=== PATIENT | male | born 1945 | race Caucasian/White ===

== ENCOUNTER 2016-07-05 20:30 | Emergency (ER) | payer MEDICARE ==
[2016-07-05 21:19] LABS: CH 32.3; CHCM 33.8; HCT 44.9 % (39.0-53.0); HDW 2.62; HGB 15.1 gm/dL (13.0-17.5); MCH 32.3 pg (25.0-35.0); MCHC 33.7 g/dL (31.0-37.0); MCV 95.8 fL (80.0-100.0); Mean Platelet Volume 7.3; RBC 4.68 m/uL (4.30-5.90); RDW 13.7 % (11.5-15.5); WBC (Perox) 13.09
--- NOTE | 2016-07-05 21:24 | XR ---
EXAMINATION TYPE: XR chest 2V DATE OF EXAM: 07/05/2016 9:19 PM COMPARISON: 10/14/2015 HISTORY: Rib pain and coughing TECHNIQUE: Frontal and lateral views of the chest are obtained. FINDINGS: There is elevated right diaphragm. There is no heart failure. Heart size is normal. There are no hilar masses. Bony thorax appears intact. IMPRESSION: There is chronic elevated right diaphragm with no change compared to old exam. This coul d relate to paralysis. There is probably interposition of the hepatic flexure of the colon. Normal he art. No rib fracture seen.
--- NOTE | 2016-07-05 21:26 | ED ---
General Adult HPI - General Chief complaint: Abdominal Pain Stated complaint: Abd Pain Time Seen by Provider: 07/05/16 20:39 Source: patient, family, RN notes reviewed, old records reviewed Mode of arrival: ambulatory Limitations: no limitations - History of Present Illness Initial comments: 70-year-old male presenting for right lower anterolateral rib pain. Patient states that he was sick last week with a cough. States that these symptoms have resolved. However he has developed right lower rib pain over the past few days. This is made worse with deep inspiration. He denies any significant abdominal pain. However he does state that he has some baseline constipation although this is not worsened. He denies any substernal chest pain. States he was also mainly concerned because he has been told twice over the past 6 weeks that he has had an elevated white blood cell count level in the outpatient testing. States he wants to know what the cause of this is. He denies any chest pain or shortness of breath. - Related Data Home Medications Medication Instructions Recorded Confirmed Aspirin 81 mg PO QAM 07/28/13 07/05/16 Atorvastatin Calcium [Lipitor] 40 mg PO HS 07/28/13 07/05/16 Citalopram Hydrobromide [CeleXA] 20 mg PO HS 07/28/13 07/05/16 Clopidogrel [Plavix] 75 mg PO QAM 07/28/13 07/05/16 Famotidine [Pepcid] 20 mg PO QAM 07/28/13 07/05/16 Lisinopril [Zestril] 2.5 mg PO HS 07/28/13 07/05/16 Nitroglycerin Sl Tabs [Nitrostat] 0.4 mg SUBLINGUAL Q5M PRN 07/28/13 07/05/16 Albuterol Sulfate [Proair Hfa] 2 puff INHALATION RT-QID 07/30/13 07/05/16 Beclomethasone Dipropionate [Qvar 1 puff INHALATION RT-BID 08/02/13 07/05/16 80 mcg/puff] Montelukast [Singulair] 10 mg PO HS 08/02/13 07/05/16 Fluticasone Nasal [place] [Flonase 1 spray EA NOSTRIL DAILY PRN 07/05/16 07/05/16 Nasal [place]] Metoprolol Tartrate [Lopressor] 12.5 mg PO BID 07/05/16 07/05/16 Allergies Allergy/AdvReac Type Severity Reaction Status Date / Time No Known Allergies Allergy Verified 07/05/16 21:26 Review of Systems ROS Statement: Those systems with pertinent positive or pertinent negative responses have been documented in the HPI. ROS Other: All systems not noted in ROS Statement are negative. Past Medical History Past Medical History: Asthma, Chest Pain / Angina, COPD, CVA/TIA, GERD/Reflux, Skin Disorder, Sleep Apnea/CPAP/BIPAP Additional Past Medical History / Comment(s): TIA approx 1996, psoriasis, History of Any Multi-Drug Resistant Organisms: None Reported Past Surgical History: Heart Catheterization With Stent, Tonsillectomy Additional Past Surgical History / Comment(s): 3 cardiac stents, metal removed from left hand, gokul cataracts with lens implant, polyps removed nasal Past Anesthesia/Blood Transfusion Reactions: No Reported Reaction Date of Last Stent Placement:: approx 7 yrs ago Past Psychological History: No Psychological Hx Reported Smoking Status: Former smoker Past Alcohol Use History: None Reported Additional Past Alcohol Use History / Comment(s): started smoking as teen for 5 yrs- quit smoking age 22 Past Drug Use History: None Reported - Past Family History Mother Family Medical History: No Reported History General Exam - General Exam Comments Initial Comments: General: Awake and Alert. No acute distress. Does not appear acutely ill. Eyes: DOMITILA, EOM intact. No nystagmus. No scleral icterus. HENT: Atraumatic, normocephalic. Mucous membranes moist. Trachea midline. Neck: The neck is supple, there is no tenderness or JVD. Cardiovascular: Regular rate and rhythm. No murmur, rub, or gallop is appreciated. Distal pulses intact. Respiratory: Lungs are clear to auscultation bilaterally. No wheezes, rales, rhonchi. No respiratory distress. Gastrointestinal: Soft, Nontender. No rebound or guarding. Non-distended. No masses or organomegaly noted. No CVA tenderness. Musculoskeletal: Point tenderness to right lower anterolateral rib. Otherwise MSK exam with no tenderness. Normal ROM. No gross deformity. No strength deficits. Neurological: A&Ox3. CN II-XII grossly intact, There are no obvious motor or sensory deficits. Coordination appears grossly intact. Speech is normal. Skin: Skin is warm and dry and no rashes or lesions are noted. Psychiatric: Cooperative, appropriate mood & affect, normal judgment. Limitations: no limitations Course Vital Signs 07/05/16 20:34 Temperature 98.4 F Pulse Rate 100 Respiratory 20 Rate Blood Pressure 133/95 O2 Sat by Pulse 96 Oximetry EKG Findings - EKG Comments: EKG Findings:: EKG 21:01. Normal sinus rhythm. Rate 93. Normal axis. No STEMI. Normal EKG. Medical Decision Making - Medical Decision Making 70-year-old male presenting for right lower anterolateral rib pain. This pain is reproducible on exam. Patient states he had a cough this past week which has resolved. Patient denies any substernal chest pressure. Contrary to triage note, he denies any abdominal pain. Abdominal exam is benign without evidence of tenderness or peritonitis. Lab workup was performed with mild leukocytosis, although this is nonspecific. In the setting of chronic elevation per patient history, etiology is unknown. I discussed this with patient. Discussed nonspecific nature of white blood cell elevation and need for further follow-up by PCP. Discussed lower suspicion of acute infectious etiology at this time. Chest x-ray was performed with no acute process, chronic right hemidiaphragm elevation was noted. Discussed that his right rib pain is likely secondary to musculoskeletal cause after his recent cough. Recommend Tylenol for pain management. Patient otherwise denies any significant complaints at this time. Does not appear to require further workup. Low suspicion of ACS or PE at this time. Patient declined any pain medication the ED. Discussed concerning signs symptoms for immediate return to the ED. Patient is agreeable with plan and discharge home. - Lab Data Result diagrams: 07/05/16 21:10 07/05/16 21:10 Lab Results 07/05/16 07/05/16 Range/Units 21:10 21:10 WBC 13.0 H (3.8-10.6) k/uL RBC 4.68 (4.30-5.90) m/uL Hgb 15.1 (13.0-17.5) gm/dL Hct 44.9 (39.0-53.0) % MCV 95.8 (80.0-100.0) fL MCH 32.3 (25.0-35.0) pg MCHC 33.7 (31.0-37.0) g/dL RDW 13.7 (11.5-15.5) % Plt Count 225 (150-450) k/uL Neutrophils % (Manual) 36.0 % Lymphocytes % (Manual) 45.0 % Monocytes % (Manual) 11.0 % Eosinophils % (Manual) 8.0 % Neutrophils # (Manual) 4.7 (1.3-7.7) k/uL Lymphocytes # (Manual) 5.9 H (1.0-4.8) k/uL Monocytes # (Manual) 1.4 H (0-1.0) k/uL Eosinophils # (Manual) 1.0 H (0-0.7) k/uL Nucleated RBCs 0 (0-0) /100 WBC Manual Slide Review Performed Reactive Lymphocytes Present Sodium 140 (137-145) mmol/L Potassium 3.8 (3.5-5.1) mmol/L Chloride 103 (98-107) mmol/L Carbon Dioxide 28 (22-30) mmol/L Anion Gap 9 mmol/L BUN 14 (9-20) mg/dL Creatinine 0.80 (0.66-1.25) mg/dL Est GFR (MDRD) Af Amer >60 (>60 ml/min/1.73 sqM) Est GFR (MDRD) Non-Af >60 (>60 ml/min/1.73 sqM) Glucose 141 H (74-99) mg/dL Calcium 9.2 (8.4-10.2) mg/dL Total Bilirubin 0.9 (0.2-1.3) mg/dL AST 27 (17-59) U/L ALT 33 (21-72) U/L Alkaline Phosphatase 89 (38-126) U/L Total Protein 6.6 (6.3-8.2) g/dL Albumin 3.8 (3.5-5.0) g/dL Lipase 140 (23-300) U/L - EKG Data -: EKG Interpreted by Nm EKG shows normal: sinus rhythm Rate: normal - Radiology Data Radiology results: report reviewed, image reviewed Disposition Clinical Impression: Rib pain on right side, Leukocytosis Disposition: HOME SELF-CARE Condition: Stable Instructions: Costochondritis (ED) Additional Instructions: Please follow up with your regular doctor to follow your elevated white blood cell count. You may take Tylenol for pain as needed. Referrals: Chadd Stuart MD [Primary Care Provider] - 1-2 days Time of Disposition: 22:19
[2016-07-05 21:29] LABS: ALT 33 U/L (21-72); AST 27 U/L (17-59); Alkaline Phosphatase 89 U/L (38-126); Anion Gap 9 mmol/L; Blood Urea Nitrogen 14 mg/dL (9-20); Calcium 9.2 mg/dL (8.4-10.2); Carbon Dioxide 28 mmol/L (22-30); Chloride 103 mmol/L (98-107); Glucose 141 mg/dL (74-99); Non-African American GFR(MDRD) >60 (>60 ml/min/1.73 sqM); Potassium 3.8 mmol/L (3.5-5.1); Sodium 140 mmol/L (137-145); Total Bilirubin 0.9 mg/dL (0.2-1.3); Total Protein 6.6 g/dL (6.3-8.2)
[2016-07-05 21:58] LABS: Add Differential Manual Differential
[2016-07-05 21:59] LABS: Manual Review Performed; Nucleated Red Blood Cells 0 /100 WBC (0-0); Reactive Lymphocytes Present; Total Cells Counted 100
[2016-07-05 22:43] VITALS: BP 142/93; PULSE 94; RESP 18; TEMP 97.8
== END 2016-07-05 22:42 | disposition home or self-care (01) ==
LOC: EC 20:30
DX: R07.81 Pleurodynia (principal); D72.829 Elevated white blood cell count, unspecified; J45.909 Unspecified asthma, uncomplicated; K21.9 Gastro-esophageal reflux disease without esophagitis; Z86.73 Personal history of transient ischemic attack (TIA), and cerebral infarction without residual deficits; Z87.891 Personal history of nicotine dependence; Z79.51 Long term (current) use of inhaled steroids; Z79.82 Long term (current) use of aspirin; Z79.01 Long term (current) use of anticoagulants; Z79.899 Other long term (current) drug therapy
CPT/HCPCS: 36415; 71020; 80053; 83690; 85025; 93005; 99284

== ENCOUNTER → 2016-12-03 | Outpatient (CLI) | payer MEDICARE ==
--- NOTE | 2016-12-03 10:37 | ECHOF ---
Referral Reason:I25.10 atherosclerotic heart dis MEASUREMENTS -------- HEIGHT: 172.7 cm WEIGHT: 84.8 kg BP: 125/70 IVSd: 1.2 cm (0.6 - 1.1) LVIDd: 5.1 cm (3.9 - 5.3) LVPWd: 1.1 cm (0.6 - 1.1) IVSs: 1.2 cm LVIDs: 4.7 cm LVPWs: 1.1 cm Ao Diam: 3.7 cm (2.0 - 3.7) AV Cusp: 1.0 cm (1.5 - 2.6) MV EXCURSION: 13.883 mm (> 18.000) MV EF SLOPE: 48 mm/s (70 - 150) EPSS: 2.1 cm MV E Arturo: 0.68 m/s MV DecT: 266 ms MV A Arturo: 0.87 m/s MV E/A Ratio: 0.78 AV maxP.92 mmHg AV meanP.28 mmHg AR PHT: 546 ms RAP: 5.00 mmHg RVSP: 16.53 mmHg FINDINGS -------- Sinus rhythm. This was a technically adequate study. There is mild concentric left ventricular hypertrophy. Overall left ventricular systolic function is low-normal with, an EF between 50 - 55 %. The right ventricle is normal in size. The right atrial size is normal. There is moderate aortic valve sclerosis. There is moderate aortic regurgitation. Moderate to severe aortic stenosis with peak/mean pressure gradient of 59.92mmHg / 41.28mmHg, the aortic valve area by continuity equation is 0.8cm. Mild mitral regurgitation is present. Mild tricuspid regurgitation present. There is no evidence of pulmonary hypertension. The right ventricular systolic pressure, as measured by Doppler, is 16.53mmHg. Trace/mild (physiologic) pulmonic regurgitation. The aortic root size is normal. There is no pericardial effusion. CONCLUSIONS -------- 1. There is mild concentric left ventricular hypertrophy. 2. Trace/mild (physiologic) pulmonic regurgitation. 3. The aortic root size is normal. 4. There is no pericardial effusion. 5. Overall left ventricular systolic function is low-normal with, an EF between 50 - 55 %. 6. There is moderate aortic valve sclerosis. 7. There is moderate aortic regurgitation. 8. Moderate to severe aortic stenosis with peak/mean pressure gradient of 59.92mmHg / 41.28mmHg, the aortic valve area by continuity equation is 0.8cm. 9. Mild mitral regurgitation is present. 10. Mild tricuspid regurgitation present. 11. There is no evidence of pulmonary hypertension. 12. The right ventricular systolic pressure, as measured by Doppler, is 16.53mmHg. SENIOR ELECTRONICS TECHNICIAN: Jennifer Reeves RDCS
== END | disposition home or self-care (01) ==
LOC: RADECHMAIN 08:13
PROVIDERS: ATTEND Internal Medicine Geriatric Medicine
DX: I08.3 Combined rheumatic disorders of mitral, aortic and tricuspid valves (principal); I25.10 Atherosclerotic heart disease of native coronary artery without angina pectoris
CPT/HCPCS: 93306

== ENCOUNTER 2017-01-20 10:58 | Day surgery (SDC) | payer MEDICARE ==
[2017-01-13 12:00] VITALS: BMI 28.4
[~2017-01-20 10:58] MED LIST: ALPRAZolam 0.25 MG TAB PO PRN; ALPRAZolam 0.5 MG TAB PO PRN; ASPIRIN 325 MG TAB PO STA; ATORVASTATIN 80 MG TAB PO STA; NITROGLYCERIN SL TABS 0.4 MG TAB SUBLINGUAL PRN; SODIUM CHLORIDE 0.9% 1,000 ML in EMPTY BAG 1 BAG IV ONE
[2017-01-20] MEDS ORDERED: ASPIRIN 81 MG ONE (11:19)
[2017-01-20 11:25] VITALS: RESP 16; TEMP 98
[2017-01-20] MEDS ORDERED: SODIUM CHLORIDE 0.9% 1,000 ML IV ONE (11:37)
[2017-01-20 11:50] LABS: Anion Gap 9 mmol/L; Blood Urea Nitrogen 20 mg/dL (9-20); Calcium 9.4 mg/dL (8.4-10.2); Carbon Dioxide 24 mmol/L (22-30); Chloride 107 mmol/L (98-107); Glucose 79 mg/dL (74-99); Non-African American GFR(MDRD) >60 (>60 ml/min/1.73 sqM); Sodium 140 mmol/L (137-145)
[2017-01-20 11:52] LABS: Potassium 4.7 mmol/L (3.5-5.1)
[2017-01-20] MEDS ORDERED: MIDAZOLAM 2 MG/2 ML VIAL ONE (12:11)
[2017-01-20] MEDS ORDERED: fentaNYL (PF) 50 MCG/ML 2 ML AMP ONE (12:11)
[2017-01-20] MEDS: BENZOCAINE SPRAY 1 CAN MUCOUS MEM ONE ×2 (12:29→12:33)
[2017-01-20] MEDS ORDERED: MIDAZOLAM 2 MG/2 ML VIAL IV ONE (12:33)
[2017-01-20] MEDS: MIDAZOLAM 2 MG/2 ML VIAL IV ONE ×2 (12:37→12:39)
[2017-01-20] MEDS ORDERED: fentaNYL (PF) 50 MCG/ML 2 ML AMP IV ONE (12:39)
[2017-01-20] MEDS ORDERED: PROPOFOL 10 MG/ML 20 ML VIAL IV ONE (12:51)
[2017-01-20] MEDS ORDERED: ePHEDrine SULFATE/0.9% NACL/PF 50 MG/5 ML SYRINGE IV ONE (12:51)
[2017-01-20] MEDS ORDERED: LIDOCAINE 2% INJ 20 MG/ML (20 ML MDV) ONE (13:21)
[2017-01-20] MEDS ORDERED: IV FLUID CONTINUATION 1,000 ML IV ONE (13:28)
[2017-01-20] MEDS: LIDOCAINE 2% INJ 20 MG/ML SQ ONE ×2 (13:32→13:42)
[2017-01-20] MEDS ORDERED: IOHEXOL 350 MG/ML 125ML BOTTLE INJ ONE (13:42)
--- NOTE | 2017-01-20 13:49 | ECHOT ---
TRANSESOPHAGEAL ECHOCARDIOGRAM DATE OF SERVICE: 01/20/2017 PERFORMING PHYSICIAN: Patrick Ricardo MD, Safety Associate. PROCEDURE PERFORMED: Transesophageal echocardiogram. INDICATION: This is a pleasant 71-year-old gentleman who was experiencing shortness of breath as well as fatigue. He underwent transthoracic echocardiogram and that revealed evidence of moderate aortic regurgitation and severe aortic stenosis. He was brought today for further clarification. LEVEL OF SEDATION: The sedation was performed under general anesthesia with a PAPERBOARD BOX MAKER in the room. PROCEDURE DESCRIPTION: After obtaining an informed consent, explaining the procedure, benefits, risks, complications and alternatives, the patient was brought to the transesophageal echocardiogram suite. A pulse oximetry and heart rate monitors were attached to the patient prior to the procedure. The patient's throat was sprayed using lidocaine locally. Following that, the patient was turned into left lateral position. A bite guard was placed and the patient was then sedated with the above doses of Versed and fentanyl in divided doses. Following that, the transesophageal echocardiogram probe was advanced through the bite guard into the mid esophagus where 2-D echocardiogram images as well as color Doppler images of various cardiac structures were obtained. We evaluated the interatrial septum using 2-D echocardiogram, color Doppler, and contrast study. The procedure was completed. There were no complications. FINDINGS: The left ventricular dimension and systolic function appeared to be within normal limits. The ejection fraction about 55% with A normal wall motion. The right ventricle is mildly dilated. The left atrium is mildly dilated as well as the right atrium. The left atrial appendage appeared to be free from any thrombus. The interatrial septum appeared to be intact without any evidence of shunt. The aortic valve is thickened and calcified with restriction to opening and evidence of severe aortic stenosis by area which was 1 cm2 and gradient which was mean of 42 mmHg. The mitral valve seems to be also mildly thickened with mild MR. CONCLUSION: 1. Aortic sclerosis with evidence of severe aortic stenosis by area and gradient as well as moderate aortic insufficiency. 2. Thickened mitral valve leaflets with mild mitral regurgitation. 3. Normal tricuspid valve and pulmonic valve. 4. Normal left ventricular dimension and systolic function. 5. Mild concentric left ventricular hypertrophy. 6. Normal interatrial septum without any evidence of shunt. 7. Normal left atrial appendage. 8. No evidence of pericardial effusion. MMODL / IJN: [id number] /
[2017-01-20] MEDS ORDERED: RX INFO: IV CONTRAST WAS GIVEN 1 EACH MISC MISCELLANE PRN (13:50)
[2017-01-20] MEDS ORDERED: SODIUM CHLORIDE 0.9% 1,000 ML IV SCH (14:00)
--- NOTE | 2017-01-20 14:49 | CC ---
CARDIAC CATHETERIZATION REPORT DATE OF SERVICE: January 20, 2017 PERFORMING PHYSICIAN: Patrick Ricardo MD, foundry supervisor. PROCEDURE PERFORMED: Selective right and left coronary angiogram. INDICATION: This is a pleasant 71-year-old gentleman who was brought today to undergo transesophageal echocardiogram and heart catheterization for severe aortic stenosis by transthoracic echocardiogram. APPROACH: Right common femoral artery. COMPLICATION: None. LEVEL OF SEDATION: Moderate with sedation length of 15 minutes. PROCEDURE DESCRIPTION: After obtaining informed consent, the patient was brought to cardiac dental laboratory manager. The right common femoral artery was cannulated using micropuncture technique and a micropuncture wire passed easily. Then I placed a 6-[place] sheath in the right common femoral artery. After that, I did selective right and left coronary angiogram using JR4 and JL-4 catheters. After that, the procedure was completed without any complication. SELECTIVE CORONARY ANGIOGRAM: 1. The RCA is a large caliber vessel and it is a dominant vessel. The proximal RCA has mild disease only. The mid RCA is stented and the stent is patent. The distal RCA is angiographically normal and bifurcates into PDA and PLV branches both are angiographically normal. 2. The left main is angiographically normal. It bifurcates into the circumflex and left anterior descending artery. The left circumflex is a large caliber vessel and it is a nondominant vessel. The proximal circ is angiographically normal and gives rise into a large OM branch which trifurcates into 3 subbranches and the and the first OM is angiographically normal and the circumflex continued after that as a small-caliber vessel in the AV groove. 3. The left anterior descending artery: The proximal LAD appeared to be angiographically normal. The mid LAD is stented and the stent is patent. The LAD distally is angiographically normal. CONCLUSION: 1. Patent stent in both the RCA and LAD. 2. Maximize medical treatment. 3. Follow up with the patient. MMODL / IJN: [id number] /
--- NOTE | 2017-01-20 14:49 | LTR ---
DATE OF SERVICE: January 20, 2017. Dear Dr. Stuart: Mr. Wesley Augustine underwent today a transesophageal echocardiogram as well as a heart catheterization for further evaluation of aortic stenosis. The transesophageal echocardiogram revealed severe aortic stenosis by gradient as well as by area. The heart catheterization revealed patent stents in both the RCA and LAD. He is going to be discharged home later on today. I will discuss with him the option regarding the aortic valve, which includes surgical versus percutaneous aortic valve replacement. I want to thank you for allowing me to participate in his care and please do not hesitate to call if you have any questions or concern. MMODL / IJN: [id number] /
[2017-01-20 18:08] VITALS: BP 105/68
[2017-01-20 18:43] VITALS: PULSE 69
== END 2017-01-20 18:44 | disposition home or self-care (01) ==
LOC: CATHCVL 10:58
PROVIDERS: ATTEND Internal Medicine Interventional Cardiology
DX: I08.0 Rheumatic disorders of both mitral and aortic valves (principal); I70.0 Atherosclerosis of aorta; I11.9 Hypertensive heart disease without heart failure; I25.10 Atherosclerotic heart disease of native coronary artery without angina pectoris; Z95.5 Presence of coronary angioplasty implant and graft; E78.00 Pure hypercholesterolemia, unspecified; Z79.02 Long term (current) use of antithrombotics/antiplatelets; Z79.82 Long term (current) use of aspirin; Z79.51 Long term (current) use of inhaled steroids; Z79.899 Other long term (current) drug therapy; Z87.891 Personal history of nicotine dependence
CPT/HCPCS: 93312; 93320; 93325; 93454; 80048; C1894; C1769 ×2; C1760; J2001; J2250; J3010; Q9967

== ENCOUNTER → 2017-02-25 | Outpatient (CLI) | payer MEDICARE ==
[2017-02-25 09:59] LABS: Appearance,Urine Clear (Clear); Bilirubin,Urine Negative (Negative); Blood,Urine Negative (Negative); Color,Urine Yellow; Glucose,Urine (UA) Negative (Negative); Ketones,Urine Negative (Negative); Leukocyte Esterase,Urine Negative (Negative); Nitrite,Urine Negative (Negative); PH, Urine 5.5 (5.0-8.0); Protein,Urine Negative (Negative); Specific Gravity,Urine 1.019 (1.001-1.035); Urobilinogen,Urine <2.0 mg/dL (<2.0)
[2017-02-25 10:20] LABS: HCT 46.3 % (39.0-53.0); HGB 15.2 gm/dL (13.0-17.5); INR 1.1 (<1.2); MCH 32.8 pg (25.0-35.0); MCHC 32.9 g/dL (31.0-37.0); MCV 99.9 fL (80.0-100.0); Mean Platelet Volume 7.5; Partial Thromboplastin Time 23.8 sec (22.0-30.0); Platelet Count 179 k/uL (150-450); Prothrombin Time 10.6 sec (9.0-12.0); RBC 4.64 m/uL (4.30-5.90); RDW 13.1 % (11.5-15.5); WBC 21.8 k/uL (3.8-10.6)
[2017-02-25 10:26] LABS: ALT 58 U/L (21-72); AST 38 U/L (17-59); Alkaline Phosphatase 110 U/L (38-126); Anion Gap 9 mmol/L; Blood Urea Nitrogen 16 mg/dL (9-20); Calcium 9.9 mg/dL (8.4-10.2); Carbon Dioxide 30 mmol/L (22-30); Chloride 103 mmol/L (98-107); Cholesterol 116 mg/dL (<200); Glucose 98 mg/dL (74-99); HDL Cholesterol 40 mg/dL (40-60); LDL Cholesterol,Calculated 53 mg/dL (0-99); Magnesium 2.1 mg/dL (1.6-2.3); Potassium 4.4 mmol/L (3.5-5.1); Sodium 142 mmol/L (137-145); Total Bilirubin 1.2 mg/dL (0.2-1.3); Total Protein 6.9 g/dL (6.3-8.2); Triglycerides 116 mg/dL (<150)
[2017-02-25 11:13] LABS: Eosinophils # (M) 6.76 k/uL (0-0.7); Lymphocytes # (M) 9.81 k/uL (1.0-4.8); Monocytes # (M) 1.09 k/uL (0-1.0); Neutrophils # (M) 4.14 k/uL (1.3-7.7); Neutrophils % (M) 19 %; Nucleated Red Blood Cells 0 /100 WBC (0-0); Total Cells Counted 100
--- NOTE | 2017-02-25 12:24 | XR ---
EXAMINATION TYPE: XR chest 2V DATE OF EXAM: 02/25/2017 COMPARISON: 10/14/2015 HISTORY: Preop cardiac surgery TECHNIQUE: Frontal and lateral views of the chest are obtained. FINDINGS: There is chronic elevation of the right hemidiaphragm resulting in right basilar atelectas is. There is no focal air space opacity, pleural effusion, or pneumothorax seen. The cardiac silhoue tte size is within normal limits. The osseous structures are intact. Surgical sutures are noted wi thin the right upper quadrant. IMPRESSION: Chronic right hemidiaphragm elevation and right basilar atelectasis. No acute cardiopulm onary process.
--- NOTE | 2017-02-25 13:02 | P.PN ---
Progress Note - Text Progress Note Date: 02/25/17 5 meter walk test: #1 5.40 sec #2 4.89 sec #3 5.69 sec
--- NOTE | 2017-02-25 13:04 | US ---
EXAMINATION TYPE: US carotid duplex BILAT DATE OF EXAM: 02/25/2017 COMPARISON: NONE CLINICAL HISTORY: PRE OP OPEN HEART. Pre cardiac valve replacement; TIA approximately 15 years ago EXAM MEASUREMENTS: RIGHT: Peak Systolic Velocity (PSV) cm/sec ----- Right CCA: 61.4 ----- Right ICA: 83.3 ----- Right ECA: 34.8 ICA/CCA ratio: 1.4 RIGHT: End Diastole cm/sec ----- Right CCA: 22.2 ----- Right ICA: 33.7 ----- Right ECA: 8.4 LEFT: Peak Systolic Velocity (PSV) cm/sec ----- Left CCA: 58.9 ----- Left ICA: 88.8 ----- Left ECA: 56.8 ICA/CCA ratio: 1.5 LEFT: End Diastole cm/sec ----- Left CCA: 21.0 ----- Left ICA: 37.0 ----- Left ECA: 12.8 VERTEBRALS (direction of flow): Right Vertebral: Antegrade Left Vertebral: Antegrade Rhythm: Normal Mild intimal wall changes are noted at bilateral carotid bifurcation bilaterally. IMPRESSION: Mild desai scale atheromatous plaquing of the carotid bulbs without hemodynamically signi ficant stenosis within either carotid arterial system.
[2017-02-25 17:10] LABS: Hepatitis A Antibody IgM Non-Reactive (Non-Reactive); Hepatitis B Core IgM Non-Reactive (Non-Reactive)
[2017-02-25 17:20] LABS: Hemoglobin A1C 5.9 % (4.0-6.0)
--- NOTE | 2017-03-05 09:53 | P.VSCSTY ---
Greater Saphenous Vein Mapping This is bilateral lower extremity greater saphenous vein mapping. Date of service 02/25/2017 Vein quality and ultrasound appearance normal. Vein size groin right 6.4 x 7 groin left 7.1 x 6.7 High thigh right 3.3 x 3.5 high thigh left 3.2 x 4.2 Mid thigh right 3.5 x 3.6 mid thigh left 2.8 x 3.7 Above-knee right 3.4 x 3.2 above- knee left 3.0 x 3.7 Below knee right 2.4 x 2.9 below-knee left 2.3 x 3.5 Mid calf right 2.0 x 2.6 mid calf left 2.4 x 3.2 Ankle right 2.0 x 2.6 ankle left 2.2 x 3.6 Impression usable bilateral greater saphenous vein..
== END | disposition home or self-care (01) ==
LOC: LABWHC1 07:49
PROVIDERS: ATTEND Surgery
DX: Z01.818 Encounter for other preprocedural examination (principal); I65.23 Occlusion and stenosis of bilateral carotid arteries; J98.6 Disorders of diaphragm; J98.11 Atelectasis
CPT/HCPCS: 36415; 71046; 80053; 80061; 80074; 81003; 83036; 83735; 83880; 84443; 84484; 85027; 85610; 85730; 87070; 87086; 93880; 93970; 94150

== ENCOUNTER → 2017-02-26 | Outpatient (CLI) | payer MEDICARE ==
[2017-02-26 14:23] LABS: HCT 47.6 % (39.0-53.0); HGB 14.7 gm/dL (13.0-17.5); MCH 31.8 pg (25.0-35.0); MCHC 30.8 g/dL (31.0-37.0); MCV 103.1 fL (80.0-100.0); Macrocytosis Slight; Mean Platelet Volume 8.2; Platelet Count 196 k/uL (150-450); RBC 4.61 m/uL (4.30-5.90); RDW 14.7 % (11.5-15.5); WBC 22.5 k/uL (3.8-10.6)
[2017-02-26 15:48] LABS: Eosinophils # (M) 5.85 k/uL (0-0.7); Lymphocytes # (M) 10.58 k/uL (1.0-4.8); Monocytes # (M) 0.23 k/uL (0-1.0); Neutrophils # (M) 5.85 k/uL (1.3-7.7); Neutrophils % (M) 26 %; Nucleated Red Blood Cells 0 /100 WBC (0-0); Total Cells Counted 100
[2017-02-26 15:49] LABS: Ovalocytes Present
== END | disposition home or self-care (01) ==
LOC: LABWHC1 13:37
PROVIDERS: ATTEND Surgery
DX: D72.820 Lymphocytosis (symptomatic) (principal)
CPT/HCPCS: 36415; 85025

== ENCOUNTER 2017-03-08 05:57 | Emergency (ER) | payer MEDICARE ==
--- NOTE | 2017-03-08 06:57 | XR ---
EXAMINATION TYPE: XR chest 2V DATE OF EXAM: 03/08/2017 HISTORY: cough. REFERENCE: Previous study dated 02/25/2017. FINDINGS: There is chronic appearing elevation the right hemidiaphragm. Heart size is within normal l imits. The lungs appear clear. There is mild blunting of the right CP angle. I could not exclude a sm all right effusion. IMPRESSION: I CANNOT EXCLUDE A SMALL RIGHT-SIDED EFFUSION.
[2017-03-08] MEDS ORDERED: predniSONE 20 MG TAB PO STA (07:25)
[2017-03-08] MEDS ORDERED: ALBUTEROL NEBULIZED 2.5 MG/3 ML INHALATION STA (07:25)
--- NOTE | 2017-03-08 07:25 | ED ---
URI HPI - General Chief Complaint: Upper Respiratory Infection Stated Complaint: Possible Flu Time Seen by Provider: 03/08/17 06:17 Source: patient Mode of arrival: ambulatory Limitations: no limitations - History of Present Illness MD Complaint: fever, cough, rhinorrhea, nasal congestion, other (Myalgias) Onset/Timin -: days(s) Severity: mild Consistency: constant Improves With: nothing Worsens With: nothing Associated Symptoms: fever, myalgias, rhinorrhea, cough - Related Data Home Medications Medication Instructions Recorded Confirmed Aspirin 81 mg PO QAM 07/28/13 03/08/17 Atorvastatin Calcium [Lipitor] 40 mg PO HS 07/28/13 03/08/17 Citalopram Hydrobromide [CeleXA] 20 mg PO HS 07/28/13 03/08/17 Clopidogrel [Plavix] 75 mg PO QAM 07/28/13 03/08/17 Famotidine [Pepcid] 20 mg PO QAM 07/28/13 03/08/17 Lisinopril [Zestril] 2.5 mg PO 07/28/13 03/08/17 Nitroglycerin Sl Tabs [Nitrostat] 0.4 mg SUBLINGUAL Q5M PRN 07/28/13 03/08/17 Albuterol Sulfate [Proair Hfa] 2 puff INHALATION QID 07/30/13 03/08/17 Beclomethasone Dipropionate [Qvar 1 puff INHALATION RT-BID 08/02/13 03/08/17 80 mcg/puff] Montelukast [Singulair] 10 mg PO HS 08/02/13 03/08/17 Fluticasone Nasal [place] [Flonase 1 spray EA NOSTRIL DAILY PRN 07/05/16 03/08/17 Nasal [place]] Metoprolol Tartrate [Lopressor] 12.5 mg PO BID 07/05/16 03/08/17 Previous Rx's Medication Instructions Recorded Promethazine 6.25MG/5Ml [Phenergan 5 ml PO Q4HR PRN #120 ml 03/08/17 Syrup] predniSONE 20 mg PO BID #8 tab 03/08/17 Allergies Allergy/AdvReac Type Severity Reaction Status Date / Time No Known Allergies Allergy Verified 02/25/17 10:04 Review of Systems ROS Statement: Those systems with pertinent positive or pertinent negative responses have been documented in the HPI. ROS Other: All systems not noted in ROS Statement are negative. Constitutional: Reports: fever ENT: Reports: congestion Respiratory: Reports: cough. Denies: dyspnea, wheezes, hemoptysis Cardiovascular: Denies: chest pain, palpitations Gastrointestinal: Denies: abdominal pain, vomiting, diarrhea Skin: Denies: rash Neurological: Denies: headache Past Medical History Past Medical History: Asthma, Chest Pain / Angina, COPD, CVA/TIA, GERD/Reflux, Skin Disorder, Sleep Apnea/CPAP/BIPAP Additional Past Medical History / Comment(s): STATES WAS TOLD AORTIC STENOSIS, TIA approx 1996, psoriasis NO CURRENT OUTBREAKS, USES CPAP, Leukemia History of Any Multi-Drug Resistant Organisms: None Reported Past Surgical History: Heart Catheterization With Stent, Tonsillectomy Additional Past Surgical History / Comment(s): 3 cardiac stents, metal removed from left hand, gokul cataracts with lens implant, polyps removed nasal, LOOP RECORDER Past Anesthesia/Blood Transfusion Reactions: No Reported Reaction Date of Last Stent Placement:: 2009 Past Psychological History: No Psychological Hx Reported Smoking Status: Former smoker Past Alcohol Use History: None Reported Past Drug Use History: None Reported - Past Family History Mother Family Medical History: No Reported History General Exam Limitations: no limitations General appearance: alert, in no apparent distress Head exam: Present: atraumatic, normocephalic Eye exam: Present: normal appearance. Absent: scleral icterus, conjunctival injection Respiratory exam: Present: normal lung sounds bilaterally. Absent: respiratory distress, wheezes, rales, rhonchi, stridor Cardiovascular Exam: Present: regular rate, normal rhythm, normal heart sounds. Absent: systolic murmur, diastolic murmur, rubs, gallop GI/Abdominal exam: Present: soft. Absent: tenderness, guarding, rebound Extremities exam: Present: normal inspection, normal capillary refill. Absent: pedal edema, calf tenderness Back exam: Present: normal inspection. Absent: CVA tenderness (R), CVA tenderness (L) Neurological exam: Present: alert Skin exam: Present: warm, dry, intact, normal color. Absent: rash Course Vital Signs 03/08/17 03/08/17 03/08/17 06:04 06:40 06:58 Temperature 96.9 F L 97.2 F L Pulse Rate 58 L 60 Respiratory 20 20 18 Rate Blood Pressure 115/58 107/57 O2 Sat by Pulse 97 98 Oximetry 03/08/17 03/08/17 03/08/17 07:35 07:49 08:01 Temperature 97.3 F L Pulse Rate 54 L 55 L 56 L Respiratory 20 14 14 Rate Blood Pressure 126/59 O2 Sat by Pulse 95 Oximetry Medical Decision Making - Medical Decision Making This patient is 71-year-old man with a constellation of symptoms pointing towards upper respiratory infection/viral syndrome. He is not having dyspnea or chest symptoms. We discussed appropriate further care and follow-up area - Lab Data Lab Results 03/08/17 Range/Units 06:28 Influenza Type A RNA Not Detected (Not Detectd) Influenza Type B (PCR) Not Detected (Not Detectd) Disposition Clinical Impression: Upper respiratory infection Disposition: HOME SELF-CARE Condition: Fair Instructions: Upper Respiratory Infection (ED) Prescriptions: predniSONE 20 mg PO BID #8 tab Promethazine 6.25MG/5Ml [Phenergan Syrup] 5 ml PO Q4HR PRN #120 ml PRN Reason: Cough Referrals: Chadd Stuart MD [Primary Care Provider] - 1-2 days
[2017-03-08 07:36] VITALS: BP 126/59; TEMP 97.3
[2017-03-08 07:52] VITALS: RESP 14
[2017-03-08 08:04] VITALS: PULSE 56
--- NOTE | 2017-03-11 01:41 | CDI ---
Documentation Clarification OP Dear Manolo PALACIOS MD Please do addendum to ED report for HPI , Physical exam and MDM. Thank you, Janna Menjivar Timber Feller If you have any question, Please contact medical coding technician at [phone] [facility]
== END 2017-03-08 08:03 | disposition home or self-care (01) ==
LOC: EC 05:57
DX: J06.9 Acute upper respiratory infection, unspecified (principal); J44.9 Chronic obstructive pulmonary disease, unspecified; K21.9 Gastro-esophageal reflux disease without esophagitis; G47.30 Sleep apnea, unspecified; Z99.89 Dependence on other enabling machines and devices; Z86.73 Personal history of transient ischemic attack (TIA), and cerebral infarction without residual deficits; Z85.6 Personal history of leukemia; Z87.891 Personal history of nicotine dependence; Z79.51 Long term (current) use of inhaled steroids; Z79.899 Other long term (current) drug therapy; Z79.01 Long term (current) use of anticoagulants; Z79.82 Long term (current) use of aspirin
CPT/HCPCS: 94640; 87502; 71046; 99284; J7512

== ENCOUNTER 2017-04-10 05:44 | Day surgery (SDC) | payer MEDICARE ==
[2017-04-08 09:28] VITALS: BMI 28.4
[~2017-04-10 05:44] MED LIST changes: -ALPRAZolam 0.25 MG TAB PO PRN; -ALPRAZolam 0.5 MG TAB PO PRN; -ASPIRIN 325 MG TAB PO STA; -ATORVASTATIN 80 MG TAB PO STA; +LACTATED RINGERS 1,000 ML IV SCH; +LIDOCAINE 1% 20 ML VIAL (10MG/ML) FOR IV START INTRADERMA PRN; -NITROGLYCERIN SL TABS 0.4 MG TAB SUBLINGUAL PRN; -SODIUM CHLORIDE 0.9% 1,000 ML in EMPTY BAG 1 BAG IV ONE
[2017-04-10 06:33] VITALS: TEMP 97.1
[2017-04-10] MEDS ORDERED: PROPOFOL 10 MG/ML 20 ML VIAL IV ONE (07:04)
[2017-04-10] MEDS ORDERED: LIDOCAINE 1% INJ 10MG/ML (20 ML MDV) ONE (07:04)
[2017-04-10 07:44] VITALS: RESP 16
[2017-04-10 07:58] VITALS: BP 119/82; PULSE 60
--- NOTE | 2017-04-10 08:42 | PCN ---
PROCEDURE NOTE DATE OF SERVICE: 04/10/2017 PREOPERATIVE DIAGNOSIS: Chronic lymphocytic leukemia. POSTOPERATIVE DIAGNOSIS: Chronic lymphocytic leukemia. PROCEDURE: Bone marrow aspirate and biopsy. SITE: Right iliac crest. ANESTHESIA: Local with IV systemic sedation. VICE PRESIDENT [employer] INSIGHTS: Loreto Valentine NP. DETAILS: Utilizing sterile technique, the skin overlying the right iliac crest was prepared with Betadine and alcohol. After adequate sterile draping, systemic sedation and local anesthesia with 1% lidocaine size 11, 4-inch Jamshidi needle was utilized to access the periosteum with ease. A total of 16 mL of aspirate as well as 3 cm bone core biopsies were obtained. The patient tolerated the procedure very well. There was no immediate procedure related complications. TOTAL BLOOD LOSS: 1 mL. RESULTS: Pending. MMODL / IJN: [id number] /
[2017-04-10 08:53] LABS: HCT 46.6 % (39.0-53.0); MCH 31.7 pg (25.0-35.0); MCHC 32.3 g/dL (31.0-37.0); Mean Platelet Volume 8.1; Platelet Count 206 k/uL (150-450); RBC 4.75 m/uL (4.30-5.90); RDW 13.2 % (11.5-15.5); WBC 19.2 k/uL (3.8-10.6)
[2017-04-10 09:08] LABS: MCV 98.1 fL (80.0-100.0)
[2017-04-10 09:58] LABS: Band Neutrophils % 2 %; Basophils # (M) 0.38 k/uL (0-0.2); Eosinophils # (M) 1.15 k/uL (0-0.7); Lymphocytes # (M) 11.52 k/uL (1.0-4.8); Monocytes # (M) 1.73 k/uL (0-1.0); Neutrophils % (M) 21 %; Nucleated Red Blood Cells 0 /100 WBC (0-0); Total Cells Counted 100
== END 2017-04-10 08:11 | disposition home or self-care (01) ==
LOC: OR 05:44
PROVIDERS: ATTEND Internal Medicine Hematology & Oncology
DX: J44.9 Chronic obstructive pulmonary disease, unspecified (principal); I10 Essential (primary) hypertension; E78.5 Hyperlipidemia, unspecified; Z95.5 Presence of coronary angioplasty implant and graft; Z79.02 Long term (current) use of antithrombotics/antiplatelets; Z79.82 Long term (current) use of aspirin; Z79.51 Long term (current) use of inhaled steroids; Z79.899 Other long term (current) drug therapy; C91.10 Chronic lymphocytic leukemia of B-cell type not having achieved remission
CPT/HCPCS: 38222; 85025; J2001; J2704

== ENCOUNTER → 2017-04-23 | Outpatient (CLI) | payer MEDICARE ==
[2017-04-23 13:38] LABS: Appearance,Urine Clear (Clear); Bilirubin,Urine Negative (Negative); Blood,Urine Negative (Negative); Color,Urine Yellow; Glucose,Urine (UA) Negative (Negative); Ketones,Urine Negative (Negative); Leukocyte Esterase,Urine Negative (Negative); Protein,Urine Negative (Negative); Specific Gravity,Urine 1.019 (1.001-1.035)
[2017-04-23 13:39] LABS: HCT 47.1 % (39.0-53.0); HGB 14.8 gm/dL (13.0-17.5); MCH 31.6 pg (25.0-35.0); MCHC 31.5 g/dL (31.0-37.0); MCV 100.3 fL (80.0-100.0); Mean Platelet Volume 7.7; Platelet Count 203 k/uL (150-450); WBC 16.1 k/uL (3.8-10.6)
[2017-04-23 13:45] LABS: Partial Thromboplastin Time 24.4 sec (22.0-30.0); Prothrombin Time 10.2 sec (9.0-12.0)
[2017-04-23 14:05] LABS: ALT 35 U/L (21-72); AST 29 U/L (17-59); Albumin 4.1 g/dL (3.5-5.0); Alkaline Phosphatase 91 U/L (38-126); Anion Gap 8 mmol/L; Blood Urea Nitrogen 19 mg/dL (9-20); Calcium 9.7 mg/dL (8.4-10.2); Carbon Dioxide 33 mmol/L (22-30); Chloride 100 mmol/L (98-107); Glucose 101 mg/dL (74-99); Potassium 4.6 mmol/L (3.5-5.1); Sodium 141 mmol/L (137-145); Total Bilirubin 1.6 mg/dL (0.2-1.3); Total Protein 6.7 g/dL (6.3-8.2)
[2017-04-23 15:18] LABS: Band Neutrophils % 1 %; Eosinophils # (M) 0.81 k/uL (0-0.7); Lymphocytes # (M) 9.82 k/uL (1.0-4.8); Monocytes # (M) 0.64 k/uL (0-1.0); Neutrophils % (M) 31 %; Nucleated Red Blood Cells 0 /100 WBC (0-0); Total Cells Counted 200
== END | disposition home or self-care (01) ==
LOC: LABPAT 12:39
PROVIDERS: ATTEND Surgery
DX: Z01.812 Encounter for preprocedural laboratory examination (principal); I35.0 Nonrheumatic aortic (valve) stenosis
CPT/HCPCS: 36415; 80053; 81003; 85025; 85610; 85730; 87070; 87086

== ENCOUNTER 2017-04-28 08:00 | Inpatient (IN) | payer MEDICARE ==
[2017-05-01] MEDS ORDERED: PROPOFOL 1,000 MG/100 ML VIAL IV ONE (05:00)
[2017-05-01] MEDS ORDERED: MANNITOL 25% 12.5 GM/50 ML VIAL IV ONE (05:00)
[2017-05-01] MEDS ORDERED: HEPARIN SODIUM,PORCINE 5,000 UNIT in SODIUM CHLORIDE 0.9% 500 ML IV ONE (05:00)
[2017-05-01] MEDS ORDERED: DEXTROSE 5% IN WATER 1,000 ML with POTASSIUM CHLORIDE 110 MEQ, MAGNESIUM SULFATE 16 MEQ... IV ONE ×5 (05:00)
[2017-05-01] MEDS ORDERED: NOREPINEPHRIN 4 MG-0.9% NS PMX 4 MG/250 ML ML IV ONE (05:00)
[2017-05-01] MEDS ORDERED: ATORVASTATIN 10 MG TAB PO ONE (05:00)
[2017-05-01] MEDS ORDERED: ALBUMIN HUMAN 25% 50 ML IV ONE (05:00)
[2017-05-01] MEDS ORDERED: PROTAMINE SULFATE 10 MG/ML 25 ML VIAL IV ONE ×2 (05:00→06:49)
[2017-05-01] MEDS ORDERED: LACTATED RINGERS 1,000 ML IV ONE (05:00)
[2017-05-01] MEDS ORDERED: MAGNESIUM SULFATE MG 500 MG/ML VIAL IV ONE (05:00)
[2017-05-01] MEDS ORDERED: PROTAMINE SULFATE 250 MG in EMPTY BAG 1 BAG IV ONE (05:00)
[2017-05-01] MEDS ORDERED: DEXTROSE 5% IN WATER 1,000 ML with POTASSIUM CHLORIDE 25 MEQ, SODIUM CHLORIDE 2.5MEQ/ML... IV ONE ×6 (05:00)
[2017-05-01] MEDS ORDERED: METOPROLOL TARTRATE 12.5 MG TAB PO ONE (05:00)
[2017-05-01] MEDS ORDERED: ASPIRIN 325 MG TAB PO ONE (05:00)
[2017-05-01] MEDS ORDERED: CLEVIDIPINE BUTYRATE 25 MG in EMPTY BAG 1 BAG IV ONE (05:00)
[2017-05-01] MEDS ORDERED: PHENYLEPHRINE-0.9% NACL SYG 1 MG/10 ML SYRINGE IV ONE (05:00)
[2017-05-01] MEDS ORDERED: ceFAZolin 2,000 MG in SODIUM CHLORIDE 0.9% 30 ML IVPB ONE ×4 (05:00)
[2017-05-01] MEDS ORDERED: SODIUM CHLORIDE 0.9% 1,000 ML IV ONE (05:00)
[2017-05-01] MEDS ORDERED: PHENYLEPHRINE 40 MG in SODIUM CHLORIDE 0.9% 250 ML IV ONE (05:00)
[2017-05-01] MEDS ORDERED: HEPARIN SODIUM 1,000 UN/ML (10ML VL) IV ONE (05:00)
[2017-05-01] MEDS ORDERED: MUPIROCIN 2% OINT 22 GM TUBE NASAL ONE (05:00)
[2017-05-01] MEDS ORDERED: CHLORHEXIDINE GLUCONATE 15 ML CUP MUCOUS MEM ONE (05:00)
[2017-05-01] MEDS ORDERED: INSULIN REGULAR 100 UNIT in SODIUM CHLORIDE 0.9% 100 ML IV ONE (05:00)
[2017-05-01] MEDS ORDERED: NITROGLYCERIN-D5W PMX 25 MG/250 ML BTL IV ONE (05:00)
[2017-05-01] MEDS ORDERED: TRANEXAMIC ACID 2,000 MG in SODIUM CHLORIDE 0.9% 180 ML IV ONE (05:00)
[2017-05-01] MEDS ORDERED: NITROGLYCERIN-D5W PMX 50 MG in DEXTROSE/WATER 1 250ML.BAG IV ONE (05:00)
[2017-05-01] MEDS ORDERED: SODIUM BICARB 8.4% 50 ML SYR (1 MEQ/ML) IV ONE (05:00)
[2017-05-01] MEDS ORDERED: NITROGLYCERIN SL TABS 0.4 MG TAB SUBLINGUAL ONE (05:00)
[2017-05-01] MEDS ORDERED: ceFAZolin 1,000 MG in SODIUM CHLORIDE 0.9% IRRIGATIO 1,000 ML IRRIGATION ONE (05:00)
[2017-05-01] MEDS ORDERED: ALBUMIN HUMAN 5% 500 ML IVPB ONE (05:00)
[2017-05-01] MEDS ORDERED: CALCIUM CHLORIDE 100 MG/ML 10 ML SYRINGE IV ONE (05:00)
[2017-05-01 06:02] LABS: Glucose,Whole Blood 78 mg/dL (75-99)
[2017-05-01] MEDS ORDERED: LIDOCAINE 2% SYG (PF) 100 MG/5 ML ONE (06:49)
[2017-05-01] MEDS ORDERED: TRANEXAMIC ACID 1,000 MG/10 ML VIAL ONE (06:49)
[2017-05-01] MEDS ORDERED: fentaNYL (PF) 50 MCG/ML 2 ML AMP ONE ×2 (06:49→19:47)
[2017-05-01] MEDS ORDERED: ePHEDrine SULFATE/0.9% NACL/PF 50 MG/5 ML SYRINGE IV ONE (06:49)
[2017-05-01] MEDS ORDERED: VECURONIUM 10 MG VIAL IV ONE ×3 (06:49→19:47)
[2017-05-01] MEDS ORDERED: SODIUM CHLORIDE 0.9% 250 ML BAG ONE (06:49)
[2017-05-01] MEDS ORDERED: HEPARIN SODIUM,PORCINE 10,000 UNIT/ML 1 ML VIAL ONE (06:49)
[2017-05-01] MEDS ORDERED: WATER FOR INJECTION, STERILE 10 ML VIAL IV ONE ×2 (06:49→19:47)
[2017-05-01] MEDS ORDERED: fentaNYL (PF) 50 MCG/ML 50 ML VIAL ONE ×2 (06:49→19:47)
[2017-05-01] MEDS ORDERED: ALBUMIN HUMAN 5% 500 ML VIAL IVPB ONE (06:49)
[2017-05-01] MEDS ORDERED: ALBUTEROL INHALER 60 PUFF/8 GM INHALER INHALATION ONE (06:49)
[2017-05-01] MEDS ORDERED: MIDAZOLAM 2 MG/2 ML VIAL ONE ×3 (06:49→19:47)
[2017-05-01] MEDS ORDERED: MAGNESIUM SULFATE 4 MEQ/ML 2 ML VIAL ONE (06:49)
[2017-05-01] MEDS ORDERED: MILRINONE-D5W PMX 20 MG in DEXTROSE/WATER 1 100ML.BAG IV ONE (11:45)
[2017-05-01] MEDS ORDERED: ALBUMIN HUMAN 5% 250 ML IVPB ONE (13:13)
[2017-05-01] MEDS ORDERED: ONDANSETRON 4 MG/2 ML VIAL IVP PRN (14:22)
[2017-05-01] MEDS ORDERED: Magnesium Replacement Protocol 1 EACH MISC MISCELLANE PRN (14:22)
[2017-05-01] MEDS ORDERED: Potassium Replacement Protocol 1 EACH MISC MISCELLANE PRN (14:22)
[2017-05-01] MEDS ORDERED: CALCIUM GLUCONATE 2,000 MG in SODIUM CHLORIDE 0.9% 100 ML IVPB PRN (14:22)
[2017-05-01] MEDS ORDERED: MILRINONE-D5W PMX 20 MG in DEXTROSE/WATER 1 100ML.BAG IV SCH ×2 (14:22→23:30)
[2017-05-01] MEDS ORDERED: BENZOCAINE/MENTHOL LOZENG 1 EACH LOZENGE MUCOUS MEM PRN (14:22)
[2017-05-01] MEDS ORDERED: MORPHINE SULFATE 4 MG/ML SYRINGE IVP PRN (14:22)
[2017-05-01] MEDS ORDERED: Phosphorus Replacement Protoco 1 EACH MISC MISCELLANE PRN (14:22)
[2017-05-01] MEDS ORDERED: NOREPINEPHRINE 4 MG in SODIUM CHLORIDE 0.9% 250 ML IV SCH (14:22)
[2017-05-01] MEDS: PROPOFOL 1,000 MG in EMPTY BAG 1 BAG IV SCH (15:00)
[2017-05-01] MEDS: LACTATED RINGERS 1,000 ML IV SCH (15:00)
[2017-05-01 15:04] LABS: Glucose,Whole Blood 132 mg/dL (75-99)
--- NOTE | 2017-05-01 15:04 | OP ---
OPERATIVE REPORT DATE OF THE SURGERY: 05/01/2017. SURGEON: Dr. Claire Villafuerte. PHONE SPECIALIST: 1. Rafael Aragon CPA. 2. Hong Norwood, physician office services assistant. PREOPERATIVE DIAGNOSES: Severe aortic valve stenosis, recently diagnosed chronic lymphocytic leukemia, status post multiple stenting for coronary artery disease with no flow-limiting lesion at this point, preserved left ventricular function, chronically elevated right hemidiaphragm, hypertension, hyperlipidemia, COPD, history of TIA. POSTOPERATIVE DIAGNOSIS: Severe trileaflet calcified aortic valve stenosis. PROCEDURE: 1. Aortic valve replacement using a 25 mm magna ease bovine pericardial bioprosthesis. 2. Transesophageal echocardiogram and epiaortic scanning. INDICATION FOR SURGERY: The patient is a 71-year-old gentleman referred for symptomatic severe aortic valve stenosis. His echo raised high suspicion of a bicuspid calcified aortic valve. His preoperative workup showed leukocytosis that seems to have been a problem being followed by his primary care physician. For that reason, he was referred to Hematology and eventually a diagnosis of chronic lymphocytic leukemia was placed. He was cleared for surgery and he was not on any treatment. Cath showed non-flow limiting lesions and overall patent stents. In view of this suspicion of bicuspid aortic valve, no transcatheter aortic valve replacement was entertained. Risks, benefits, and alternatives, and the particular risk of infection in view of his chronic lymphocytic leukemia were discussed with him. He understood and agreed to proceed. DESCRIPTION OF THE PROCEDURE: The patient in supine position. The right internal jugular [employer]Danay and a left radial arterial line were placed in the preoperative holding area. The pressure was 45 /20. His cardiac index was 2. Subsequently was brought to the operating room where general endotracheal anesthesia was induced uneventfully. Rodríguez catheter was inserted. The patient received 2 g of cefazolin intravenously. The chest, abdomen and both lower extremities were prepped and draped using ChloraPrep. Ioban was used to cover the skin. Transesophageal echocardiogram showed actually which seems to be a trileaflet severe aortic valve stenosis. Left ventricle function was preserved. There were no other significant valvular abnormalities. Review of the synovium was performed and the bone marrow was profusely bleeding. No bone wax was used. The mediastinal fat was resected transected between 2 ties. The aortic scanning revealed no protruding atheroma in the ascending aorta. Pericardium was opened in an inverted T-fashion and a pericardial cradle was created. Findings included a normal size heart and normal size soft aorta. After systemic heparinization and after placement of respective pledgeted pursestrings, aortic cannulation with a 21-Albanian soft flow cannula and venous cannulation with a 29/37 dual stage venous cannula via the right atrial appendage was performed. Antegrade as well as retrograde cardioplegia catheter were placed. Cardiopulmonary bypass was initiated and temperature was allowed to drift down to 34 degrees Celsius. During 63 minutes of aortic cross clamping myocardial protection was achieved with initial dose of 500 mL of antegrade cold blood cardioplegia followed by 500 mL of retrograde cold blood cardioplegia was adequate arrest at 200 mL. All subsequent doses were given retrograde at 15 minutes intervals. The aorta was opened in a transverse fashion about 1 cm above the sinotubular junction. Both coronary ostia were in normal position. The valve was trileaflet and severely calcified. We proceeded that excising the valve and decalcifying the anulus. Thorough irrigation was performed. The annulus was sized to a 25 mm magna ease pericardial bioprosthesis, which was prepared on the back table as we placed 17 sutures of interrupted 2-0 Tycron around the anulus with the pledgets on the ventricular side. All the sutures were passed into the valve, which seated nicely in a supra- annular position. The needles were cut and the suture tied using the cor knot device. Both coronary ostia were clear. Thorough irrigation performed 1 more time. Rewarming was started as we closed the aortotomy using Prolene 3-0 in 2 layers with the 1st layer being in a horizontal mattress fashion. The 2nd layer in an [id number]-[id number] technique. CO2 was flowing over the field as long as the aorta was opened. De-airing maneuvers were performed. Then unclamping followed. The patient eventually regained spontaneous sinus rhythm without the need of any defibrillation. VICENTE showed no paravalvular leak. Two monopolar atrial pacing wires were affixed to the pursestring on the right side of the atrium. Initially 1 bipolar ventricular pacing wires were driven over the anterior aspect of the right ventricle, but eventually that got cut at the end of the case, and I did replace it in view of the patient's friable tissue. We looked at the left atrial appendage and it was shrunken very posteriorly displaced and not amenable to exclusion.. The aortotomy closure line showed profuse bleeding from all needle holes. For that reason, we initially came off bypass and elected to load the patient with half load of Primacor as on the initial hemodynamics cardiac index was 2. He was on low-dose Levophed. VICENTE showed good left ventricular function. However, the right ventricular function was slightly depressed. The hemodynamics continued to improve.test dose than full dose protamine was given. We spent quite a bit of time trying to achieve hemostasis at the level of the aortotomy. A combination of pledgeted sutures, CoSeal was followed as well as giving the patient 6 units of platelets and 2 units of FFP. Again, there was an obvious coagulopathy as everything was profusely bleeding. Eventually we were able to achieve good hemostasis. Decannulation proceeded.. The aortic cannulation site and the retrograde cannulation site needed the enforcement. One 36 -Albanian substernal chest tube was placed. I intentionally opened the left pleura and placed a 28-Albanian chest tube in the left chest. The right pleura remained grossly intact. The mediastinal fat was approximated over the aorta and the root. After ensuring adequate hemostasis and hemodynamic and after correct sponge, instrument, and needle count, the sternum was approximated using 5 figure-of- eight pineal cable after interposing fibrillar between the sternal edges. Thorough irrigation of cefazolin followed. The rest of the closure proceeded in layers. Skin glue was applied. Patient did not receive blood bank blood, but received 1.5 L of Cell Saver blood in addition to 6 units of platelets and 2 units of FFP as mentioned above. He was transferred to the ICU in stable condition with a cardiac index 2.5 on low-dose Primacor with a PA pressure of 36/18, normal sinus rhythm at 63 with good conduction and mean artery pressure of 64. MMODL / IJN: [id number] / MTDD
[2017-05-01 15:23] LABS: ABG HCO3 24 mmol/L (21-25); ABG Oxygen Saturation 99.1 % (94-97); ABG PCO2 47 mmHg (35-45); ABG PH 7.32 (7.35-7.45); ABG PO2 >400 mmHg (83-108); ABG TCO2 26 mmol/L (19-24)
[2017-05-01 15:23] LABS: Anisocytosis Slight; Basophils % (A) 0 %; Eosinophils # (A) 0.1 k/uL (0-0.7); Eosinophils % (A) 1 %; HCT 22.2 % (39.0-53.0); Lymphocytes # (A) 2.2 k/uL (1.0-4.8); Lymphocytes % (A) 33 %; MCH 31.1 pg (25.0-35.0); MCHC 33.6 g/dL (31.0-37.0); Mean Platelet Volume 8.4; Monocytes # (A) 0.3 k/uL (0-1.0); Monocytes % (A) 4 %; Neutrophils % (A) 61 %; WBC 6.7 k/uL (3.8-10.6)
[2017-05-01 15:27] LABS: HGB 7.5 gm/dL (13.0-17.5); MCV 92.5 fL (80.0-100.0)
[2017-05-01 15:33] LABS: INR 1.5 (<1.2); Ionized Calcium 4.6 mg/dL (4.5-5.3); Partial Thromboplastin Time 57.7 sec (22.0-30.0); Prothrombin Time 13.6 sec (9.0-12.0)
[2017-05-01 15:40] LABS: ALT 137 U/L (21-72); AST 269 U/L (17-59); Alkaline Phosphatase 48 U/L (38-126); Anion Gap 7 mmol/L; Blood Urea Nitrogen 17 mg/dL (9-20); Calcium 7.5 mg/dL (8.4-10.2); Carbon Dioxide 24 mmol/L (22-30); Chloride 110 mmol/L (98-107); Glucose 112 mg/dL (74-99); Potassium 3.9 mmol/L (3.5-5.1); Sodium 141 mmol/L (137-145); Total Bilirubin 2.3 mg/dL (0.2-1.3); Total Protein 4.5 g/dL (6.3-8.2)
[2017-05-01] MEDS: CLEVIDIPINE BUTYRATE 25 MG in EMPTY BAG 1 BAG IV SCH (15:40)
--- NOTE | 2017-05-01 15:40 | XR ---
EXAMINATION TYPE: XR chest 1V portable DATE OF EXAM: 05/01/2017 COMPARISON: Prior chest x-ray 03/08/2017 HISTORY: Postop cardiac surgery TECHNIQUE: frontal view of the chest is obtained on 2 images. FINDINGS: Patient is post median sternotomy. Endotracheal tube is overlying the tracheal air column in close proximity to the rochelle. Right jugular central venous sheath, coaxial [place]-Danay catheter pre sent, distal tip of the catheter overlying the pulmonary artery. Left chest tube, median sternal drai n, NG tube in place, NG tube distal tip is overlying the stomach, side-port may be above the gastroes ophageal junction. Patient shows post aortic valve replacement. Basilar atelectatic changes are suspe cted bilaterally, lung volumes are low and the patient is rotated. There are overlying epicardial brandy ds. Right hemidiaphragm remains elevated. No sizable pneumothorax or pleural effusion is evident. IMPRESSION: Endotracheal and NG tube as described, report relayed to the patient's nurse at the time of interpretation of the exam telephonically. Atelectasis bilaterally at the lung bases. Rotated exp iratory exam, follow-up recommended.
[2017-05-01 15:44] LABS: Platelet Count 88 k/uL (150-450)
[2017-05-01 16:05] LABS: Glucose,Whole Blood 138 mg/dL (75-99)
[2017-05-01] MEDS: INSULIN REGULAR 100 UNIT in SODIUM CHLORIDE 0.9% 100 ML IV SCH (16:14)
[2017-05-01] MEDS: IPRATROPIUM-ALBUTEROL 3 ML NEB INHALATION SCH ×3 (16:15→23:45)
--- NOTE | 2017-05-01 16:19 | P.CNPUL ---
History of Present Illness Consult date: 05/01/17 Reason for consult: other (ICU management) Chief complaint: Severe aortic valve stenosis History of present illness: This is a 71-year-old gentleman who presented to the hospital for aortic valve replacement. The patient underwent procedure and was subsequently transferred to the intensive care unit. He remains intubated and on Primacor. The patient did receive multiple blood products intraoperatively. He has a known history of CLL, chronically elevated right hemidiaphragm, hypertension, dyslipidemia, COPD, history of TIA. The patient's bleeding has improved. He is oxygenating well. His ABGs reviewed. Review of Systems ROS unobtainable: due to endotracheal tube Past Medical History Past Medical History: Asthma, Chest Pain / Angina, COPD, CVA/TIA, GERD/Reflux, Skin Disorder, Sleep Apnea/CPAP/BIPAP Additional Past Medical History / Comment(s): STATES WAS TOLD AORTIC STENOSIS, TIA approx 1996, psoriasis NO CURRENT OUTBREAKS, USES CPAP, Leukemia,steroids Feb 2016 History of Any Multi-Drug Resistant Organisms: None Reported Past Surgical History: Heart Catheterization With Stent, Tonsillectomy Additional Past Surgical History / Comment(s): 3 cardiac stents, metal removed from left hand, gokul cataracts with lens implant, polyps removed nasal, LOOP RECORDER Past Anesthesia/Blood Transfusion Reactions: No Reported Reaction Date of Last Stent Placement:: 2009 Smoking Status: Former smoker - Past Family History Mother Family Medical History: Congestive Heart Failure (CHF) Medications and Allergies Home Medications Medication Instructions Recorded Confirmed Type Aspirin 81 mg PO QAM 07/28/13 05/01/17 History Atorvastatin Calcium [Lipitor] 40 mg PO HS 07/28/13 05/01/17 History Citalopram Hydrobromide [CeleXA] 20 mg PO HS 07/28/13 05/01/17 History Clopidogrel [Plavix] 75 mg PO QAM 07/28/13 05/01/17 History Famotidine [Pepcid] 20 mg PO QAM 07/28/13 05/01/17 History Lisinopril [Zestril] 2.5 mg PO HS 07/28/13 05/01/17 History Nitroglycerin Sl Tabs [Nitrostat] 0.4 mg SUBLINGUAL Q5M PRN 07/28/13 05/01/17 History Albuterol Sulfate [Proair Hfa] 2 puff INHALATION RT-QID PRN 07/30/13 05/01/17 History Beclomethasone Dipropionate [Qvar 1 puff INHALATION RT-BID 08/02/13 05/01/17 History 80 mcg/puff] Montelukast [Singulair] 10 mg PO HS 08/02/13 05/01/17 History Fluticasone Nasal [place] [Flonase 1 spray EA NOSTRIL DAILY 07/05/16 05/01/17 History Nasal [place]] Metoprolol Tartrate [Lopressor] 12.5 mg PO BID 07/05/16 05/01/17 History guaiFENesin [Mucinex] 600 mg PO HS PRN 04/24/17 05/01/17 History Allergies Allergy/AdvReac Type Severity Reaction Status Date / Time No Known Allergies Allergy Verified 05/01/17 05:56 Physical Exam Osteopathic Statement: *. No significant issues noted on an osteopathic structural exam other than those noted in the History and Physical/Consult. Vitals: Vital Signs Temp Pulse Pulse Resp BP BP BP 05/01/17 15:39 96.8 F L 95 20 110/70 05/01/17 15:35 96.8 F L 81 21 135/62 05/01/17 15:34 96.8 F L 83 20 122/55 05/01/17 15:32 96.8 F L 80 19 112/44 05/01/17 15:29 96.8 F L 81 20 118/52 05/01/17 15:19 96.8 F L 82 20 123/54 05/01/17 15:13 96.8 F L 82 20 126/56 05/01/17 15:07 97.0 F L 69 22 139/55 05/01/17 15:03 96.8 F L 77 18 126/56 05/01/17 05:59 97 F L 60 16 122/77 121/74 Pulse Ox 05/01/17 15:39 100 05/01/17 15:35 100 05/01/17 15:34 99 05/01/17 15:32 100 05/01/17 15:29 05/01/17 15:19 100 05/01/17 15:13 100 05/01/17 15:07 99 05/01/17 15:03 98 05/01/17 05:59 96 Intake and Output 05/01/17 05/01/17 05/01/17 06:59 14:59 22:59 Intake Total 848 517.167 Output Total 1999 Balance -1152 517.167 Intake: IV 32 Intake, IV Titration 0.167 Amount Clevidipine Butyrate 25 0.167 mg In Empty Bag 1 bag @ 1 MG/HR 2 mls/hr IV .Q24H [facility] Rx#:[id number] Blood Product 816 517 Ffp 24 Cpd Unit 0 [id number] Ffp 24 Cpd Unit 312 [id number] Ffp 24 Cpd Unit 300 [id number] Platelet Pheresis Acda1 301 Unit [id number] Platelet Pheresis Acda3 204 Unit [id number] Pooled Cryoprecipitate 114 Unit [id number] Pooled Cryoprecipitate 102 Unit [id number] Rc As-1 Unit 0 [id number] Output: Urine 500 Estimated Blood Loss 1500 Other: Weight 86 kg Gen.: Patient is intubated and sedated in the intensive care unit Cardiovascular: Regular rate and rhythm, S1/S2 Lungs: Coarse rhonchi bilaterally Abdomen: Soft nontender nondistended positive bowel sounds Extremities: Trace edema Results - Laboratory Findings CBC and BMP: 05/01/17 15:04 05/01/17 15:04 ABG ABG pH 7.32 (7.35-7.45) L 05/01/17 15:17 ABG pCO2 47 mmHg (35-45) H 05/01/17 15:17 ABG pO2 >400 mmHg (83-108) H 05/01/17 15:17 ABG O2 Saturation 99.1 % (94-97) H 05/01/17 15:17 PT/INR, D-dimer PT 13.6 sec (9.0-12.0) H 05/01/17 15:04 INR 1.5 (<1.2) H 05/01/17 15:04 Abnormal lab findings: Abnormal Labs 04/23/17 05/01/17 05/01/17 12:48 15:03 15:04 RBC 2.40 L Hgb 7.5 L D Hct 22.2 L RDW 16.0 H Plt Count 88 L D PT INR APTT Fibrinogen ABG pH ABG pCO2 ABG pO2 ABG Total CO2 ABG O2 Saturation Chloride Glucose POC Glucose (mg/dL) 132 H Calcium Total Bilirubin AST ALT Total Protein Albumin Crossmatch See Detail 05/01/17 05/01/17 05/01/17 15:04 15:04 15:17 RBC Hgb Hct RDW Plt Count PT 13.6 H INR 1.5 H APTT 57.7 H Fibrinogen 112 L ABG pH 7.32 L ABG pCO2 47 H ABG pO2 >400 H ABG Total CO2 26 H ABG O2 Saturation 99.1 H Chloride 110 H Glucose 112 H POC Glucose (mg/dL) Calcium 7.5 L Total Bilirubin 2.3 H AST 269 H ALT 137 H Total Protein 4.5 L Albumin 3.0 L Crossmatch 05/01/17 16:02 RBC Hgb Hct RDW Plt Count PT INR APTT Fibrinogen ABG pH ABG pCO2 ABG pO2 ABG Total CO2 ABG O2 Saturation Chloride Glucose POC Glucose (mg/dL) 138 H Calcium Total Bilirubin AST ALT Total Protein Albumin Crossmatch - Diagnostic Findings Chest x-ray: report reviewed, image reviewed U/S of Legs: report reviewed, image reviewed Assessment and Plan Assessment: Status post aortic valve replacement CLL ABLA Thrombocytopenia Transaminitis Asthma, moderate persistent, not acutely exacerbated SARAH with CPAP - mild, AHI 10.9 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 We will continue to follow along.
[2017-05-01] MEDS ORDERED: CALCIUM GLUCONATE 1,000 MG in SODIUM CHLORIDE 0.9% 100 ML IVPB STA (16:38)
[2017-05-01 17:05] LABS: Glucose,Whole Blood 182 mg/dL (75-99)
[2017-05-01] MEDS: ceFAZolin IN SWFI 2 GM/20 ML SYRINGE IVP SCH (17:44)
[2017-05-01 18:05] LABS: Glucose,Whole Blood 157 mg/dL (75-99)
[2017-05-01 18:14] LABS: ABG HCO3 25 mmol/L (21-25); ABG PCO2 44 mmHg (35-45); ABG PH 7.37 (7.35-7.45); ABG PO2 209 mmHg (83-108); ABG TCO2 27 mmol/L (19-24)
[2017-05-01 18:56] LABS: Anisocytosis Slight; Basophils % (A) 0 %; Eosinophils # (A) 0.1 k/uL (0-0.7); Eosinophils % (A) 2 %; HCT 21.5 % (39.0-53.0); HGB 7.4 gm/dL (13.0-17.5); Lymphocytes # (A) 1.1 k/uL (1.0-4.8); Lymphocytes % (A) 18 %; MCH 31.6 pg (25.0-35.0); MCHC 34.6 g/dL (31.0-37.0); MCV 91.4 fL (80.0-100.0); Monocytes # (A) 0.3 k/uL (0-1.0); Monocytes % (A) 5 %; Neutrophils # (A) 4.5 k/uL (1.3-7.7); Neutrophils % (A) 74 %; Platelet Count 104 k/uL (150-450); RBC 2.35 m/uL (4.30-5.90); RDW 16.1 % (11.5-15.5); WBC 6.1 k/uL (3.8-10.6)
[2017-05-01 19:01] LABS: Ionized Calcium 4.6 mg/dL (4.5-5.3)
[2017-05-01 19:07] LABS: INR 1.2 (<1.2); Partial Thromboplastin Time 30.2 sec (22.0-30.0); Prothrombin Time 11.3 sec (9.0-12.0)
--- NOTE | 2017-05-01 19:08 | XR ---
EXAMINATION TYPE: XR chest 1V portable DATE OF EXAM: 05/01/2017 COMPARISON: Prior chest x-ray same date earlier time HISTORY: Hypoxia, desaturations TECHNIQUE: Single frontal view of the chest is obtained. FINDINGS: Endotracheal tube and NG tube have been repositioned in the interval. Left chest tube mu ins in place, no evident pneumothorax. Interval obscured right hemidiaphragm and right heart border. Heart is stable. IMPRESSION: Interval progression of right lower lobe and possibly right middle lobe atelectasis, pos sible associated effusion. No other significant interval change, interval repositioning of the tubes as described.
[2017-05-01 19:09] LABS: ALT 140 U/L (21-72); AST 298 U/L (17-59); Albumin 3.3 g/dL (3.5-5.0); Alkaline Phosphatase 46 U/L (38-126); Anion Gap 10 mmol/L; Blood Urea Nitrogen 18 mg/dL (9-20); Carbon Dioxide 24 mmol/L (22-30); Chloride 108 mmol/L (98-107); Glucose 149 mg/dL (74-99); Magnesium 2.1 mg/dL (1.6-2.3); Phosphorus 1.6 mg/dL (2.5-4.5); Potassium 4.2 mmol/L (3.5-5.1); Sodium 142 mmol/L (137-145)
[2017-05-01 19:16] LABS: Poikilocytosis (M) Present
[2017-05-01] MEDS: ALBUMIN HUMAN 5% 250 ML in EMPTY BAG 1 BAG IVPB PRN (19:34)
[2017-05-01] MEDS ORDERED: LACTATED RINGERS 1,000 ML BAG IV ONE (19:47)
[2017-05-01] MEDS ORDERED: SODIUM CHLORIDE 0.9% 500 ML with HEPARIN SODIUM,PORCINE 5,000 UNIT IV ONE ×2 (20:40)
[2017-05-01] MEDS: BUDESONIDE 0.5 MG/2 ML NEBU INHALATION SCH (21:17)
[2017-05-01 22:13] LABS: Glucose,Whole Blood 149 mg/dL (75-99)
--- NOTE | 2017-05-01 22:20 | OP ---
OPERATIVE REPORT DATE OF THE SURGERY: 05/01/2017 SURGEON: Dr. Claire Villafuerte. PERMIT REVIEW ASSISTANT: Rafael CAMPBELL. PREOPERATIVE DIAGNOSIS: Status post aortic valve replacement, postoperative bleeding. POSTOPERATIVE DIAGNOSIS: Mediastinal clot with possible sternal bleeding. PROCEDURE: Redo sternotomy, exploration of the mediastinum, evacuation of clot and control of bleeding. INDICATION FOR SURGERY: The patient is a 71-year-old gentleman who underwent earlier in the day aortic valve replacement. He is a gentleman who was recently diagnosed with chronic lymphocytic leukemia. Intraoperatively we faced generalized coagulopathy that was partially corrected with product. In the intensive care unit and after initial honeymoon period of a couple of hours, he started to show increased evidence of mediastinal drain output. Eventually his coagulopathy was corrected by numbers and the mediastinal drainage was constant and averaging around 200 mL/hour. At this point we took the patient back for exploration. The risks, benefits and alternatives were The patient was still intubated since surgery. His son understood the risks and agreed for us to proceed. DESCRIPTION OF PROCEDURE: The patient was brought to the operating room and had been hemodynamically stable throughout. He was on low-dose Levophed. His cardiac index was 2.4. He received 1 gram of cefazolin. He had received 2 grams earlier, around 2 hours ago. The chest and abdomen were prepped and draped using ChloraPrep. Ioban was used to cover the skin. The skin was reopened and all suture material at the subcutaneous level removed. Subsequently the fascial layer was opened and suture material removed. Subsequent to that, all the [place] cables were retrieved. Upon opening the sternum, there was a fair amount of clot under the sternum, mainly on the left side. Quick exploration of that level revealed at least one site of previous cable that was showing evidence of arterial bleeding. We were not sure if this was new, being that we removed the cable and that was the reason for the excessive output. We certainly were worried about the aortotomy, which had showed issue in the initial case. However, aspiration of the aortotomy revealed appropriate seal with no evidence of any clot at that level. There was a minimal amount of fluid in the pericardium that was aspirated. The mediastinal chest tube was declogged. Again all the cannulation sites were checked, including the pacemaker atrial site, and there was no evidence of any bleeding. With that, attention was pulled back at exploring the underside of the sternum on both sides, and again aggressive cauterization of the periosteal border and potential bleeding sites was done. We were very satisfied at that time. However, we gave the patient units of platelets, as there was still evidence of kind of generalized coagulopathy. Thorough irrigation was performed. The sternum was closed using 7 interrupted stainless steel wires. There was no evidence of any bleeding at that level. The skin was approximated over 2 strips of . Thorough irrigation with cefazolin followed. The rest of the closure proceeded in layers. Skin glue was applied. The patient remained stable throughout and was transferred to the ICU in stable condition. VICENTE performed in the OR revealed preserved left ventricular and right ventricular function and a well-functioning aortic valve prosthesis. KRISTIAN / GERONIMON: [id number] /
--- NOTE | 2017-05-01 22:27 | XR ---
EXAMINATION TYPE: XR chest 1V portable DATE OF EXAM: 05/01/2017 COMPARISON: Today HISTORY: Bleeding TECHNIQUE: Single frontal view of the chest is obtained. FINDINGS: There is right jugular catheter with tip in the pulmonary artery. Endotracheal tube is 3 c m from the rochelle. There is mild pulmonary congestion. There is a left chest tube. There is a right c hest tube. I see no pneumothorax. There is blunting of costophrenic angles more on the right side. Th ere is a nasogastric tube with the tip over the stomach. Heart does not appear enlarged. IMPRESSION: There is evidence of mild heart failure. Small pleural effusion on the left side and lar johnna pleural effusion on the right side. No significant change compared to exam earlier today at 7:00 PM.
[2017-05-01 22:28] LABS: ABG Base Excess -1.5 mmol/L; ABG HCO3 24 mmol/L (21-25); ABG Oxygen Saturation 98.9 % (94-97); ABG PCO2 41 mmHg (35-45); ABG PH 7.37 (7.35-7.45); ABG PO2 140 mmHg (83-108); ABG TCO2 25 mmol/L (19-24)
[2017-05-01 22:50] LABS: Ionized Calcium 4.7 mg/dL (4.5-5.3)
[2017-05-01] MEDS: ACETAMINOPHEN IV (For NPO) 1,000 MG in EMPTY BAG 1 BAG IVPB SCH (22:54)
[2017-05-01 22:55] LABS: Magnesium 1.8 mg/dL (1.6-2.3); Phosphorus 2.2 mg/dL (2.5-4.5); Potassium 4.2 mmol/L (3.5-5.1)
[2017-05-01 23:03] LABS: Glucose,Whole Blood 137 mg/dL (75-99)
[2017-05-01 23:03] LABS: Anisocytosis Slight; Basophils % (A) 0 %; Eosinophils # (A) 0.1 k/uL (0-0.7); Eosinophils % (A) 1 %; HCT 26.1 % (39.0-53.0); HGB 8.7 gm/dL (13.0-17.5); Lymphocytes # (A) 1.5 k/uL (1.0-4.8); Lymphocytes % (A) 22 %; MCH 30.6 pg (25.0-35.0); MCHC 33.2 g/dL (31.0-37.0); Mean Platelet Volume 8.3; Monocytes # (A) 0.4 k/uL (0-1.0); Monocytes % (A) 6 %; Neutrophils # (A) 4.8 k/uL (1.3-7.7); Neutrophils % (A) 69 %; Platelet Count 107 k/uL (150-450); RBC 2.83 m/uL (4.30-5.90); WBC 6.9 k/uL (3.8-10.6)
[2017-05-02] MEDS ORDERED: HEPARIN SODIUM,PORCINE 5,000 UNIT/ML 1 ML VIAL SQ SCH
[2017-05-02] MEDS ORDERED: SODIUM PHOSPHATE 10 MMOL in SODIUM CHLORIDE 0.9% 100 ML IVPB ONE ×2
[2017-05-02 00:10] LABS: Glucose,Whole Blood 125 mg/dL (75-99)
[2017-05-02] MEDS: MAGNESIUM SULFATE-D5W PMX 1 GM in DEXTROSE/WATER 1 100ML.BAG IVPB SCH ×2 (00:15→01:43)
[2017-05-02] MEDS: ALBUMIN HUMAN 5% 250 ML in EMPTY BAG 1 BAG IVPB PRN (00:20)
[2017-05-02] MEDS: ceFAZolin IN SWFI 2 GM/20 ML SYRINGE IVP SCH ×2 (01:00→08:58)
[2017-05-02 01:05] LABS: Glucose,Whole Blood 122 mg/dL (75-99)
[2017-05-02] MEDS: PROPOFOL 1,000 MG in EMPTY BAG 1 BAG IV SCH (01:05)
[2017-05-02] MEDS: ACETAMINOPHEN IV (For NPO) 1,000 MG in EMPTY BAG 1 BAG IVPB SCH ×4 (02:07→18:00)
[2017-05-02 02:15] LABS: Glucose,Whole Blood 122 mg/dL (75-99)
[2017-05-02 03:09] LABS: Glucose,Whole Blood 118 mg/dL (75-99)
[2017-05-02 04:07] LABS: Glucose,Whole Blood 107 mg/dL (75-99)
[2017-05-02] MEDS: IPRATROPIUM-ALBUTEROL 3 ML NEB INHALATION SCH ×6 (04:10→20:43)
[2017-05-02] MEDS: CHLORHEXIDINE GLUCONATE 15 ML CUP MUCOUS MEM SCH ×3 (04:22→20:27)
[2017-05-02] MEDS: MONTELUKAST 10 MG TAB OG-TUBE SCH ×2 (04:22→20:29)
[2017-05-02] MEDS: MUPIROCIN 2% OINT 22 GM TUBE NASAL SCH ×3 (04:22→20:33)
[2017-05-02 04:25] LABS: Anisocytosis Slight; Basophils % (A) 0 %; Eosinophils # (A) 0.6 k/uL (0-0.7); Eosinophils % (A) 6 %; HCT 23.5 % (39.0-53.0); HGB 7.8 gm/dL (13.0-17.5); Lymphocytes # (A) 2.9 k/uL (1.0-4.8); Lymphocytes % (A) 32 %; Mean Platelet Volume 9.4; Monocytes # (A) 0.5 k/uL (0-1.0); Monocytes % (A) 6 %; Neutrophils % (A) 55 %; Platelet Count 115 k/uL (150-450); RBC 2.58 m/uL (4.30-5.90); RDW 16.5 % (11.5-15.5)
[2017-05-02 04:27] LABS: Ionized Calcium 4.6 mg/dL (4.5-5.3)
[2017-05-02 04:38] LABS: INR 1.3 (<1.2); Partial Thromboplastin Time 28.1 sec (22.0-30.0); Prothrombin Time 12.2 sec (9.0-12.0)
[2017-05-02 04:39] LABS: ALT 95 U/L (21-72); AST 149 U/L (17-59); Albumin 2.7 g/dL (3.5-5.0); Alkaline Phosphatase 36 U/L (38-126); Anion Gap 5 mmol/L; Blood Urea Nitrogen 19 mg/dL (9-20); Calcium 7.7 mg/dL (8.4-10.2); Carbon Dioxide 27 mmol/L (22-30); Chloride 108 mmol/L (98-107); Glucose 98 mg/dL (74-99); Magnesium 2.5 mg/dL (1.6-2.3); Phosphorus 4.2 mg/dL (2.5-4.5); Potassium 4.3 mmol/L (3.5-5.1); Sodium 140 mmol/L (137-145); Total Bilirubin 3.7 mg/dL (0.2-1.3); Total Protein 4.3 g/dL (6.3-8.2)
[2017-05-02 05:07] LABS: Glucose,Whole Blood 105 mg/dL (75-99)
[2017-05-02 05:58] LABS: ABG Base Excess 0.4 mmol/L; ABG HCO3 26 mmol/L (21-25); ABG Oxygen Saturation 98.1 % (94-97); ABG PCO2 44 mmHg (35-45); ABG PH 7.37 (7.35-7.45); ABG PO2 110 mmHg (83-108); ABG TCO2 27 mmol/L (19-24)
[2017-05-02 06:12] LABS: Glucose,Whole Blood 100 mg/dL (75-99)
[2017-05-02 06:57] LABS: Glucose,Whole Blood 101 mg/dL (75-99)
--- NOTE | 2017-05-02 07:16 | XR ---
EXAMINATION TYPE: XR chest 1V portable DATE OF EXAM: 05/02/2017 COMPARISON: 05/01/2017 HISTORY: Post cardiac surgery. Chest pain. TECHNIQUE: Single frontal view of the chest is obtained. FINDINGS: Enteric tube, endotracheal tube, mediastinal drain, right-sided Kellogg-Danay catheter, bilate ral thoracostomy tubes, cardiac valvular replacement, median sternotomy wires, and mediastinal clips are all unchanged from the prior exam. There is mild pulmonary vascular congestion and a moderate right as well as trace left pleural effusi on with associated right-sided airspace disease, likely atelectasis. Cardiac silhouette is partially obscured but overall stable in its visualized portions. Osseous structures appear intact. IMPRESSION: Stable exam from the prior of 05/01/2017 with mild pulmonary vascular congestion, trace le ft pleural effusion and moderate right pleural effusion with associated right-sided airspace disease, likely atelectasis.
[2017-05-02] MEDS: BUDESONIDE 0.5 MG/2 ML NEBU INHALATION SCH ×2 (07:50→20:43)
[2017-05-02 08:26] LABS: Glucose,Whole Blood 107 mg/dL (75-99)
[2017-05-02] MEDS ORDERED: CLOPIDOGREL 75 MG TAB PO SCH (09:00)
[2017-05-02] MEDS ORDERED: PANTOPRAZOLE 40 MG/10 ML VIAL IVP SCH (09:00)
[2017-05-02] MEDS ORDERED: ASPIRIN 325 MG TAB PO SCH (09:00)
[2017-05-02] MEDS ORDERED: ATORVASTATIN 40 MG TAB PO SCH (09:00)
[2017-05-02 09:04] LABS: Glucose,Whole Blood 110 mg/dL (75-99)
[2017-05-02] MEDS: ASPIRIN 325 MG TAB PO SCH (09:31)
[2017-05-02] MEDS: METOPROLOL TARTRATE 12.5 MG TAB PO SCH ×2 (09:31→20:28)
[2017-05-02] MEDS: HEPARIN SODIUM,PORCINE 5,000 UNIT/ML 1 ML VIAL SQ SCH ×2 (09:31→17:43)
[2017-05-02] MEDS: CLOPIDOGREL 75 MG TAB PO SCH (09:31)
[2017-05-02 09:56] LABS: ABG Base Excess -0.5 mmol/L; ABG HCO3 26 mmol/L (21-25); ABG Oxygen Saturation 97.9 % (94-97); ABG PCO2 50 mmHg (35-45); ABG PH 7.32 (7.35-7.45); ABG PO2 116 mmHg (83-108); ABG TCO2 27 mmol/L (19-24)
--- NOTE | 2017-05-02 10:12 | P.PN ---
Subjective Progress Note Date: 05/02/17 Principal diagnosis: Severe aortic valve stenosis, recently diagnosed chronic lymphocytic leukemia, history of coronary artery disease with stent placement to his right coronary artery and left anterior descending coronary artery with no flow limiting lesion at this point, preserved left ventricular function, chronically elevated right hemidiaphragm, hypertension, hyperlipidemia, chronic obstructive pulmonary disease, GERD, history of psoriasis and history of TIA. POD #1, elective aortic valve replacement using a 25 mm magna ease bovine pericardial bioprosthesis, intraoperative transesophageal echocardiogram and epi -aortic scanning. POD #1, redo sternotomy, exploration of the mediastinum, evacuation of clot and control of bleeding. Postoperative acute blood loss anemia, and expected outcome of surgery. The patient is lying in bed with his head elevated. He is in no acute distress. He opens his eyes with verbal stimuli and moves all 4 remedies appropriately. He remains intubated with mechanical ventilator support. He is currently sedated on Diprivan at 25 mcg/kg/m, which is being weaned. He shakes his head no when asked if he is having any pain. Objective - Vital Signs Vital signs: Vital Signs Temp 97.9 F 05/01/17 18:39 Pulse 95 05/02/17 08:17 Resp 15 05/02/17 06:20 BP 92/54 05/02/17 06:20 Pulse Ox 99 05/02/17 06:20 Intake & Output 05/01/17 05/02/17 05/02/17 18:59 06:59 18:59 Intake Total 4590.928 2618.284 Output Total 3067 2092 Balance 1523.928 526.284 Weight 102 kg Intake: IV 448 1679 ACETAMINOPHEN IV (For NPO 200 ) 1,000 mg In Empty Bag 1 bag @ 400 mls/hr IVPB Q6HR [facility] Rx#:[id number] Albumin Human 5% 250 ml 250 In Empty Bag 1 bag @ 250 mls/hr IVPB Q1HR PRN Rx#: [id number] CO/CI 180 220 LR 200 600 Magnesium Sulfate-D5w Pmx 200 1 gm In Dextrose/Water 1 100ml.bag @ 100 mls/hr IVPB Q1H [facility] Rx#: [id number] Pressure Bag 36 108 Sodium Phosphate 10 mmol 100 In Sodium Chloride 0.9% 100 ml @ 50 mls/hr IVPB ONCE ONE Rx#:[id number] Intake, IV Titration 417.928 425.284 Amount Albumin Human 5% 250 ml 250 250 In Empty Bag 1 bag @ 250 mls/hr IVPB Q1HR PRN Rx#: [id number] Calcium Gluconate 1,000 100 mg In Sodium Chloride 0.9 % 100 ml @ 100 mls/hr IVPB ONCE STA Rx#: [id number] Clevidipine Butyrate 25 4.167 mg In Empty Bag 1 bag @ 1 MG/HR 2 mls/hr IV .Q24H [facility] Rx#:[id number] Insulin Regular 100 unit 4.717 13.441 In Sodium Chloride 0.9% 100 ml @ Per Protocol IV .Q0M [facility] Rx#:[id number] Milrinone-D5w Pmx 20 mg 8.6 In Dextrose/Water 1 100ml .bag @ Per Protocol IV . Q0M [facility] Rx#:[id number] Norepinephrine 4 mg In 96.837 Sodium Chloride 0.9% 250 ml @ Titrate IV .Q0M [facility] Rx#:[id number] Propofol 1,000 mg In 50.444 65.006 Empty Bag 1 bag @ Titrate IV .Q0M [facility] Rx#: [id number] Blood Product 3725 514 Ffp 24 Cpd Unit 306 [id number] Ffp 24 Cpd Unit 306 [id number] Ffp 24 Cpd Unit 312 [id number] Ffp 24 Cpd Unit 300 [id number] Platelet Pheresis Acda1 301 Unit [id number] Platelet Pheresis Acda1 204 Unit [id number] Platelet Pheresis Acda3 204 Unit [id number] Pooled Cryoprecipitate 114 Unit [id number] Pooled Cryoprecipitate 117 Unit [id number] Pooled Cryoprecipitate 102 Unit [id number] Rc As-1 Unit 310 [id number] Rc As-1 Unit 310 [id number] Rc As-1 Unit 0 [id number] Rc As-1 Unit 310 [id number] Output: Chest Tube Drainage 853 924 Left Pleural 53 130 Mediastinal 800 639 Right Pleural 155 Urine 714 668 Estimated Blood Loss 1500 500 Other: Voiding Method Indwelling Catheter Indwelling Catheter ABP, PAP, CO, CI - Last Documented Arterial Blood Pressure 110/58 Pulmonary Artery Pressure 37/23 Cardiac Output 6.9 Cardiac Index 3.5 - Constitutional General appearance: Present: cooperative, no acute distress, obese - EENT ENT: Present: hearing grossly normal - Neck Details: Neck is supple, no JVD, right IJ Cordis with Holt-Danay catheter in place. - Respiratory Details: Lung sounds are essentially clear throughout, diminished to his bilateral bases. Respirations are symmetrical and nonlabored with mechanical ventilator support. Oxygen saturation are 99% on current mechanical ventilator settings. Current ventilator settings are as follows: AC 14, TV 550, FiO2 40%, PEEP of 8. Mediastinal, right pleural, and left pleural chest tubes remain in place to low continuous wall suction -20 cm H2O. No air leak present. They are draining thin serosanguineous drainage. Mediastinal chest tube output in the last 8 hours 165 mL and 1439 mL output since surgery. Left pleural chest tube with 70 mL output in the last 8 hours, 183 mL output since surgery. Right pleural chest tube with 85 mL output in the last 8 hours, 155 mL output since surgery. - Cardiovascular Details: Regular rhythm and rate. S1 and S2 present, negative for S3, gallop or murmur. Pericardial rub heard. Sternum is stable. Bedside telemetry showing normal sinus rhythm heart rate 99. Atrial epicardial pacemaker wires intact and grounded. Knee-high PHILIP hose and sequential compression devices in place to his bilateral lower extremities. No edema present. Peripheral pulses palpable. Heart hugger is in place. - Gastrointestinal Gastrointestinal Comment(s): Abdomen is soft, nontender and nondistended. Hypoactive bowel sounds to all 4 abdominal quadrants. OG tube in place draining green bile-colored thin drainage. 75 mL output in the last 8 hours. - Genitourinary Genitourinary Comment(s): Rodríguez catheter for accurate I&O. Draining clear anisa urine. 350 ml output in the last 8 hours. - Integumentary Integumentary Comment(s): Skin is warm, dry. No clubbing or cyanosis. Midline sternal incision clean dry and well approximated. No drainage present. Dermabond dressing clean and dry. - Neurologic Neurologic Comment(s): Patient remains sedated on the prevent drip at 25 mcg/kg/m. Moving all 4 extremities appropriately. Following verbal commands appropriately. - Musculoskeletal Musculoskeletal: Present: generalized weakness, strength equal bilaterally - Psychiatric Psychiatric: Present: appropriate affect - Allied health notes Allied health notes reviewed: nursing - Labs CBC & Chem 7: 05/02/17 04:10 05/02/17 04:10 Labs: Abnormal Lab Results - Last 24 Hours (Table) 04/23/17 05/01/17 05/01/17 Range/Units 12:48 15:03 15:04 RBC 2.40 L (4.30-5.90) m/uL Hgb 7.5 L D (13.0-17.5) gm/dL Hct 22.2 L (39.0-53.0) % RDW 16.0 H (11.5-15.5) % Plt Count 88 L D (150-450) k/uL PT (9.0-12.0) sec INR (<1.2) APTT (22.0-30.0) sec Fibrinogen (200-500) mg/dL ABG pH (7.35-7.45) ABG pCO2 (35-45) mmHg ABG pO2 (83-108) mmHg ABG HCO3 (21-25) mmol/L ABG Total CO2 (19-24) mmol/L ABG O2 Saturation (94-97) % Chloride (98-107) mmol/L Glucose (74-99) mg/dL POC Glucose (mg/dL) 132 H (75-99) mg/dL Calcium (8.4-10.2) mg/dL Phosphorus (2.5-4.5) mg/dL Magnesium (1.6-2.3) mg/dL Total Bilirubin (0.2-1.3) mg/dL AST (17-59) U/L ALT (21-72) U/L Alkaline Phosphatase (38-126) U/L Total Protein (6.3-8.2) g/dL Albumin (3.5-5.0) g/dL Crossmatch See Detail 05/01/17 05/01/17 05/01/17 Range/Units 15:04 15:04 15:17 RBC (4.30-5.90) m/uL Hgb (13.0-17.5) gm/dL Hct (39.0-53.0) % RDW (11.5-15.5) % Plt Count (150-450) k/uL PT 13.6 H (9.0-12.0) sec INR 1.5 H (<1.2) APTT 57.7 H (22.0-30.0) sec Fibrinogen 112 L (200-500) mg/dL ABG pH 7.32 L (7.35-7.45) ABG pCO2 47 H (35-45) mmHg ABG pO2 >400 H (83-108) mmHg ABG HCO3 (21-25) mmol/L ABG Total CO2 26 H (19-24) mmol/L ABG O2 Saturation 99.1 H (94-97) % Chloride 110 H (98-107) mmol/L Glucose 112 H (74-99) mg/dL POC Glucose (mg/dL) (75-99) mg/dL Calcium 7.5 L (8.4-10.2) mg/dL Phosphorus (2.5-4.5) mg/dL Magnesium (1.6-2.3) mg/dL Total Bilirubin 2.3 H (0.2-1.3) mg/dL AST 269 H (17-59) U/L ALT 137 H (21-72) U/L Alkaline Phosphatase (38-126) U/L Total Protein 4.5 L (6.3-8.2) g/dL Albumin 3.0 L (3.5-5.0) g/dL Crossmatch 05/01/17 05/01/17 05/01/17 Range/Units 16:02 17:04 18:02 RBC (4.30-5.90) m/uL Hgb (13.0-17.5) gm/dL Hct (39.0-53.0) % RDW (11.5-15.5) % Plt Count (150-450) k/uL PT (9.0-12.0) sec INR (<1.2) APTT (22.0-30.0) sec Fibrinogen (200-500) mg/dL ABG pH (7.35-7.45) ABG pCO2 (35-45) mmHg ABG pO2 (83-108) mmHg ABG HCO3 (21-25) mmol/L ABG Total CO2 (19-24) mmol/L ABG O2 Saturation (94-97) % Chloride (98-107) mmol/L Glucose (74-99) mg/dL POC Glucose (mg/dL) 138 H 182 H 157 H (75-99) mg/dL Calcium (8.4-10.2) mg/dL Phosphorus (2.5-4.5) mg/dL Magnesium (1.6-2.3) mg/dL Total Bilirubin (0.2-1.3) mg/dL AST (17-59) U/L ALT (21-72) U/L Alkaline Phosphatase (38-126) U/L Total Protein (6.3-8.2) g/dL Albumin (3.5-5.0) g/dL Crossmatch 05/01/17 05/01/17 05/01/17 Range/Units 18:11 18:45 18:45 RBC (4.30-5.90) m/uL Hgb (13.0-17.5) gm/dL Hct (39.0-53.0) % RDW (11.5-15.5) % Plt Count (150-450) k/uL PT (9.0-12.0) sec INR 1.2 H (<1.2) APTT 30.2 H (22.0-30.0) sec Fibrinogen (200-500) mg/dL ABG pH (7.35-7.45) ABG pCO2 (35-45) mmHg ABG pO2 209 H (83-108) mmHg ABG HCO3 (21-25) mmol/L ABG Total CO2 27 H (19-24) mmol/L ABG O2 Saturation 100.0 H (94-97) % Chloride 108 H (98-107) mmol/L Glucose 149 H (74-99) mg/dL POC Glucose (mg/dL) (75-99) mg/dL Calcium 8.0 L (8.4-10.2) mg/dL Phosphorus 1.6 L (2.5-4.5) mg/dL Magnesium (1.6-2.3) mg/dL Total Bilirubin 4.0 H (0.2-1.3) mg/dL AST 298 H (17-59) U/L ALT 140 H (21-72) U/L Alkaline Phosphatase (38-126) U/L Total Protein 5.0 L (6.3-8.2) g/dL Albumin 3.3 L (3.5-5.0) g/dL Crossmatch 05/01/17 05/01/17 05/01/17 Range/Units 18:45 22:00 22:12 RBC 2.35 L (4.30-5.90) m/uL Hgb 7.4 L (13.0-17.5) gm/dL Hct 21.5 L (39.0-53.0) % RDW 16.1 H (11.5-15.5) % Plt Count 104 L (150-450) k/uL PT (9.0-12.0) sec INR (<1.2) APTT (22.0-30.0) sec Fibrinogen (200-500) mg/dL ABG pH (7.35-7.45) ABG pCO2 (35-45) mmHg ABG pO2 (83-108) mmHg ABG HCO3 (21-25) mmol/L ABG Total CO2 (19-24) mmol/L ABG O2 Saturation (94-97) % Chloride (98-107) mmol/L Glucose (74-99) mg/dL POC Glucose (mg/dL) 149 H (75-99) mg/dL Calcium (8.4-10.2) mg/dL Phosphorus 2.2 L (2.5-4.5) mg/dL Magnesium (1.6-2.3) mg/dL Total Bilirubin (0.2-1.3) mg/dL AST (17-59) U/L ALT (21-72) U/L Alkaline Phosphatase (38-126) U/L Total Protein (6.3-8.2) g/dL Albumin (3.5-5.0) g/dL Crossmatch 05/01/17 05/01/17 05/01/17 Range/Units 22:25 22:26 23:02 RBC 2.83 L (4.30-5.90) m/uL Hgb 8.7 L (13.0-17.5) gm/dL Hct 26.1 L (39.0-53.0) % RDW 16.0 H (11.5-15.5) % Plt Count 107 L (150-450) k/uL PT (9.0-12.0) sec INR (<1.2) APTT (22.0-30.0) sec Fibrinogen (200-500) mg/dL ABG pH (7.35-7.45) ABG pCO2 (35-45) mmHg ABG pO2 140 H (83-108) mmHg ABG HCO3 (21-25) mmol/L ABG Total CO2 25 H (19-24) mmol/L ABG O2 Saturation 98.9 H (94-97) % Chloride (98-107) mmol/L Glucose (74-99) mg/dL POC Glucose (mg/dL) 137 H (75-99) mg/dL Calcium (8.4-10.2) mg/dL Phosphorus (2.5-4.5) mg/dL Magnesium (1.6-2.3) mg/dL Total Bilirubin (0.2-1.3) mg/dL AST (17-59) U/L ALT (21-72) U/L Alkaline Phosphatase (38-126) U/L Total Protein (6.3-8.2) g/dL Albumin (3.5-5.0) g/dL Crossmatch 05/02/17 05/02/17 05/02/17 Range/Units 00:09 01:02 02:13 RBC (4.30-5.90) m/uL Hgb (13.0-17.5) gm/dL Hct (39.0-53.0) % RDW (11.5-15.5) % Plt Count (150-450) k/uL PT (9.0-12.0) sec INR (<1.2) APTT (22.0-30.0) sec Fibrinogen (200-500) mg/dL ABG pH (7.35-7.45) ABG pCO2 (35-45) mmHg ABG pO2 (83-108) mmHg ABG HCO3 (21-25) mmol/L ABG Total CO2 (19-24) mmol/L ABG O2 Saturation (94-97) % Chloride (98-107) mmol/L Glucose (74-99) mg/dL POC Glucose (mg/dL) 125 H 122 H 122 H (75-99) mg/dL Calcium (8.4-10.2) mg/dL Phosphorus (2.5-4.5) mg/dL Magnesium (1.6-2.3) mg/dL Total Bilirubin (0.2-1.3) mg/dL AST (17-59) U/L ALT (21-72) U/L Alkaline Phosphatase (38-126) U/L Total Protein (6.3-8.2) g/dL Albumin (3.5-5.0) g/dL Crossmatch 05/02/17 05/02/17 05/02/17 Range/Units 03:07 04:05 04:10 RBC 2.58 L (4.30-5.90) m/uL Hgb 7.8 L (13.0-17.5) gm/dL Hct 23.5 L (39.0-53.0) % RDW 16.5 H (11.5-15.5) % Plt Count 115 L (150-450) k/uL PT (9.0-12.0) sec INR (<1.2) APTT (22.0-30.0) sec Fibrinogen (200-500) mg/dL ABG pH (7.35-7.45) ABG pCO2 (35-45) mmHg ABG pO2 (83-108) mmHg ABG HCO3 (21-25) mmol/L ABG Total CO2 (19-24) mmol/L ABG O2 Saturation (94-97) % Chloride (98-107) mmol/L Glucose (74-99) mg/dL POC Glucose (mg/dL) 118 H 107 H (75-99) mg/dL Calcium (8.4-10.2) mg/dL Phosphorus (2.5-4.5) mg/dL Magnesium (1.6-2.3) mg/dL Total Bilirubin (0.2-1.3) mg/dL AST (17-59) U/L ALT (21-72) U/L Alkaline Phosphatase (38-126) U/L Total Protein (6.3-8.2) g/dL Albumin (3.5-5.0) g/dL Crossmatch 05/02/17 05/02/17 05/02/17 Range/Units 04:10 04:10 05:04 RBC (4.30-5.90) m/uL Hgb (13.0-17.5) gm/dL Hct (39.0-53.0) % RDW (11.5-15.5) % Plt Count (150-450) k/uL PT 12.2 H (9.0-12.0) sec INR 1.3 H (<1.2) APTT (22.0-30.0) sec Fibrinogen (200-500) mg/dL ABG pH (7.35-7.45) ABG pCO2 (35-45) mmHg ABG pO2 (83-108) mmHg ABG HCO3 (21-25) mmol/L ABG Total CO2 (19-24) mmol/L ABG O2 Saturation (94-97) % Chloride 108 H (98-107) mmol/L Glucose (74-99) mg/dL POC Glucose (mg/dL) 105 H (75-99) mg/dL Calcium 7.7 L (8.4-10.2) mg/dL Phosphorus (2.5-4.5) mg/dL Magnesium 2.5 H (1.6-2.3) mg/dL Total Bilirubin 3.7 H (0.2-1.3) mg/dL AST 149 H (17-59) U/L ALT 95 H (21-72) U/L Alkaline Phosphatase 36 L (38-126) U/L Total Protein 4.3 L (6.3-8.2) g/dL Albumin 2.7 L (3.5-5.0) g/dL Crossmatch 05/02/17 05/02/17 05/02/17 Range/Units 05:54 06:10 06:55 RBC (4.30-5.90) m/uL Hgb (13.0-17.5) gm/dL Hct (39.0-53.0) % RDW (11.5-15.5) % Plt Count (150-450) k/uL PT (9.0-12.0) sec INR (<1.2) APTT (22.0-30.0) sec Fibrinogen (200-500) mg/dL ABG pH (7.35-7.45) ABG pCO2 (35-45) mmHg ABG pO2 110 H (83-108) mmHg ABG HCO3 26 H (21-25) mmol/L ABG Total CO2 27 H (19-24) mmol/L ABG O2 Saturation 98.1 H (94-97) % Chloride (98-107) mmol/L Glucose (74-99) mg/dL POC Glucose (mg/dL) 100 H 101 H (75-99) mg/dL Calcium (8.4-10.2) mg/dL Phosphorus (2.5-4.5) mg/dL Magnesium (1.6-2.3) mg/dL Total Bilirubin (0.2-1.3) mg/dL AST (17-59) U/L ALT (21-72) U/L Alkaline Phosphatase (38-126) U/L Total Protein (6.3-8.2) g/dL Albumin (3.5-5.0) g/dL Crossmatch 05/02/17 05/02/17 Range/Units 08:05 09:01 RBC (4.30-5.90) m/uL Hgb (13.0-17.5) gm/dL Hct (39.0-53.0) % RDW (11.5-15.5) % Plt Count (150-450) k/uL PT (9.0-12.0) sec INR (<1.2) APTT (22.0-30.0) sec Fibrinogen (200-500) mg/dL ABG pH (7.35-7.45) ABG pCO2 (35-45) mmHg ABG pO2 (83-108) mmHg ABG HCO3 (21-25) mmol/L ABG Total CO2 (19-24) mmol/L ABG O2 Saturation (94-97) % Chloride (98-107) mmol/L Glucose (74-99) mg/dL POC Glucose (mg/dL) 107 H 110 H (75-99) mg/dL Calcium (8.4-10.2) mg/dL Phosphorus (2.5-4.5) mg/dL Magnesium (1.6-2.3) mg/dL Total Bilirubin (0.2-1.3) mg/dL AST (17-59) U/L ALT (21-72) U/L Alkaline Phosphatase (38-126) U/L Total Protein (6.3-8.2) g/dL Albumin (3.5-5.0) g/dL Crossmatch - Imaging and Cardiology Chest x-ray: report reviewed, image reviewed Assessment and Plan (1) Severe aortic valve stenosis Current Visit: Yes Status: Acute Code(s): I35.0 - NONRHEUMATIC AORTIC (VALVE ) STENOSIS SNOMED Code(s): 48810940 (2) Chronic lymphocytic leukemia Current Visit: Yes Status: Acute Code(s): C91.90 - LYMPHOID LEUKEMIA, UNSPECIFIED NOT HAVING ACHIEVED REMISSION SNOMED Code(s): 80678960 (3) History of coronary artery stent placement Current Visit: Yes Status: Acute Code(s): Z95.5 - PRESENCE OF CORONARY ANGIOPLASTY IMPLANT AND GRAFT SNOMED Code(s): 877124676 (4) Hypertension Current Visit: Yes Status: Acute Code(s): I10 - ESSENTIAL (PRIMARY) HYPERTENSION SNOMED Code(s): 20302994 (5) Hyperlipidemia Current Visit: Yes Status: Acute Code(s): E78.5 - HYPERLIPIDEMIA, UNSPECIFIED SNOMED Code(s): 22650445 (6) GERD (gastroesophageal reflux disease) Current Visit: Yes Status: Acute Code(s): K21.9 - GASTRO-ESOPHAGEAL REFLUX DISEASE WITHOUT ESOPHAGITIS SNOMED Code(s): 376229964 (7) COPD (chronic obstructive pulmonary disease) Current Visit: Yes Status: Acute Code(s): J44.9 - CHRONIC OBSTRUCTIVE PULMONARY DISEASE, UNSPECIFIED SNOMED Code(s): 25443666 (8) History of psoriasis Current Visit: Yes Status: Acute Code(s): Z87.2 - PERSONAL HISTORY OF DISEASES OF THE SKIN, SUBCU SNOMED Code(s): 056845840 (9) History of TIA (transient ischemic attack) Current Visit: Yes Status: Acute Code(s): Z86.73 - PRSNL HX OF TIA (TIA), AND CEREB INFRC W/O RESID DEFICITS SNOMED Code(s): 406109407 Plan: 1. We will start the patient on aspirin, heparin subcu, and Plavix today. 2. Wean ventilator to extubate. Ventilator and pulmonary management per Dr Baker. 3. Continue metoprolol 12.5 mg by mouth twice a day. We will increase his beta leeanne as tolerated. 4. Monitor daily labs and x-rays. 5. Increase activity, out of bed to chair once extubated, ambulate as able. PT /OT/cardiac rehab consulted. 6. No diuretics today. 7. Insulin drip management per Dr. Stuart. 8. Mediastinal, right and left pleural chest tubes to remain in place to low continuous wall suction -20 series H2O. 9. More recommendations to follow as patient progresses in his care. Time with Patient: Greater than 30
[2017-05-02 10:23] LABS: Glucose,Whole Blood 109 mg/dL (75-99)
--- NOTE | 2017-05-02 11:23 | P.PN ---
Subjective Progress Note Date: 05/02/17 HPI: This is a 71-year-old gentleman who presented to the hospital for aortic valve replacement. The patient underwent procedure and was subsequently transferred to the intensive care unit. He remains intubated and on Primacor. The patient did receive multiple blood products intraoperatively. He has a known history of CLL, chronically elevated right hemidiaphragm, hypertension, dyslipidemia, COPD, history of TIA. The patient's bleeding has improved. He is oxygenating well. His ABGs reviewed. 05/02/17-patient is being seen examined and evaluated today in the intensive care unit. Patient is currently being weaned from mechanical ventilation. His propofol is off he is opening his eyes and responds appropriately. Moves all 4 extremities. Weaning parameter ABGs have been obtained and reviewed. Patient will be extubated. His chest tubes are intact and draining appropriately serosanguineous drainage. The OG-tube has had minimal output. He is hemodynamically stable. He is making adequate urine. All labs at reports have been reviewed. Objective - Vital Signs Vital signs: Vital Signs Temp 97.9 F 05/01/17 18:39 Pulse 104 H 05/02/17 09:00 Resp 15 05/02/17 09:00 BP 92/54 05/02/17 06:20 Pulse Ox 99 05/02/17 09:00 Intake & Output 05/01/17 05/02/17 05/02/17 18:59 06:59 18:59 Intake Total 4590.928 2618.284 262.55 Output Total 3067 2092 120 Balance 1523.928 526.284 142.55 Weight 102 kg Intake: IV 448 1679 178 ACETAMINOPHEN IV (For NPO 200 ) 1,000 mg In Empty Bag 1 bag @ 400 mls/hr IVPB Q6HR [facility] Rx#:[id number] Albumin Human 5% 250 ml 250 In Empty Bag 1 bag @ 250 mls/hr IVPB Q1HR PRN Rx#: [id number] CO/CI 180 220 60 LR 200 600 100 Magnesium Sulfate-D5w Pmx 200 1 gm In Dextrose/Water 1 100ml.bag @ 100 mls/hr IVPB Q1H [facility] Rx#: [id number] Pressure Bag 36 108 18 Sodium Phosphate 10 mmol 100 In Sodium Chloride 0.9% 100 ml @ 50 mls/hr IVPB ONCE ONE Rx#:[id number] Intake, IV Titration 417.928 425.284 84.55 Amount Albumin Human 5% 250 ml 250 250 In Empty Bag 1 bag @ 250 mls/hr IVPB Q1HR PRN Rx#: [id number] Calcium Gluconate 1,000 100 mg In Sodium Chloride 0.9 % 100 ml @ 100 mls/hr IVPB ONCE STA Rx#: [id number] Clevidipine Butyrate 25 4.167 mg In Empty Bag 1 bag @ 1 MG/HR 2 mls/hr IV .Q24H [facility] Rx#:[id number] Insulin Regular 100 unit 4.717 13.441 In Sodium Chloride 0.9% 100 ml @ Per Protocol IV .Q0M [facility] Rx#:[id number] Milrinone-D5w Pmx 20 mg 8.6 In Dextrose/Water 1 100ml .bag @ Per Protocol IV . Q0M [facility] Rx#:[id number] Norepinephrine 4 mg In 96.837 Sodium Chloride 0.9% 250 ml @ Titrate IV .Q0M [facility] Rx#:[id number] Propofol 1,000 mg In 50.444 65.006 84.55 Empty Bag 1 bag @ Titrate IV .Q0M [facility] Rx#: [id number] Blood Product 3725 514 Ffp 24 Cpd Unit 306 [id number] Ffp 24 Cpd Unit 306 [id number] Ffp 24 Cpd Unit 312 [id number] Ffp 24 Cpd Unit 300 [id number] Platelet Pheresis Acda1 301 Unit [id number] Platelet Pheresis Acda1 204 Unit [id number] Platelet Pheresis Acda3 204 Unit [id number] Pooled Cryoprecipitate 114 Unit [id number] Pooled Cryoprecipitate 117 Unit [id number] Pooled Cryoprecipitate 102 Unit [id number] Rc As-1 Unit 310 [id number] Rc As-1 Unit 310 [id number] Rc As-1 Unit 0 [id number] Rc As-1 Unit 310 [id number] Output: Chest Tube Drainage 853 924 65 Left Pleural 53 130 10 Mediastinal 800 639 50 Right Pleural 155 5 Urine 714 668 55 Estimated Blood Loss 1500 500 Other: Voiding Method Indwelling Catheter Indwelling Catheter Indwelling Catheter ABP, PAP, CO, CI - Last Documented Arterial Blood Pressure 95/59 Pulmonary Artery Pressure 41/24 Cardiac Output 6.7 Cardiac Index 3.5 - Exam Gen.: Patient is intubated, currently weaning for possible extubation Cardiovascular: Regular rate and rhythm, S1/S2 Lungs: Coarse rhonchi bilaterally, bases diminished, 3 chest tube hooked to low continuous wall suction, with serosanguineous drainage noted Abdomen: Soft nontender nondistended positive bowel sounds, OG tube in place. Extremities: Trace edema Neuro: Awake, responding appropriately, moves all extremities - Labs CBC & Chem 7: 05/02/17 04:10 05/02/17 04:10 Labs: Abnormal Lab Results - Last 24 Hours (Table) 04/23/17 05/01/17 05/01/17 Range/Units 12:48 15:03 15:04 RBC 2.40 L (4.30-5.90) m/uL Hgb 7.5 L D (13.0-17.5) gm/dL Hct 22.2 L (39.0-53.0) % RDW 16.0 H (11.5-15.5) % Plt Count 88 L D (150-450) k/uL PT (9.0-12.0) sec INR (<1.2) APTT (22.0-30.0) sec Fibrinogen (200-500) mg/dL ABG pH (7.35-7.45) ABG pCO2 (35-45) mmHg ABG pO2 (83-108) mmHg ABG HCO3 (21-25) mmol/L ABG Total CO2 (19-24) mmol/L ABG O2 Saturation (94-97) % Chloride (98-107) mmol/L Glucose (74-99) mg/dL POC Glucose (mg/dL) 132 H (75-99) mg/dL Calcium (8.4-10.2) mg/dL Phosphorus (2.5-4.5) mg/dL Magnesium (1.6-2.3) mg/dL Total Bilirubin (0.2-1.3) mg/dL AST (17-59) U/L ALT (21-72) U/L Alkaline Phosphatase (38-126) U/L Total Protein (6.3-8.2) g/dL Albumin (3.5-5.0) g/dL Crossmatch See Detail 05/01/17 05/01/17 05/01/17 Range/Units 15:04 15:04 15:17 RBC (4.30-5.90) m/uL Hgb (13.0-17.5) gm/dL Hct (39.0-53.0) % RDW (11.5-15.5) % Plt Count (150-450) k/uL PT 13.6 H (9.0-12.0) sec INR 1.5 H (<1.2) APTT 57.7 H (22.0-30.0) sec Fibrinogen 112 L (200-500) mg/dL ABG pH 7.32 L (7.35-7.45) ABG pCO2 47 H (35-45) mmHg ABG pO2 >400 H (83-108) mmHg ABG HCO3 (21-25) mmol/L ABG Total CO2 26 H (19-24) mmol/L ABG O2 Saturation 99.1 H (94-97) % Chloride 110 H (98-107) mmol/L Glucose 112 H (74-99) mg/dL POC Glucose (mg/dL) (75-99) mg/dL Calcium 7.5 L (8.4-10.2) mg/dL Phosphorus (2.5-4.5) mg/dL Magnesium (1.6-2.3) mg/dL Total Bilirubin 2.3 H (0.2-1.3) mg/dL AST 269 H (17-59) U/L ALT 137 H (21-72) U/L Alkaline Phosphatase (38-126) U/L Total Protein 4.5 L (6.3-8.2) g/dL Albumin 3.0 L (3.5-5.0) g/dL Crossmatch 05/01/17 05/01/17 05/01/17 Range/Units 16:02 17:04 18:02 RBC (4.30-5.90) m/uL Hgb (13.0-17.5) gm/dL Hct (39.0-53.0) % RDW (11.5-15.5) % Plt Count (150-450) k/uL PT (9.0-12.0) sec INR (<1.2) APTT (22.0-30.0) sec Fibrinogen (200-500) mg/dL ABG pH (7.35-7.45) ABG pCO2 (35-45) mmHg ABG pO2 (83-108) mmHg ABG HCO3 (21-25) mmol/L ABG Total CO2 (19-24) mmol/L ABG O2 Saturation (94-97) % Chloride (98-107) mmol/L Glucose (74-99) mg/dL POC Glucose (mg/dL) 138 H 182 H 157 H (75-99) mg/dL Calcium (8.4-10.2) mg/dL Phosphorus (2.5-4.5) mg/dL Magnesium (1.6-2.3) mg/dL Total Bilirubin (0.2-1.3) mg/dL AST (17-59) U/L ALT (21-72) U/L Alkaline Phosphatase (38-126) U/L Total Protein (6.3-8.2) g/dL Albumin (3.5-5.0) g/dL Crossmatch 05/01/17 05/01/17 05/01/17 Range/Units 18:11 18:45 18:45 RBC (4.30-5.90) m/uL Hgb (13.0-17.5) gm/dL Hct (39.0-53.0) % RDW (11.5-15.5) % Plt Count (150-450) k/uL PT (9.0-12.0) sec INR 1.2 H (<1.2) APTT 30.2 H (22.0-30.0) sec Fibrinogen (200-500) mg/dL ABG pH (7.35-7.45) ABG pCO2 (35-45) mmHg ABG pO2 209 H (83-108) mmHg ABG HCO3 (21-25) mmol/L ABG Total CO2 27 H (19-24) mmol/L ABG O2 Saturation 100.0 H (94-97) % Chloride 108 H (98-107) mmol/L Glucose 149 H (74-99) mg/dL POC Glucose (mg/dL) (75-99) mg/dL Calcium 8.0 L (8.4-10.2) mg/dL Phosphorus 1.6 L (2.5-4.5) mg/dL Magnesium (1.6-2.3) mg/dL Total Bilirubin 4.0 H (0.2-1.3) mg/dL AST 298 H (17-59) U/L ALT 140 H (21-72) U/L Alkaline Phosphatase (38-126) U/L Total Protein 5.0 L (6.3-8.2) g/dL Albumin 3.3 L (3.5-5.0) g/dL Crossmatch 05/01/17 05/01/17 05/01/17 Range/Units 18:45 22:00 22:12 RBC 2.35 L (4.30-5.90) m/uL Hgb 7.4 L (13.0-17.5) gm/dL Hct 21.5 L (39.0-53.0) % RDW 16.1 H (11.5-15.5) % Plt Count 104 L (150-450) k/uL PT (9.0-12.0) sec INR (<1.2) APTT (22.0-30.0) sec Fibrinogen (200-500) mg/dL ABG pH (7.35-7.45) ABG pCO2 (35-45) mmHg ABG pO2 (83-108) mmHg ABG HCO3 (21-25) mmol/L ABG Total CO2 (19-24) mmol/L ABG O2 Saturation (94-97) % Chloride (98-107) mmol/L Glucose (74-99) mg/dL POC Glucose (mg/dL) 149 H (75-99) mg/dL Calcium (8.4-10.2) mg/dL Phosphorus 2.2 L (2.5-4.5) mg/dL Magnesium (1.6-2.3) mg/dL Total Bilirubin (0.2-1.3) mg/dL AST (17-59) U/L ALT (21-72) U/L Alkaline Phosphatase (38-126) U/L Total Protein (6.3-8.2) g/dL Albumin (3.5-5.0) g/dL Crossmatch 05/01/17 05/01/17 05/01/17 Range/Units 22:25 22:26 23:02 RBC 2.83 L (4.30-5.90) m/uL Hgb 8.7 L (13.0-17.5) gm/dL Hct 26.1 L (39.0-53.0) % RDW 16.0 H (11.5-15.5) % Plt Count 107 L (150-450) k/uL PT (9.0-12.0) sec INR (<1.2) APTT (22.0-30.0) sec Fibrinogen (200-500) mg/dL ABG pH (7.35-7.45) ABG pCO2 (35-45) mmHg ABG pO2 140 H (83-108) mmHg ABG HCO3 (21-25) mmol/L ABG Total CO2 25 H (19-24) mmol/L ABG O2 Saturation 98.9 H (94-97) % Chloride (98-107) mmol/L Glucose (74-99) mg/dL POC Glucose (mg/dL) 137 H (75-99) mg/dL Calcium (8.4-10.2) mg/dL Phosphorus (2.5-4.5) mg/dL Magnesium (1.6-2.3) mg/dL Total Bilirubin (0.2-1.3) mg/dL AST (17-59) U/L ALT (21-72) U/L Alkaline Phosphatase (38-126) U/L Total Protein (6.3-8.2) g/dL Albumin (3.5-5.0) g/dL Crossmatch 05/02/17 05/02/17 05/02/17 Range/Units 00:09 01:02 02:13 RBC (4.30-5.90) m/uL Hgb (13.0-17.5) gm/dL Hct (39.0-53.0) % RDW (11.5-15.5) % Plt Count (150-450) k/uL PT (9.0-12.0) sec INR (<1.2) APTT (22.0-30.0) sec Fibrinogen (200-500) mg/dL ABG pH (7.35-7.45) ABG pCO2 (35-45) mmHg ABG pO2 (83-108) mmHg ABG HCO3 (21-25) mmol/L ABG Total CO2 (19-24) mmol/L ABG O2 Saturation (94-97) % Chloride (98-107) mmol/L Glucose (74-99) mg/dL POC Glucose (mg/dL) 125 H 122 H 122 H (75-99) mg/dL Calcium (8.4-10.2) mg/dL Phosphorus (2.5-4.5) mg/dL Magnesium (1.6-2.3) mg/dL Total Bilirubin (0.2-1.3) mg/dL AST (17-59) U/L ALT (21-72) U/L Alkaline Phosphatase (38-126) U/L Total Protein (6.3-8.2) g/dL Albumin (3.5-5.0) g/dL Crossmatch 05/02/17 05/02/17 05/02/17 Range/Units 03:07 04:05 04:10 RBC 2.58 L (4.30-5.90) m/uL Hgb 7.8 L (13.0-17.5) gm/dL Hct 23.5 L (39.0-53.0) % RDW 16.5 H (11.5-15.5) % Plt Count 115 L (150-450) k/uL PT (9.0-12.0) sec INR (<1.2) APTT (22.0-30.0) sec Fibrinogen (200-500) mg/dL ABG pH (7.35-7.45) ABG pCO2 (35-45) mmHg ABG pO2 (83-108) mmHg ABG HCO3 (21-25) mmol/L ABG Total CO2 (19-24) mmol/L ABG O2 Saturation (94-97) % Chloride (98-107) mmol/L Glucose (74-99) mg/dL POC Glucose (mg/dL) 118 H 107 H (75-99) mg/dL Calcium (8.4-10.2) mg/dL Phosphorus (2.5-4.5) mg/dL Magnesium (1.6-2.3) mg/dL Total Bilirubin (0.2-1.3) mg/dL AST (17-59) U/L ALT (21-72) U/L Alkaline Phosphatase (38-126) U/L Total Protein (6.3-8.2) g/dL Albumin (3.5-5.0) g/dL Crossmatch 05/02/17 05/02/17 05/02/17 Range/Units 04:10 04:10 05:04 RBC (4.30-5.90) m/uL Hgb (13.0-17.5) gm/dL Hct (39.0-53.0) % RDW (11.5-15.5) % Plt Count (150-450) k/uL PT 12.2 H (9.0-12.0) sec INR 1.3 H (<1.2) APTT (22.0-30.0) sec Fibrinogen (200-500) mg/dL ABG pH (7.35-7.45) ABG pCO2 (35-45) mmHg ABG pO2 (83-108) mmHg ABG HCO3 (21-25) mmol/L ABG Total CO2 (19-24) mmol/L ABG O2 Saturation (94-97) % Chloride 108 H (98-107) mmol/L Glucose (74-99) mg/dL POC Glucose (mg/dL) 105 H (75-99) mg/dL Calcium 7.7 L (8.4-10.2) mg/dL Phosphorus (2.5-4.5) mg/dL Magnesium 2.5 H (1.6-2.3) mg/dL Total Bilirubin 3.7 H (0.2-1.3) mg/dL AST 149 H (17-59) U/L ALT 95 H (21-72) U/L Alkaline Phosphatase 36 L (38-126) U/L Total Protein 4.3 L (6.3-8.2) g/dL Albumin 2.7 L (3.5-5.0) g/dL Crossmatch 05/02/17 05/02/17 05/02/17 Range/Units 05:54 06:10 06:55 RBC (4.30-5.90) m/uL Hgb (13.0-17.5) gm/dL Hct (39.0-53.0) % RDW (11.5-15.5) % Plt Count (150-450) k/uL PT (9.0-12.0) sec INR (<1.2) APTT (22.0-30.0) sec Fibrinogen (200-500) mg/dL ABG pH (7.35-7.45) ABG pCO2 (35-45) mmHg ABG pO2 110 H (83-108) mmHg ABG HCO3 26 H (21-25) mmol/L ABG Total CO2 27 H (19-24) mmol/L ABG O2 Saturation 98.1 H (94-97) % Chloride (98-107) mmol/L Glucose (74-99) mg/dL POC Glucose (mg/dL) 100 H 101 H (75-99) mg/dL Calcium (8.4-10.2) mg/dL Phosphorus (2.5-4.5) mg/dL Magnesium (1.6-2.3) mg/dL Total Bilirubin (0.2-1.3) mg/dL AST (17-59) U/L ALT (21-72) U/L Alkaline Phosphatase (38-126) U/L Total Protein (6.3-8.2) g/dL Albumin (3.5-5.0) g/dL Crossmatch 05/02/17 05/02/17 05/02/17 Range/Units 08:05 09:01 09:43 RBC (4.30-5.90) m/uL Hgb (13.0-17.5) gm/dL Hct (39.0-53.0) % RDW (11.5-15.5) % Plt Count (150-450) k/uL PT (9.0-12.0) sec INR (<1.2) APTT (22.0-30.0) sec Fibrinogen (200-500) mg/dL ABG pH 7.32 L (7.35-7.45) ABG pCO2 50 H (35-45) mmHg ABG pO2 116 H (83-108) mmHg ABG HCO3 26 H (21-25) mmol/L ABG Total CO2 27 H (19-24) mmol/L ABG O2 Saturation 97.9 H (94-97) % Chloride (98-107) mmol/L Glucose (74-99) mg/dL POC Glucose (mg/dL) 107 H 110 H (75-99) mg/dL Calcium (8.4-10.2) mg/dL Phosphorus (2.5-4.5) mg/dL Magnesium (1.6-2.3) mg/dL Total Bilirubin (0.2-1.3) mg/dL AST (17-59) U/L ALT (21-72) U/L Alkaline Phosphatase (38-126) U/L Total Protein (6.3-8.2) g/dL Albumin (3.5-5.0) g/dL Crossmatch 05/02/17 Range/Units 10:03 RBC (4.30-5.90) m/uL Hgb (13.0-17.5) gm/dL Hct (39.0-53.0) % RDW (11.5-15.5) % Plt Count (150-450) k/uL PT (9.0-12.0) sec INR (<1.2) APTT (22.0-30.0) sec Fibrinogen (200-500) mg/dL ABG pH (7.35-7.45) ABG pCO2 (35-45) mmHg ABG pO2 (83-108) mmHg ABG HCO3 (21-25) mmol/L ABG Total CO2 (19-24) mmol/L ABG O2 Saturation (94-97) % Chloride (98-107) mmol/L Glucose (74-99) mg/dL POC Glucose (mg/dL) 109 H (75-99) mg/dL Calcium (8.4-10.2) mg/dL Phosphorus (2.5-4.5) mg/dL Magnesium (1.6-2.3) mg/dL Total Bilirubin (0.2-1.3) mg/dL AST (17-59) U/L ALT (21-72) U/L Alkaline Phosphatase (38-126) U/L Total Protein (6.3-8.2) g/dL Albumin (3.5-5.0) g/dL Crossmatch Assessment and Plan Assessment: Status post aortic valve replacement CLL ABLA Thrombocytopenia Transaminitis Asthma, moderate persistent, not acutely exacerbated SARAH with CPAP - mild, AHI 10.9 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 Okay to extubate patient. Patient should remain in the intensive care unit today Singulair Pulmicort Duonebs Propofol for sedation Hemodynamics and chest tubes per CVTS AM CXR Monitor for s/sx of bleeding Monitor H/H GI and DVT prophylaxis Patient will need CPAP after extubation due to SARAH Supplemental oxygen to maintain oxygen saturations greater than 92%. Incentive spirometer I performed an examination of the patient and discussed their management with the nurse practitioner. I have reviewed the nurse practitioner's note and agree with the documented findings and plan of care.
--- NOTE | 2017-05-02 11:51 | P.PN ---
Subjective Patient is extubated today. He seems groggy but is answering questions He just got extubated this morning On examination his blood pressures 109/55 mmHg respirations 16 He seems groggy but is answering questions Breath sounds are reduced bilaterally Heart sounds are soft Pulse rate in the 90s Impression Aortic stenosis CLL CAD status post stenting to the RCA and LAD Preserved LV systolic function Elevated right hemidiaphragm Hypertension Dyslipidemia Status post AVR with a bovine pericardial bioprosthesis Plan Intracardiac medications and postop ICU care Objective - Vital Signs Vital signs: Vital Signs Temp 97.9 F 05/01/17 18:39 Pulse 104 H 05/02/17 09:00 Resp 15 05/02/17 09:00 BP 92/54 05/02/17 06:20 Pulse Ox 99 05/02/17 09:00 Intake & Output 05/01/17 05/02/17 05/02/17 18:59 06:59 18:59 Intake Total 4590.928 2618.284 262.55 Output Total 3067 2092 120 Balance 1523.928 526.284 142.55 Weight 102 kg Intake: IV 448 1679 178 ACETAMINOPHEN IV (For NPO 200 ) 1,000 mg In Empty Bag 1 bag @ 400 mls/hr IVPB Q6HR [facility] Rx#:[id number] Albumin Human 5% 250 ml 250 In Empty Bag 1 bag @ 250 mls/hr IVPB Q1HR PRN Rx#: [id number] CO/CI 180 220 60 LR 200 600 100 Magnesium Sulfate-D5w Pmx 200 1 gm In Dextrose/Water 1 100ml.bag @ 100 mls/hr IVPB Q1H [facility] Rx#: [id number] Pressure Bag 36 108 18 Sodium Phosphate 10 mmol 100 In Sodium Chloride 0.9% 100 ml @ 50 mls/hr IVPB ONCE ONE Rx#:[id number] Intake, IV Titration 417.928 425.284 84.55 Amount Albumin Human 5% 250 ml 250 250 In Empty Bag 1 bag @ 250 mls/hr IVPB Q1HR PRN Rx#: [id number] Calcium Gluconate 1,000 100 mg In Sodium Chloride 0.9 % 100 ml @ 100 mls/hr IVPB ONCE STA Rx#: [id number] Clevidipine Butyrate 25 4.167 mg In Empty Bag 1 bag @ 1 MG/HR 2 mls/hr IV .Q24H [facility] Rx#:[id number] Insulin Regular 100 unit 4.717 13.441 In Sodium Chloride 0.9% 100 ml @ Per Protocol IV .Q0M [facility] Rx#:[id number] Milrinone-D5w Pmx 20 mg 8.6 In Dextrose/Water 1 100ml .bag @ Per Protocol IV . Q0M [facility] Rx#:[id number] Norepinephrine 4 mg In 96.837 Sodium Chloride 0.9% 250 ml @ Titrate IV .Q0M [facility] Rx#:[id number] Propofol 1,000 mg In 50.444 65.006 84.55 Empty Bag 1 bag @ Titrate IV .Q0M [facility] Rx#: [id number] Blood Product 3725 514 Ffp 24 Cpd Unit 306 [id number] Ffp 24 Cpd Unit 306 [id number] Ffp 24 Cpd Unit 312 [id number] Ffp 24 Cpd Unit 300 [id number] Platelet Pheresis Acda1 301 Unit [id number] Platelet Pheresis Acda1 204 Unit [id number] Platelet Pheresis Acda3 204 Unit [id number] Pooled Cryoprecipitate 114 Unit [id number] Pooled Cryoprecipitate 117 Unit [id number] Pooled Cryoprecipitate 102 Unit [id number] Rc As-1 Unit 310 [id number] Rc As-1 Unit 310 [id number] Rc As-1 Unit 0 [id number] Rc As-1 Unit 310 [id number] Output: Chest Tube Drainage 853 924 65 Left Pleural 53 130 10 Mediastinal 800 639 50 Right Pleural 155 5 Urine 714 668 55 Estimated Blood Loss 1500 500 Other: Voiding Method Indwelling Catheter Indwelling Catheter Indwelling Catheter ABP, PAP, CO, CI - Last Documented Arterial Blood Pressure 95/59 Pulmonary Artery Pressure 41/24 Cardiac Output 6.7 Cardiac Index 3.5 - Labs CBC & Chem 7: 05/02/17 04:10 05/02/17 04:10 Labs: Abnormal Lab Results - Last 24 Hours (Table) 04/23/17 05/01/17 05/01/17 Range/Units 12:48 15:03 15:04 RBC 2.40 L (4.30-5.90) m/uL Hgb 7.5 L D (13.0-17.5) gm/dL Hct 22.2 L (39.0-53.0) % RDW 16.0 H (11.5-15.5) % Plt Count 88 L D (150-450) k/uL PT (9.0-12.0) sec INR (<1.2) APTT (22.0-30.0) sec Fibrinogen (200-500) mg/dL ABG pH (7.35-7.45) ABG pCO2 (35-45) mmHg ABG pO2 (83-108) mmHg ABG HCO3 (21-25) mmol/L ABG Total CO2 (19-24) mmol/L ABG O2 Saturation (94-97) % Chloride (98-107) mmol/L Glucose (74-99) mg/dL POC Glucose (mg/dL) 132 H (75-99) mg/dL Calcium (8.4-10.2) mg/dL Phosphorus (2.5-4.5) mg/dL Magnesium (1.6-2.3) mg/dL Total Bilirubin (0.2-1.3) mg/dL AST (17-59) U/L ALT (21-72) U/L Alkaline Phosphatase (38-126) U/L Total Protein (6.3-8.2) g/dL Albumin (3.5-5.0) g/dL Crossmatch See Detail 05/01/17 05/01/17 05/01/17 Range/Units 15:04 15:04 15:17 RBC (4.30-5.90) m/uL Hgb (13.0-17.5) gm/dL Hct (39.0-53.0) % RDW (11.5-15.5) % Plt Count (150-450) k/uL PT 13.6 H (9.0-12.0) sec INR 1.5 H (<1.2) APTT 57.7 H (22.0-30.0) sec Fibrinogen 112 L (200-500) mg/dL ABG pH 7.32 L (7.35-7.45) ABG pCO2 47 H (35-45) mmHg ABG pO2 >400 H (83-108) mmHg ABG HCO3 (21-25) mmol/L ABG Total CO2 26 H (19-24) mmol/L ABG O2 Saturation 99.1 H (94-97) % Chloride 110 H (98-107) mmol/L Glucose 112 H (74-99) mg/dL POC Glucose (mg/dL) (75-99) mg/dL Calcium 7.5 L (8.4-10.2) mg/dL Phosphorus (2.5-4.5) mg/dL Magnesium (1.6-2.3) mg/dL Total Bilirubin 2.3 H (0.2-1.3) mg/dL AST 269 H (17-59) U/L ALT 137 H (21-72) U/L Alkaline Phosphatase (38-126) U/L Total Protein 4.5 L (6.3-8.2) g/dL Albumin 3.0 L (3.5-5.0) g/dL Crossmatch 05/01/17 05/01/17 05/01/17 Range/Units 16:02 17:04 18:02 RBC (4.30-5.90) m/uL Hgb (13.0-17.5) gm/dL Hct (39.0-53.0) % RDW (11.5-15.5) % Plt Count (150-450) k/uL PT (9.0-12.0) sec INR (<1.2) APTT (22.0-30.0) sec Fibrinogen (200-500) mg/dL ABG pH (7.35-7.45) ABG pCO2 (35-45) mmHg ABG pO2 (83-108) mmHg ABG HCO3 (21-25) mmol/L ABG Total CO2 (19-24) mmol/L ABG O2 Saturation (94-97) % Chloride (98-107) mmol/L Glucose (74-99) mg/dL POC Glucose (mg/dL) 138 H 182 H 157 H (75-99) mg/dL Calcium (8.4-10.2) mg/dL Phosphorus (2.5-4.5) mg/dL Magnesium (1.6-2.3) mg/dL Total Bilirubin (0.2-1.3) mg/dL AST (17-59) U/L ALT (21-72) U/L Alkaline Phosphatase (38-126) U/L Total Protein (6.3-8.2) g/dL Albumin (3.5-5.0) g/dL Crossmatch 05/01/17 05/01/17 05/01/17 Range/Units 18:11 18:45 18:45 RBC (4.30-5.90) m/uL Hgb (13.0-17.5) gm/dL Hct (39.0-53.0) % RDW (11.5-15.5) % Plt Count (150-450) k/uL PT (9.0-12.0) sec INR 1.2 H (<1.2) APTT 30.2 H (22.0-30.0) sec Fibrinogen (200-500) mg/dL ABG pH (7.35-7.45) ABG pCO2 (35-45) mmHg ABG pO2 209 H (83-108) mmHg ABG HCO3 (21-25) mmol/L ABG Total CO2 27 H (19-24) mmol/L ABG O2 Saturation 100.0 H (94-97) % Chloride 108 H (98-107) mmol/L Glucose 149 H (74-99) mg/dL POC Glucose (mg/dL) (75-99) mg/dL Calcium 8.0 L (8.4-10.2) mg/dL Phosphorus 1.6 L (2.5-4.5) mg/dL Magnesium (1.6-2.3) mg/dL Total Bilirubin 4.0 H (0.2-1.3) mg/dL AST 298 H (17-59) U/L ALT 140 H (21-72) U/L Alkaline Phosphatase (38-126) U/L Total Protein 5.0 L (6.3-8.2) g/dL Albumin 3.3 L (3.5-5.0) g/dL Crossmatch 05/01/17 05/01/17 05/01/17 Range/Units 18:45 22:00 22:12 RBC 2.35 L (4.30-5.90) m/uL Hgb 7.4 L (13.0-17.5) gm/dL Hct 21.5 L (39.0-53.0) % RDW 16.1 H (11.5-15.5) % Plt Count 104 L (150-450) k/uL PT (9.0-12.0) sec INR (<1.2) APTT (22.0-30.0) sec Fibrinogen (200-500) mg/dL ABG pH (7.35-7.45) ABG pCO2 (35-45) mmHg ABG pO2 (83-108) mmHg ABG HCO3 (21-25) mmol/L ABG Total CO2 (19-24) mmol/L ABG O2 Saturation (94-97) % Chloride (98-107) mmol/L Glucose (74-99) mg/dL POC Glucose (mg/dL) 149 H (75-99) mg/dL Calcium (8.4-10.2) mg/dL Phosphorus 2.2 L (2.5-4.5) mg/dL Magnesium (1.6-2.3) mg/dL Total Bilirubin (0.2-1.3) mg/dL AST (17-59) U/L ALT (21-72) U/L Alkaline Phosphatase (38-126) U/L Total Protein (6.3-8.2) g/dL Albumin (3.5-5.0) g/dL Crossmatch 05/01/17 05/01/17 05/01/17 Range/Units 22:25 22:26 23:02 RBC 2.83 L (4.30-5.90) m/uL Hgb 8.7 L (13.0-17.5) gm/dL Hct 26.1 L (39.0-53.0) % RDW 16.0 H (11.5-15.5) % Plt Count 107 L (150-450) k/uL PT (9.0-12.0) sec INR (<1.2) APTT (22.0-30.0) sec Fibrinogen (200-500) mg/dL ABG pH (7.35-7.45) ABG pCO2 (35-45) mmHg ABG pO2 140 H (83-108) mmHg ABG HCO3 (21-25) mmol/L ABG Total CO2 25 H (19-24) mmol/L ABG O2 Saturation 98.9 H (94-97) % Chloride (98-107) mmol/L Glucose (74-99) mg/dL POC Glucose (mg/dL) 137 H (75-99) mg/dL Calcium (8.4-10.2) mg/dL Phosphorus (2.5-4.5) mg/dL Magnesium (1.6-2.3) mg/dL Total Bilirubin (0.2-1.3) mg/dL AST (17-59) U/L ALT (21-72) U/L Alkaline Phosphatase (38-126) U/L Total Protein (6.3-8.2) g/dL Albumin (3.5-5.0) g/dL Crossmatch 05/02/17 05/02/17 05/02/17 Range/Units 00:09 01:02 02:13 RBC (4.30-5.90) m/uL Hgb (13.0-17.5) gm/dL Hct (39.0-53.0) % RDW (11.5-15.5) % Plt Count (150-450) k/uL PT (9.0-12.0) sec INR (<1.2) APTT (22.0-30.0) sec Fibrinogen (200-500) mg/dL ABG pH (7.35-7.45) ABG pCO2 (35-45) mmHg ABG pO2 (83-108) mmHg ABG HCO3 (21-25) mmol/L ABG Total CO2 (19-24) mmol/L ABG O2 Saturation (94-97) % Chloride (98-107) mmol/L Glucose (74-99) mg/dL POC Glucose (mg/dL) 125 H 122 H 122 H (75-99) mg/dL Calcium (8.4-10.2) mg/dL Phosphorus (2.5-4.5) mg/dL Magnesium (1.6-2.3) mg/dL Total Bilirubin (0.2-1.3) mg/dL AST (17-59) U/L ALT (21-72) U/L Alkaline Phosphatase (38-126) U/L Total Protein (6.3-8.2) g/dL Albumin (3.5-5.0) g/dL Crossmatch 05/02/17 05/02/17 05/02/17 Range/Units 03:07 04:05 04:10 RBC 2.58 L (4.30-5.90) m/uL Hgb 7.8 L (13.0-17.5) gm/dL Hct 23.5 L (39.0-53.0) % RDW 16.5 H (11.5-15.5) % Plt Count 115 L (150-450) k/uL PT (9.0-12.0) sec INR (<1.2) APTT (22.0-30.0) sec Fibrinogen (200-500) mg/dL ABG pH (7.35-7.45) ABG pCO2 (35-45) mmHg ABG pO2 (83-108) mmHg ABG HCO3 (21-25) mmol/L ABG Total CO2 (19-24) mmol/L ABG O2 Saturation (94-97) % Chloride (98-107) mmol/L Glucose (74-99) mg/dL POC Glucose (mg/dL) 118 H 107 H (75-99) mg/dL Calcium (8.4-10.2) mg/dL Phosphorus (2.5-4.5) mg/dL Magnesium (1.6-2.3) mg/dL Total Bilirubin (0.2-1.3) mg/dL AST (17-59) U/L ALT (21-72) U/L Alkaline Phosphatase (38-126) U/L Total Protein (6.3-8.2) g/dL Albumin (3.5-5.0) g/dL Crossmatch 05/02/17 05/02/17 05/02/17 Range/Units 04:10 04:10 05:04 RBC (4.30-5.90) m/uL Hgb (13.0-17.5) gm/dL Hct (39.0-53.0) % RDW (11.5-15.5) % Plt Count (150-450) k/uL PT 12.2 H (9.0-12.0) sec INR 1.3 H (<1.2) APTT (22.0-30.0) sec Fibrinogen (200-500) mg/dL ABG pH (7.35-7.45) ABG pCO2 (35-45) mmHg ABG pO2 (83-108) mmHg ABG HCO3 (21-25) mmol/L ABG Total CO2 (19-24) mmol/L ABG O2 Saturation (94-97) % Chloride 108 H (98-107) mmol/L Glucose (74-99) mg/dL POC Glucose (mg/dL) 105 H (75-99) mg/dL Calcium 7.7 L (8.4-10.2) mg/dL Phosphorus (2.5-4.5) mg/dL Magnesium 2.5 H (1.6-2.3) mg/dL Total Bilirubin 3.7 H (0.2-1.3) mg/dL AST 149 H (17-59) U/L ALT 95 H (21-72) U/L Alkaline Phosphatase 36 L (38-126) U/L Total Protein 4.3 L (6.3-8.2) g/dL Albumin 2.7 L (3.5-5.0) g/dL Crossmatch 05/02/17 05/02/17 05/02/17 Range/Units 05:54 06:10 06:55 RBC (4.30-5.90) m/uL Hgb (13.0-17.5) gm/dL Hct (39.0-53.0) % RDW (11.5-15.5) % Plt Count (150-450) k/uL PT (9.0-12.0) sec INR (<1.2) APTT (22.0-30.0) sec Fibrinogen (200-500) mg/dL ABG pH (7.35-7.45) ABG pCO2 (35-45) mmHg ABG pO2 110 H (83-108) mmHg ABG HCO3 26 H (21-25) mmol/L ABG Total CO2 27 H (19-24) mmol/L ABG O2 Saturation 98.1 H (94-97) % Chloride (98-107) mmol/L Glucose (74-99) mg/dL POC Glucose (mg/dL) 100 H 101 H (75-99) mg/dL Calcium (8.4-10.2) mg/dL Phosphorus (2.5-4.5) mg/dL Magnesium (1.6-2.3) mg/dL Total Bilirubin (0.2-1.3) mg/dL AST (17-59) U/L ALT (21-72) U/L Alkaline Phosphatase (38-126) U/L Total Protein (6.3-8.2) g/dL Albumin (3.5-5.0) g/dL Crossmatch 05/02/17 05/02/17 05/02/17 Range/Units 08:05 09:01 09:43 RBC (4.30-5.90) m/uL Hgb (13.0-17.5) gm/dL Hct (39.0-53.0) % RDW (11.5-15.5) % Plt Count (150-450) k/uL PT (9.0-12.0) sec INR (<1.2) APTT (22.0-30.0) sec Fibrinogen (200-500) mg/dL ABG pH 7.32 L (7.35-7.45) ABG pCO2 50 H (35-45) mmHg ABG pO2 116 H (83-108) mmHg ABG HCO3 26 H (21-25) mmol/L ABG Total CO2 27 H (19-24) mmol/L ABG O2 Saturation 97.9 H (94-97) % Chloride (98-107) mmol/L Glucose (74-99) mg/dL POC Glucose (mg/dL) 107 H 110 H (75-99) mg/dL Calcium (8.4-10.2) mg/dL Phosphorus (2.5-4.5) mg/dL Magnesium (1.6-2.3) mg/dL Total Bilirubin (0.2-1.3) mg/dL AST (17-59) U/L ALT (21-72) U/L Alkaline Phosphatase (38-126) U/L Total Protein (6.3-8.2) g/dL Albumin (3.5-5.0) g/dL Crossmatch 05/02/17 Range/Units 10:03 RBC (4.30-5.90) m/uL Hgb (13.0-17.5) gm/dL Hct (39.0-53.0) % RDW (11.5-15.5) % Plt Count (150-450) k/uL PT (9.0-12.0) sec INR (<1.2) APTT (22.0-30.0) sec Fibrinogen (200-500) mg/dL ABG pH (7.35-7.45) ABG pCO2 (35-45) mmHg ABG pO2 (83-108) mmHg ABG HCO3 (21-25) mmol/L ABG Total CO2 (19-24) mmol/L ABG O2 Saturation (94-97) % Chloride (98-107) mmol/L Glucose (74-99) mg/dL POC Glucose (mg/dL) 109 H (75-99) mg/dL Calcium (8.4-10.2) mg/dL Phosphorus (2.5-4.5) mg/dL Magnesium (1.6-2.3) mg/dL Total Bilirubin (0.2-1.3) mg/dL AST (17-59) U/L ALT (21-72) U/L Alkaline Phosphatase (38-126) U/L Total Protein (6.3-8.2) g/dL Albumin (3.5-5.0) g/dL Crossmatch
[2017-05-02 12:20] LABS: Glucose,Whole Blood 113 mg/dL (75-99)
[2017-05-02] MEDS ORDERED: HYDROcodone/APAP 5-325MG 1 EACH TAB PO PRN (14:16)
[2017-05-02] MEDS ORDERED: MAGNESIUM HYDROXIDE 2,400 MG/10 ML CUP PO PRN (14:17)
[2017-05-02] MEDS ORDERED: BISACODYL 10 MG SUPP RECTAL PRN (14:17)
[2017-05-02] MEDS ORDERED: IPRATROPIUM-ALBUTEROL 3 ML NEB INHALATION PRN (14:18)
[2017-05-02 14:28] LABS: Glucose,Whole Blood 117 mg/dL (75-99)
[2017-05-02] MEDS: CLEVIDIPINE BUTYRATE 25 MG in EMPTY BAG 1 BAG IV SCH (16:43)
--- NOTE | 2017-05-02 16:48 | P.CONS ---
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 Patient was seen postoperatively at bedside. Patient is doing well is requiring 3-4 L of oxygen post extubation. Complains of some soreness in the chest but denies any significant chest pain, shortness of breath, abdominal pain nausea or vomiting. Patient is tachycardic to 101, blood pressure 115/64, slightly confused but is answering questions appropriately. Patient received multiple units of transfusion including RBC, platelets, cryoprecipitate due to significant bleeding from generalized coagulopathy intraoperatively. According to documentation patient bleed profusely during the surgery with defficulty to maintain hemostasis. Patient received 6 units of platelets and 2 units of FFP , 1.5 L of cell saver blood, 4 units of RBCs in total. Preoperative labs from 04/23 were concerning for leukocytosis for which patient was followed by oncology and patient was diagnosed with CLL. Labs obtained on 05/01 suggested a WBC of 6.7, hemoglobin dropped from 14.8 to 7.5, drop of platelets from 203 to 88 increased. The liver function test with AST 298, AST 114, alkaline phosphatase 46. Total bilirubin 4.0. fibrinogen was low but repeat was normal. Patient's lab findings are concerning for hemolytic anemia. There is some improvement in the platelets on the repeat labs. Transfusion reaction ordered. Unclear why patient was profusely bleeding with rapid drop in his counts. Will discuss with hematology Dr. latif as patient has h/o CLL. Review of Systems Constitutional: Denies chills, Denies fever, Denies lethargy, Denies malaise, Denies poor appetite, Denies weakness, Denies weight loss Eyes: denies decreased vision, denies diplopia, denies discharge, denies pain Ears: deny: decreased hearing Ears, nose, mouth and throat: Denies dental pain, Denies headache, Denies nasal discharge, Denies nose pain Cardiovascular: endorses chest pain, Denies decreased exercise tolerance, Denies edema, Denies high blood pressure, Denies irregular heart beat, Denies palpitations, Denies paroxysmal nocturnal dyspnea, Denies rapid heart beat, Denies shortness of breath Respiratory: Denies congestion, Denies cough, Denies cough with sputum, Denies dyspnea, Denies home oxygen, Denies wheezing Gastrointestinal: Denies abdominal pain, Denies change in bowel habits, Denies coffee ground emesis, Denies early satiety, Denies excessive gas, Denies heartburn, Denies hematemesis, Denies hematochezia, Denies loss of appetite, Denies nausea, Denies vomiting Genitourinary: Denies dysuria, Denies flank pain, Denies kidney stones, Denies menorrhagia, Denies urgency, Denies urinary frequency Musculoskeletal: Denies gait dysfunction, Denies limitation of motion, Denies morning stiffness, Denies muscle cramps Integumentary: Denies rash, Denies wounds, Denies brittle nails, Denies change in hair/nails, Denies darkening of skin Neurological: Denies balance difficulties, Denies change in speech, Denies double vision, Denies gait dysfunction, Denies loss of vision, Denies motor disturbance, Denies numbness, Denies paralysis, Denies paresthesias, Denies seizures Psychiatric: Denies anxiety, Denies depression Endocrine: Denies excessive sweating, Denies excessive thirst, Denies high blood sugars, Denies palpitations Hematologic/Lymphatic: Denies easy bruising, Denies lymphadenopathy Past Medical History Past Medical History: Asthma, Chest Pain / Angina, COPD, CVA/TIA, GERD/Reflux, Skin Disorder, Sleep Apnea/CPAP/BIPAP Additional Past Medical History / Comment(s): STATES WAS TOLD AORTIC STENOSIS, TIA approx 1996, psoriasis NO CURRENT OUTBREAKS, USES CPAP, Leukemia,steroids Feb 2016 History of Any Multi-Drug Resistant Organisms: None Reported Past Surgical History: Heart Catheterization With Stent, Tonsillectomy Additional Past Surgical History / Comment(s): 3 cardiac stents, metal removed from left hand, gokul cataracts with lens implant, polyps removed nasal, LOOP RECORDER Past Anesthesia/Blood Transfusion Reactions: No Reported Reaction Date of Last Stent Placement:: 2009 Smoking Status: Former smoker - Past Family History Mother Family Medical History: Cancer, Congestive Heart Failure (CHF) Father Family Medical History: Coronary Artery Disease (CAD) Medications and Allergies Home Medications Medication Instructions Recorded Confirmed Type Aspirin 81 mg PO QAM 07/28/13 05/01/17 History Atorvastatin Calcium [Lipitor] 40 mg PO HS 07/28/13 05/01/17 History Citalopram Hydrobromide [CeleXA] 20 mg PO HS 07/28/13 05/01/17 History Clopidogrel [Plavix] 75 mg PO QAM 07/28/13 05/01/17 History Famotidine [Pepcid] 20 mg PO QAM 07/28/13 05/01/17 History Lisinopril [Zestril] 2.5 mg PO HS 07/28/13 05/01/17 History Nitroglycerin Sl Tabs [Nitrostat] 0.4 mg SUBLINGUAL Q5M PRN 07/28/13 05/01/17 History Albuterol Sulfate [Proair Hfa] 2 puff INHALATION RT-QID PRN 07/30/13 05/01/17 History Beclomethasone Dipropionate [Qvar 1 puff INHALATION RT-BID 08/02/13 05/01/17 History 80 mcg/puff] Montelukast [Singulair] 10 mg PO HS 08/02/13 05/01/17 History Fluticasone Nasal [place] [Flonase 1 spray EA NOSTRIL DAILY 07/05/16 05/01/17 History Nasal [place]] Metoprolol Tartrate [Lopressor] 12.5 mg PO BID 07/05/16 05/01/17 History guaiFENesin [Mucinex] 600 mg PO HS PRN 04/24/17 05/01/17 History Allergies Allergy/AdvReac Type Severity Reaction Status Date / Time No Known Allergies Allergy Verified 05/01/17 05:56 Physical Exam Vitals: Vital Signs Temp Pulse Pulse Resp BP Pulse Ox 05/02/17 12:00 105 H 60 17 96 05/02/17 11:00 101 H 11 L 95/59 98 05/02/17 10:00 100 13 95/59 100 05/02/17 09:00 104 H 15 99 05/02/17 08:17 95 05/02/17 08:00 92 60 13 100 05/02/17 07:56 99 05/02/17 07:00 96 13 100 05/02/17 06:20 96 15 92/54 99 05/02/17 06:00 98 14 92/54 92 L 05/02/17 05:40 97 15 96/54 100 05/02/17 05:20 96 14 97/62 100 05/02/17 05:00 92 19 97/62 100 05/02/17 04:40 94 16 101/63 100 05/02/17 04:35 90 05/02/17 04:20 92 21 93/54 100 05/02/17 04:17 92 05/02/17 04:00 85 18 93/54 99 05/02/17 03:40 83 14 84/54 99 05/02/17 03:20 83 14 87/55 99 05/02/17 03:18 14 05/02/17 03:00 84 14 87/55 100 05/02/17 02:40 82 17 86/56 99 05/02/17 02:20 81 15 103/62 98 05/02/17 02:00 83 17 103/62 99 05/02/17 01:40 86 14 85/55 100 05/02/17 01:20 85 14 83/55 100 05/02/17 01:10 85 14 83/55 99 05/02/17 01:00 85 14 83/55 99 05/02/17 00:50 86 14 87/58 100 05/02/17 00:40 85 14 87/58 99 05/02/17 00:30 85 14 87/58 100 05/02/17 00:20 89 13 100 05/02/17 00:10 87 14 99/64 100 05/02/17 00:08 86 05/02/17 00:01 86 05/02/17 00:00 84 13 99/64 99 05/01/17 23:50 86 13 92/61 99 05/01/17 23:43 14 05/01/17 23:40 83 13 100 05/01/17 23:31 79 14 99 05/01/17 23:30 79 14 99 05/01/17 23:20 78 14 100 05/01/17 23:10 76 14 100 05/01/17 23:00 73 14 100 05/01/17 22:50 74 14 94 L 05/01/17 22:40 71 14 94 L 05/01/17 22:30 73 14 96 05/01/17 22:20 72 14 99 05/01/17 22:10 71 18 98 05/01/17 22:00 78 14 100 05/01/17 19:10 81 0 L 83/58 05/01/17 19:00 80 14 83/58 95 05/01/17 18:50 76 0 L 83/58 98 05/01/17 18:40 81 11 L 82/59 93 L 05/01/17 18:39 97.9 F 80 14 86/52 90 L 05/01/17 18:30 84 6 L 82/59 91 L 05/01/17 18:20 83 5 L 87/63 95 05/01/17 18:10 82 7 L 98/62 93 L 05/01/17 18:00 84 13 98/62 93 L 05/01/17 17:57 97.9 F 78 14 97/57 05/01/17 17:50 80 13 98/62 95 05/01/17 17:40 84 14 105/62 96 05/01/17 17:30 81 14 105/62 96 05/01/17 17:25 97.5 F L 82 14 107/53 94 L 05/01/17 17:20 72 0 L 105/62 94 L 05/01/17 17:10 72 8 L 137/75 100 05/01/17 17:00 72 0 L 137/75 100 05/01/17 16:50 66 0 L 137/75 94 L 05/01/17 16:40 78 8 L 66/50 05/01/17 16:33 75 05/01/17 16:30 86 0 L 05/01/17 16:20 87 0 L 92 L 05/01/17 16:18 84 05/01/17 16:10 80 0 L 99/64 93 L 05/01/17 16:00 82 7 L 99/64 94 L 05/01/17 15:50 96.8 F L 82 0 L 99/64 96 05/01/17 15:42 96.8 F L 81 14 93/54 94 L 05/01/17 15:40 80 11 L 99/58 99 05/01/17 15:39 96.8 F L 95 20 110/70 100 05/01/17 15:35 96.8 F L 81 21 135/62 100 05/01/17 15:34 96.8 F L 83 20 122/55 99 05/01/17 15:32 96.8 F L 80 19 112/44 100 05/01/17 15:30 82 0 L 99/58 100 05/01/17 15:29 96.8 F L 81 20 118/52 05/01/17 15:20 77 8 L 99/58 100 05/01/17 15:19 96.8 F L 82 20 123/54 100 05/01/17 15:13 96.8 F L 82 20 126/56 100 05/01/17 15:10 75 0 L 99/58 100 05/01/17 15:07 97.0 F L 69 22 139/55 99 05/01/17 15:03 96.8 F L 77 18 126/56 98 05/01/17 15:00 73 0 L 05/01/17 14:58 12 Intake and Output 05/01/17 05/02/17 05/02/17 22:59 06:59 14:59 Intake Total 4908.931 1452.281 262.55 Output Total 2420 739 120 Balance 2488.931 713.281 142.55 Intake: IV 704 1391 178 ACETAMINOPHEN IV (For NPO 200 ) 1,000 mg In Empty Bag 1 bag @ 400 mls/hr IVPB Q6HR [facility] Rx#:[id number] Albumin Human 5% 250 ml 250 In Empty Bag 1 bag @ 250 mls/hr IVPB Q1HR PRN Rx#: [id number] CO/CI 290 110 60 LR 350 450 100 Magnesium Sulfate-D5w Pmx 200 1 gm In Dextrose/Water 1 100ml.bag @ 100 mls/hr IVPB Q1H [facility] Rx#: [id number] Pressure Bag 63 81 18 Sodium Phosphate 10 mmol 100 In Sodium Chloride 0.9% 100 ml @ 50 mls/hr IVPB ONCE ONE Rx#:[id number] Intake, IV Titration 781.931 61.281 84.55 Amount Albumin Human 5% 250 ml 500 In Empty Bag 1 bag @ 250 mls/hr IVPB Q1HR PRN Rx#: [id number] Calcium Gluconate 1,000 100 mg In Sodium Chloride 0.9 % 100 ml @ 100 mls/hr IVPB ONCE STA Rx#: [id number] Clevidipine Butyrate 25 4.167 0 mg In Empty Bag 1 bag @ 1 MG/HR 2 mls/hr IV .Q24H [facility] Rx#:[id number] Insulin Regular 100 unit 7.675 10.483 In Sodium Chloride 0.9% 100 ml @ Per Protocol IV .Q0M [facility] Rx#:[id number] Milrinone-D5w Pmx 20 mg 8.6 In Dextrose/Water 1 100ml .bag @ Per Protocol IV . Q0M [facility] Rx#:[id number] Norepinephrine 4 mg In 96.837 Sodium Chloride 0.9% 250 ml @ Titrate IV .Q0M [facility] Rx#:[id number] Propofol 1,000 mg In 64.652 50.798 84.55 Empty Bag 1 bag @ Titrate IV .Q0M [facility] Rx#: [id number] Blood Product 3423 Ffp 24 Cpd Unit 306 [id number] Ffp 24 Cpd Unit 306 [id number] Platelet Pheresis Acda1 301 Unit [id number] Platelet Pheresis Acda1 204 Unit [id number] Pooled Cryoprecipitate 114 Unit [id number] Pooled Cryoprecipitate 117 Unit [id number] Pooled Cryoprecipitate 102 Unit [id number] Rc As-1 Unit 310 [id number] Rc As-1 Unit 310 [id number] Rc As-1 Unit 310 [id number] Output: Chest Tube Drainage 1425 352 65 Left Pleural 105 78 10 Mediastinal 1255 184 50 Right Pleural 65 90 5 Urine 495 387 55 Estimated Blood Loss 500 Other: Voiding Method Indwelling Catheter Indwelling Catheter Indwelling Catheter Weight 102 kg 102 kg Patient Weight 05/03/17 06:59 Weight 102 kg ABP, PAP, CO, CI - Last 8 Hours Arterial Blood Pressure 115/64 Arterial Blood Pressure 111/61 Arterial Blood Pressure 122/57 Arterial Blood Pressure 95/59 Arterial Blood Pressure 109/55 Arterial Blood Pressure 111/57 Pulmonary Artery Pressure 40/24 Pulmonary Artery Pressure 43/25 Pulmonary Artery Pressure 39/22 Pulmonary Artery Pressure 41/24 Pulmonary Artery Pressure 35/20 Pulmonary Artery Pressure 38/21 Cardiac Output 6.9 Cardiac Output 6.9 Cardiac Output 6.9 Cardiac Output 6.7 Cardiac Output 6.9 Cardiac Output 6.9 Cardiac Index 3.5 Cardiac Index 3.5 Cardiac Index 3.4 - Constitutional General appearance: cooperative. appears confused but answering questions appropriately, in mild acute distress - EENT Eyes: anicteric sclerae, PERRLA, normal appearance, no icterus , pale appearing ENT: hearing grossly normal - Neck Neck: no lymphadenopathy, normal ROM, no other, no rigidity, no stridor, no thyromegaly - Respiratory Respiratory: bilateral diminished no dullness, rales, rhonchi, [address], anterior sternal incision clean and intact. - Cardiovascular Rhythm: regular Heart sounds: normal: S1, S2 positive for systolic murmur on the 2nd IC space Abnormal Heart Sounds: no diastolic murmur, no rub, no S3 Gallop, no S4 Gallop , no click, no other - Gastrointestinal General gastrointestinal: normal bowel sounds, soft, non tender - Integumentary Integumentary: no rash - Neurologic Neurologic: CNII-XII intact - Musculoskeletal Musculoskeletal: gait normal, strength equal bilaterally - Psychiatric Psychiatric: A&O x's 3, appropriate affect Results CBC & Chem 7: 05/02/17 04:10 05/02/17 04:10 Labs: Abnormal Lab Results - Last 24 Hours (Table) 04/23/17 05/01/17 05/01/17 Range/Units 12:48 15:03 15:04 RBC 2.40 L (4.30-5.90) m/uL Hgb 7.5 L D (13.0-17.5) gm/dL Hct 22.2 L (39.0-53.0) % RDW 16.0 H (11.5-15.5) % Plt Count 88 L D (150-450) k/uL PT (9.0-12.0) sec INR (<1.2) APTT (22.0-30.0) sec Fibrinogen (200-500) mg/dL ABG pH (7.35-7.45) ABG pCO2 (35-45) mmHg ABG pO2 (83-108) mmHg ABG HCO3 (21-25) mmol/L ABG Total CO2 (19-24) mmol/L ABG O2 Saturation (94-97) % Chloride (98-107) mmol/L Glucose (74-99) mg/dL POC Glucose (mg/dL) 132 H (75-99) mg/dL Calcium (8.4-10.2) mg/dL Phosphorus (2.5-4.5) mg/dL Magnesium (1.6-2.3) mg/dL Total Bilirubin (0.2-1.3) mg/dL AST (17-59) U/L ALT (21-72) U/L Alkaline Phosphatase (38-126) U/L Total Protein (6.3-8.2) g/dL Albumin (3.5-5.0) g/dL Crossmatch See Detail 05/01/17 05/01/17 05/01/17 Range/Units 15:04 15:04 15:17 RBC (4.30-5.90) m/uL Hgb (13.0-17.5) gm/dL Hct (39.0-53.0) % RDW (11.5-15.5) % Plt Count (150-450) k/uL PT 13.6 H (9.0-12.0) sec INR 1.5 H (<1.2) APTT 57.7 H (22.0-30.0) sec Fibrinogen 112 L (200-500) mg/dL ABG pH 7.32 L (7.35-7.45) ABG pCO2 47 H (35-45) mmHg ABG pO2 >400 H (83-108) mmHg ABG HCO3 (21-25) mmol/L ABG Total CO2 26 H (19-24) mmol/L ABG O2 Saturation 99.1 H (94-97) % Chloride 110 H (98-107) mmol/L Glucose 112 H (74-99) mg/dL POC Glucose (mg/dL) (75-99) mg/dL Calcium 7.5 L (8.4-10.2) mg/dL Phosphorus (2.5-4.5) mg/dL Magnesium (1.6-2.3) mg/dL Total Bilirubin 2.3 H (0.2-1.3) mg/dL AST 269 H (17-59) U/L ALT 137 H (21-72) U/L Alkaline Phosphatase (38-126) U/L Total Protein 4.5 L (6.3-8.2) g/dL Albumin 3.0 L (3.5-5.0) g/dL Crossmatch 03/08/18 03/08/18 03/08/18 Range/Units 16:02 17:04 18:02 RBC (4.30-5.90) m/uL Hgb (13.0-17.5) gm/dL Hct (39.0-53.0) % RDW (11.5-15.5) % Plt Count (150-450) k/uL PT (9.0-12.0) sec INR (<1.2) APTT (22.0-30.0) sec Fibrinogen (200-500) mg/dL ABG pH (7.35-7.45) ABG pCO2 (35-45) mmHg ABG pO2 (83-108) mmHg ABG HCO3 (21-25) mmol/L ABG Total CO2 (19-24) mmol/L ABG O2 Saturation (94-97) % Chloride (98-107) mmol/L Glucose (74-99) mg/dL POC Glucose (mg/dL) 138 H 182 H 157 H (75-99) mg/dL Calcium (8.4-10.2) mg/dL Phosphorus (2.5-4.5) mg/dL Magnesium (1.6-2.3) mg/dL Total Bilirubin (0.2-1.3) mg/dL AST (17-59) U/L ALT (21-72) U/L Alkaline Phosphatase (38-126) U/L Total Protein (6.3-8.2) g/dL Albumin (3.5-5.0) g/dL Crossmatch 05/01/17 05/01/17 05/01/17 Range/Units 18:11 18:45 18:45 RBC (4.30-5.90) m/uL Hgb (13.0-17.5) gm/dL Hct (39.0-53.0) % RDW (11.5-15.5) % Plt Count (150-450) k/uL PT (9.0-12.0) sec INR 1.2 H (<1.2) APTT 30.2 H (22.0-30.0) sec Fibrinogen (200-500) mg/dL ABG pH (7.35-7.45) ABG pCO2 (35-45) mmHg ABG pO2 209 H (83-108) mmHg ABG HCO3 (21-25) mmol/L ABG Total CO2 27 H (19-24) mmol/L ABG O2 Saturation 100.0 H (94-97) % Chloride 108 H (98-107) mmol/L Glucose 149 H (74-99) mg/dL POC Glucose (mg/dL) (75-99) mg/dL Calcium 8.0 L (8.4-10.2) mg/dL Phosphorus 1.6 L (2.5-4.5) mg/dL Magnesium (1.6-2.3) mg/dL Total Bilirubin 4.0 H (0.2-1.3) mg/dL AST 298 H (17-59) U/L ALT 140 H (21-72) U/L Alkaline Phosphatase (38-126) U/L Total Protein 5.0 L (6.3-8.2) g/dL Albumin 3.3 L (3.5-5.0) g/dL Crossmatch 05/01/17 05/01/17 05/01/17 Range/Units 18:45 22:00 22:12 RBC 2.35 L (4.30-5.90) m/uL Hgb 7.4 L (13.0-17.5) gm/dL Hct 21.5 L (39.0-53.0) % RDW 16.1 H (11.5-15.5) % Plt Count 104 L (150-450) k/uL PT (9.0-12.0) sec INR (<1.2) APTT (22.0-30.0) sec Fibrinogen (200-500) mg/dL ABG pH (7.35-7.45) ABG pCO2 (35-45) mmHg ABG pO2 (83-108) mmHg ABG HCO3 (21-25) mmol/L ABG Total CO2 (19-24) mmol/L ABG O2 Saturation (94-97) % Chloride (98-107) mmol/L Glucose (74-99) mg/dL POC Glucose (mg/dL) 149 H (75-99) mg/dL Calcium (8.4-10.2) mg/dL Phosphorus 2.2 L (2.5-4.5) mg/dL Magnesium (1.6-2.3) mg/dL Total Bilirubin (0.2-1.3) mg/dL AST (17-59) U/L ALT (21-72) U/L Alkaline Phosphatase (38-126) U/L Total Protein (6.3-8.2) g/dL Albumin (3.5-5.0) g/dL Crossmatch 05/01/17 05/01/17 05/01/17 Range/Units 22:25 22:26 23:02 RBC 2.83 L (4.30-5.90) m/uL Hgb 8.7 L (13.0-17.5) gm/dL Hct 26.1 L (39.0-53.0) % RDW 16.0 H (11.5-15.5) % Plt Count 107 L (150-450) k/uL PT (9.0-12.0) sec INR (<1.2) APTT (22.0-30.0) sec Fibrinogen (200-500) mg/dL ABG pH (7.35-7.45) ABG pCO2 (35-45) mmHg ABG pO2 140 H (83-108) mmHg ABG HCO3 (21-25) mmol/L ABG Total CO2 25 H (19-24) mmol/L ABG O2 Saturation 98.9 H (94-97) % Chloride (98-107) mmol/L Glucose (74-99) mg/dL POC Glucose (mg/dL) 137 H (75-99) mg/dL Calcium (8.4-10.2) mg/dL Phosphorus (2.5-4.5) mg/dL Magnesium (1.6-2.3) mg/dL Total Bilirubin (0.2-1.3) mg/dL AST (17-59) U/L ALT (21-72) U/L Alkaline Phosphatase (38-126) U/L Total Protein (6.3-8.2) g/dL Albumin (3.5-5.0) g/dL Crossmatch 05/02/17 05/02/17 05/02/17 Range/Units 00:09 01:02 02:13 RBC (4.30-5.90) m/uL Hgb (13.0-17.5) gm/dL Hct (39.0-53.0) % RDW (11.5-15.5) % Plt Count (150-450) k/uL PT (9.0-12.0) sec INR (<1.2) APTT (22.0-30.0) sec Fibrinogen (200-500) mg/dL ABG pH (7.35-7.45) ABG pCO2 (35-45) mmHg ABG pO2 (83-108) mmHg ABG HCO3 (21-25) mmol/L ABG Total CO2 (19-24) mmol/L ABG O2 Saturation (94-97) % Chloride (98-107) mmol/L Glucose (74-99) mg/dL POC Glucose (mg/dL) 125 H 122 H 122 H (75-99) mg/dL Calcium (8.4-10.2) mg/dL Phosphorus (2.5-4.5) mg/dL Magnesium (1.6-2.3) mg/dL Total Bilirubin (0.2-1.3) mg/dL AST (17-59) U/L ALT (21-72) U/L Alkaline Phosphatase (38-126) U/L Total Protein (6.3-8.2) g/dL Albumin (3.5-5.0) g/dL Crossmatch 05/02/17 05/02/17 05/02/17 Range/Units 03:07 04:05 04:10 RBC 2.58 L (4.30-5.90) m/uL Hgb 7.8 L (13.0-17.5) gm/dL Hct 23.5 L (39.0-53.0) % RDW 16.5 H (11.5-15.5) % Plt Count 115 L (150-450) k/uL PT (9.0-12.0) sec INR (<1.2) APTT (22.0-30.0) sec Fibrinogen (200-500) mg/dL ABG pH (7.35-7.45) ABG pCO2 (35-45) mmHg ABG pO2 (83-108) mmHg ABG HCO3 (21-25) mmol/L ABG Total CO2 (19-24) mmol/L ABG O2 Saturation (94-97) % Chloride (98-107) mmol/L Glucose (74-99) mg/dL POC Glucose (mg/dL) 118 H 107 H (75-99) mg/dL Calcium (8.4-10.2) mg/dL Phosphorus (2.5-4.5) mg/dL Magnesium (1.6-2.3) mg/dL Total Bilirubin (0.2-1.3) mg/dL AST (17-59) U/L ALT (21-72) U/L Alkaline Phosphatase (38-126) U/L Total Protein (6.3-8.2) g/dL Albumin (3.5-5.0) g/dL Crossmatch 05/02/17 05/02/17 05/02/17 Range/Units 04:10 04:10 05:04 RBC (4.30-5.90) m/uL Hgb (13.0-17.5) gm/dL Hct (39.0-53.0) % RDW (11.5-15.5) % Plt Count (150-450) k/uL PT 12.2 H (9.0-12.0) sec INR 1.3 H (<1.2) APTT (22.0-30.0) sec Fibrinogen (200-500) mg/dL ABG pH (7.35-7.45) ABG pCO2 (35-45) mmHg ABG pO2 (83-108) mmHg ABG HCO3 (21-25) mmol/L ABG Total CO2 (19-24) mmol/L ABG O2 Saturation (94-97) % Chloride 108 H (98-107) mmol/L Glucose (74-99) mg/dL POC Glucose (mg/dL) 105 H (75-99) mg/dL Calcium 7.7 L (8.4-10.2) mg/dL Phosphorus (2.5-4.5) mg/dL Magnesium 2.5 H (1.6-2.3) mg/dL Total Bilirubin 3.7 H (0.2-1.3) mg/dL AST 149 H (17-59) U/L ALT 95 H (21-72) U/L Alkaline Phosphatase 36 L (38-126) U/L Total Protein 4.3 L (6.3-8.2) g/dL Albumin 2.7 L (3.5-5.0) g/dL Crossmatch 05/02/17 05/02/17 05/02/17 Range/Units 05:54 06:10 06:55 RBC (4.30-5.90) m/uL Hgb (13.0-17.5) gm/dL Hct (39.0-53.0) % RDW (11.5-15.5) % Plt Count (150-450) k/uL PT (9.0-12.0) sec INR (<1.2) APTT (22.0-30.0) sec Fibrinogen (200-500) mg/dL ABG pH (7.35-7.45) ABG pCO2 (35-45) mmHg ABG pO2 110 H (83-108) mmHg ABG HCO3 26 H (21-25) mmol/L ABG Total CO2 27 H (19-24) mmol/L ABG O2 Saturation 98.1 H (94-97) % Chloride (98-107) mmol/L Glucose (74-99) mg/dL POC Glucose (mg/dL) 100 H 101 H (75-99) mg/dL Calcium (8.4-10.2) mg/dL Phosphorus (2.5-4.5) mg/dL Magnesium (1.6-2.3) mg/dL Total Bilirubin (0.2-1.3) mg/dL AST (17-59) U/L ALT (21-72) U/L Alkaline Phosphatase (38-126) U/L Total Protein (6.3-8.2) g/dL Albumin (3.5-5.0) g/dL Crossmatch 05/02/17 05/02/17 05/02/17 Range/Units 08:05 09:01 09:43 RBC (4.30-5.90) m/uL Hgb (13.0-17.5) gm/dL Hct (39.0-53.0) % RDW (11.5-15.5) % Plt Count (150-450) k/uL PT (9.0-12.0) sec INR (<1.2) APTT (22.0-30.0) sec Fibrinogen (200-500) mg/dL ABG pH 7.32 L (7.35-7.45) ABG pCO2 50 H (35-45) mmHg ABG pO2 116 H (83-108) mmHg ABG HCO3 26 H (21-25) mmol/L ABG Total CO2 27 H (19-24) mmol/L ABG O2 Saturation 97.9 H (94-97) % Chloride (98-107) mmol/L Glucose (74-99) mg/dL POC Glucose (mg/dL) 107 H 110 H (75-99) mg/dL Calcium (8.4-10.2) mg/dL Phosphorus (2.5-4.5) mg/dL Magnesium (1.6-2.3) mg/dL Total Bilirubin (0.2-1.3) mg/dL AST (17-59) U/L ALT (21-72) U/L Alkaline Phosphatase (38-126) U/L Total Protein (6.3-8.2) g/dL Albumin (3.5-5.0) g/dL Crossmatch 05/02/17 05/02/17 05/02/17 Range/Units 10:03 11:59 14:26 RBC (4.30-5.90) m/uL Hgb (13.0-17.5) gm/dL Hct (39.0-53.0) % RDW (11.5-15.5) % Plt Count (150-450) k/uL PT (9.0-12.0) sec INR (<1.2) APTT (22.0-30.0) sec Fibrinogen (200-500) mg/dL ABG pH (7.35-7.45) ABG pCO2 (35-45) mmHg ABG pO2 (83-108) mmHg ABG HCO3 (21-25) mmol/L ABG Total CO2 (19-24) mmol/L ABG O2 Saturation (94-97) % Chloride (98-107) mmol/L Glucose (74-99) mg/dL POC Glucose (mg/dL) 109 H 113 H 117 H (75-99) mg/dL Calcium (8.4-10.2) mg/dL Phosphorus (2.5-4.5) mg/dL Magnesium (1.6-2.3) mg/dL Total Bilirubin (0.2-1.3) mg/dL AST (17-59) U/L ALT (21-72) U/L Alkaline Phosphatase (38-126) U/L Total Protein (6.3-8.2) g/dL Albumin (3.5-5.0) g/dL Crossmatch Assessment and Plan Plan: #1 aortic stenosis status post aortic valve replacement with bovine pericardial bioprosthesis, pain management per primary team. Continue DVT prophylaxis. Incentive spirometry to prevent any pneumonia or atelectasis. Patient is requiring 4 L of oxygen likely secondary to volume overload #2 history of CLL, stable #3 acute blood loss anemia with thrombocytopenia likely secondary expected consequence off blood loss during surgery and multiple transfusions. Labs are consistent with hemolysis as there is increased bilirubin and LFTs from multiple transfusions. We will consult Dr. Carrasco as patient has a history of CLL to rule out ITP/hemolytic reaction #4 coronary arteries disease status post stenting of RCA and LAD. Continue aspirin, Plavix, metoprolol 12.5 mg twice daily #5 acute transaminitis secondary to increased unconjugated bilirubin from multiple transfusions. Repeat labs in 24 hours #6 hypertension blood pressure is stable. Started on metoprolol 12.5 mg twice daily #7 history of obstructive sleep apnea may benefit from CPAP overnight. Patient continues to require 4 L of oxygen. Repeat chest x-ray morning to evaluate for pulmonary edema. BP on the lower end, can benefit form lasix once BP stabilses #8 Acute hypoxic respiratory failure with history of asthma moderate persistent. Continue DuoNeb as needed, #9 history of alpha-1 antitrypsin deficiency carrier, stable #10 GI prophylaxis with Protonix 40 mg daily #11 DVT prophylaxis with heparin every 8 CODE STATUS full code
[2017-05-02 17:22] LABS: Glucose,Whole Blood 140 mg/dL (75-99)
[2017-05-02] MEDS: LACTATED RINGERS 1,000 ML IV SCH (17:43)
[2017-05-02 18:05] LABS: Glucose,Whole Blood 151 mg/dL (75-99)
[2017-05-02 18:11] LABS: Bilirubin, Delta 0.6 mg/dL (0.0-0.2); Bilirubin,Unconjugated 1.9 mg/dL (0.0-1.1); Total Bilirubin 2.5 mg/dL (0.2-1.3)
[2017-05-02 18:18] LABS: Band Neutrophils % 9 %; Neutrophils % (M) 37 %; Nucleated Red Blood Cells 0 /100 WBC (0-0); Total Cells Counted 100
[2017-05-02 20:24] LABS: Glucose,Whole Blood 127 mg/dL (75-99)
[2017-05-02] MEDS: SENNOSIDES-DOCUSATE SODIUM 1 EACH TAB PO SCH (20:34)
[2017-05-02 22:12] LABS: Glucose,Whole Blood 139 mg/dL (75-99)
[2017-05-02] MEDS: HYDROcodone/APAP 5-325MG 1 EACH TAB PO PRN (22:37)
[2017-05-03 00:03] LABS: Glucose,Whole Blood 105 mg/dL (75-99)
[2017-05-03] MEDS: HEPARIN SODIUM,PORCINE 5,000 UNIT/ML 1 ML VIAL SQ SCH ×2 (00:20→08:45)
[2017-05-03 01:23] LABS: Glucose,Whole Blood 107 mg/dL (75-99)
[2017-05-03] MEDS ORDERED: DEXTROSE 5% IN WATER 100 ML with AMIODARONE 150 MG IV ONE (02:26)
[2017-05-03 02:32] LABS: Glucose,Whole Blood 123 mg/dL (75-99)
[2017-05-03] MEDS: METOPROLOL TARTRATE 25 MG TAB PO SCH ×3 (03:08→20:14)
[2017-05-03] MEDS: AMIODARONE 450 MG in DEXTROSE 5% IN WATER 250 ML IV SCH ×4 (03:10→11:00)
[2017-05-03 03:14] LABS: Glucose,Whole Blood 138 mg/dL (75-99)
[2017-05-03] MEDS: HYDROcodone/APAP 5-325MG 1 EACH TAB PO PRN ×2 (04:21→20:14)
[2017-05-03 04:53] LABS: Glucose,Whole Blood 114 mg/dL (75-99)
[2017-05-03 05:03] LABS: Anisocytosis Slight; Basophils # (A) 0.1 k/uL (0-0.2); Basophils % (A) 1 %; Eosinophils % (A) 8 %; HCT 25.5 % (39.0-53.0); HGB 8.7 gm/dL (13.0-17.5); Lymphocytes # (A) 4.6 k/uL (1.0-4.8); Lymphocytes % (A) 36 %; MCH 31.7 pg (25.0-35.0); MCHC 34.2 g/dL (31.0-37.0); MCV 92.8 fL (80.0-100.0); Mean Platelet Volume 10.3; Monocytes # (A) 0.8 k/uL (0-1.0); Monocytes % (A) 6 %; Neutrophils # (A) 6.1 k/uL (1.3-7.7); Neutrophils % (A) 47 %; RBC 2.75 m/uL (4.30-5.90); RDW 16.4 % (11.5-15.5); WBC 12.9 k/uL (3.8-10.6)
[2017-05-03 05:12] LABS: Glucose,Whole Blood 127 mg/dL (75-99)
[2017-05-03 05:35] LABS: Platelet Count 76 k/uL (150-450)
[2017-05-03 05:58] LABS: Ionized Calcium 4.9 mg/dL (4.5-5.3)
[2017-05-03 06:32] LABS: ALT 63 U/L (21-72); AST 59 U/L (17-59); Albumin 3.2 g/dL (3.5-5.0); Alkaline Phosphatase 55 U/L (38-126); Anion Gap 7 mmol/L; Blood Urea Nitrogen 27 mg/dL (9-20); Calcium 8.3 mg/dL (8.4-10.2); Carbon Dioxide 29 mmol/L (22-30); Chloride 105 mmol/L (98-107); Glucose 114 mg/dL (74-99); Magnesium 2.6 mg/dL (1.6-2.3); Potassium 4.3 mmol/L (3.5-5.1); Sodium 141 mmol/L (137-145); Total Bilirubin 1.9 mg/dL (0.2-1.3); Total Protein 5.1 g/dL (6.3-8.2)
[2017-05-03] MEDS: IPRATROPIUM-ALBUTEROL 3 ML NEB INHALATION SCH ×3 (07:08→15:36)
[2017-05-03] MEDS: BUDESONIDE 0.5 MG/2 ML NEBU INHALATION SCH ×2 (07:08→19:32)
[2017-05-03 07:09] LABS: Glucose,Whole Blood 115 mg/dL (75-99)
[2017-05-03 08:09] LABS: Glucose,Whole Blood 136 mg/dL (75-99)
--- NOTE | 2017-05-03 08:23 | XR ---
EXAMINATION TYPE: XR chest 1V portable DATE OF EXAM: 05/03/2017 CLINICAL HISTORY: Difficulty breathing progress study. Post open cardiac surgery progress study. TECHNIQUE: Single AP portable upright view of the chest is obtained. COMPARISON: Chest x-ray from one day earlier and older studies. FINDINGS: There is interval extubation with removal of endotracheal and orogastric tubes. There is i nterval removal of right internal jugular Oxford-Danay catheter, cordis sheath remains present. Sternal wires and metallic aortic valve are redemonstrated. There are persistent bilateral chest tube s and mediastinal drainage catheter. There is persistent low lung volumes with increasing central vascular congestion. There is patchy rig ht greater than left bibasilar atelectasis and/or infiltrate. Cardiac silhouette size is stable and m ildly enlarged. Osseous structures are intact. IMPRESSION: Interval extubation. Persistent low lung volumes and mild cardiomegaly with worsening oniel tral vascular congestion. Persistent right greater than left bibasilar atelectasis and/or infiltrate and likely small bilateral pleural effusions.
[2017-05-03] MEDS: PANTOPRAZOLE 40 MG TABLET PO SCH (08:45)
[2017-05-03] MEDS: CHLORHEXIDINE GLUCONATE 15 ML CUP MUCOUS MEM SCH (08:45)
[2017-05-03] MEDS: ASPIRIN 325 MG TAB PO SCH (08:45)
[2017-05-03] MEDS: CLOPIDOGREL 75 MG TAB PO SCH (08:46)
[2017-05-03 09:10] LABS: Glucose,Whole Blood 139 mg/dL (75-99)
[2017-05-03] MEDS: MUPIROCIN 2% OINT 22 GM TUBE NASAL SCH ×2 (10:01→20:14)
[2017-05-03] MEDS: ATORVASTATIN 40 MG TAB PO SCH (10:01)
[2017-05-03 10:09] LABS: Glucose,Whole Blood 137 mg/dL (75-99)
[2017-05-03 11:09] LABS: Glucose,Whole Blood 130 mg/dL (75-99)
[2017-05-03 12:06] LABS: Glucose,Whole Blood 167 mg/dL (75-99)
--- NOTE | 2017-05-03 12:08 | P.PN ---
Subjective Progress Note Date: 05/03/17 Principal diagnosis: Severe aortic valve stenosis, recently diagnosed chronic lymphocytic leukemia, history of coronary artery disease with stent placement to his right coronary artery and left anterior descending coronary artery with no flow limiting lesion at this point, preserved left ventricular function, chronically elevated right hemidiaphragm, hypertension, hyperlipidemia, chronic obstructive pulmonary disease, GERD, history of psoriasis and history of TIA. POD #2, elective aortic valve replacement using a 25 mm magna ease bovine pericardial bioprosthesis, intraoperative transesophageal echocardiogram and epi -aortic scanning. POD #2, redo sternotomy, exploration of the mediastinum, evacuation of clot and control of bleeding. Postoperative acute blood loss anemia, and expected outcome of surgery. The patient is sitting up to the bedside chair. He is in no acute distress. He is alert and oriented 3. He rates his pain at 3 out of 10 on the pain scale. He is complaining of hiccups. Oxygen saturation are 98 percent on 2 L nasal cannula. He is achieving 750 mL on his incentive spirometry with encouragement. Patient had an episode of paroxysmal atrial fibrillation early this morning and was placed on an amiodarone drip. He is converted to normal sinus rhythm with no further episodes of atrial fibrillation. Objective - Vital Signs Vital signs: Vital Signs Temp 98.5 F 05/03/17 08:00 Pulse 68 05/03/17 11:07 Resp 16 05/03/17 11:00 BP 109/71 05/03/17 11:00 Pulse Ox 100 05/03/17 11:00 Intake & Output 05/02/17 05/03/17 05/03/17 18:59 06:59 18:59 Intake Total 711.05 544.767 387.390 Output Total 745 870 258 Balance -33.95 -325.233 129.390 Weight 102 kg 101 kg Intake: IV 619 509.2 148.3 ACETAMINOPHEN IV (For NPO 100 ) 1,000 mg In Empty Bag 1 bag @ 400 mls/hr IVPB Q6HR [facility] Rx#:[id number] Amiodarone 450 mg In 133.2 33.3 Dextrose 5% in Water 250 ml @ 1 MG/MIN 33.33 mls/ hr IV .Q7H31M [facility] Rx#: [id number] CO/CI 120 Dextrose 5% in Water 100 100 ml @ 618 mls/hr IV .Q10M ONE with Amiodarone 150 mg Rx#:[id number] LR 330 240 100 Pressure Bag 69 36 15 Intake, IV Titration 92.05 35.567 239.090 Amount Amiodarone 450 mg In 230.523 Dextrose 5% in Water 250 ml @ 1 MG/MIN 33.33 mls/ hr IV .Q7H31M [facility] Rx#: [id number] Clevidipine Butyrate 25 0 mg In Empty Bag 1 bag @ 1 MG/HR 2 mls/hr IV .Q24H [facility] Rx#:[id number] Insulin Regular 100 unit 7.5 35.567 8.567 In Sodium Chloride 0.9% 100 ml @ Per Protocol IV .Q0M [facility] Rx#:[id number] Propofol 1,000 mg In 84.55 Empty Bag 1 bag @ Titrate IV .Q0M [facility] Rx#: [id number] Output: Chest Tube Drainage 345 380 130 Left Pleural 60 180 60 Mediastinal 230 60 30 Right Pleural 55 140 40 Urine 400 490 128 Other: Voiding Method Indwelling Catheter Indwelling Catheter ABP, PAP, CO, CI - Last Documented Arterial Blood Pressure 112/54 Pulmonary Artery Pressure 39/21 Cardiac Output 6.6 Cardiac Index 3.5 - Constitutional General appearance: Present: cooperative, no acute distress, obese - EENT ENT: Present: hearing grossly normal - Neck Details: No JVD, no lymphadenopathy, neck is supple. - Respiratory Details: Lung sounds are essentially clear throughout, diminished to his bilateral bases with few scattered crackles. Respirations are symmetrical and nonlabored. Oxygen saturation are 98% on 2 L nasal cannula. He is achieving 750 mL on his incentive spirometry. Mediastinal, left and right pleural chest tubes remained to low continuous wall suction -20 cm H2O. No air leak present. They are draining thin serosanguineous drainage. Mediastinal chest tube with 20 mL output in the last 8 hours, 250 mL output in the last 24 hours. Left pleural chest tube with 160 mL output in the last 8 hours, 240 mL output in the last 24 hours. Right pleural chest tube with 70 mL output in the last 8 hours, 195 mL output in the last 24 hours. - Cardiovascular Details: Regular rhythm and rate. S1 and S2 present, negative for S3, gallop or murmur. Sternum is stable. Bedside telemetry showing normal sinus rhythm heart rate 73. No further episodes of atrial fibrillation. Heart hugger's in place and he is demonstrating appropriate use. Knee-high PHILIP hose and sequential compression devices in place to his bilateral lower extremity Laith. No edema present. Peripheral pulses palpable. Atrial epicardial pacemaker wires in place and grounded. - Gastrointestinal Gastrointestinal Comment(s): Abdomen is soft, nontender and nondistended. Active bowel sounds all 4 abdominal quadrants. Tolerating oral intake. - Genitourinary Genitourinary Comment(s): Rodríguez catheter for accurate I&O. Clear anisa urine. 245 mL output last 8 hours. - Integumentary Integumentary Comment(s): Skin is warm and dry. No clubbing or cyanosis. Midline sternal incision clean dry and well approximated. No redness or drainage present. Dermabond dressing clean and dry. - Neurologic Neurologic: Present: CNII-XII intact - Musculoskeletal Musculoskeletal: Present: gait normal, strength equal bilaterally - Psychiatric Psychiatric: Present: A&O x's 3, appropriate affect, intact judgment & insight - Allied health notes Allied health notes reviewed: nursing - Labs CBC & Chem 7: 05/03/17 04:35 05/03/17 04:35 Labs: Abnormal Lab Results - Last 24 Hours (Table) 04/23/17 05/02/17 05/02/17 Range/Units 12:48 11:59 14:26 WBC (3.8-10.6) k/uL RBC (4.30-5.90) m/uL Hgb (13.0-17.5) gm/dL Hct (39.0-53.0) % RDW (11.5-15.5) % Plt Count (150-450) k/uL Eosinophils # (0-0.7) k/uL BUN (9-20) mg/dL Glucose (74-99) mg/dL POC Glucose (mg/dL) 113 H 117 H (75-99) mg/dL Calcium (8.4-10.2) mg/dL Magnesium (1.6-2.3) mg/dL Total Bilirubin (0.2-1.3) mg/dL Unconjugated Bilirubin (0.0-1.1) mg/dL Delta Bilirubin (0.0-0.2) mg/dL Total Protein (6.3-8.2) g/dL Albumin (3.5-5.0) g/dL Crossmatch See Detail 05/02/17 05/02/17 05/02/17 Range/Units 17:00 17:01 18:04 WBC (3.8-10.6) k/uL RBC (4.30-5.90) m/uL Hgb (13.0-17.5) gm/dL Hct (39.0-53.0) % RDW (11.5-15.5) % Plt Count (150-450) k/uL Eosinophils # (0-0.7) k/uL BUN (9-20) mg/dL Glucose (74-99) mg/dL POC Glucose (mg/dL) 140 H 151 H (75-99) mg/dL Calcium (8.4-10.2) mg/dL Magnesium (1.6-2.3) mg/dL Total Bilirubin 2.5 H (0.2-1.3) mg/dL Unconjugated Bilirubin 1.9 H (0.0-1.1) mg/dL Delta Bilirubin 0.6 H (0.0-0.2) mg/dL Total Protein (6.3-8.2) g/dL Albumin (3.5-5.0) g/dL Crossmatch 05/02/17 05/02/17 05/03/17 Range/Units 20:22 22:10 00:02 WBC (3.8-10.6) k/uL RBC (4.30-5.90) m/uL Hgb (13.0-17.5) gm/dL Hct (39.0-53.0) % RDW (11.5-15.5) % Plt Count (150-450) k/uL Eosinophils # (0-0.7) k/uL BUN (9-20) mg/dL Glucose (74-99) mg/dL POC Glucose (mg/dL) 127 H 139 H 105 H (75-99) mg/dL Calcium (8.4-10.2) mg/dL Magnesium (1.6-2.3) mg/dL Total Bilirubin (0.2-1.3) mg/dL Unconjugated Bilirubin (0.0-1.1) mg/dL Delta Bilirubin (0.0-0.2) mg/dL Total Protein (6.3-8.2) g/dL Albumin (3.5-5.0) g/dL Crossmatch 05/03/17 05/03/17 05/03/17 Range/Units 01:20 02:29 03:11 WBC (3.8-10.6) k/uL RBC (4.30-5.90) m/uL Hgb (13.0-17.5) gm/dL Hct (39.0-53.0) % RDW (11.5-15.5) % Plt Count (150-450) k/uL Eosinophils # (0-0.7) k/uL BUN (9-20) mg/dL Glucose (74-99) mg/dL POC Glucose (mg/dL) 107 H 123 H 138 H (75-99) mg/dL Calcium (8.4-10.2) mg/dL Magnesium (1.6-2.3) mg/dL Total Bilirubin (0.2-1.3) mg/dL Unconjugated Bilirubin (0.0-1.1) mg/dL Delta Bilirubin (0.0-0.2) mg/dL Total Protein (6.3-8.2) g/dL Albumin (3.5-5.0) g/dL Crossmatch 05/03/17 05/03/17 05/03/17 Range/Units 04:35 04:35 04:36 WBC 12.9 H (3.8-10.6) k/uL RBC 2.75 L (4.30-5.90) m/uL Hgb 8.7 L (13.0-17.5) gm/dL Hct 25.5 L (39.0-53.0) % RDW 16.4 H (11.5-15.5) % Plt Count 76 L (150-450) k/uL Eosinophils # 1.0 H (0-0.7) k/uL BUN 27 H (9-20) mg/dL Glucose 114 H (74-99) mg/dL POC Glucose (mg/dL) 114 H (75-99) mg/dL Calcium 8.3 L (8.4-10.2) mg/dL Magnesium 2.6 H (1.6-2.3) mg/dL Total Bilirubin 1.9 H (0.2-1.3) mg/dL Unconjugated Bilirubin (0.0-1.1) mg/dL Delta Bilirubin (0.0-0.2) mg/dL Total Protein 5.1 L (6.3-8.2) g/dL Albumin 3.2 L (3.5-5.0) g/dL Crossmatch 05/03/17 05/03/17 05/03/17 Range/Units 05:09 07:07 08:07 WBC (3.8-10.6) k/uL RBC (4.30-5.90) m/uL Hgb (13.0-17.5) gm/dL Hct (39.0-53.0) % RDW (11.5-15.5) % Plt Count (150-450) k/uL Eosinophils # (0-0.7) k/uL BUN (9-20) mg/dL Glucose (74-99) mg/dL POC Glucose (mg/dL) 127 H 115 H 136 H (75-99) mg/dL Calcium (8.4-10.2) mg/dL Magnesium (1.6-2.3) mg/dL Total Bilirubin (0.2-1.3) mg/dL Unconjugated Bilirubin (0.0-1.1) mg/dL Delta Bilirubin (0.0-0.2) mg/dL Total Protein (6.3-8.2) g/dL Albumin (3.5-5.0) g/dL Crossmatch 05/03/17 05/03/17 05/03/17 Range/Units 09:07 10:06 11:08 WBC (3.8-10.6) k/uL RBC (4.30-5.90) m/uL Hgb (13.0-17.5) gm/dL Hct (39.0-53.0) % RDW (11.5-15.5) % Plt Count (150-450) k/uL Eosinophils # (0-0.7) k/uL BUN (9-20) mg/dL Glucose (74-99) mg/dL POC Glucose (mg/dL) 139 H 137 H 130 H (75-99) mg/dL Calcium (8.4-10.2) mg/dL Magnesium (1.6-2.3) mg/dL Total Bilirubin (0.2-1.3) mg/dL Unconjugated Bilirubin (0.0-1.1) mg/dL Delta Bilirubin (0.0-0.2) mg/dL Total Protein (6.3-8.2) g/dL Albumin (3.5-5.0) g/dL Crossmatch - Imaging and Cardiology Chest x-ray: report reviewed, image reviewed Assessment and Plan (1) Severe aortic valve stenosis Current Visit: Yes Status: Acute Code(s): I35.0 - NONRHEUMATIC AORTIC (VALVE ) STENOSIS SNOMED Code(s): 58226251 (2) Chronic lymphocytic leukemia Current Visit: Yes Status: Acute Code(s): C91.90 - LYMPHOID LEUKEMIA, UNSPECIFIED NOT HAVING ACHIEVED REMISSION SNOMED Code(s): 22750530 (3) History of coronary artery stent placement Current Visit: Yes Status: Acute Code(s): Z95.5 - PRESENCE OF CORONARY ANGIOPLASTY IMPLANT AND GRAFT SNOMED Code(s): 486677904 (4) Hypertension Current Visit: Yes Status: Acute Code(s): I10 - ESSENTIAL (PRIMARY) HYPERTENSION SNOMED Code(s): 45039350 (5) Hyperlipidemia Current Visit: Yes Status: Acute Code(s): E78.5 - HYPERLIPIDEMIA, UNSPECIFIED SNOMED Code(s): 40199105 (6) GERD (gastroesophageal reflux disease) Current Visit: Yes Status: Acute Code(s): K21.9 - GASTRO-ESOPHAGEAL REFLUX DISEASE WITHOUT ESOPHAGITIS SNOMED Code(s): 665653089 (7) COPD (chronic obstructive pulmonary disease) Current Visit: Yes Status: Acute Code(s): J44.9 - CHRONIC OBSTRUCTIVE PULMONARY DISEASE, UNSPECIFIED SNOMED Code(s): 17704383 (8) History of psoriasis Current Visit: Yes Status: Acute Code(s): Z87.2 - PERSONAL HISTORY OF DISEASES OF THE SKIN, SUBCU SNOMED Code(s): 451689809 (9) History of TIA (transient ischemic attack) Current Visit: Yes Status: Acute Code(s): Z86.73 - PRSNL HX OF TIA (TIA), AND CEREB INFRC W/O RESID DEFICITS SNOMED Code(s): 065216349 Plan: 1. We will discontinue his Plavix and heparin. We will start the patient on Arixtra 2.5 mg subcu daily. 2. Wean ventilator to extubate. Ventilator and pulmonary management per Dr Baker. 3. Continue metoprolol 25 mg by mouth twice a day. We will increase his beta leeanne as tolerated. 4. Monitor daily labs and x-rays. 5. Increase activity, out of bed to chair for all meals, ambulate as able. PT/ OT/cardiac rehab consulted. 6. No diuretics today. 7. Insulin drip management per Dr. Stuart. 8. We will discontinue his mediastinal and right pleural chest tubes today. We will leave his left pleural chest tube in place to low continuous wall suction -20 cm H2O. 9. Continue amiodarone drip until finished. We will start amiodarone 400 mg by mouth twice a day starting this evening. 10. More recommendations to follow as patient progresses in his care. Time with Patient: Greater than 30
[2017-05-03] MEDS: INSULIN REGULAR 100 UNIT in SODIUM CHLORIDE 0.9% 100 ML IV SCH (12:19)
[2017-05-03 13:03] LABS: Glucose,Whole Blood 142 mg/dL (75-99)
[2017-05-03 14:17] LABS: Glucose,Whole Blood 121 mg/dL (75-99)
[2017-05-03] MEDS: CLEVIDIPINE BUTYRATE 25 MG in EMPTY BAG 1 BAG IV SCH (14:43)
[2017-05-03] MEDS: METOCLOPRAMIDE 5 MG/ML 2 ML VIAL IVP PRN ×2 (14:56→19:02)
[2017-05-03 14:59] LABS: Glucose,Whole Blood 89 mg/dL (75-99)
--- NOTE | 2017-05-03 15:56 | P.PN ---
Subjective Patient status post aortic valve surgery. [place] of chest wall discomfort does not appear to be short of breath On examination pulse rate in the 70s, respirations normal blood pressure 104/70 mmHg Heart sounds are soft Breath sounds are reduced bilaterally Abdomen is soft nontender Impression Severe aortic valve stenosis CLL CAD status post coronary stenting to the right side and LAD Preserved LV systolic function Hypertension History of TIA Postoperative paroxysmal atrial fibrillation Aortic valve replacement Plan Short term oral amiodarone continue aspirin and atorvastatin, continue beta blockers Objective - Vital Signs Vital signs: Vital Signs Temp 98.3 F 05/03/17 13:00 Pulse 72 05/03/17 15:51 Resp 19 05/03/17 15:00 BP 104/70 05/03/17 15:00 Pulse Ox 97 05/03/17 15:36 Intake & Output 05/02/17 05/03/17 05/03/17 18:59 06:59 18:59 Intake Total 711.05 055.481 7568.256 Output Total 745 870 334 Balance -33.95 -325.233 878.256 Weight 102 kg 101 kg Intake: IV 619 509.2 240.3 ACETAMINOPHEN IV (For NPO 100 ) 1,000 mg In Empty Bag 1 bag @ 400 mls/hr IVPB Q6HR [facility] Rx#:[id number] Amiodarone 450 mg In 133.2 33.3 Dextrose 5% in Water 250 ml @ 1 MG/MIN 33.33 mls/ hr IV .Q7H31M [facility] Rx#: [id number] CO/CI 120 Dextrose 5% in Water 100 100 ml @ 618 mls/hr IV .Q10M ONE with Amiodarone 150 mg Rx#:[id number] LR 330 240 180 Pressure Bag 69 36 27 Intake, IV Titration 92.05 35.567 261.956 Amount Amiodarone 450 mg In 230.523 Dextrose 5% in Water 250 ml @ 1 MG/MIN 33.33 mls/ hr IV .Q7H31M [facility] Rx#: [id number] Clevidipine Butyrate 25 0 mg In Empty Bag 1 bag @ 1 MG/HR 2 mls/hr IV .Q24H [facility] Rx#:[id number] Insulin Regular 100 unit 7.5 35.567 31.433 In Sodium Chloride 0.9% 100 ml @ Per Protocol IV .Q0M [facility] Rx#:[id number] Propofol 1,000 mg In 84.55 Empty Bag 1 bag @ Titrate IV .Q0M [facility] Rx#: [id number] Oral 710 Output: Chest Tube Drainage 345 380 130 Left Pleural 60 180 60 Mediastinal 230 60 30 Right Pleural 55 140 40 Urine 400 490 204 Other: Voiding Method Indwelling Catheter Indwelling Catheter Indwelling Catheter ABP, PAP, CO, CI - Last Documented Arterial Blood Pressure 112/54 Pulmonary Artery Pressure 39/21 Cardiac Output 6.6 Cardiac Index 3.5 - Labs CBC & Chem 7: 05/03/17 04:35 05/03/17 04:35 Labs: Abnormal Lab Results - Last 24 Hours (Table) 04/23/17 05/02/17 05/02/17 Range/Units 12:48 17:00 17:01 WBC (3.8-10.6) k/uL RBC (4.30-5.90) m/uL Hgb (13.0-17.5) gm/dL Hct (39.0-53.0) % RDW (11.5-15.5) % Plt Count (150-450) k/uL Eosinophils # (0-0.7) k/uL BUN (9-20) mg/dL Glucose (74-99) mg/dL POC Glucose (mg/dL) 140 H (75-99) mg/dL Calcium (8.4-10.2) mg/dL Magnesium (1.6-2.3) mg/dL Total Bilirubin 2.5 H (0.2-1.3) mg/dL Unconjugated Bilirubin 1.9 H (0.0-1.1) mg/dL Delta Bilirubin 0.6 H (0.0-0.2) mg/dL Total Protein (6.3-8.2) g/dL Albumin (3.5-5.0) g/dL Crossmatch See Detail 05/02/17 05/02/17 05/02/17 Range/Units 18:04 20:22 22:10 WBC (3.8-10.6) k/uL RBC (4.30-5.90) m/uL Hgb (13.0-17.5) gm/dL Hct (39.0-53.0) % RDW (11.5-15.5) % Plt Count (150-450) k/uL Eosinophils # (0-0.7) k/uL BUN (9-20) mg/dL Glucose (74-99) mg/dL POC Glucose (mg/dL) 151 H 127 H 139 H (75-99) mg/dL Calcium (8.4-10.2) mg/dL Magnesium (1.6-2.3) mg/dL Total Bilirubin (0.2-1.3) mg/dL Unconjugated Bilirubin (0.0-1.1) mg/dL Delta Bilirubin (0.0-0.2) mg/dL Total Protein (6.3-8.2) g/dL Albumin (3.5-5.0) g/dL Crossmatch 05/03/17 05/03/17 05/03/17 Range/Units 00:02 01:20 02:29 WBC (3.8-10.6) k/uL RBC (4.30-5.90) m/uL Hgb (13.0-17.5) gm/dL Hct (39.0-53.0) % RDW (11.5-15.5) % Plt Count (150-450) k/uL Eosinophils # (0-0.7) k/uL BUN (9-20) mg/dL Glucose (74-99) mg/dL POC Glucose (mg/dL) 105 H 107 H 123 H (75-99) mg/dL Calcium (8.4-10.2) mg/dL Magnesium (1.6-2.3) mg/dL Total Bilirubin (0.2-1.3) mg/dL Unconjugated Bilirubin (0.0-1.1) mg/dL Delta Bilirubin (0.0-0.2) mg/dL Total Protein (6.3-8.2) g/dL Albumin (3.5-5.0) g/dL Crossmatch 05/03/17 05/03/17 05/03/17 Range/Units 03:11 04:35 04:35 WBC 12.9 H (3.8-10.6) k/uL RBC 2.75 L (4.30-5.90) m/uL Hgb 8.7 L (13.0-17.5) gm/dL Hct 25.5 L (39.0-53.0) % RDW 16.4 H (11.5-15.5) % Plt Count 76 L (150-450) k/uL Eosinophils # 1.0 H (0-0.7) k/uL BUN 27 H (9-20) mg/dL Glucose 114 H (74-99) mg/dL POC Glucose (mg/dL) 138 H (75-99) mg/dL Calcium 8.3 L (8.4-10.2) mg/dL Magnesium 2.6 H (1.6-2.3) mg/dL Total Bilirubin 1.9 H (0.2-1.3) mg/dL Unconjugated Bilirubin (0.0-1.1) mg/dL Delta Bilirubin (0.0-0.2) mg/dL Total Protein 5.1 L (6.3-8.2) g/dL Albumin 3.2 L (3.5-5.0) g/dL Crossmatch 05/03/17 05/03/17 05/03/17 Range/Units 04:36 05:09 07:07 WBC (3.8-10.6) k/uL RBC (4.30-5.90) m/uL Hgb (13.0-17.5) gm/dL Hct (39.0-53.0) % RDW (11.5-15.5) % Plt Count (150-450) k/uL Eosinophils # (0-0.7) k/uL BUN (9-20) mg/dL Glucose (74-99) mg/dL POC Glucose (mg/dL) 114 H 127 H 115 H (75-99) mg/dL Calcium (8.4-10.2) mg/dL Magnesium (1.6-2.3) mg/dL Total Bilirubin (0.2-1.3) mg/dL Unconjugated Bilirubin (0.0-1.1) mg/dL Delta Bilirubin (0.0-0.2) mg/dL Total Protein (6.3-8.2) g/dL Albumin (3.5-5.0) g/dL Crossmatch 05/03/17 05/03/17 05/03/17 Range/Units 08:07 09:07 10:06 WBC (3.8-10.6) k/uL RBC (4.30-5.90) m/uL Hgb (13.0-17.5) gm/dL Hct (39.0-53.0) % RDW (11.5-15.5) % Plt Count (150-450) k/uL Eosinophils # (0-0.7) k/uL BUN (9-20) mg/dL Glucose (74-99) mg/dL POC Glucose (mg/dL) 136 H 139 H 137 H (75-99) mg/dL Calcium (8.4-10.2) mg/dL Magnesium (1.6-2.3) mg/dL Total Bilirubin (0.2-1.3) mg/dL Unconjugated Bilirubin (0.0-1.1) mg/dL Delta Bilirubin (0.0-0.2) mg/dL Total Protein (6.3-8.2) g/dL Albumin (3.5-5.0) g/dL Crossmatch 05/03/17 05/03/17 05/03/17 Range/Units 11:08 12:05 13:01 WBC (3.8-10.6) k/uL RBC (4.30-5.90) m/uL Hgb (13.0-17.5) gm/dL Hct (39.0-53.0) % RDW (11.5-15.5) % Plt Count (150-450) k/uL Eosinophils # (0-0.7) k/uL BUN (9-20) mg/dL Glucose (74-99) mg/dL POC Glucose (mg/dL) 130 H 167 H 142 H (75-99) mg/dL Calcium (8.4-10.2) mg/dL Magnesium (1.6-2.3) mg/dL Total Bilirubin (0.2-1.3) mg/dL Unconjugated Bilirubin (0.0-1.1) mg/dL Delta Bilirubin (0.0-0.2) mg/dL Total Protein (6.3-8.2) g/dL Albumin (3.5-5.0) g/dL Crossmatch 05/03/17 Range/Units 14:16 WBC (3.8-10.6) k/uL RBC (4.30-5.90) m/uL Hgb (13.0-17.5) gm/dL Hct (39.0-53.0) % RDW (11.5-15.5) % Plt Count (150-450) k/uL Eosinophils # (0-0.7) k/uL BUN (9-20) mg/dL Glucose (74-99) mg/dL POC Glucose (mg/dL) 121 H (75-99) mg/dL Calcium (8.4-10.2) mg/dL Magnesium (1.6-2.3) mg/dL Total Bilirubin (0.2-1.3) mg/dL Unconjugated Bilirubin (0.0-1.1) mg/dL Delta Bilirubin (0.0-0.2) mg/dL Total Protein (6.3-8.2) g/dL Albumin (3.5-5.0) g/dL Crossmatch
[2017-05-03 15:57] LABS: Glucose,Whole Blood 96 mg/dL (75-99)
--- NOTE | 2017-05-03 16:25 | PN ---
PROGRESS NOTE DATE OF SERVICE: 05/03/2017 This patient has hiccups. On physical examination, his blood pressure is 104/70, respiratory rate of 19, pulse rate of 70, temperature 98.3. Oxygen saturation on 2 L by nasal cannula is 96%. HEENT is unremarkable. Chest reveals decreased breath sounds in the bases. Cardiovascular system reveals an S1, S2. Abdomen is soft. There is 1+ pedal edema. White count is 12.9, hemoglobin of 8.7, platelet count of 76,000. Chest x-ray shows atelectatic changes in the bases, more on the right than the left, with small effusions. IMPRESSION AT THIS TIME: 1. 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 2. Asthma. 3. Obstructive sleep apnea. 4. Alpha-1 antitrypsin deficiency carrier. 5. Hypertension. 6. Hiccups. 7. CLL. At this point in time from a pulmonary standpoint, would recommend continuing incentive spirometry. Consider chlorpromazine for his hiccups. Continue montelukast, budesonide and DuoNeb. Increase his activity level. He may benefit from inpatient rehab. We will stop his ipratropium, as this may be contributing to his atrial fibrillation. His prognosis at this time is fair. MMODL / IJN: [id number] /
[2017-05-03] MEDS: LACTATED RINGERS 1,000 ML IV SCH (16:36)
[2017-05-03 17:04] LABS: Glucose,Whole Blood 118 mg/dL (75-99)
[2017-05-03 18:08] LABS: Glucose,Whole Blood 157 mg/dL (75-99)
[2017-05-03 18:52] LABS: Glucose,Whole Blood 143 mg/dL (75-99)
[2017-05-03] MEDS: ALBUTEROL NEBULIZED 2.5 MG/3 ML INHALATION PRN (19:31)
--- NOTE | 2017-05-03 19:57 | P.CONS ---
History of Present Illness - Reason for Consult Consult date: 05/03/17 - History of Present Illness The patient is 71-year-old gentleman, who was referred to our service recently because of findings of leukocytosis on blood work done for preoperative evaluation for aortic valve replacement. 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 The patient had a bone marrow last month which confirmed the diagnosis. He appeared to have stage 0 disease with no indications for active treatment and therefore observation was recommended. The patient was admitted for elective AVR. Intraoperatively, he had significant bleeding requiring 6 units of platelets, FFP and cryoprecipitate, as well as 4 units of PRBC. Hemoglobin dropped from a baseline of 14+ to 7.5. Platelets also dropped into the 70 range. Coags were elevated, along with low fibrinogen. Consult was therefore placed for further evaluation and recommendations Currently hemoglobin appears to have stabilized in the 8 range. Coagulation parameters, as well as liver enzymes have returned to normal. Platelets were 1: 15 yesterday and have dropped to 75 today. He denied any prior history of low platelets, or hemolysis. Review of Systems Constitutional: Reports fatigue, Reports poor appetite Eyes: denies blurred vision, denies pain Ears: deny: decreased hearing, ear discharge, earache, tinnitus Ears, nose, mouth and throat: Denies headache, Denies sore throat Cardiovascular: Reports as per HPI, Reports dyspnea on exertion, Reports edema Respiratory: Reports dyspnea Gastrointestinal: Denies abdominal pain, Denies diarrhea, Denies nausea, Denies vomiting Genitourinary: Reports as per HPI Musculoskeletal: Denies myalgias Integumentary: Denies pruritus, Denies rash Neurological: Reports weakness, Denies numbness Psychiatric: Denies anxiety, Denies depression Endocrine: Reports fatigue, Denies weight change Hematologic/Lymphatic: Reports as per HPI Past Medical History Past Medical History: Asthma, Chest Pain / Angina, COPD, CVA/TIA, GERD/Reflux, Skin Disorder, Sleep Apnea/CPAP/BIPAP Additional Past Medical History / Comment(s): STATES WAS TOLD AORTIC STENOSIS, TIA approx 1996, psoriasis NO CURRENT OUTBREAKS, USES CPAP, Leukemia,steroids Feb 2016 History of Any Multi-Drug Resistant Organisms: None Reported Past Surgical History: Heart Catheterization With Stent, Tonsillectomy Additional Past Surgical History / Comment(s): 3 cardiac stents, metal removed from left hand, gokul cataracts with lens implant, polyps removed nasal, LOOP RECORDER Past Anesthesia/Blood Transfusion Reactions: No Reported Reaction Date of Last Stent Placement:: 2009 Smoking Status: Former smoker - Past Family History Mother Family Medical History: Cancer, Congestive Heart Failure (CHF) Father Family Medical History: Coronary Artery Disease (CAD) Medications and Allergies Home Medications Medication Instructions Recorded Confirmed Type Aspirin 81 mg PO QAM 07/28/13 05/01/17 History Atorvastatin Calcium [Lipitor] 40 mg PO HS 07/28/13 05/01/17 History Citalopram Hydrobromide [CeleXA] 20 mg PO HS 07/28/13 05/01/17 History Clopidogrel [Plavix] 75 mg PO QAM 07/28/13 05/01/17 History Famotidine [Pepcid] 20 mg PO QAM 07/28/13 05/01/17 History Lisinopril [Zestril] 2.5 mg PO HS 07/28/13 05/01/17 History Nitroglycerin Sl Tabs [Nitrostat] 0.4 mg SUBLINGUAL Q5M PRN 07/28/13 05/01/17 History Albuterol Sulfate [Proair Hfa] 2 puff INHALATION RT-QID PRN 07/30/13 05/01/17 History Beclomethasone Dipropionate [Qvar 1 puff INHALATION RT-BID 08/02/13 05/01/17 History 80 mcg/puff] Montelukast [Singulair] 10 mg PO HS 08/02/13 05/01/17 History Fluticasone Nasal [place] [Flonase 1 spray EA NOSTRIL DAILY 07/05/16 05/01/17 History Nasal [place]] Metoprolol Tartrate [Lopressor] 12.5 mg PO BID 07/05/16 05/01/17 History guaiFENesin [Mucinex] 600 mg PO HS PRN 04/24/17 05/01/17 History Allergies Allergy/AdvReac Type Severity Reaction Status Date / Time No Known Allergies Allergy Verified 05/01/17 05:56 Physical Exam Vitals: Vital Signs Temp Pulse Pulse Resp BP Pulse Ox 05/03/17 08:00 98.5 F 73 20 119/74 100 05/03/17 07:20 82 05/03/17 07:09 79 05/03/17 07:00 74 19 105/68 96 05/03/17 06:00 89 20 106/61 94 L 05/03/17 05:00 96 16 105/73 94 L 05/03/17 04:00 98.5 F 98 16 103/60 94 L 05/03/17 03:00 119 H 20 95/63 94 L 05/03/17 02:00 117 H 15 107/63 96 05/03/17 01:00 92 19 92/66 95 05/03/17 00:00 98.7 F 86 12 100/63 97 05/02/17 23:00 88 15 108/60 96 05/02/17 22:00 105 H 31 H 103/59 92 L 05/02/17 21:00 88 16 100/74 93 L 05/02/17 20:01 85 18 94 L 05/02/17 20:00 60 16 05/02/17 19:00 98.2 F 95 17 117/65 97 05/02/17 18:00 93 17 121/74 96 05/02/17 17:00 98 18 103/64 05/02/17 16:51 88 05/02/17 16:41 85 05/02/17 16:00 98.4 F 86 60 18 103/65 99 05/02/17 15:00 90 20 99 05/02/17 14:00 100 29 H 99 05/02/17 13:00 90 16 99 05/02/17 12:00 105 H 60 17 96 05/02/17 11:00 101 H 11 L 95/59 98 05/02/17 10:00 100 13 95/59 100 05/02/17 09:00 104 H 15 99 05/02/17 08:17 95 Intake and Output 05/02/17 05/03/17 05/03/17 22:59 06:59 14:59 Intake Total 177.5 426.767 64.867 Output Total 480 610 30 Balance -302.5 -183.233 34.867 Intake: IV 167 394.2 56.3 Amiodarone 450 mg In 133.2 33.3 Dextrose 5% in Water 250 ml @ 1 MG/MIN 33.33 mls/ hr IV .Q7H31M [facility] Rx#: [id number] Dextrose 5% in Water 100 100 ml @ 618 mls/hr IV .Q10M ONE with Amiodarone 150 mg Rx#:[id number] LR 140 140 20 Pressure Bag 27 21 3 Intake, IV Titration 10.5 32.567 8.567 Amount Insulin Regular 100 unit 10.5 32.567 8.567 In Sodium Chloride 0.9% 100 ml @ Per Protocol IV .Q0M [facility] Rx#:[id number] Output: Chest Tube Drainage 140 330 0 Left Pleural 10 180 0 Mediastinal 90 30 0 Right Pleural 40 120 0 Urine 340 280 30 Other: Voiding Method Indwelling Catheter Indwelling Catheter Weight 101 kg - Constitutional General appearance: no acute distress - EENT Eyes: EOMI, PERRLA ENT: hearing grossly normal, normal oropharynx - Neck Neck: no lymphadenopathy - Respiratory Respiratory: bilateral: diminished - Cardiovascular Rhythm: regular Heart sounds: normal: S1, S2 Abnormal Heart Sounds: systolic murmur - Gastrointestinal General gastrointestinal: normal bowel sounds, soft - Integumentary Integumentary: normal - Neurologic Neurologic: CNII-XII intact - Psychiatric b/l 2 + edema Results CBC & Chem 7: 05/03/17 04:35 05/03/17 04:35 Labs: Abnormal Lab Results - Last 24 Hours (Table) 04/23/17 05/02/17 05/02/17 Range/Units 12:48 08:05 09:01 WBC (3.8-10.6) k/uL RBC (4.30-5.90) m/uL Hgb (13.0-17.5) gm/dL Hct (39.0-53.0) % RDW (11.5-15.5) % Plt Count (150-450) k/uL Eosinophils # (0-0.7) k/uL ABG pH (7.35-7.45) ABG pCO2 (35-45) mmHg ABG pO2 (83-108) mmHg ABG HCO3 (21-25) mmol/L ABG Total CO2 (19-24) mmol/L ABG O2 Saturation (94-97) % BUN (9-20) mg/dL Glucose (74-99) mg/dL POC Glucose (mg/dL) 107 H 110 H (75-99) mg/dL Calcium (8.4-10.2) mg/dL Magnesium (1.6-2.3) mg/dL Total Bilirubin (0.2-1.3) mg/dL Unconjugated Bilirubin (0.0-1.1) mg/dL Delta Bilirubin (0.0-0.2) mg/dL Total Protein (6.3-8.2) g/dL Albumin (3.5-5.0) g/dL Crossmatch See Detail 05/02/17 05/02/17 05/02/17 Range/Units 09:43 10:03 11:59 WBC (3.8-10.6) k/uL RBC (4.30-5.90) m/uL Hgb (13.0-17.5) gm/dL Hct (39.0-53.0) % RDW (11.5-15.5) % Plt Count (150-450) k/uL Eosinophils # (0-0.7) k/uL ABG pH 7.32 L (7.35-7.45) ABG pCO2 50 H (35-45) mmHg ABG pO2 116 H (83-108) mmHg ABG HCO3 26 H (21-25) mmol/L ABG Total CO2 27 H (19-24) mmol/L ABG O2 Saturation 97.9 H (94-97) % BUN (9-20) mg/dL Glucose (74-99) mg/dL POC Glucose (mg/dL) 109 H 113 H (75-99) mg/dL Calcium (8.4-10.2) mg/dL Magnesium (1.6-2.3) mg/dL Total Bilirubin (0.2-1.3) mg/dL Unconjugated Bilirubin (0.0-1.1) mg/dL Delta Bilirubin (0.0-0.2) mg/dL Total Protein (6.3-8.2) g/dL Albumin (3.5-5.0) g/dL Crossmatch 05/02/17 05/02/17 05/02/17 Range/Units 14:26 17:00 17:01 WBC (3.8-10.6) k/uL RBC (4.30-5.90) m/uL Hgb (13.0-17.5) gm/dL Hct (39.0-53.0) % RDW (11.5-15.5) % Plt Count (150-450) k/uL Eosinophils # (0-0.7) k/uL ABG pH (7.35-7.45) ABG pCO2 (35-45) mmHg ABG pO2 (83-108) mmHg ABG HCO3 (21-25) mmol/L ABG Total CO2 (19-24) mmol/L ABG O2 Saturation (94-97) % BUN (9-20) mg/dL Glucose (74-99) mg/dL POC Glucose (mg/dL) 117 H 140 H (75-99) mg/dL Calcium (8.4-10.2) mg/dL Magnesium (1.6-2.3) mg/dL Total Bilirubin 2.5 H (0.2-1.3) mg/dL Unconjugated Bilirubin 1.9 H (0.0-1.1) mg/dL Delta Bilirubin 0.6 H (0.0-0.2) mg/dL Total Protein (6.3-8.2) g/dL Albumin (3.5-5.0) g/dL Crossmatch 05/02/17 05/02/17 05/02/17 Range/Units 18:04 20:22 22:10 WBC (3.8-10.6) k/uL RBC (4.30-5.90) m/uL Hgb (13.0-17.5) gm/dL Hct (39.0-53.0) % RDW (11.5-15.5) % Plt Count (150-450) k/uL Eosinophils # (0-0.7) k/uL ABG pH (7.35-7.45) ABG pCO2 (35-45) mmHg ABG pO2 (83-108) mmHg ABG HCO3 (21-25) mmol/L ABG Total CO2 (19-24) mmol/L ABG O2 Saturation (94-97) % BUN (9-20) mg/dL Glucose (74-99) mg/dL POC Glucose (mg/dL) 151 H 127 H 139 H (75-99) mg/dL Calcium (8.4-10.2) mg/dL Magnesium (1.6-2.3) mg/dL Total Bilirubin (0.2-1.3) mg/dL Unconjugated Bilirubin (0.0-1.1) mg/dL Delta Bilirubin (0.0-0.2) mg/dL Total Protein (6.3-8.2) g/dL Albumin (3.5-5.0) g/dL Crossmatch 05/03/17 05/03/17 05/03/17 Range/Units 00:02 01:20 02:29 WBC (3.8-10.6) k/uL RBC (4.30-5.90) m/uL Hgb (13.0-17.5) gm/dL Hct (39.0-53.0) % RDW (11.5-15.5) % Plt Count (150-450) k/uL Eosinophils # (0-0.7) k/uL ABG pH (7.35-7.45) ABG pCO2 (35-45) mmHg ABG pO2 (83-108) mmHg ABG HCO3 (21-25) mmol/L ABG Total CO2 (19-24) mmol/L ABG O2 Saturation (94-97) % BUN (9-20) mg/dL Glucose (74-99) mg/dL POC Glucose (mg/dL) 105 H 107 H 123 H (75-99) mg/dL Calcium (8.4-10.2) mg/dL Magnesium (1.6-2.3) mg/dL Total Bilirubin (0.2-1.3) mg/dL Unconjugated Bilirubin (0.0-1.1) mg/dL Delta Bilirubin (0.0-0.2) mg/dL Total Protein (6.3-8.2) g/dL Albumin (3.5-5.0) g/dL Crossmatch 05/03/17 05/03/17 05/03/17 Range/Units 03:11 04:35 04:35 WBC 12.9 H (3.8-10.6) k/uL RBC 2.75 L (4.30-5.90) m/uL Hgb 8.7 L (13.0-17.5) gm/dL Hct 25.5 L (39.0-53.0) % RDW 16.4 H (11.5-15.5) % Plt Count 76 L (150-450) k/uL Eosinophils # 1.0 H (0-0.7) k/uL ABG pH (7.35-7.45) ABG pCO2 (35-45) mmHg ABG pO2 (83-108) mmHg ABG HCO3 (21-25) mmol/L ABG Total CO2 (19-24) mmol/L ABG O2 Saturation (94-97) % BUN 27 H (9-20) mg/dL Glucose 114 H (74-99) mg/dL POC Glucose (mg/dL) 138 H (75-99) mg/dL Calcium 8.3 L (8.4-10.2) mg/dL Magnesium 2.6 H (1.6-2.3) mg/dL Total Bilirubin 1.9 H (0.2-1.3) mg/dL Unconjugated Bilirubin (0.0-1.1) mg/dL Delta Bilirubin (0.0-0.2) mg/dL Total Protein 5.1 L (6.3-8.2) g/dL Albumin 3.2 L (3.5-5.0) g/dL Crossmatch 05/03/17 05/03/17 05/03/17 Range/Units 04:36 05:09 07:07 WBC (3.8-10.6) k/uL RBC (4.30-5.90) m/uL Hgb (13.0-17.5) gm/dL Hct (39.0-53.0) % RDW (11.5-15.5) % Plt Count (150-450) k/uL Eosinophils # (0-0.7) k/uL ABG pH (7.35-7.45) ABG pCO2 (35-45) mmHg ABG pO2 (83-108) mmHg ABG HCO3 (21-25) mmol/L ABG Total CO2 (19-24) mmol/L ABG O2 Saturation (94-97) % BUN (9-20) mg/dL Glucose (74-99) mg/dL POC Glucose (mg/dL) 114 H 127 H 115 H (75-99) mg/dL Calcium (8.4-10.2) mg/dL Magnesium (1.6-2.3) mg/dL Total Bilirubin (0.2-1.3) mg/dL Unconjugated Bilirubin (0.0-1.1) mg/dL Delta Bilirubin (0.0-0.2) mg/dL Total Protein (6.3-8.2) g/dL Albumin (3.5-5.0) g/dL Crossmatch 05/03/17 Range/Units 08:07 WBC (3.8-10.6) k/uL RBC (4.30-5.90) m/uL Hgb (13.0-17.5) gm/dL Hct (39.0-53.0) % RDW (11.5-15.5) % Plt Count (150-450) k/uL Eosinophils # (0-0.7) k/uL ABG pH (7.35-7.45) ABG pCO2 (35-45) mmHg ABG pO2 (83-108) mmHg ABG HCO3 (21-25) mmol/L ABG Total CO2 (19-24) mmol/L ABG O2 Saturation (94-97) % BUN (9-20) mg/dL Glucose (74-99) mg/dL POC Glucose (mg/dL) 136 H (75-99) mg/dL Calcium (8.4-10.2) mg/dL Magnesium (1.6-2.3) mg/dL Total Bilirubin (0.2-1.3) mg/dL Unconjugated Bilirubin (0.0-1.1) mg/dL Delta Bilirubin (0.0-0.2) mg/dL Total Protein (6.3-8.2) g/dL Albumin (3.5-5.0) g/dL Crossmatch Chest x-ray: report reviewed Assessment and Plan (1) Bicytopenia Narrative/Plan: There was concern for an auto immune phenomenon, given the drop in counts acutely, and h/o CLL. However, given the history, and good response to transfusion, this is less likely. IVORY was negative. Thus the drop in counts are likely to be due to blood loss, consumption, and dilution post transfusion. The drop in plt counts , after an increase, can be explained by the natural breakdown of the transfused product. No evidence of TTP , with Cr normal Currently counts are in a safe range. Continue to monitor and transfuse as needed I will check additional labs to r/o hemolysis, but haptoglobin and LDH can be abnormal due to transfusion. Current Visit: Yes Status: Acute Code(s): D75.89 - OTHER SPECIFIED DISEASES OF BLOOD AND BLOOD-FORMING ORGANS SNOMED Code(s): 533647202 (2) Coagulopathy Narrative/Plan: This was most likely due to a DIC, which can occur due to extra corporeal circulation. This may have contributed to the drop in plt counts. However, coags and fibrinogen have normalised, hopefuly indicating resolution of the condition. I will repeat labs to monitor Current Visit: Yes Status: Acute Code(s): D68.9 - COAGULATION DEFECT, UNSPECIFIED SNOMED Code(s): 92520660 Plan: Defer to the admitting service and other consultants for management of multiple other medical problems
[2017-05-03] MEDS: AMIODARONE 200 MG TAB PO SCH (20:14)
[2017-05-03] MEDS: MONTELUKAST 10 MG TAB OG-TUBE SCH (20:14)
[2017-05-03] MEDS: SENNOSIDES-DOCUSATE SODIUM 1 EACH TAB PO SCH (20:15)
[2017-05-03 20:30] LABS: Glucose,Whole Blood 142 mg/dL (75-99)
--- NOTE | 2017-05-03 20:41 | P.PN ---
Subjective Progress Note Date: 05/03/17 71 years old male with past medical history of a severe ortic stenosis , history of TIA, history of coronary artery disease status post cardiac stents 3, history of COPD, history of sleep apnea on CPAP, history of CLL on conservative management, history of asthma, history of alpha-1 antitrypsin deficiency, hypertension, hyperlipidemia and admitted for an elective aortic valve replacement on 05/01. Patient was seen postoperatively at bedside. Patient is doing well is requiring 3-4 L of oxygen post extubation. Complains of some soreness in the chest but denies any significant chest pain, shortness of breath, abdominal pain nausea or vomiting. Patient is tachycardic to 101, blood pressure 115/64, slightly confused but is answering questions appropriately. Patient received multiple units of transfusion including RBC, platelets, cryoprecipitate due to significant bleeding from generalized coagulopathy intraoperatively. According to documentation patient bleed profusely during the surgery with defficulty to maintain hemostasis. Patient received 6 units of platelets and 2 units of FFP , 1.5 L of cell saver blood, 4 units of RBCs in total. Preoperative labs from 04/23 were concerning for leukocytosis for which patient was followed by oncology and patient was diagnosed with CLL. Labs obtained on 05/01 suggested a WBC of 6.7, hemoglobin dropped from 14.8 to 7.5, drop of platelets from 203 to 88 increased. The liver function test with AST 298, AST 114, alkaline phosphatase 46. Total bilirubin 4.0. fibrinogen was low but repeat was normal. Patient's lab findings are concerning for hemolytic anemia. There is some improvement in the platelets on the repeat labs. Transfusion reaction ordered. Unclear why patient was profusely bleeding with rapid drop in his counts. Will discuss with hematology Dr. latif as patient has h/o CLL. 05/03: Patient remains in ICU, patient has some nausea and dry heaving, and has hiccups, Does Not Have Any Significant Chest Pain, No Aspirated Events Patient Continues on Amiodarone Drip and Insulin Drip, Has Bilateral Chest Tubes in Place, Draining to Low Continuous Suction,, on amiodarone drip, and insulin drip. Patient has been extubated Objective - Vital Signs Vital signs: Vital Signs Temp 98.5 F 05/03/17 08:00 Pulse 73 05/03/17 08:00 Resp 20 05/03/17 08:00 BP 119/74 05/03/17 08:00 Pulse Ox 100 05/03/17 08:00 Intake & Output 05/02/17 05/03/17 05/03/17 18:59 06:59 18:59 Intake Total 711.05 544.767 64.867 Output Total 745 870 30 Balance -33.95 -325.233 34.867 Weight 102 kg 101 kg Intake: IV 619 509.2 56.3 ACETAMINOPHEN IV (For NPO 100 ) 1,000 mg In Empty Bag 1 bag @ 400 mls/hr IVPB Q6HR [facility] Rx#:[id number] Amiodarone 450 mg In 133.2 33.3 Dextrose 5% in Water 250 ml @ 1 MG/MIN 33.33 mls/ hr IV .Q7H31M [facility] Rx#: [id number] CO/CI 120 Dextrose 5% in Water 100 100 ml @ 618 mls/hr IV .Q10M ONE with Amiodarone 150 mg Rx#:[id number] LR 330 240 20 Pressure Bag 69 36 3 Intake, IV Titration 92.05 35.567 8.567 Amount Clevidipine Butyrate 25 0 mg In Empty Bag 1 bag @ 1 MG/HR 2 mls/hr IV .Q24H [facility] Rx#:[id number] Insulin Regular 100 unit 7.5 35.567 8.567 In Sodium Chloride 0.9% 100 ml @ Per Protocol IV .Q0M [facility] Rx#:[id number] Propofol 1,000 mg In 84.55 Empty Bag 1 bag @ Titrate IV .Q0M [facility] Rx#: [id number] Output: Chest Tube Drainage 345 380 0 Left Pleural 60 180 0 Mediastinal 230 60 0 Right Pleural 55 140 0 Urine 400 490 30 Other: Voiding Method Indwelling Catheter Indwelling Catheter ABP, PAP, CO, CI - Last Documented Arterial Blood Pressure 112/54 Pulmonary Artery Pressure 39/21 Cardiac Output 6.6 Cardiac Index 3.5 - Constitutional General appearance: Present: cooperative, no acute distress, obese - EENT Eyes: Present: anicteric sclerae, EOMI, PERRLA, dentition normal, normal appearance ENT: Present: hearing grossly normal, NA/AT, normal oropharynx - Neck Neck: Present: normal ROM - Respiratory Respiratory: bilateral: CTA, negative: diminished, dullness, rales - Cardiovascular Rhythm: regular Heart sounds: normal: S1, S2 Abnormal Heart Sounds: Absent: systolic murmur, diastolic murmur, rub, S3 Gallop , S4 Gallop, click, other - Gastrointestinal General gastrointestinal: Present: normal bowel sounds, soft - Integumentary Integumentary: Present: normal, normal turgor - Neurologic Neurologic: Present: CNII-XII intact - Musculoskeletal Musculoskeletal: Present: strength equal bilaterally - Psychiatric Psychiatric: Present: A&O x's 3, appropriate affect, intact judgment & insight - Labs CBC & Chem 7: 05/03/17 04:35 05/03/17 04:35 Labs: Abnormal Lab Results - Last 24 Hours (Table) 04/23/17 05/02/17 05/02/17 Range/Units 12:48 09:01 09:43 WBC (3.8-10.6) k/uL RBC (4.30-5.90) m/uL Hgb (13.0-17.5) gm/dL Hct (39.0-53.0) % RDW (11.5-15.5) % Plt Count (150-450) k/uL Eosinophils # (0-0.7) k/uL ABG pH 7.32 L (7.35-7.45) ABG pCO2 50 H (35-45) mmHg ABG pO2 116 H (83-108) mmHg ABG HCO3 26 H (21-25) mmol/L ABG Total CO2 27 H (19-24) mmol/L ABG O2 Saturation 97.9 H (94-97) % BUN (9-20) mg/dL Glucose (74-99) mg/dL POC Glucose (mg/dL) 110 H (75-99) mg/dL Calcium (8.4-10.2) mg/dL Magnesium (1.6-2.3) mg/dL Total Bilirubin (0.2-1.3) mg/dL Unconjugated Bilirubin (0.0-1.1) mg/dL Delta Bilirubin (0.0-0.2) mg/dL Total Protein (6.3-8.2) g/dL Albumin (3.5-5.0) g/dL Crossmatch See Detail 05/02/17 05/02/17 05/02/17 Range/Units 10:03 11:59 14:26 WBC (3.8-10.6) k/uL RBC (4.30-5.90) m/uL Hgb (13.0-17.5) gm/dL Hct (39.0-53.0) % RDW (11.5-15.5) % Plt Count (150-450) k/uL Eosinophils # (0-0.7) k/uL ABG pH (7.35-7.45) ABG pCO2 (35-45) mmHg ABG pO2 (83-108) mmHg ABG HCO3 (21-25) mmol/L ABG Total CO2 (19-24) mmol/L ABG O2 Saturation (94-97) % BUN (9-20) mg/dL Glucose (74-99) mg/dL POC Glucose (mg/dL) 109 H 113 H 117 H (75-99) mg/dL Calcium (8.4-10.2) mg/dL Magnesium (1.6-2.3) mg/dL Total Bilirubin (0.2-1.3) mg/dL Unconjugated Bilirubin (0.0-1.1) mg/dL Delta Bilirubin (0.0-0.2) mg/dL Total Protein (6.3-8.2) g/dL Albumin (3.5-5.0) g/dL Crossmatch 05/02/17 05/02/17 05/02/17 Range/Units 17:00 17:01 18:04 WBC (3.8-10.6) k/uL RBC (4.30-5.90) m/uL Hgb (13.0-17.5) gm/dL Hct (39.0-53.0) % RDW (11.5-15.5) % Plt Count (150-450) k/uL Eosinophils # (0-0.7) k/uL ABG pH (7.35-7.45) ABG pCO2 (35-45) mmHg ABG pO2 (83-108) mmHg ABG HCO3 (21-25) mmol/L ABG Total CO2 (19-24) mmol/L ABG O2 Saturation (94-97) % BUN (9-20) mg/dL Glucose (74-99) mg/dL POC Glucose (mg/dL) 140 H 151 H (75-99) mg/dL Calcium (8.4-10.2) mg/dL Magnesium (1.6-2.3) mg/dL Total Bilirubin 2.5 H (0.2-1.3) mg/dL Unconjugated Bilirubin 1.9 H (0.0-1.1) mg/dL Delta Bilirubin 0.6 H (0.0-0.2) mg/dL Total Protein (6.3-8.2) g/dL Albumin (3.5-5.0) g/dL Crossmatch 05/02/17 05/02/17 05/03/17 Range/Units 20:22 22:10 00:02 WBC (3.8-10.6) k/uL RBC (4.30-5.90) m/uL Hgb (13.0-17.5) gm/dL Hct (39.0-53.0) % RDW (11.5-15.5) % Plt Count (150-450) k/uL Eosinophils # (0-0.7) k/uL ABG pH (7.35-7.45) ABG pCO2 (35-45) mmHg ABG pO2 (83-108) mmHg ABG HCO3 (21-25) mmol/L ABG Total CO2 (19-24) mmol/L ABG O2 Saturation (94-97) % BUN (9-20) mg/dL Glucose (74-99) mg/dL POC Glucose (mg/dL) 127 H 139 H 105 H (75-99) mg/dL Calcium (8.4-10.2) mg/dL Magnesium (1.6-2.3) mg/dL Total Bilirubin (0.2-1.3) mg/dL Unconjugated Bilirubin (0.0-1.1) mg/dL Delta Bilirubin (0.0-0.2) mg/dL Total Protein (6.3-8.2) g/dL Albumin (3.5-5.0) g/dL Crossmatch 05/03/17 05/03/17 05/03/17 Range/Units 01:20 02:29 03:11 WBC (3.8-10.6) k/uL RBC (4.30-5.90) m/uL Hgb (13.0-17.5) gm/dL Hct (39.0-53.0) % RDW (11.5-15.5) % Plt Count (150-450) k/uL Eosinophils # (0-0.7) k/uL ABG pH (7.35-7.45) ABG pCO2 (35-45) mmHg ABG pO2 (83-108) mmHg ABG HCO3 (21-25) mmol/L ABG Total CO2 (19-24) mmol/L ABG O2 Saturation (94-97) % BUN (9-20) mg/dL Glucose (74-99) mg/dL POC Glucose (mg/dL) 107 H 123 H 138 H (75-99) mg/dL Calcium (8.4-10.2) mg/dL Magnesium (1.6-2.3) mg/dL Total Bilirubin (0.2-1.3) mg/dL Unconjugated Bilirubin (0.0-1.1) mg/dL Delta Bilirubin (0.0-0.2) mg/dL Total Protein (6.3-8.2) g/dL Albumin (3.5-5.0) g/dL Crossmatch 05/03/17 05/03/17 05/03/17 Range/Units 04:35 04:35 04:36 WBC 12.9 H (3.8-10.6) k/uL RBC 2.75 L (4.30-5.90) m/uL Hgb 8.7 L (13.0-17.5) gm/dL Hct 25.5 L (39.0-53.0) % RDW 16.4 H (11.5-15.5) % Plt Count 76 L (150-450) k/uL Eosinophils # 1.0 H (0-0.7) k/uL ABG pH (7.35-7.45) ABG pCO2 (35-45) mmHg ABG pO2 (83-108) mmHg ABG HCO3 (21-25) mmol/L ABG Total CO2 (19-24) mmol/L ABG O2 Saturation (94-97) % BUN 27 H (9-20) mg/dL Glucose 114 H (74-99) mg/dL POC Glucose (mg/dL) 114 H (75-99) mg/dL Calcium 8.3 L (8.4-10.2) mg/dL Magnesium 2.6 H (1.6-2.3) mg/dL Total Bilirubin 1.9 H (0.2-1.3) mg/dL Unconjugated Bilirubin (0.0-1.1) mg/dL Delta Bilirubin (0.0-0.2) mg/dL Total Protein 5.1 L (6.3-8.2) g/dL Albumin 3.2 L (3.5-5.0) g/dL Crossmatch 05/03/17 05/03/17 05/03/17 Range/Units 05:09 07:07 08:07 WBC (3.8-10.6) k/uL RBC (4.30-5.90) m/uL Hgb (13.0-17.5) gm/dL Hct (39.0-53.0) % RDW (11.5-15.5) % Plt Count (150-450) k/uL Eosinophils # (0-0.7) k/uL ABG pH (7.35-7.45) ABG pCO2 (35-45) mmHg ABG pO2 (83-108) mmHg ABG HCO3 (21-25) mmol/L ABG Total CO2 (19-24) mmol/L ABG O2 Saturation (94-97) % BUN (9-20) mg/dL Glucose (74-99) mg/dL POC Glucose (mg/dL) 127 H 115 H 136 H (75-99) mg/dL Calcium (8.4-10.2) mg/dL Magnesium (1.6-2.3) mg/dL Total Bilirubin (0.2-1.3) mg/dL Unconjugated Bilirubin (0.0-1.1) mg/dL Delta Bilirubin (0.0-0.2) mg/dL Total Protein (6.3-8.2) g/dL Albumin (3.5-5.0) g/dL Crossmatch Assessment and Plan Plan: #1 aortic stenosis status post aortic valve replacement with bovine pericardial bioprosthesis, pain management per primary team. Continue DVT prophylaxis. Incentive spirometry to prevent any pneumonia or atelectasis. Patient is requiring 4 L of oxygen likely secondary to volume overload, Rodríguez catheter in place, on amiodarone drip and insulin drip to manage sugars and arrhythmia , has post operative hiccups, possible Thorazine if refractory. He would use antiemetics for now #2 history of CLL, stable #3 acute blood loss anemia with thrombocytopenia likely secondary expected consequence off blood loss during surgery and multiple transfusions. Labs are consistent with hemolysis as there is increased bilirubin and LFTs from multiple transfusions. We will consult Dr. Carrasco as patient has a history of CLL to rule out ITP/hemolytic reaction #4 coronary arteries disease status post stenting of RCA and LAD. Continue aspirin, Plavix, metoprolol 12.5 mg twice daily #5 acute transaminitis secondary to increased unconjugated bilirubin from multiple transfusions. Repeat labs in 24 hours #6 hypertension blood pressure is stable. Started on metoprolol 12.5 mg twice daily #7 history of obstructive sleep apnea may benefit from CPAP overnight. Patient continues to require 4 L of oxygen. Repeat chest x-ray morning to evaluate for pulmonary edema. BP on the lower end, can benefit form lasix once BP stabilses #8 Acute hypoxic respiratory failure with history of asthma moderate persistent. Continue DuoNeb as needed, #9 history of alpha-1 antitrypsin deficiency carrier, stable, on nebulized albuterol and Atrovent #10 GI prophylaxis with Protonix 40 mg daily #11 DVT prophylaxis with heparin every 8 CODE STATUS full code
[2017-05-03 22:14] LABS: Glucose,Whole Blood 122 mg/dL (75-99)
[2017-05-03 23:07] LABS: Glucose,Whole Blood 119 mg/dL (75-99)
[2017-05-04 00:06] LABS: Glucose,Whole Blood 99 mg/dL (75-99)
[2017-05-04 01:12] LABS: Glucose,Whole Blood 95 mg/dL (75-99)
[2017-05-04 03:34] LABS: Glucose,Whole Blood 104 mg/dL (75-99)
[2017-05-04 04:23] LABS: Glucose,Whole Blood 105 mg/dL (75-99)
[2017-05-04 04:55] LABS: Reticulocyte % 2.3 % (0.5-2.0)
[2017-05-04 05:05] LABS: INR 1.1 (<1.2); Partial Thromboplastin Time 22.5 sec (22.0-30.0); Prothrombin Time 10.3 sec (9.0-12.0)
[2017-05-04 05:15] LABS: Glucose,Whole Blood 126 mg/dL (75-99)
[2017-05-04 05:30] LABS: Anisocytosis Slight; HGB 8.1 gm/dL (13.0-17.5); MCH 30.7 pg (25.0-35.0); MCHC 32.4 g/dL (31.0-37.0); MCV 94.5 fL (80.0-100.0); Mean Platelet Volume 9.2; Platelet Count 106 k/uL (150-450); RBC 2.64 m/uL (4.30-5.90); RDW 16.3 % (11.5-15.5); WBC 18.6 k/uL (3.8-10.6)
[2017-05-04 05:34] LABS: ALT 42 U/L (21-72); AST 32 U/L (17-59); Albumin 3.2 g/dL (3.5-5.0); Alkaline Phosphatase 60 U/L (38-126); Anion Gap 6 mmol/L; Blood Urea Nitrogen 29 mg/dL (9-20); Calcium 8.6 mg/dL (8.4-10.2); Carbon Dioxide 28 mmol/L (22-30); Chloride 103 mmol/L (98-107); Glucose 117 mg/dL (74-99); LDH 571 U/L (313-618); Magnesium 2.4 mg/dL (1.6-2.3); Phosphorus 2.6 mg/dL (2.5-4.5); Potassium 4.2 mmol/L (3.5-5.1); Sodium 137 mmol/L (137-145); Total Bilirubin 1.8 mg/dL (0.2-1.3); Total Protein 5.1 g/dL (6.3-8.2)
--- NOTE | 2017-05-04 07:52 | XR ---
EXAMINATION TYPE: XR chest 1V portable DATE OF EXAM: 05/04/2017 CLINICAL HISTORY: Difficulty breathing progress study. Post CABG. TECHNIQUE: Single AP portable upright view of the chest is obtained. COMPARISON: Chest x-ray from one day earlier and older studies. FINDINGS: The right internal jugular cordis sheath remains present. Sternal wires and metallic aorti c valve are redemonstrated. There is persistent left-sided basilar chest tube. There appears to be in terval removal of right-sided chest tube and mediastinal drainage catheter. Overlying EKG wires are r edemonstrated. There is persistent low lung volumes with central vascular congestion. There is patchy left basilar a telectasis and /or infiltrate. Suspected small right pleural effusion. Cardiac silhouette size is sta ble and mildly enlarged. Osseous structures are intact. IMPRESSION: Interval removal of mediastinal drainage catheter and right basilar chest tube. There is persistent low lung volumes and mild cardiomegaly with patchy left basilar atelectasis and/or infiltr ate and suspected small right pleural effusion.
[2017-05-04 08:00] LABS: Eosinophils # (M) 1.86 k/uL (0-0.7); Lymphocytes # (M) 9.86 k/uL (1.0-4.8); Monocytes # (M) 1.12 k/uL (0-1.0); Neutrophils # (M) 5.77 k/uL (1.3-7.7); Neutrophils % (M) 31 %; Nucleated Red Blood Cells 0 /100 WBC (0-0); Total Cells Counted 100
[2017-05-04 08:01] LABS: Polychromasia Present
[2017-05-04 08:02] LABS: Glucose,Whole Blood 116 mg/dL (75-99)
[2017-05-04] MEDS: ALBUTEROL NEBULIZED 2.5 MG/3 ML INHALATION PRN ×4 (08:20→19:17)
[2017-05-04] MEDS: BUDESONIDE 0.5 MG/2 ML NEBU INHALATION SCH ×2 (08:20→19:17)
[2017-05-04 08:58] LABS: Glucose,Whole Blood 120 mg/dL (75-99)
[2017-05-04] MEDS: AMIODARONE 450 MG in DEXTROSE 5% IN WATER 250 ML IV SCH ×2 (09:26)
[2017-05-04] MEDS: FONDAPARINUX 2.5 MG/0.5 ML SYRINGE SQ SCH (09:26)
[2017-05-04] MEDS: AMIODARONE 200 MG TAB PO SCH ×2 (09:27→20:41)
[2017-05-04] MEDS: ASPIRIN 81 MG PO SCH (09:27)
[2017-05-04] MEDS: PANTOPRAZOLE 40 MG TABLET PO SCH (09:27)
[2017-05-04] MEDS: HYDROcodone/APAP 5-325MG 1 EACH TAB PO PRN (09:27)
[2017-05-04] MEDS: METOPROLOL TARTRATE 25 MG TAB PO SCH ×2 (09:28→20:41)
[2017-05-04] MEDS: ATORVASTATIN 40 MG TAB PO SCH (09:28)
[2017-05-04] MEDS: MUPIROCIN 2% OINT 22 GM TUBE NASAL SCH ×2 (09:28→20:42)
[2017-05-04 10:01] LABS: Glucose,Whole Blood 93 mg/dL (75-99)
[2017-05-04] MEDS: METOCLOPRAMIDE 5 MG/ML 2 ML VIAL IVP PRN (10:58)
[2017-05-04 11:25] LABS: Glucose,Whole Blood 111 mg/dL (75-99)
[2017-05-04] MEDS: INSULIN DETEMIR 100 UNIT/ML 10 ML VIAL SQ SCH (11:39)
[2017-05-04] MEDS: INSULIN ASPART 100 UNIT/ML 1 ML 10 ML VIAL SQ SCH ×5 (12:22→20:42)
[2017-05-04 12:23] LABS: Glucose,Whole Blood 113 mg/dL (75-99)
[2017-05-04 13:05] LABS: Glucose,Whole Blood 141 mg/dL (75-99)
[2017-05-04] MEDS ORDERED: INSULIN REGULAR 100 UNIT in SODIUM CHLORIDE 0.9% 100 ML IV SCH (14:00)
--- NOTE | 2017-05-04 15:09 | P.PN ---
Subjective Progress Note Date: 05/04/17 Principal diagnosis: Severe aortic valve stenosis, recently diagnosed chronic lymphocytic leukemia, history of coronary artery disease with stent placement to his right coronary artery and left anterior descending coronary artery with no flow limiting lesion at this point, preserved left ventricular function, chronically elevated right hemidiaphragm, hypertension, hyperlipidemia, chronic obstructive pulmonary disease, GERD, history of psoriasis and history of TIA. POD #3, elective aortic valve replacement using a 25 mm magna ease bovine pericardial bioprosthesis, intraoperative transesophageal echocardiogram and epi -aortic scanning. POD #3, redo sternotomy, exploration of the mediastinum, evacuation of clot and control of bleeding. Postoperative acute blood loss anemia, an expected outcome of surgery. Postoperative paroxysmal atrial fibrillation, an expected outcome of surgery. The patient is sitting up to the bedside chair. He is in no acute distress. He is alert and oriented 3. He rates his pain at 9 out of 10 on the pain scale. He remains complaining of hiccups, he reports that the Reglan help with his sick up yesterday. Oxygen saturation are 99 percent on 2 L nasal cannula. He is achieving 500 to 750 mL on his incentive spirometry with encouragement. Patient had an episode of paroxysmal atrial fibrillation yesterday 05/03/2017 and was placed on an amiodarone drip. He has had no further episodes of atrial fibrillation and remains in normal sinus rhythm. Objective - Vital Signs Vital signs: Vital Signs Temp 97.7 F 05/04/17 12:00 Pulse 73 05/04/17 14:10 Resp 13 05/04/17 14:10 BP 113/67 05/04/17 14:10 Pulse Ox 91 L 05/04/17 14:10 Intake & Output 05/03/17 05/04/17 05/04/17 17:59 06:59 18:59 Intake Total 655.400 Output Total 490 Balance 165.400 Weight 101.1 kg Intake: IV 161 Amiodarone 450 mg In Dextrose 5% in Water 250 ml @ 1 MG/MIN 33.33 mls/ hr IV .Q7H31M [facility] Rx#: [id number] LR 140 Pressure Bag 21 Intake, IV Titration 14.400 Amount Amiodarone 450 mg In Dextrose 5% in Water 250 ml @ 1 MG/MIN 33.33 mls/ hr IV .Q7H31M [facility] Rx#: [id number] Insulin Regular 100 unit 14.400 In Sodium Chloride 0.9% 100 ml @ Per Protocol IV .Q0M [facility] Rx#:[id number] Oral 480 Output: Chest Tube Drainage 10 Left Pleural 10 Mediastinal Right Pleural Urine 400 Other 80 Other: Voiding Method Urinal # Voids ABP, PAP, CO, CI - Last Documented Arterial Blood Pressure 112/54 Pulmonary Artery Pressure 39/21 Cardiac Output 6.6 Cardiac Index 3.5 - Constitutional General appearance: Present: cooperative, no acute distress, obese - Neck Details: Neck is supple, no JVD, no lymphadenopathy. Right IJ Cordis remains in place with continuous CVP monitoring, current CVP pressure 5 mmHg. - Respiratory Details: Lung sounds are essentially clear throughout, diminished to his bilateral bases. Respirations are symmetrical and nonlabored. Oxygen saturation are 99% on 2 L nasal cannula. He is achieving 500 to 750 mL on his incentive spirometry. Left pleural chest tube remains to low continuous wall suction -20 cm H2O. No air leak present. Draining thin serosanguineous drainage. Left pleural chest tube with 120 mL output in the last 8 hours, 350 mL output in the last 24 hours. - Cardiovascular Details: Regular rhythm and rate. S1 and S2 present, negative for S3, gallop or murmur. Sternum is stable. Bedside telemetry showing normal sinus rhythm heart rate 78. No further episodes of paroxysmal atrial fibrillation. Knee-high PHILIP hose and sequential compression devices in place to his bilateral lower extremities. Heart hugger is in place and he is demonstrating appropriate use. Peripheral pulses palpable. Trace pedal edema bilateral. Atrial epicardial pacemaker wires present and grounded. - Gastrointestinal Gastrointestinal Comment(s): Abdomen soft, nontender and nondistended. Active bowel sounds to all 4 abdominal quadrants. Passing flatus. Tolerating oral intake. - Genitourinary Genitourinary Comment(s): Urine output adequate. Clear anisa urine. 250 milliliters of output in the last 8 hours. - Integumentary Integumentary Comment(s): Skin warm and dry. No cyanosis or clubbing. Midline sternal incision clean dry and well approximated. No redness or drainage present. Dermabond dressing clean and dry. - Neurologic Neurologic: Present: CNII-XII intact - Musculoskeletal Musculoskeletal: Present: gait normal, strength equal bilaterally - Psychiatric Psychiatric: Present: A&O x's 3, appropriate affect, intact judgment & insight - Labs CBC & Chem 7: 05/04/17 04:22 05/04/17 04:22 Labs: Abnormal Lab Results - Last 24 Hours (Table) 05/03/17 05/03/17 05/03/17 Range/Units 14:16 17:00 18:06 WBC (3.8-10.6) k/uL RBC (4.30-5.90) m/uL Hgb (13.0-17.5) gm/dL Hct (39.0-53.0) % RDW (11.5-15.5) % Plt Count (150-450) k/uL Lymphocytes # (Manual) (1.0-4.8) k/uL Monocytes # (Manual) (0-1.0) k/uL Eosinophils # (Manual) (0-0.7) k/uL Retic Count (0.5-2.0) % Fibrinogen (200-500) mg/dL BUN (9-20) mg/dL Glucose (74-99) mg/dL POC Glucose (mg/dL) 121 H 118 H 157 H (75-99) mg/dL Magnesium (1.6-2.3) mg/dL Total Bilirubin (0.2-1.3) mg/dL Total Protein (6.3-8.2) g/dL Albumin (3.5-5.0) g/dL 05/03/17 05/03/17 05/03/17 Range/Units 18:50 20:27 22:10 WBC (3.8-10.6) k/uL RBC (4.30-5.90) m/uL Hgb (13.0-17.5) gm/dL Hct (39.0-53.0) % RDW (11.5-15.5) % Plt Count (150-450) k/uL Lymphocytes # (Manual) (1.0-4.8) k/uL Monocytes # (Manual) (0-1.0) k/uL Eosinophils # (Manual) (0-0.7) k/uL Retic Count (0.5-2.0) % Fibrinogen (200-500) mg/dL BUN (9-20) mg/dL Glucose (74-99) mg/dL POC Glucose (mg/dL) 143 H 142 H 122 H (75-99) mg/dL Magnesium (1.6-2.3) mg/dL Total Bilirubin (0.2-1.3) mg/dL Total Protein (6.3-8.2) g/dL Albumin (3.5-5.0) g/dL 05/03/17 05/04/17 05/04/17 Range/Units 23:05 03:33 04:21 WBC (3.8-10.6) k/uL RBC (4.30-5.90) m/uL Hgb (13.0-17.5) gm/dL Hct (39.0-53.0) % RDW (11.5-15.5) % Plt Count (150-450) k/uL Lymphocytes # (Manual) (1.0-4.8) k/uL Monocytes # (Manual) (0-1.0) k/uL Eosinophils # (Manual) (0-0.7) k/uL Retic Count (0.5-2.0) % Fibrinogen (200-500) mg/dL BUN (9-20) mg/dL Glucose (74-99) mg/dL POC Glucose (mg/dL) 119 H 104 H 105 H (75-99) mg/dL Magnesium (1.6-2.3) mg/dL Total Bilirubin (0.2-1.3) mg/dL Total Protein (6.3-8.2) g/dL Albumin (3.5-5.0) g/dL 05/04/17 05/04/17 05/04/17 Range/Units 04:22 04:22 04:22 WBC 18.6 H (3.8-10.6) k/uL RBC 2.64 L (4.30-5.90) m/uL Hgb 8.1 L (13.0-17.5) gm/dL Hct 25.0 L (39.0-53.0) % RDW 16.3 H (11.5-15.5) % Plt Count 106 L (150-450) k/uL Lymphocytes # (Manual) 9.86 H (1.0-4.8) k/uL Monocytes # (Manual) 1.12 H (0-1.0) k/uL Eosinophils # (Manual) 1.86 H (0-0.7) k/uL Retic Count 2.3 H (0.5-2.0) % Fibrinogen (200-500) mg/dL BUN 29 H (9-20) mg/dL Glucose 117 H (74-99) mg/dL POC Glucose (mg/dL) (75-99) mg/dL Magnesium 2.4 H (1.6-2.3) mg/dL Total Bilirubin 1.8 H (0.2-1.3) mg/dL Total Protein 5.1 L (6.3-8.2) g/dL Albumin 3.2 L (3.5-5.0) g/dL 05/04/17 05/04/17 05/04/17 Range/Units 04:22 05:11 07:49 WBC (3.8-10.6) k/uL RBC (4.30-5.90) m/uL Hgb (13.0-17.5) gm/dL Hct (39.0-53.0) % RDW (11.5-15.5) % Plt Count (150-450) k/uL Lymphocytes # (Manual) (1.0-4.8) k/uL Monocytes # (Manual) (0-1.0) k/uL Eosinophils # (Manual) (0-0.7) k/uL Retic Count (0.5-2.0) % Fibrinogen 504 H (200-500) mg/dL BUN (9-20) mg/dL Glucose (74-99) mg/dL POC Glucose (mg/dL) 126 H 116 H (75-99) mg/dL Magnesium (1.6-2.3) mg/dL Total Bilirubin (0.2-1.3) mg/dL Total Protein (6.3-8.2) g/dL Albumin (3.5-5.0) g/dL 05/04/17 05/04/17 05/04/17 Range/Units 08:56 11:23 12:21 WBC (3.8-10.6) k/uL RBC (4.30-5.90) m/uL Hgb (13.0-17.5) gm/dL Hct (39.0-53.0) % RDW (11.5-15.5) % Plt Count (150-450) k/uL Lymphocytes # (Manual) (1.0-4.8) k/uL Monocytes # (Manual) (0-1.0) k/uL Eosinophils # (Manual) (0-0.7) k/uL Retic Count (0.5-2.0) % Fibrinogen (200-500) mg/dL BUN (9-20) mg/dL Glucose (74-99) mg/dL POC Glucose (mg/dL) 120 H 111 H 113 H (75-99) mg/dL Magnesium (1.6-2.3) mg/dL Total Bilirubin (0.2-1.3) mg/dL Total Protein (6.3-8.2) g/dL Albumin (3.5-5.0) g/dL 05/04/17 Range/Units 13:03 WBC (3.8-10.6) k/uL RBC (4.30-5.90) m/uL Hgb (13.0-17.5) gm/dL Hct (39.0-53.0) % RDW (11.5-15.5) % Plt Count (150-450) k/uL Lymphocytes # (Manual) (1.0-4.8) k/uL Monocytes # (Manual) (0-1.0) k/uL Eosinophils # (Manual) (0-0.7) k/uL Retic Count (0.5-2.0) % Fibrinogen (200-500) mg/dL BUN (9-20) mg/dL Glucose (74-99) mg/dL POC Glucose (mg/dL) 141 H (75-99) mg/dL Magnesium (1.6-2.3) mg/dL Total Bilirubin (0.2-1.3) mg/dL Total Protein (6.3-8.2) g/dL Albumin (3.5-5.0) g/dL - Imaging and Cardiology Chest x-ray: report reviewed, image reviewed Assessment and Plan (1) Severe aortic valve stenosis Current Visit: Yes Status: Acute Code(s): I35.0 - NONRHEUMATIC AORTIC (VALVE ) STENOSIS SNOMED Code(s): 88506704 (2) Chronic lymphocytic leukemia Current Visit: Yes Status: Acute Code(s): C91.90 - LYMPHOID LEUKEMIA, UNSPECIFIED NOT HAVING ACHIEVED REMISSION SNOMED Code(s): 92770406 (3) History of coronary artery stent placement Current Visit: Yes Status: Acute Code(s): Z95.5 - PRESENCE OF CORONARY ANGIOPLASTY IMPLANT AND GRAFT SNOMED Code(s): 376627244 (4) Hypertension Current Visit: Yes Status: Acute Code(s): I10 - ESSENTIAL (PRIMARY) HYPERTENSION SNOMED Code(s): 47111463 (5) Hyperlipidemia Current Visit: Yes Status: Acute Code(s): E78.5 - HYPERLIPIDEMIA, UNSPECIFIED SNOMED Code(s): 96071766 (6) GERD (gastroesophageal reflux disease) Current Visit: Yes Status: Acute Code(s): K21.9 - GASTRO-ESOPHAGEAL REFLUX DISEASE WITHOUT ESOPHAGITIS SNOMED Code(s): 726116990 (7) COPD (chronic obstructive pulmonary disease) Current Visit: Yes Status: Acute Code(s): J44.9 - CHRONIC OBSTRUCTIVE PULMONARY DISEASE, UNSPECIFIED SNOMED Code(s): 34351220 (8) History of psoriasis Current Visit: Yes Status: Acute Code(s): Z87.2 - PERSONAL HISTORY OF DISEASES OF THE SKIN, SUBCU SNOMED Code(s): 845892335 (9) History of TIA (transient ischemic attack) Current Visit: Yes Status: Acute Code(s): Z86.73 - PRSNL HX OF TIA (TIA), AND CEREB INFRC W/O RESID DEFICITS SNOMED Code(s): 994544735 (10) Postoperative atrial fibrillation Current Visit: Yes Status: Acute Code(s): I97.89 - OTH POSTPROC COMP AND DISORDERS OF THE CIRC SYS, NEC; I48.91 - UNSPECIFIED ATRIAL FIBRILLATION SNOMED Code(s): 48209012 Plan: 1. We will continue Arixtra 2.5 mg subcu daily and low-dose aspirin. We will restart Plavix. 2. Pulmonary management per Dr Baker. Wean oxygen as tolerated. 3. Continue metoprolol 25 mg by mouth twice a day. We will increase his beta leeanne as tolerated. 4. Monitor daily labs and x-rays. 5. Increase activity, out of bed to chair for all meals, ambulate as able. PT/ OT/cardiac rehab following. 6. No diuretics today. 7. Insulin and medical management per Dr. Stuart. 8. We will discontinue his left pleural chest tube today. 9. Continue amiodarone 400 mg by mouth twice a day for atrial fibrillation prophylaxis. 10. He will be transferred to [address] [place] [address] when there is a bed available. 11. More recommendations to follow as patient progresses in his care. Discharge planning in place. Time with Patient: Greater than 30
--- NOTE | 2017-05-04 16:12 | P.PN ---
Subjective Patient is doing well. Lying comfortably in bed. Chest pain is improved. No shortness of breath On examination blood pressure 132/85 mmHg pulse rate in the 70s respirations normal afebrile Breath sounds are reduced parallel with the no rhonchi no crackles Heart sounds are soft and distant Abdomen is soft nontender Extremities warm no edema Impression Severe aortic stenosis status post aortic valve replacement Preserved LV systolic function Hypertension Dyslipidemia COPD CLL Postoperative PAF Suggest Continue current medications the patient may go to telemetry today Objective - Vital Signs Vital signs: Vital Signs Temp 98.2 F 05/04/17 15:00 Pulse 82 05/04/17 15:26 Resp 17 05/04/17 15:00 BP 132/85 05/04/17 15:00 Pulse Ox 95 05/04/17 15:00 Intake & Output 05/03/17 05/04/17 05/04/17 17:59 06:59 18:59 Intake Total 655.400 Output Total 490 Balance 165.400 Weight 101.1 kg Intake: IV 161 Amiodarone 450 mg In Dextrose 5% in Water 250 ml @ 1 MG/MIN 33.33 mls/ hr IV .Q7H31M [facility] Rx#: [id number] LR 140 Pressure Bag 21 Intake, IV Titration 14.400 Amount Amiodarone 450 mg In Dextrose 5% in Water 250 ml @ 1 MG/MIN 33.33 mls/ hr IV .Q7H31M [facility] Rx#: [id number] Insulin Regular 100 unit 14.400 In Sodium Chloride 0.9% 100 ml @ Per Protocol IV .Q0M [facility] Rx#:[id number] Oral 480 Output: Chest Tube Drainage 10 Left Pleural 10 Mediastinal Right Pleural Urine 400 Other 80 Other: Voiding Method Urinal # Voids ABP, PAP, CO, CI - Last Documented Arterial Blood Pressure 112/54 Pulmonary Artery Pressure 39/21 Cardiac Output 6.6 Cardiac Index 3.5 - Labs CBC & Chem 7: 05/04/17 04:22 05/04/17 04:22 Labs: Abnormal Lab Results - Last 24 Hours (Table) 05/03/17 05/03/17 05/03/17 Range/Units 17:00 18:06 18:50 WBC (3.8-10.6) k/uL RBC (4.30-5.90) m/uL Hgb (13.0-17.5) gm/dL Hct (39.0-53.0) % RDW (11.5-15.5) % Plt Count (150-450) k/uL Lymphocytes # (Manual) (1.0-4.8) k/uL Monocytes # (Manual) (0-1.0) k/uL Eosinophils # (Manual) (0-0.7) k/uL Retic Count (0.5-2.0) % Fibrinogen (200-500) mg/dL BUN (9-20) mg/dL Glucose (74-99) mg/dL POC Glucose (mg/dL) 118 H 157 H 143 H (75-99) mg/dL Magnesium (1.6-2.3) mg/dL Total Bilirubin (0.2-1.3) mg/dL Total Protein (6.3-8.2) g/dL Albumin (3.5-5.0) g/dL 05/03/17 05/03/17 05/03/17 Range/Units 20:27 22:10 23:05 WBC (3.8-10.6) k/uL RBC (4.30-5.90) m/uL Hgb (13.0-17.5) gm/dL Hct (39.0-53.0) % RDW (11.5-15.5) % Plt Count (150-450) k/uL Lymphocytes # (Manual) (1.0-4.8) k/uL Monocytes # (Manual) (0-1.0) k/uL Eosinophils # (Manual) (0-0.7) k/uL Retic Count (0.5-2.0) % Fibrinogen (200-500) mg/dL BUN (9-20) mg/dL Glucose (74-99) mg/dL POC Glucose (mg/dL) 142 H 122 H 119 H (75-99) mg/dL Magnesium (1.6-2.3) mg/dL Total Bilirubin (0.2-1.3) mg/dL Total Protein (6.3-8.2) g/dL Albumin (3.5-5.0) g/dL 05/04/17 05/04/17 05/04/17 Range/Units 03:33 04:21 04:22 WBC (3.8-10.6) k/uL RBC (4.30-5.90) m/uL Hgb (13.0-17.5) gm/dL Hct (39.0-53.0) % RDW (11.5-15.5) % Plt Count (150-450) k/uL Lymphocytes # (Manual) (1.0-4.8) k/uL Monocytes # (Manual) (0-1.0) k/uL Eosinophils # (Manual) (0-0.7) k/uL Retic Count (0.5-2.0) % Fibrinogen (200-500) mg/dL BUN 29 H (9-20) mg/dL Glucose 117 H (74-99) mg/dL POC Glucose (mg/dL) 104 H 105 H (75-99) mg/dL Magnesium 2.4 H (1.6-2.3) mg/dL Total Bilirubin 1.8 H (0.2-1.3) mg/dL Total Protein 5.1 L (6.3-8.2) g/dL Albumin 3.2 L (3.5-5.0) g/dL 05/04/17 05/04/17 05/04/17 Range/Units 04:22 04:22 04:22 WBC 18.6 H (3.8-10.6) k/uL RBC 2.64 L (4.30-5.90) m/uL Hgb 8.1 L (13.0-17.5) gm/dL Hct 25.0 L (39.0-53.0) % RDW 16.3 H (11.5-15.5) % Plt Count 106 L (150-450) k/uL Lymphocytes # (Manual) 9.86 H (1.0-4.8) k/uL Monocytes # (Manual) 1.12 H (0-1.0) k/uL Eosinophils # (Manual) 1.86 H (0-0.7) k/uL Retic Count 2.3 H (0.5-2.0) % Fibrinogen 504 H (200-500) mg/dL BUN (9-20) mg/dL Glucose (74-99) mg/dL POC Glucose (mg/dL) (75-99) mg/dL Magnesium (1.6-2.3) mg/dL Total Bilirubin (0.2-1.3) mg/dL Total Protein (6.3-8.2) g/dL Albumin (3.5-5.0) g/dL 05/04/17 05/04/17 05/04/17 Range/Units 05:11 07:49 08:56 WBC (3.8-10.6) k/uL RBC (4.30-5.90) m/uL Hgb (13.0-17.5) gm/dL Hct (39.0-53.0) % RDW (11.5-15.5) % Plt Count (150-450) k/uL Lymphocytes # (Manual) (1.0-4.8) k/uL Monocytes # (Manual) (0-1.0) k/uL Eosinophils # (Manual) (0-0.7) k/uL Retic Count (0.5-2.0) % Fibrinogen (200-500) mg/dL BUN (9-20) mg/dL Glucose (74-99) mg/dL POC Glucose (mg/dL) 126 H 116 H 120 H (75-99) mg/dL Magnesium (1.6-2.3) mg/dL Total Bilirubin (0.2-1.3) mg/dL Total Protein (6.3-8.2) g/dL Albumin (3.5-5.0) g/dL 05/04/17 05/04/17 05/04/17 Range/Units 11:23 12:21 13:03 WBC (3.8-10.6) k/uL RBC (4.30-5.90) m/uL Hgb (13.0-17.5) gm/dL Hct (39.0-53.0) % RDW (11.5-15.5) % Plt Count (150-450) k/uL Lymphocytes # (Manual) (1.0-4.8) k/uL Monocytes # (Manual) (0-1.0) k/uL Eosinophils # (Manual) (0-0.7) k/uL Retic Count (0.5-2.0) % Fibrinogen (200-500) mg/dL BUN (9-20) mg/dL Glucose (74-99) mg/dL POC Glucose (mg/dL) 111 H 113 H 141 H (75-99) mg/dL Magnesium (1.6-2.3) mg/dL Total Bilirubin (0.2-1.3) mg/dL Total Protein (6.3-8.2) g/dL Albumin (3.5-5.0) g/dL
[2017-05-04 17:13] LABS: Glucose,Whole Blood 89 mg/dL (75-99)
--- NOTE | 2017-05-04 19:17 | PN ---
PROGRESS NOTE DATE OF SERVICE: 05/04/17 He was seen again on May 04, 2017. He has been hemodynamically stable. He does not have any hiccups today and is doing significantly better overall. He continues to have some shortness of breath. PHYSICAL EXAMINATION: His blood pressure is 132/85, respiratory rate of 17, pulse rate of 71, temperature 98.2, O2 saturation on nasal cannula is 95%. HEENT: Unremarkable. Chest revealed decreased breath sounds at bases. Cardiovascular system was S1, S2. ABDOMEN: Soft. There is trace pedal edema. LABS: Reviewed. MEDICATION: Were reviewed. IMPRESSION: 1. Aortic valvular heart disease, status post aortic valve replacement. 2. Mild leukocytosis, etiology of which is unclear. 3. History of asthma. 4. Medical debility. Continue incentive spirometry. Increase his activity level. Continue bronchodilators as needed with Pulmicort. Depending on how he does we should make further changes to his care. MMODL / IJN: [id number] /
[2017-05-04 20:17] LABS: Glucose,Whole Blood 136 mg/dL (75-99)
[2017-05-04] MEDS: SENNOSIDES-DOCUSATE SODIUM 1 EACH TAB PO SCH (20:41)
[2017-05-04] MEDS: MONTELUKAST 10 MG TAB OG-TUBE SCH (20:41)
[2017-05-04 21:29] LABS: Hemoglobin A1C 5.9 % (4.0-6.0)
--- NOTE | 2017-05-04 22:17 | P.PN ---
Subjective Progress Note Date: 05/04/17 71 years old male with past medical history of a severe ortic stenosis , history of TIA, history of coronary artery disease status post cardiac stents 3, history of COPD, history of sleep apnea on CPAP, history of CLL on conservative management, history of asthma, history of alpha-1 antitrypsin deficiency, hypertension, hyperlipidemia and admitted for an elective aortic valve replacement on 05/01. Patient was seen postoperatively at bedside. Patient is doing well is requiring 3-4 L of oxygen post extubation. Complains of some soreness in the chest but denies any significant chest pain, shortness of breath, abdominal pain nausea or vomiting. Patient is tachycardic to 101, blood pressure 115/64, slightly confused but is answering questions appropriately. Patient received multiple units of transfusion including RBC, platelets, cryoprecipitate due to significant bleeding from generalized coagulopathy intraoperatively. According to documentation patient bleed profusely during the surgery with defficulty to maintain hemostasis. Patient received 6 units of platelets and 2 units of FFP , 1.5 L of cell saver blood, 4 units of RBCs in total. Preoperative labs from 04/23 were concerning for leukocytosis for which patient was followed by oncology and patient was diagnosed with CLL. Labs obtained on 05/01 suggested a WBC of 6.7, hemoglobin dropped from 14.8 to 7.5, drop of platelets from 203 to 88 increased. The liver function test with AST 298, AST 114, alkaline phosphatase 46. Total bilirubin 4.0. fibrinogen was low but repeat was normal. Patient's lab findings are concerning for hemolytic anemia. There is some improvement in the platelets on the repeat labs. Transfusion reaction ordered. Unclear why patient was profusely bleeding with rapid drop in his counts. Will discuss with hematology Dr. latif as patient has h/o CLL. 05/03: Patient remains in ICU, patient has some nausea and dry heaving, and has hiccups, Does Not Have Any Significant Chest Pain, No Aspirated Events Patient Continues on Amiodarone Drip and Insulin Drip, Has Bilateral Chest Tubes in Place, Draining to Low Continuous Suction,, on amiodarone drip, and insulin drip. Patient has been extubated 05/04: Patient remains in ICU, and has folic acid out today, remains on insulin drip meals are currently at 50%, he Has Improved, [address], Vitals Are Stable with a Pulse Ox at 92% 2 L, patient is on Arixtra, transitioned to oral Cordarone, and pre-meal basal bolus transitioned today Objective - Vital Signs Vital signs: Vital Signs Temp 98.5 F 05/04/17 08:00 Pulse 76 05/04/17 09:00 Resp 18 05/04/17 09:00 BP 117/71 05/04/17 09:00 Pulse Ox 99 05/04/17 09:00 Intake & Output 05/03/17 05/04/17 05/04/17 17:59 06:59 18:59 Intake Total 438.333 Output Total 310 Balance 128.333 Intake: IV 69 Amiodarone 450 mg In Dextrose 5% in Water 250 ml @ 1 MG/MIN 33.33 mls/ hr IV .Q7H31M [facility] Rx#: [id number] LR 60 Pressure Bag 9 Intake, IV Titration 9.333 Amount Amiodarone 450 mg In Dextrose 5% in Water 250 ml @ 1 MG/MIN 33.33 mls/ hr IV .Q7H31M [facility] Rx#: [id number] Insulin Regular 100 unit 9.333 In Sodium Chloride 0.9% 100 ml @ Per Protocol IV .Q0M [facility] Rx#:[id number] Oral 360 Output: Chest Tube Drainage 10 Left Pleural 10 Mediastinal Right Pleural Urine 300 Other: Voiding Method # Voids ABP, PAP, CO, CI - Last Documented Arterial Blood Pressure 112/54 Pulmonary Artery Pressure 39/21 Cardiac Output 6.6 Cardiac Index 3.5 - Constitutional General appearance: Present: cooperative, no acute distress - EENT Eyes: Present: anicteric sclerae, EOMI, PERRLA, normal appearance ENT: Present: hearing grossly normal, NA/AT, normal oropharynx - Neck Neck: Present: normal ROM. Absent: lymphadenopathy, other, rigidity, stridor, thyromegaly - Respiratory Respiratory: bilateral: CTA, diminished, negative: dullness, rales, rhonchi, wheezing, prolonged expiration, prolonged inspiration, other - Cardiovascular Rhythm: regular Heart sounds: normal: S1, S2 Abnormal Heart Sounds: Absent: systolic murmur, diastolic murmur, rub, S3 Gallop , S4 Gallop, click, other - Gastrointestinal General gastrointestinal: Present: normal bowel sounds, soft - Integumentary Integumentary: Present: normal, normal turgor - Neurologic Neurologic: Present: CNII-XII intact - Musculoskeletal Musculoskeletal: Present: strength equal bilaterally - Labs CBC & Chem 7: 05/04/17 04:22 05/04/17 04:22 Labs: Abnormal Lab Results - Last 24 Hours (Table) 05/03/17 05/03/17 05/03/17 Range/Units 09:07 10:06 11:08 WBC (3.8-10.6) k/uL RBC (4.30-5.90) m/uL Hgb (13.0-17.5) gm/dL Hct (39.0-53.0) % RDW (11.5-15.5) % Plt Count (150-450) k/uL Lymphocytes # (Manual) (1.0-4.8) k/uL Monocytes # (Manual) (0-1.0) k/uL Eosinophils # (Manual) (0-0.7) k/uL Retic Count (0.5-2.0) % Fibrinogen (200-500) mg/dL BUN (9-20) mg/dL Glucose (74-99) mg/dL POC Glucose (mg/dL) 139 H 137 H 130 H (75-99) mg/dL Magnesium (1.6-2.3) mg/dL Total Bilirubin (0.2-1.3) mg/dL Total Protein (6.3-8.2) g/dL Albumin (3.5-5.0) g/dL 05/03/17 05/03/17 05/03/17 Range/Units 12:05 13:01 14:16 WBC (3.8-10.6) k/uL RBC (4.30-5.90) m/uL Hgb (13.0-17.5) gm/dL Hct (39.0-53.0) % RDW (11.5-15.5) % Plt Count (150-450) k/uL Lymphocytes # (Manual) (1.0-4.8) k/uL Monocytes # (Manual) (0-1.0) k/uL Eosinophils # (Manual) (0-0.7) k/uL Retic Count (0.5-2.0) % Fibrinogen (200-500) mg/dL BUN (9-20) mg/dL Glucose (74-99) mg/dL POC Glucose (mg/dL) 167 H 142 H 121 H (75-99) mg/dL Magnesium (1.6-2.3) mg/dL Total Bilirubin (0.2-1.3) mg/dL Total Protein (6.3-8.2) g/dL Albumin (3.5-5.0) g/dL 05/03/17 05/03/17 05/03/17 Range/Units 17:00 18:06 18:50 WBC (3.8-10.6) k/uL RBC (4.30-5.90) m/uL Hgb (13.0-17.5) gm/dL Hct (39.0-53.0) % RDW (11.5-15.5) % Plt Count (150-450) k/uL Lymphocytes # (Manual) (1.0-4.8) k/uL Monocytes # (Manual) (0-1.0) k/uL Eosinophils # (Manual) (0-0.7) k/uL Retic Count (0.5-2.0) % Fibrinogen (200-500) mg/dL BUN (9-20) mg/dL Glucose (74-99) mg/dL POC Glucose (mg/dL) 118 H 157 H 143 H (75-99) mg/dL Magnesium (1.6-2.3) mg/dL Total Bilirubin (0.2-1.3) mg/dL Total Protein (6.3-8.2) g/dL Albumin (3.5-5.0) g/dL 05/03/17 05/03/17 05/03/17 Range/Units 20:27 22:10 23:05 WBC (3.8-10.6) k/uL RBC (4.30-5.90) m/uL Hgb (13.0-17.5) gm/dL Hct (39.0-53.0) % RDW (11.5-15.5) % Plt Count (150-450) k/uL Lymphocytes # (Manual) (1.0-4.8) k/uL Monocytes # (Manual) (0-1.0) k/uL Eosinophils # (Manual) (0-0.7) k/uL Retic Count (0.5-2.0) % Fibrinogen (200-500) mg/dL BUN (9-20) mg/dL Glucose (74-99) mg/dL POC Glucose (mg/dL) 142 H 122 H 119 H (75-99) mg/dL Magnesium (1.6-2.3) mg/dL Total Bilirubin (0.2-1.3) mg/dL Total Protein (6.3-8.2) g/dL Albumin (3.5-5.0) g/dL 05/04/17 05/04/17 05/04/17 Range/Units 03:33 04:21 04:22 WBC (3.8-10.6) k/uL RBC (4.30-5.90) m/uL Hgb (13.0-17.5) gm/dL Hct (39.0-53.0) % RDW (11.5-15.5) % Plt Count (150-450) k/uL Lymphocytes # (Manual) (1.0-4.8) k/uL Monocytes # (Manual) (0-1.0) k/uL Eosinophils # (Manual) (0-0.7) k/uL Retic Count (0.5-2.0) % Fibrinogen (200-500) mg/dL BUN 29 H (9-20) mg/dL Glucose 117 H (74-99) mg/dL POC Glucose (mg/dL) 104 H 105 H (75-99) mg/dL Magnesium 2.4 H (1.6-2.3) mg/dL Total Bilirubin 1.8 H (0.2-1.3) mg/dL Total Protein 5.1 L (6.3-8.2) g/dL Albumin 3.2 L (3.5-5.0) g/dL 05/04/17 05/04/17 05/04/17 Range/Units 04:22 04:22 04:22 WBC 18.6 H (3.8-10.6) k/uL RBC 2.64 L (4.30-5.90) m/uL Hgb 8.1 L (13.0-17.5) gm/dL Hct 25.0 L (39.0-53.0) % RDW 16.3 H (11.5-15.5) % Plt Count 106 L (150-450) k/uL Lymphocytes # (Manual) 9.86 H (1.0-4.8) k/uL Monocytes # (Manual) 1.12 H (0-1.0) k/uL Eosinophils # (Manual) 1.86 H (0-0.7) k/uL Retic Count 2.3 H (0.5-2.0) % Fibrinogen 504 H (200-500) mg/dL BUN (9-20) mg/dL Glucose (74-99) mg/dL POC Glucose (mg/dL) (75-99) mg/dL Magnesium (1.6-2.3) mg/dL Total Bilirubin (0.2-1.3) mg/dL Total Protein (6.3-8.2) g/dL Albumin (3.5-5.0) g/dL 05/04/17 05/04/17 05/04/17 Range/Units 05:11 07:49 08:56 WBC (3.8-10.6) k/uL RBC (4.30-5.90) m/uL Hgb (13.0-17.5) gm/dL Hct (39.0-53.0) % RDW (11.5-15.5) % Plt Count (150-450) k/uL Lymphocytes # (Manual) (1.0-4.8) k/uL Monocytes # (Manual) (0-1.0) k/uL Eosinophils # (Manual) (0-0.7) k/uL Retic Count (0.5-2.0) % Fibrinogen (200-500) mg/dL BUN (9-20) mg/dL Glucose (74-99) mg/dL POC Glucose (mg/dL) 126 H 116 H 120 H (75-99) mg/dL Magnesium (1.6-2.3) mg/dL Total Bilirubin (0.2-1.3) mg/dL Total Protein (6.3-8.2) g/dL Albumin (3.5-5.0) g/dL Assessment and Plan Plan: #1 aortic stenosis status post aortic valve replacement with bovine pericardial bioprosthesis, pain management per primary team. Continue DVT prophylaxis. Incentive spirometry to prevent any pneumonia or atelectasis. Patient is requiring 4 L of oxygen likely secondary to volume overload, Rodríguez catheter in place, on amiodarone drip and insulin drip to manage sugars and arrhythmia, insulin drip changed to basal bolus, Levemir 5 units every morning, and low 2 units breakfast lunch and dinner , has post operative hiccups, possible Thorazine if refractory. He would use antiemetics for now, this has improved #2 history of CLL, stable #3 acute blood loss anemia with thrombocytopenia likely secondary expected consequence off blood loss during surgery and multiple transfusions. Labs are consistent with hemolysis as there is increased bilirubin and LFTs from multiple transfusions. We will consult Dr. Carrasco as patient has a history of CLL to rule out ITP/hemolytic reaction #4 coronary arteries disease status post stenting of RCA and LAD. Continue aspirin, Plavix, metoprolol 12.5 mg twice daily #5 acute transaminitis secondary to increased unconjugated bilirubin from multiple transfusions. Repeat labs in 24 hours #6 hypertension blood pressure is stable. Started on metoprolol 12.5 mg twice daily #7 history of obstructive sleep apnea may benefit from CPAP overnight. Patient continues to require 4 L of oxygen. Repeat chest x-ray morning to evaluate for pulmonary edema. BP on the lower end, can benefit form lasix once BP stabilses #8 Acute hypoxic respiratory failure with history of asthma moderate persistent. Continue DuoNeb as needed, #9 history of alpha-1 antitrypsin deficiency carrier, stable, on nebulized albuterol and Atrovent #10 GI prophylaxis with Protonix 40 mg daily #11 DVT prophylaxis with heparin every 8 CODE STATUS full code
[2017-05-05 04:57] LABS: Anisocytosis Slight; Basophils # (A) 0.1 k/uL (0-0.2); Basophils % (A) 1 %; Eosinophils # (A) 0.6 k/uL (0-0.7); Eosinophils % (A) 3 %; HCT 26.4 % (39.0-53.0); HGB 8.8 gm/dL (13.0-17.5); Lymphocytes # (A) 8.5 k/uL (1.0-4.8); Lymphocytes % (A) 44 %; MCHC 33.2 g/dL (31.0-37.0); MCV 93.2 fL (80.0-100.0); Monocytes # (A) 0.9 k/uL (0-1.0); Monocytes % (A) 4 %; Neutrophils # (A) 8.4 k/uL (1.3-7.7); Neutrophils % (A) 44 %; Platelet Count 128 k/uL (150-450); RBC 2.83 m/uL (4.30-5.90); RDW 16.6 % (11.5-15.5); WBC 19.2 k/uL (3.8-10.6)
[2017-05-05 05:20] LABS: ALT 36 U/L (21-72); AST 22 U/L (17-59); Alkaline Phosphatase 58 U/L (38-126); Blood Urea Nitrogen 25 mg/dL (9-20); Calcium 8.5 mg/dL (8.4-10.2); Carbon Dioxide 29 mmol/L (22-30); Glucose 114 mg/dL (74-99); Phosphorus 2.6 mg/dL (2.5-4.5); Total Bilirubin 1.7 mg/dL (0.2-1.3)
[2017-05-05 05:47] LABS: Anion Gap 6 mmol/L; Chloride 103 mmol/L (98-107); Potassium 4.1 mmol/L (3.5-5.1); Sodium 138 mmol/L (137-145)
--- NOTE | 2017-05-05 06:44 | P.CONS ---
History of Present Illness - Chief Complaint Cardiac debility - History of Present Illness I had the op to see patient for inpatient rehab consultation with regard to cardiac debility. He was admitted to [facility] May 01 with a aortic stenosis underwent aVR. Seen in ICU by Dr. Baker and Jose. Later seen by Dr. Holman for CLL and postsurgical anemia. Also followed by cardiology, Dr. Flowers. PT and OT prescribed. Chest x-rays followed and demonstrated mild cardiomegaly as well as patchy atelectasis. Previous functional history as elicited from patient: 71-year-old right-handed white male who is lives in one floor home alone. Retired. Describes independent with own cooking, laundry, driving, sitdown shower and gait without device. He plans on hiring cooking and laundry help. PMD is Dr. Stuart. Family history father of [place]. Mother of old age. Review of Systems Review of systems: ENT: Denies sneezes or discharge. Eyes: Denies discharge or photophobia. Cardiac: Denies chest pain or palpitation. Pulmonary: Mild shortness of breath. Gastrointestinal: Denies nausea, emesis, constipation, diarrhea. Genitourinary: Denies discharge or frequency. Musculoskeletal: Mild aches and pains of old age. Neurologic: Denies motor or sensory change. Endocrine: Denies shakes or sweats. Oncology: Denies cancers. Dermatologic: Denies rash, itching, pruritus. ALLERGY/immunology: Denies sneezes, rashes. Past Medical History Past Medical History: Asthma, Chest Pain / Angina, COPD, CVA/TIA, GERD/Reflux, Skin Disorder, Sleep Apnea/CPAP/BIPAP Additional Past Medical History / Comment(s): STATES WAS TOLD AORTIC STENOSIS, TIA approx 1996, psoriasis NO CURRENT OUTBREAKS, USES CPAP, Leukemia,steroids Feb 2016 History of Any Multi-Drug Resistant Organisms: None Reported Past Surgical History: Heart Catheterization With Stent, Tonsillectomy Additional Past Surgical History / Comment(s): 3 cardiac stents, metal removed from left hand, gokul cataracts with lens implant, polyps removed nasal, LOOP RECORDER Past Anesthesia/Blood Transfusion Reactions: No Reported Reaction Date of Last Stent Placement:: 2009 Smoking Status: Former smoker - Past Family History Mother Family Medical History: Cancer, Congestive Heart Failure (CHF) Father Family Medical History: Coronary Artery Disease (CAD) Medications and Allergies Home Medications Medication Instructions Recorded Confirmed Type Aspirin 81 mg PO QAM 07/28/13 05/01/17 History Atorvastatin Calcium [Lipitor] 40 mg PO HS 07/28/13 05/01/17 History Citalopram Hydrobromide [CeleXA] 20 mg PO HS 07/28/13 05/01/17 History Clopidogrel [Plavix] 75 mg PO QAM 07/28/13 05/01/17 History Famotidine [Pepcid] 20 mg PO QAM 07/28/13 05/01/17 History Lisinopril [Zestril] 2.5 mg PO HS 07/28/13 05/01/17 History Nitroglycerin Sl Tabs [Nitrostat] 0.4 mg SUBLINGUAL Q5M PRN 07/28/13 05/01/17 History Albuterol Sulfate [Proair Hfa] 2 puff INHALATION RT-QID PRN 07/30/13 05/01/17 History Beclomethasone Dipropionate [Qvar 1 puff INHALATION RT-BID 08/02/13 05/01/17 History 80 mcg/puff] Montelukast [Singulair] 10 mg PO HS 08/02/13 05/01/17 History Fluticasone Nasal [place] [Flonase 1 spray EA NOSTRIL DAILY 07/05/16 05/01/17 History Nasal [place]] Metoprolol Tartrate [Lopressor] 12.5 mg PO BID 07/05/16 05/01/17 History guaiFENesin [Mucinex] 600 mg PO HS PRN 04/24/17 05/01/17 History Allergies Allergy/AdvReac Type Severity Reaction Status Date / Time No Known Allergies Allergy Verified 05/01/17 05:56 Physical Exam Vitals: Vital Signs Temp Pulse Pulse Pulse Resp BP BP 05/05/17 04:00 80 18 05/04/17 23:43 80 18 05/04/17 23:33 99.2 F 80 18 05/04/17 20:00 98.3 F 92 20 128/79 05/04/17 19:30 95 05/04/17 19:17 93 05/04/17 15:26 82 05/04/17 15:11 80 05/04/17 15:00 98.2 F 71 17 132/85 03/11/18 14:10 73 13 113/67 05/04/17 14:08 52 L 15 113/67 05/04/17 14:06 70 13 113/67 05/04/17 14:04 55 L 22 113/66 05/04/17 14:02 85 18 116/67 05/04/17 14:00 72 21 111/70 05/04/17 13:58 79 18 98/64 05/04/17 13:56 69 15 97/69 05/04/17 13:54 76 17 100/65 05/04/17 13:00 62 12 101/67 05/04/17 12:00 97.7 F 71 19 101/67 05/04/17 11:30 86 05/04/17 11:15 84 05/04/17 11:00 81 14 106/67 05/04/17 10:00 60 20 116/82 05/04/17 09:00 76 18 117/71 05/04/17 08:42 97 05/04/17 08:21 68 05/04/17 08:00 98.5 F 77 20 120/75 05/04/17 07:00 63 16 124/79 BP Pulse Ox 05/05/17 04:00 05/04/17 23:43 05/04/17 23:33 113/72 99 05/04/17 20:00 92 L 05/04/17 19:30 05/04/17 19:17 05/04/17 15:26 05/04/17 15:11 05/04/17 15:00 95 05/04/17 14:10 91 L 05/04/17 14:08 92 L 05/04/17 14:06 92 L 05/04/17 14:04 94 L 05/04/17 14:02 90 L 05/04/17 14:00 92 L 05/04/17 13:58 91 L 05/04/17 13:56 90 L 05/04/17 13:54 92 L 05/04/17 13:00 99 05/04/17 12:00 95 05/04/17 11:30 05/04/17 11:15 05/04/17 11:00 93 L 05/04/17 10:00 95 05/04/17 09:00 99 05/04/17 08:42 05/04/17 08:21 05/04/17 08:00 98 05/04/17 07:00 99 Intake and Output 05/04/17 05/04/17 05/05/17 14:59 22:59 06:59 Intake Total 655.400 120 140 Output Total 490 150 280 Balance 165.400 -30 -140 Intake: IV 161 140 LR 140 140 Pressure Bag 21 Intake, IV Titration 14.400 Amount Insulin Regular 100 unit 14.400 In Sodium Chloride 0.9% 100 ml @ Per Protocol IV .Q0M [facility] Rx#:[id number] Oral 480 120 Output: Chest Tube Drainage 10 Left Pleural 10 Urine 400 150 280 Other 80 Other: Voiding Method Urinal Urinal Urinal Weight 101.1 kg 101.1 kg Patient Weight 05/05/17 06:59 Weight 101.1 kg Skin: Good color, texture, turgor. General: Overweight build and comfortable appearance. Head: Normocephalic, atraumatic. Eyes: Symmetric. Pupils equal round. Ears: Symmetric. Hearing within normal limits. Mouth: Clear. Neck: Supple. Carotid without bruit. Cardiac: Regular rate and rhythm. Sternotomy scar clean and dressed. Wearing harness. Lungs: Clear anteriorly and posteriorly. Abdomen: Soft active nontender. Extremities: Normal tone. Lower extremity edema. Moderate arthritic changes major joints. Neurological: Mental status: Alert, cooperative, pleasant. Cranial nerves: Symmetric facial tone and trapezius. Motor: Normal strength and isolation all 4 limbs. Sensation: Intact throughout. DTRs: Symmetric and equal throughout. Mobility: Stands and ambulates with minimal physical assistance. Results CBC & Chem 7: 05/05/17 04:15 05/05/17 04:15 Labs: Abnormal Lab Results - Last 24 Hours (Table) 05/04/17 05/04/17 05/04/17 Range/Units 04:22 07:49 08:56 WBC (3.8-10.6) k/uL RBC (4.30-5.90) m/uL Hgb (13.0-17.5) gm/dL Hct (39.0-53.0) % RDW (11.5-15.5) % Plt Count (150-450) k/uL Neutrophils # (1.3-7.7) k/uL Lymphocytes # (1.0-4.8) k/uL Lymphocytes # (Manual) 9.86 H (1.0-4.8) k/uL Monocytes # (Manual) 1.12 H (0-1.0) k/uL Eosinophils # (Manual) 1.86 H (0-0.7) k/uL BUN (9-20) mg/dL Glucose (74-99) mg/dL POC Glucose (mg/dL) 116 H 120 H (75-99) mg/dL Total Bilirubin (0.2-1.3) mg/dL Total Protein (6.3-8.2) g/dL Albumin (3.5-5.0) g/dL 05/04/17 05/04/17 05/04/17 Range/Units 11:23 12:21 13:03 WBC (3.8-10.6) k/uL RBC (4.30-5.90) m/uL Hgb (13.0-17.5) gm/dL Hct (39.0-53.0) % RDW (11.5-15.5) % Plt Count (150-450) k/uL Neutrophils # (1.3-7.7) k/uL Lymphocytes # (1.0-4.8) k/uL Lymphocytes # (Manual) (1.0-4.8) k/uL Monocytes # (Manual) (0-1.0) k/uL Eosinophils # (Manual) (0-0.7) k/uL BUN (9-20) mg/dL Glucose (74-99) mg/dL POC Glucose (mg/dL) 111 H 113 H 141 H (75-99) mg/dL Total Bilirubin (0.2-1.3) mg/dL Total Protein (6.3-8.2) g/dL Albumin (3.5-5.0) g/dL 05/04/17 05/05/17 05/05/17 Range/Units 20:16 04:15 04:15 WBC 19.2 H (3.8-10.6) k/uL RBC 2.83 L (4.30-5.90) m/uL Hgb 8.8 L (13.0-17.5) gm/dL Hct 26.4 L (39.0-53.0) % RDW 16.6 H (11.5-15.5) % Plt Count 128 L (150-450) k/uL Neutrophils # 8.4 H (1.3-7.7) k/uL Lymphocytes # 8.5 H (1.0-4.8) k/uL Lymphocytes # (Manual) (1.0-4.8) k/uL Monocytes # (Manual) (0-1.0) k/uL Eosinophils # (Manual) (0-0.7) k/uL BUN 25 H (9-20) mg/dL Glucose 114 H (74-99) mg/dL POC Glucose (mg/dL) 136 H (75-99) mg/dL Total Bilirubin 1.7 H (0.2-1.3) mg/dL Total Protein 5.0 L (6.3-8.2) g/dL Albumin 3.0 L (3.5-5.0) g/dL Chest x-ray: report reviewed (Chest x-rays followed for mild cardiomegaly and patchy atelectasis.) Assessment and Plan (1) Chronic lymphocytic leukemia Current Visit: Yes Status: Acute Code(s): C91.90 - LYMPHOID LEUKEMIA, UNSPECIFIED NOT HAVING ACHIEVED REMISSION SNOMED Code(s): 96678332 Plan: Impression: 1. Cardiac debility. 2. Status post aortic valve replacement. 3. CLL. 4. Postsurgical anemia. 5. COPD. 6. History of stroke. 7. Sleep apnea. 8. Coronary disease with history of angina. Comments and plan: At this time PT ordered. We'll follow therapies with yourself. Note lives alone.
--- NOTE | 2017-05-05 07:13 | XR ---
EXAMINATION TYPE: XR chest 2V DATE OF EXAM: 05/05/2017 COMPARISON: 05/04/2017 HISTORY: Status post cardiac surgery. Follow-up exam. TECHNIQUE: Frontal and lateral views of the chest are obtained. FINDINGS: There is no focal air space opacity, pleural effusion, or pneumothorax seen. Aortic valve replacement has been performed with median sternotomy wires and mediastinal clips. There is persisten t right hemidiaphragm elevation and suspected early small right pleural effusion or subpulmonic effus ion scattered areas of subsegmental atelectasis are noted. Degree of pulmonary vascular congestion rascon s markedly improved in the interim. Right internal jugular central venous catheter sheath has been re moved in the interim. Osseous structures are intact. Right lateral chest wall subcutaneous edema is mild. IMPRESSION: Marked improvement in the previously seen pulmonary vascular congestion now trace. Persi stent at least small right pleural effusion and possible subpulmonic pleural effusion with right mehrdad diaphragm elevation.
[2017-05-05 07:47] LABS: Glucose,Whole Blood 96 mg/dL (75-99)
[2017-05-05] MEDS: PANTOPRAZOLE 40 MG TABLET PO SCH (08:04)
[2017-05-05] MEDS: INSULIN ASPART 100 UNIT/ML 1 ML 10 ML VIAL SQ SCH ×7 (08:04→21:36)
[2017-05-05] MEDS: INSULIN DETEMIR 100 UNIT/ML 10 ML VIAL SQ SCH (08:04)
[2017-05-05] MEDS: AMIODARONE 200 MG TAB PO SCH ×2 (08:45→20:14)
[2017-05-05] MEDS: METOPROLOL TARTRATE 25 MG TAB PO SCH ×2 (08:46→20:14)
[2017-05-05] MEDS: ASPIRIN 81 MG PO SCH (08:46)
[2017-05-05] MEDS: CLOPIDOGREL 75 MG TAB PO SCH (08:46)
[2017-05-05] MEDS: ATORVASTATIN 40 MG TAB PO SCH (08:46)
[2017-05-05] MEDS: FONDAPARINUX 2.5 MG/0.5 ML SYRINGE SQ SCH (08:46)
[2017-05-05] MEDS: BUDESONIDE 0.5 MG/2 ML NEBU INHALATION SCH ×2 (09:15→19:16)
[2017-05-05] MEDS: ALBUTEROL NEBULIZED 2.5 MG/3 ML INHALATION PRN ×4 (09:15→19:14)
--- NOTE | 2017-05-05 09:36 | P.PN ---
Subjective Progress Note Date: 05/05/17 Principal diagnosis: Severe aortic valve stenosis, recently diagnosed chronic lymphocytic leukemia, history of coronary artery disease with stent placement to his right coronary artery and left anterior descending coronary artery with no flow limiting lesion at this point, preserved left ventricular function with ejection fraction 55% on most recent transesophageal echocardiogram, chronically elevated right hemidiaphragm, hypertension, hyperlipidemia, chronic obstructive pulmonary disease with FEV1 58% of predicted, GERD, history of psoriasis, history of TIA. POD #4 elective aortic valve replacement using a 25 mm magna ease bovine pericardial bioprosthesis. Intraoperative transesophageal echocardiogram. Epi- aortic scanning. Mediastinal clot with possible sternal bleeding, an unexpected but possible outcome of surgery, especially given his diagnosis of chronic lymphocytic leukemia. POD #4 redo sternotomy, exploration of the mediastinum, evacuation of clot and control of bleeding. Postoperative paroxysmal atrial fibrillation, an expected outcome of surgery. The patient's currently sitting up in bed in no acute distress. Denies pain, shortness of breath. Has been ambulating with help. Objective - Vital Signs Vital signs: Vital Signs Temp 96.8 F L 05/05/17 08:00 Pulse 93 05/05/17 09:15 Resp 24 05/05/17 08:00 BP 130/74 05/05/17 08:00 Pulse Ox 98 05/05/17 08:00 Intake & Output 18 05/05/17 05/05/17 18:59 06:59 18:59 Intake Total 775.400 0 250 Output Total 640 280 125 Balance 135.400 -280 125 Weight 101.1 kg 101.1 kg Intake: IV 161 0 0 LR 140 0 0 Pressure Bag 21 Intake, IV Titration 14.400 Amount Insulin Regular 100 unit 14.400 In Sodium Chloride 0.9% 100 ml @ Per Protocol IV .Q0M [facility] Rx#:[id number] Oral 600 250 Output: Chest Tube Drainage 10 Left Pleural 10 Urine 550 280 125 Other 80 Other: Voiding Method Urinal Urinal ABP, PAP, CO, CI - Last Documented Arterial Blood Pressure 112/54 Pulmonary Artery Pressure 39/21 Cardiac Output 6.6 Cardiac Index 3.5 - Constitutional General appearance: Present: cooperative, no acute distress - Respiratory Details: Lungs sounds diminished bilaterally. Respirations even, nonlabored. Currently on 2 L nasal cannula with oxygen saturation 100%. Able to achieve 1000 mL on his incentive spirometry. - Cardiovascular Details: S1, S2 present. Regular rate and rhythm, sinus rhythm on telemetry. Sternum stable. Atrial epicardial pacemaker wires present, carotid. Palpable peripheral pulses bilaterally. No edema present. No calf pain or tenderness noted. Antiembolism stockings, SCDs present. - Gastrointestinal Gastrointestinal Comment(s): Abdomen soft, nontender, nondistended. Active bowel sounds 4 quadrants. Tolerating diet. No bowel movement since surgery. Positive flatus. - Genitourinary Genitourinary Comment(s): Continues to void clear, yellow urine. - Integumentary Integumentary Comment(s): Skin is warm and dry with evidence of good perfusion. Anterior chest incision well approximated and covered with dry intact dressing. - Neurologic Neurologic: Present: CNII-XII intact - Musculoskeletal Musculoskeletal: Present: strength equal bilaterally - Psychiatric Psychiatric: Present: A&O x's 3, appropriate affect, intact judgment & insight - Allied health notes Allied health notes reviewed: nursing - Labs CBC & Chem 7: 05/05/17 04:15 05/05/17 04:15 Labs: Abnormal Lab Results - Last 24 Hours (Table) 05/04/17 05/04/17 05/04/17 Range/Units 11:23 12:21 13:03 WBC (3.8-10.6) k/uL RBC (4.30-5.90) m/uL Hgb (13.0-17.5) gm/dL Hct (39.0-53.0) % RDW (11.5-15.5) % Plt Count (150-450) k/uL Neutrophils # (1.3-7.7) k/uL Lymphocytes # (1.0-4.8) k/uL BUN (9-20) mg/dL Glucose (74-99) mg/dL POC Glucose (mg/dL) 111 H 113 H 141 H (75-99) mg/dL Total Bilirubin (0.2-1.3) mg/dL Total Protein (6.3-8.2) g/dL Albumin (3.5-5.0) g/dL 05/04/17 05/05/17 05/05/17 Range/Units 20:16 04:15 04:15 WBC 19.2 H (3.8-10.6) k/uL RBC 2.83 L (4.30-5.90) m/uL Hgb 8.8 L (13.0-17.5) gm/dL Hct 26.4 L (39.0-53.0) % RDW 16.6 H (11.5-15.5) % Plt Count 128 L (150-450) k/uL Neutrophils # 8.4 H (1.3-7.7) k/uL Lymphocytes # 8.5 H (1.0-4.8) k/uL BUN 25 H (9-20) mg/dL Glucose 114 H (74-99) mg/dL POC Glucose (mg/dL) 136 H (75-99) mg/dL Total Bilirubin 1.7 H (0.2-1.3) mg/dL Total Protein 5.0 L (6.3-8.2) g/dL Albumin 3.0 L (3.5-5.0) g/dL - Imaging and Cardiology Chest x-ray: image reviewed Assessment and Plan (1) COPD (chronic obstructive pulmonary disease) Current Visit: Yes Status: Chronic Code(s): J44.9 - CHRONIC OBSTRUCTIVE PULMONARY DISEASE, UNSPECIFIED SNOMED Code(s): 20811718 (2) Chronic lymphocytic leukemia Current Visit: Yes Status: Chronic Code(s): C91.90 - LYMPHOID LEUKEMIA, UNSPECIFIED NOT HAVING ACHIEVED REMISSION SNOMED Code(s): 54447760 (3) GERD (gastroesophageal reflux disease) Current Visit: Yes Status: Chronic Code(s): K21.9 - GASTRO-ESOPHAGEAL REFLUX DISEASE WITHOUT ESOPHAGITIS SNOMED Code(s): 823467441 (4) History of TIA (transient ischemic attack) Current Visit: No Status: Resolved Code(s): Z86.73 - PRSNL HX OF TIA (TIA), AND CEREB INFRC W/O RESID DEFICITS SNOMED Code(s): 877223807 (5) History of coronary artery stent placement Current Visit: Yes Status: Chronic Code(s): Z95.5 - PRESENCE OF CORONARY ANGIOPLASTY IMPLANT AND GRAFT SNOMED Code(s): 632010253 (6) History of psoriasis Current Visit: Yes Status: Chronic Code(s): Z87.2 - PERSONAL HISTORY OF DISEASES OF THE SKIN, SUBCU SNOMED Code(s): 170772834 (7) Hyperlipidemia Current Visit: Yes Status: Chronic Code(s): E78.5 - HYPERLIPIDEMIA, UNSPECIFIED SNOMED Code(s): 01871471 (8) Hypertension Current Visit: Yes Status: Chronic Code(s): I10 - ESSENTIAL (PRIMARY) HYPERTENSION SNOMED Code(s): 00065573 (9) Postoperative atrial fibrillation Current Visit: Yes Status: Acute Code(s): I97.89 - OTH POSTPROC COMP AND DISORDERS OF THE CIRC SYS, NEC; I48.91 - UNSPECIFIED ATRIAL FIBRILLATION SNOMED Code(s): 49456198 (10) Severe aortic valve stenosis Current Visit: Yes Status: Chronic Code(s): I35.0 - NONRHEUMATIC AORTIC ( VALVE) STENOSIS SNOMED Code(s): 11152864 Plan: 1. Continue aspirin, statin, Plavix, Arixtra, beta leeanne. Will increase beta leeanne therapy as tolerated. 2. Continue amiodarone for A. fib prophylaxis. 3. Wean O2 as tolerated. Encourage incentive spirometry use 10 times every hour. 4. Increase activity, and bili in hallway. PT/OT/cardiac rehab following. 5. GI/DVT prophylaxis. 6. Will monitor daily labs and x-rays. 7. Dr. Jay consulted for inpatient rehab placement. Patient will need rehab at discharge as he lives alone and is not safe to be at home by himself. 8. No diuresis today. 9. Insulin management per Dr. Stuart. 10. May transfer to E. selective care when bed is available. Orders placed. 11. More recommendations to follow. Discharge planning in progress. Time with Patient: Greater than 30
[2017-05-05] MEDS: LISINOPRIL 2.5 MG TAB PO SCH (11:53)
[2017-05-05 12:21] LABS: Glucose,Whole Blood 105 mg/dL (75-99)
[2017-05-05 13:17] LABS: Appearance,Urine Clear (Clear); Bilirubin,Urine Negative (Negative); Blood,Urine Negative (Negative); Color,Urine Yellow; Glucose,Urine (UA) Negative (Negative); Ketones,Urine Trace (Negative); Leukocyte Esterase,Urine Negative (Negative); Nitrite,Urine Negative (Negative); Protein,Urine Negative (Negative); Specific Gravity,Urine 1.021 (1.001-1.035); Urobilinogen,Urine <2.0 mg/dL (<2.0)
--- NOTE | 2017-05-05 14:29 | P.PN ---
Subjective Progress Note Date: 05/05/17 HPI: This is a 71-year-old gentleman who presented to the hospital for aortic valve replacement. The patient underwent procedure and was subsequently transferred to the intensive care unit. He remains intubated and on Primacor. The patient did receive multiple blood products intraoperatively. He has a known history of CLL, chronically elevated right hemidiaphragm, hypertension, dyslipidemia, COPD, history of TIA. The patient's bleeding has improved. He is oxygenating well. His ABGs reviewed. 05/02/17-patient is being seen examined and evaluated today in the intensive care unit. Patient is currently being weaned from mechanical ventilation. His propofol is off he is opening his eyes and responds appropriately. Moves all 4 extremities. Weaning parameter ABGs have been obtained and reviewed. Patient will be extubated. His chest tubes are intact and draining appropriately serosanguineous drainage. The OG-tube has had minimal output. He is hemodynamically stable. He is making adequate urine. All labs at reports have been reviewed. 05/03/17-05/04/17- Please see Dr. Kyle Arreola notes 05/05/17- patient is being seen examined and evaluated and round. Is resting up in bed in the intensive care unit. Will be downgraded to the selective care unit when bed is available. She continues on 2 L of supplemental oxygen. Does not use home oxygen. He has been slowly weaned down. He has been participating in therapy and has been up ambulating in the hallways. Does have some intermittent shortness of breath with exertion however feels his breathing is relatively stable at this time. Denies any cough or congestion. Objective - Vital Signs Vital signs: Vital Signs Temp 98.8 F 05/05/17 11:51 Pulse 77 05/05/17 13:01 Resp 15 05/05/17 12:00 BP 113/68 05/05/17 11:51 Pulse Ox 98 05/05/17 11:51 Intake & Output 05/04/17 05/05/17 05/05/17 18:59 06:59 18:59 Intake Total 775.400 0 250 Output Total 640 280 375 Balance 135.400 -280 -125 Weight 101.1 kg 101.1 kg Intake: IV 161 0 0 LR 140 0 0 Pressure Bag 21 Intake, IV Titration 14.400 Amount Insulin Regular 100 unit 14.400 In Sodium Chloride 0.9% 100 ml @ Per Protocol IV .Q0M [facility] Rx#:[id number] Oral 600 250 Output: Chest Tube Drainage 10 Left Pleural 10 Urine 550 280 375 Other 80 Other: Voiding Method Urinal Urinal Urinal # Bowel Movements 1 ABP, PAP, CO, CI - Last Documented Arterial Blood Pressure 112/54 Pulmonary Artery Pressure 39/21 Cardiac Output 6.6 Cardiac Index 3.5 - Exam Gen.: Alert resting up in bed Cardiovascular: Regular rate and rhythm, S1/S2 Lungs: Coarse bilateral bases diminished, Abdomen: Soft nontender nondistended positive bowel sounds Extremities: Trace edema Neuro: Awake, responds appropriately, moves all extremities - Labs CBC & Chem 7: 05/05/17 04:15 05/05/17 04:15 Labs: Abnormal Lab Results - Last 24 Hours (Table) 05/04/17 05/05/17 05/05/17 Range/Units 20:16 04:15 04:15 WBC 19.2 H (3.8-10.6) k/uL RBC 2.83 L (4.30-5.90) m/uL Hgb 8.8 L (13.0-17.5) gm/dL Hct 26.4 L (39.0-53.0) % RDW 16.6 H (11.5-15.5) % Plt Count 128 L (150-450) k/uL Neutrophils # 8.4 H (1.3-7.7) k/uL Lymphocytes # 8.5 H (1.0-4.8) k/uL BUN 25 H (9-20) mg/dL Glucose 114 H (74-99) mg/dL POC Glucose (mg/dL) 136 H (75-99) mg/dL Total Bilirubin 1.7 H (0.2-1.3) mg/dL Total Protein 5.0 L (6.3-8.2) g/dL Albumin 3.0 L (3.5-5.0) g/dL Urine Ketones (Negative) 05/05/17 05/05/17 Range/Units 12:10 12:17 WBC (3.8-10.6) k/uL RBC (4.30-5.90) m/uL Hgb (13.0-17.5) gm/dL Hct (39.0-53.0) % RDW (11.5-15.5) % Plt Count (150-450) k/uL Neutrophils # (1.3-7.7) k/uL Lymphocytes # (1.0-4.8) k/uL BUN (9-20) mg/dL Glucose (74-99) mg/dL POC Glucose (mg/dL) 105 H (75-99) mg/dL Total Bilirubin (0.2-1.3) mg/dL Total Protein (6.3-8.2) g/dL Albumin (3.5-5.0) g/dL Urine Ketones Trace H (Negative) Assessment and Plan Assessment: Status post aortic valve replacement CLL ABLA Thrombocytopenia Transaminitis Asthma, moderate persistent, not acutely exacerbated SARAH with CPAP - mild, AHI 10.9 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 Incentive spirometer Increase activity as tolerated PT/OT I performed an examination of the patient and discussed their management with the nurse practitioner. I have reviewed the nurse practitioner's note and agree with the documented findings and plan of care.
--- NOTE | 2017-05-05 14:59 | P.PN ---
Subjective 71 years old male with past medical history of a severe ortic stenosis , history of TIA, history of coronary artery disease status post cardiac stents 3, history of COPD, history of sleep apnea on CPAP, history of CLL on conservative management, history of asthma, history of alpha-1 antitrypsin deficiency, hypertension, hyperlipidemia and admitted for an elective aortic valve replacement on 05/01. Patient was seen postoperatively at bedside. Patient is doing well is requiring 3-4 L of oxygen post extubation. Complains of some soreness in the chest but denies any significant chest pain, shortness of breath, abdominal pain nausea or vomiting. Patient is tachycardic to 101, blood pressure 115/64, slightly confused but is answering questions appropriately. Patient received multiple units of transfusion including RBC, platelets, cryoprecipitate due to significant bleeding from generalized coagulopathy intraoperatively. According to documentation patient bleed profusely during the surgery with defficulty to maintain hemostasis. Patient received 6 units of platelets and 2 units of FFP , 1.5 L of cell saver blood, 4 units of RBCs in total. Preoperative labs from 04/23 were concerning for leukocytosis for which patient was followed by oncology and patient was diagnosed with CLL. Labs obtained on 05/01 suggested a WBC of 6.7, hemoglobin dropped from 14.8 to 7.5, drop of platelets from 203 to 88 increased. The liver function test with AST 298, AST 114, alkaline phosphatase 46. Total bilirubin 4.0. fibrinogen was low but repeat was normal. Patient's lab findings are concerning for hemolytic anemia. There is some improvement in the platelets on the repeat labs. Transfusion reaction ordered. Unclear why patient was profusely bleeding with rapid drop in his counts. Will discuss with hematology Dr. latif as patient has h/o CLL. 05/03: Patient remains in ICU, patient has some nausea and dry heaving, and has hiccups, Does Not Have Any Significant Chest Pain, No Aspirated Events Patient Continues on Amiodarone Drip and Insulin Drip, Has Bilateral Chest Tubes in Place, Draining to Low Continuous Suction,, on amiodarone drip, and insulin drip. Patient has been extubated 05/04: Patient remains in ICU, and has folic acid out today, remains on insulin drip meals are currently at 50%, he Has Improved, [address], Vitals Are Stable with a Pulse Ox at 92% 2 L, patient is on Arixtra, transitioned to oral Cordarone, and pre-meal basal bolus transitioned today 05/05 patient was evaluated today. His noted to be sitting up in his chair, reports he is doing well and has no major complaints. WBC noted to be elevated at 19.2, will obtain sputum culture, UA with reflex to culture to rule out any infection. Repeat chest x-ray shows marked improvement, persistent small right pleural effusion and right hemidiaphragm elevation. He'll be transferred out of the ICU today. Objective - Vital Signs Vital signs: Vital Signs Temp 98.8 F 05/05/17 11:51 Pulse 77 05/05/17 13:01 Resp 15 05/05/17 12:00 BP 113/68 05/05/17 11:51 Pulse Ox 98 05/05/17 11:51 Intake & Output 05/04/17 05/05/17 05/05/17 18:59 06:59 18:59 Intake Total 775.400 0 250 Output Total 640 280 375 Balance 135.400 -280 -125 Weight 101.1 kg 101.1 kg Intake: IV 161 0 0 LR 140 0 0 Pressure Bag 21 Intake, IV Titration 14.400 Amount Insulin Regular 100 unit 14.400 In Sodium Chloride 0.9% 100 ml @ Per Protocol IV .Q0M [facility] Rx#:[id number] Oral 600 250 Output: Chest Tube Drainage 10 Left Pleural 10 Urine 550 280 375 Other 80 Other: Voiding Method Urinal Urinal Urinal # Bowel Movements 1 ABP, PAP, CO, CI - Last Documented Arterial Blood Pressure 112/54 Pulmonary Artery Pressure 39/21 Cardiac Output 6.6 Cardiac Index 3.5 - Exam - Constitutional General appearance: Present: cooperative, no acute distress - EENT Eyes: Present: anicteric sclerae, EOMI, PERRLA, normal appearance ENT: Present: hearing grossly normal, NA/AT, normal oropharynx - Neck Neck: Present: normal ROM. Absent: lymphadenopathy, other, rigidity, stridor, thyromegaly - Respiratory Respiratory: bilateral: CTA, diminished, negative: dullness, rales, rhonchi, wheezing, prolonged expiration, prolonged inspiration, other - Cardiovascular Rhythm: regular Heart sounds: normal: S1, S2 Abnormal Heart Sounds: Absent: systolic murmur, diastolic murmur, rub, S3 Gallop , S4 Gallop, click, other - Gastrointestinal General gastrointestinal: Present: normal bowel sounds, soft - Integumentary Integumentary: Present: normal, normal turgor - Neurologic Neurologic: Present: CNII-XII intact - Musculoskeletal Musculoskeletal: Present: strength equal bilaterally - Labs CBC & Chem 7: 05/05/17 04:15 05/05/17 04:15 Labs: Abnormal Lab Results - Last 24 Hours (Table) 05/04/17 05/05/17 05/05/17 Range/Units 20:16 04:15 04:15 WBC 19.2 H (3.8-10.6) k/uL RBC 2.83 L (4.30-5.90) m/uL Hgb 8.8 L (13.0-17.5) gm/dL Hct 26.4 L (39.0-53.0) % RDW 16.6 H (11.5-15.5) % Plt Count 128 L (150-450) k/uL Neutrophils # 8.4 H (1.3-7.7) k/uL Lymphocytes # 8.5 H (1.0-4.8) k/uL BUN 25 H (9-20) mg/dL Glucose 114 H (74-99) mg/dL POC Glucose (mg/dL) 136 H (75-99) mg/dL Total Bilirubin 1.7 H (0.2-1.3) mg/dL Total Protein 5.0 L (6.3-8.2) g/dL Albumin 3.0 L (3.5-5.0) g/dL Urine Ketones (Negative) 05/05/17 05/05/17 Range/Units 12:10 12:17 WBC (3.8-10.6) k/uL RBC (4.30-5.90) m/uL Hgb (13.0-17.5) gm/dL Hct (39.0-53.0) % RDW (11.5-15.5) % Plt Count (150-450) k/uL Neutrophils # (1.3-7.7) k/uL Lymphocytes # (1.0-4.8) k/uL BUN (9-20) mg/dL Glucose (74-99) mg/dL POC Glucose (mg/dL) 105 H (75-99) mg/dL Total Bilirubin (0.2-1.3) mg/dL Total Protein (6.3-8.2) g/dL Albumin (3.5-5.0) g/dL Urine Ketones Trace H (Negative) Assessment and Plan Plan: #1 aortic stenosis status post aortic valve replacement with bovine pericardial bioprosthesis, pain management per primary team. Continue DVT prophylaxis. Incentive spirometry to prevent any pneumonia or atelectasis. Patient is requiring 4 L of oxygen likely secondary to volume overload, Rodríguez catheter in place, on amiodarone drip and insulin drip to manage sugars and arrhythmia, insulin drip changed to basal bolus, Levemir 5 units every morning, and low 2 units breakfast lunch and dinner, has post operative hiccups, possible Thorazine if refractory. He would use antiemetics for now, this has improved #2 history of CLL, stable #3 acute blood loss anemia with thrombocytopenia likely secondary expected consequence off blood loss during surgery and multiple transfusions. Labs are consistent with hemolysis as there is increased bilirubin and LFTs from multiple transfusions. We will consult Dr. Carrasco as patient has a history of CLL to rule out ITP/hemolytic reaction #4 coronary arteries disease status post stenting of RCA and LAD. Continue aspirin, Plavix, metoprolol 12.5 mg twice daily #5 acute transaminitis secondary to increased unconjugated bilirubin from multiple transfusions. Repeat labs in 24 hours #6 hypertension blood pressure is stable. Started on metoprolol 12.5 mg twice daily #7 history of obstructive sleep apnea may benefit from CPAP overnight. Patient continues to require 4 L of oxygen. Repeat chest x-ray shows marked improvement. BP on the lower end, can benefit form lasix once BP stabilses #8 Acute hypoxic respiratory failure with history of asthma moderate persistent. Continue DuoNeb as needed, #9 history of alpha-1 antitrypsin deficiency carrier, stable, on nebulized albuterol and Atrovent #10 GI prophylaxis with Protonix 40 mg daily #11 DVT prophylaxis with heparin every 8 CODE STATUS full code The above impression and plan of care have been discussed and directed by signing physician. Swati Whitmore nurse practitioner acting as scribe for signing physician.
[2017-05-05 17:12] LABS: Glucose,Whole Blood 79 mg/dL (75-99)
[2017-05-05] MEDS: CITALOPRAM HYDROBROMIDE 20 MG TAB PO SCH (20:14)
[2017-05-05] MEDS: MONTELUKAST 10 MG TAB OG-TUBE SCH (20:14)
[2017-05-05 21:25] LABS: Glucose,Whole Blood 160 mg/dL (75-99)
[2017-05-05] MEDS: SENNOSIDES-DOCUSATE SODIUM 1 EACH TAB PO SCH (21:36)
[2017-05-06] MEDS: PANTOPRAZOLE 40 MG TABLET PO SCH (06:19)
[2017-05-06 06:33] LABS: Glucose,Whole Blood 97 mg/dL (75-99)
[2017-05-06] MEDS: INSULIN ASPART 100 UNIT/ML 1 ML 10 ML VIAL SQ SCH ×7 (06:37→21:17)
[2017-05-06 07:09] LABS: Anisocytosis Slight; Basophils # (A) 0.1 k/uL (0-0.2); Basophils % (A) 1 %; Eosinophils # (A) 0.9 k/uL (0-0.7); Eosinophils % (A) 4 %; HCT 27.9 % (39.0-53.0); HGB 8.9 gm/dL (13.0-17.5); Lymphocytes % (A) 57 %; MCH 30.5 pg (25.0-35.0); MCHC 31.8 g/dL (31.0-37.0); MCV 95.8 fL (80.0-100.0); Mean Platelet Volume 8.8; Monocytes # (A) 1.1 k/uL (0-1.0); Monocytes % (A) 5 %; Neutrophils % (A) 31 %; Platelet Count 176 k/uL (150-450); RBC 2.91 m/uL (4.30-5.90); RDW 16.9 % (11.5-15.5); WBC 22.8 k/uL (3.8-10.6)
[2017-05-06 07:21] LABS: ALT 35 U/L (21-72); AST 23 U/L (17-59); Albumin 3.3 g/dL (3.5-5.0); Alkaline Phosphatase 69 U/L (38-126); Anion Gap 8 mmol/L; Blood Urea Nitrogen 23 mg/dL (9-20); Calcium 8.8 mg/dL (8.4-10.2); Carbon Dioxide 28 mmol/L (22-30); Chloride 104 mmol/L (98-107); Glucose 98 mg/dL (74-99); Potassium 4.2 mmol/L (3.5-5.1); Sodium 140 mmol/L (137-145); Total Protein 5.4 g/dL (6.3-8.2)
[2017-05-06] MEDS: ASPIRIN 81 MG PO SCH (07:26)
[2017-05-06] MEDS: CLOPIDOGREL 75 MG TAB PO SCH (07:26)
[2017-05-06] MEDS: ATORVASTATIN 40 MG TAB PO SCH (07:26)
[2017-05-06] MEDS: FONDAPARINUX 2.5 MG/0.5 ML SYRINGE SQ SCH (07:26)
[2017-05-06] MEDS: AMIODARONE 200 MG TAB PO SCH ×2 (07:26→21:35)
[2017-05-06] MEDS: METOPROLOL TARTRATE 25 MG TAB PO SCH ×2 (07:27→20:05)
--- NOTE | 2017-05-06 08:13 | P.PN ---
Subjective Progress Note Date: 05/06/17 Principal diagnosis: Severe aortic valve stenosis, recently diagnosed chronic lymphocytic leukemia, history of coronary artery disease with stent placement to his right coronary artery and left anterior descending coronary artery with no flow limiting lesion at this point, preserved left ventricular function with ejection fraction 55% on most recent transesophageal echocardiogram, chronically elevated right hemidiaphragm, hypertension, hyperlipidemia, chronic obstructive pulmonary disease with FEV1 58% of predicted, GERD, history of psoriasis, history of TIA. POD #5 elective aortic valve replacement using a 25 mm magna ease bovine pericardial bioprosthesis. Intraoperative transesophageal echocardiogram. Epi- aortic scanning. Mediastinal clot with possible sternal bleeding, an unexpected but possible outcome of surgery, especially given his diagnosis of chronic lymphocytic leukemia. POD #5 redo sternotomy, exploration of the mediastinum, evacuation of clot and control of bleeding. Postoperative paroxysmal atrial fibrillation, an expected outcome of surgery. The patient's currently sitting up in a chair in no acute distress. Denies pain , shortness of breath. Has been ambulating with help. He was transferred out of ICU to [address] [place] [address] yesterday. Objective - Vital Signs Vital signs: Vital Signs Temp 98.1 F 05/06/17 04:00 Pulse 73 05/06/17 04:00 Resp 24 05/06/17 04:00 BP 125/71 05/06/17 04:00 Pulse Ox 95 05/06/17 04:00 Intake & Output 18 05/06/17 05/06/17 18:59 06:59 18:59 Intake Total 250 100 200 Output Total 375 Balance -125 100 200 Weight 95.3 kg Intake: IV 0 LR 0 Oral 250 100 200 Output: Urine 375 Other: Voiding Method Urinal Urinal # Voids 3 # Bowel Movements 1 ABP, PAP, CO, CI - Last Documented Arterial Blood Pressure 112/54 Pulmonary Artery Pressure 39/21 Cardiac Output 6.6 Cardiac Index 3.5 - Constitutional General appearance: Present: cooperative, no acute distress - Respiratory Details: Lungs sounds diminished bilaterally. Respirations even, nonlabored. Currently on room air with oxygen saturation 95%. Able to achieve 1250 mL on his incentive spirometry. Weak cough. - Cardiovascular Details: S1, S2 present. Regular rate and rhythm, sinus rhythm on telemetry. Sternum stable. Palpable peripheral pulses bilaterally. Trace bilateral lower extremity edema present. No calf pain or tenderness noted. Antiembolism stockings, SCDs present. - Gastrointestinal Gastrointestinal Comment(s): Abdomen soft, nontender, nondistended. Active bowel sounds 4 quadrants. Tolerating diet. Positive bowel movement yesterday. - Genitourinary Genitourinary Comment(s): Continues to void clear, yellow urine. - Integumentary Integumentary Comment(s): Skin is warm and dry with evidence of good perfusion. Anterior chest incision well approximated and covered with dry intact dressing. - Neurologic Neurologic: Present: CNII-XII intact - Musculoskeletal Musculoskeletal: Present: gait normal, strength equal bilaterally - Psychiatric Psychiatric: Present: A&O x's 3, appropriate affect, intact judgment & insight - Allied health notes Allied health notes reviewed: nursing - Labs CBC & Chem 7: 05/06/17 06:21 05/06/17 06:21 Labs: Abnormal Lab Results - Last 24 Hours (Table) 05/05/17 05/05/17 05/05/17 Range/Units 12:10 12:17 21:09 WBC (3.8-10.6) k/uL RBC (4.30-5.90) m/uL Hgb (13.0-17.5) gm/dL Hct (39.0-53.0) % RDW (11.5-15.5) % BUN (9-20) mg/dL POC Glucose (mg/dL) 105 H 160 H (75-99) mg/dL Total Bilirubin (0.2-1.3) mg/dL Total Protein (6.3-8.2) g/dL Albumin (3.5-5.0) g/dL Urine Ketones Trace H (Negative) 05/06/17 05/06/17 Range/Units 06:21 06:21 WBC 22.8 H (3.8-10.6) k/uL RBC 2.91 L (4.30-5.90) m/uL Hgb 8.9 L (13.0-17.5) gm/dL Hct 27.9 L (39.0-53.0) % RDW 16.9 H (11.5-15.5) % BUN 23 H (9-20) mg/dL POC Glucose (mg/dL) (75-99) mg/dL Total Bilirubin 2.0 H (0.2-1.3) mg/dL Total Protein 5.4 L (6.3-8.2) g/dL Albumin 3.3 L (3.5-5.0) g/dL Urine Ketones (Negative) Microbiology - Last 24 Hours (Table) 05/05/17 12:10 Urine Culture - Preliminary Urine,Voided - Imaging and Cardiology Chest x-ray: image reviewed Assessment and Plan (1) COPD (chronic obstructive pulmonary disease) Current Visit: Yes Status: Chronic Code(s): J44.9 - CHRONIC OBSTRUCTIVE PULMONARY DISEASE, UNSPECIFIED SNOMED Code(s): 05403516 (2) Chronic lymphocytic leukemia Current Visit: Yes Status: Chronic Code(s): C91.90 - LYMPHOID LEUKEMIA, UNSPECIFIED NOT HAVING ACHIEVED REMISSION SNOMED Code(s): 82966530 (3) GERD (gastroesophageal reflux disease) Current Visit: Yes Status: Chronic Code(s): K21.9 - GASTRO-ESOPHAGEAL REFLUX DISEASE WITHOUT ESOPHAGITIS SNOMED Code(s): 384194011 (4) History of TIA (transient ischemic attack) Current Visit: No Status: Resolved Code(s): Z86.73 - PRSNL HX OF TIA (TIA), AND CEREB INFRC W/O RESID DEFICITS SNOMED Code(s): 545968133 (5) History of coronary artery stent placement Current Visit: Yes Status: Chronic Code(s): Z95.5 - PRESENCE OF CORONARY ANGIOPLASTY IMPLANT AND GRAFT SNOMED Code(s): 784099249 (6) History of psoriasis Current Visit: Yes Status: Chronic Code(s): Z87.2 - PERSONAL HISTORY OF DISEASES OF THE SKIN, SUBCU SNOMED Code(s): 979259695 (7) Hyperlipidemia Current Visit: Yes Status: Chronic Code(s): E78.5 - HYPERLIPIDEMIA, UNSPECIFIED SNOMED Code(s): 47475135 (8) Hypertension Current Visit: Yes Status: Chronic Code(s): I10 - ESSENTIAL (PRIMARY) HYPERTENSION SNOMED Code(s): 80118006 (9) Postoperative atrial fibrillation Current Visit: Yes Status: Acute Code(s): I97.89 - OTH POSTPROC COMP AND DISORDERS OF THE CIRC SYS, NEC; I48.91 - UNSPECIFIED ATRIAL FIBRILLATION SNOMED Code(s): 14332979 (10) Severe aortic valve stenosis Current Visit: Yes Status: Chronic Code(s): I35.0 - NONRHEUMATIC AORTIC ( VALVE) STENOSIS SNOMED Code(s): 29203047 Plan: 1. Continue aspirin, statin, Plavix, Arixtra, lisinopril, beta leeanne. Will increase beta leeanne therapy as tolerated. 2. Continue amiodarone for A. fib prophylaxis. 3. Encourage incentive spirometry use 10 times every hour. CPAP at night per home regimen. 4. Increase activity, ambulate in hallway. PT/OT/cardiac rehab following. 5. GI/DVT prophylaxis. 6. Will monitor daily labs and x-rays. 7. Dr. Jay consulted for inpatient rehab placement. Patient will need rehab at discharge as he lives alone and is not safe to be at home by himself. 8. All dressings to be removed and patient is to shower today then daily afterwards. 9. Insulin management per Dr. Stuart. 10. More recommendations to follow. Discharge planning in progress. Anticipate discharge soon. Time with Patient: Greater than 30
[2017-05-06 08:25] LABS: Polychromasia Present
[2017-05-06] MEDS: ALBUTEROL NEBULIZED 2.5 MG/3 ML INHALATION PRN ×3 (08:33→20:57)
[2017-05-06] MEDS: BUDESONIDE 0.5 MG/2 ML NEBU INHALATION SCH ×2 (08:33→20:57)
--- NOTE | 2017-05-06 10:07 | XR ---
EXAMINATION TYPE: XR chest 2V DATE OF EXAM: 05/06/2017 COMPARISON: 05/05/2017 INDICATION: Post cardiac surgery TECHNIQUE: Frontal and lateral views of the chest are obtained. FINDINGS: The heart size is normal. The pulmonary vasculature is normal. Minimal left pleural effusion may be developing. There is elevation of the right diaphragm. Sternotomy wires are present from cardiac valve surgery. Epicardial leads remain present.. IMPRESSION: 1. Small left pleural effusion may be increasing. 2. Elevation of the right diaphragm
--- NOTE | 2017-05-06 10:46 | PN ---
PROGRESS NOTE He was seen again on 05/06/2017. He has been hemodynamically stable. He is not complaining of any chest pain. He is not in any respiratory distress. PHYSICAL EXAMINATION: On physical examination, respiratory rate is 18, pulse rate 86, temperature 96.8, blood pressure 117/77, O2 saturation on room air is 98%. HEENT is unremarkable. Chest reveals decreased breath sounds at bases. Cardiovascular system reveals an S1, S2. Abdomen is soft. There is trace pedal edema. White count is 22.8, hemoglobin of 8.9. Sodium 140, potassium 4.2, chloride 104, bicarb 28, BUN 23, creatinine of 0.74. IMPRESSION AT THIS TIME: 1. Aortic valvular heart disease, status post aortic valve replacement. 2. History of asthma. 3. Medical debility. 4. Chronic lymphocytic leukemia. 5. Alpha-1 antitrypsin deficiency carrier. Continue Singulair, Pulmicort, DuoNeb, cardiac medications. I agree with considering discharge planning to inpatient rehab. He was counseled regarding his condition and I did share my thoughts with the patient's nurse. MMODL / IJN: [id number] /
--- NOTE | 2017-05-06 11:22 | P.PN ---
Subjective He is doing well. Lying flat in bed. No chest discomfort no undue shortness of breath no dizziness On examination afebrile 96.8F, pulse rate in the 80s, blood pressure 117/77 mmHg normal respirations Breath sounds are reduced bilaterally but equal no rhonchi no crackles Heart sounds S1 and S2 are soft no murmurs no gallops Abdomen soft nontender Extremities are warm no edema Impression Status post aortic valve replacement CLL Postoperative paroxysmal A. fib Maintains sinus rhythm Suggest Continue current medications and patient will be discharged home and follow with his primary cartilages within the next 24-48 hours Objective - Vital Signs Vital signs: Vital Signs Temp 96.8 F L 05/06/17 08:00 Pulse 88 05/06/17 08:50 Resp 18 05/06/17 08:00 BP 117/77 05/06/17 08:00 Pulse Ox 96 05/06/17 08:34 Intake & Output 05/05/17 05/06/17 05/06/17 18:59 06:59 18:59 Intake Total 250 100 200 Output Total 375 Balance -125 100 200 Weight 95.3 kg Intake: IV 0 LR 0 Oral 250 100 200 Output: Urine 375 Other: Voiding Method Urinal Urinal # Voids 3 # Bowel Movements 1 ABP, PAP, CO, CI - Last Documented Arterial Blood Pressure 112/54 Pulmonary Artery Pressure 39/21 Cardiac Output 6.6 Cardiac Index 3.5 - Labs CBC & Chem 7: 05/06/17 06:21 05/06/17 06:21 Labs: Abnormal Lab Results - Last 24 Hours (Table) 05/05/17 05/05/17 05/05/17 Range/Units 12:10 12:17 21:09 WBC (3.8-10.6) k/uL RBC (4.30-5.90) m/uL Hgb (13.0-17.5) gm/dL Hct (39.0-53.0) % RDW (11.5-15.5) % Lymphocytes # (1.0-4.8) k/uL Monocytes # (0-1.0) k/uL Eosinophils # (0-0.7) k/uL BUN (9-20) mg/dL POC Glucose (mg/dL) 105 H 160 H (75-99) mg/dL Total Bilirubin (0.2-1.3) mg/dL Total Protein (6.3-8.2) g/dL Albumin (3.5-5.0) g/dL Urine Ketones Trace H (Negative) 05/06/17 05/06/17 Range/Units 06:21 06:21 WBC 22.8 H (3.8-10.6) k/uL RBC 2.91 L (4.30-5.90) m/uL Hgb 8.9 L (13.0-17.5) gm/dL Hct 27.9 L (39.0-53.0) % RDW 16.9 H (11.5-15.5) % Lymphocytes # 13.0 H (1.0-4.8) k/uL Monocytes # 1.1 H (0-1.0) k/uL Eosinophils # 0.9 H (0-0.7) k/uL BUN 23 H (9-20) mg/dL POC Glucose (mg/dL) (75-99) mg/dL Total Bilirubin 2.0 H (0.2-1.3) mg/dL Total Protein 5.4 L (6.3-8.2) g/dL Albumin 3.3 L (3.5-5.0) g/dL Urine Ketones (Negative) Microbiology - Last 24 Hours (Table) 05/05/17 12:10 Urine Culture - Preliminary Urine,Voided
--- NOTE | 2017-05-06 11:32 | P.PN ---
Subjective 71 years old male with past medical history of a severe ortic stenosis , history of TIA, history of coronary artery disease status post cardiac stents 3, history of COPD, history of sleep apnea on CPAP, history of CLL on conservative management, history of asthma, history of alpha-1 antitrypsin deficiency, hypertension, hyperlipidemia and admitted for an elective aortic valve replacement on 05/01. Patient was seen postoperatively at bedside. Patient is doing well is requiring 3-4 L of oxygen post extubation. Complains of some soreness in the chest but denies any significant chest pain, shortness of breath, abdominal pain nausea or vomiting. Patient is tachycardic to 101, blood pressure 115/64, slightly confused but is answering questions appropriately. Patient received multiple units of transfusion including RBC, platelets, cryoprecipitate due to significant bleeding from generalized coagulopathy intraoperatively. According to documentation patient bleed profusely during the surgery with defficulty to maintain hemostasis. Patient received 6 units of platelets and 2 units of FFP , 1.5 L of cell saver blood, 4 units of RBCs in total. Preoperative labs from 04/23 were concerning for leukocytosis for which patient was followed by oncology and patient was diagnosed with CLL. Labs obtained on 05/01 suggested a WBC of 6.7, hemoglobin dropped from 14.8 to 7.5, drop of platelets from 203 to 88 increased. The liver function test with AST 298, AST 114, alkaline phosphatase 46. Total bilirubin 4.0. fibrinogen was low but repeat was normal. Patient's lab findings are concerning for hemolytic anemia. There is some improvement in the platelets on the repeat labs. Transfusion reaction ordered. Unclear why patient was profusely bleeding with rapid drop in his counts. Will discuss with hematology Dr. latif as patient has h/o CLL. 05/03: Patient remains in ICU, patient has some nausea and dry heaving, and has hiccups, Does Not Have Any Significant Chest Pain, No Aspirated Events Patient Continues on Amiodarone Drip and Insulin Drip, Has Bilateral Chest Tubes in Place, Draining to Low Continuous Suction,, on amiodarone drip, and insulin drip. Patient has been extubated 05/04: Patient remains in ICU, and has folic acid out today, remains on insulin drip meals are currently at 50%, he Has Improved, [address], Vitals Are Stable with a Pulse Ox at 92% 2 L, patient is on Arixtra, transitioned to oral Cordarone, and pre-meal basal bolus transitioned today 05/05: patient was evaluated today. His noted to be sitting up in his chair, reports he is doing well and has no major complaints. WBC noted to be elevated at 19.2, will obtain sputum culture, UA with reflex to culture to rule out any infection. Repeat chest x-ray shows marked improvement, persistent small right pleural effusion and right hemidiaphragm elevation. He'll be transferred out of the ICU today. 05/06: Patient was up walking the halls without difficulty today, he is doing well. The patient will be transferred to inpatient rehab today. Patient's white count increased from yesterday to 22.8, he remains afebrile, UA was clear , chest x-ray shows small left pleural effusion slightly increased, sputum culture still pending. Encouraged to use incentive spirometer. Objective - Vital Signs Vital signs: Vital Signs Temp 96.8 F L 05/06/17 08:00 Pulse 88 05/06/17 08:50 Resp 18 05/06/17 08:00 BP 117/77 05/06/17 08:00 Pulse Ox 96 05/06/17 08:34 Intake & Output 05/05/17 05/06/17 05/06/17 18:59 06:59 18:59 Intake Total 250 100 200 Output Total 375 Balance -125 100 200 Weight 95.3 kg Intake: IV 0 LR 0 Oral 250 100 200 Output: Urine 375 Other: Voiding Method Urinal Urinal # Voids 3 # Bowel Movements 1 ABP, PAP, CO, CI - Last Documented Arterial Blood Pressure 112/54 Pulmonary Artery Pressure 39/21 Cardiac Output 6.6 Cardiac Index 3.5 - Exam - Constitutional General appearance: Present: cooperative, no acute distress - EENT Eyes: Present: anicteric sclerae, EOMI, PERRLA, normal appearance ENT: Present: hearing grossly normal, NA/AT, normal oropharynx - Neck Neck: Present: normal ROM. Absent: lymphadenopathy, other, rigidity, stridor, thyromegaly - Respiratory Respiratory: bilateral: CTA, diminished, negative: dullness, rales, rhonchi, wheezing, prolonged expiration, prolonged inspiration, other - Cardiovascular Rhythm: regular Heart sounds: normal: S1, S2 Abnormal Heart Sounds: Absent: systolic murmur, diastolic murmur, rub, S3 Gallop , S4 Gallop, click, other - Gastrointestinal General gastrointestinal: Present: normal bowel sounds, soft - Integumentary Integumentary: Present: normal, normal turgor - Neurologic Neurologic: Present: CNII-XII intact - Musculoskeletal Musculoskeletal: Present: strength equal bilaterally - Labs CBC & Chem 7: 05/06/17 06:21 05/06/17 06:21 Labs: Abnormal Lab Results - Last 24 Hours (Table) 05/05/17 05/05/17 05/05/17 Range/Units 12:10 12:17 21:09 WBC (3.8-10.6) k/uL RBC (4.30-5.90) m/uL Hgb (13.0-17.5) gm/dL Hct (39.0-53.0) % RDW (11.5-15.5) % Lymphocytes # (1.0-4.8) k/uL Monocytes # (0-1.0) k/uL Eosinophils # (0-0.7) k/uL BUN (9-20) mg/dL POC Glucose (mg/dL) 105 H 160 H (75-99) mg/dL Total Bilirubin (0.2-1.3) mg/dL Total Protein (6.3-8.2) g/dL Albumin (3.5-5.0) g/dL Urine Ketones Trace H (Negative) 05/06/17 05/06/17 Range/Units 06:21 06:21 WBC 22.8 H (3.8-10.6) k/uL RBC 2.91 L (4.30-5.90) m/uL Hgb 8.9 L (13.0-17.5) gm/dL Hct 27.9 L (39.0-53.0) % RDW 16.9 H (11.5-15.5) % Lymphocytes # 13.0 H (1.0-4.8) k/uL Monocytes # 1.1 H (0-1.0) k/uL Eosinophils # 0.9 H (0-0.7) k/uL BUN 23 H (9-20) mg/dL POC Glucose (mg/dL) (75-99) mg/dL Total Bilirubin 2.0 H (0.2-1.3) mg/dL Total Protein 5.4 L (6.3-8.2) g/dL Albumin 3.3 L (3.5-5.0) g/dL Urine Ketones (Negative) Microbiology - Last 24 Hours (Table) 05/05/17 12:10 Urine Culture - Preliminary Urine,Voided Assessment and Plan Plan: #1 aortic stenosis status post aortic valve replacement with bovine pericardial bioprosthesis, pain management per primary team. Continue DVT prophylaxis. Incentive spirometry to prevent any pneumonia or atelectasis. Continue with glucose control, with basal bolus, Levemir 5 units every morning, and low 2 units breakfast lunch and dinner. Will be transferred to inpatient rehab #2 history of CLL, stable #3 acute blood loss anemia with thrombocytopenia likely secondary expected consequence off blood loss during surgery and multiple transfusions. Labs are consistent with hemolysis as there is increased bilirubin and LFTs from multiple transfusions. We will consult Dr. Carrasco as patient has a history of CLL to rule out ITP/hemolytic reaction #4 coronary arteries disease status post stenting of RCA and LAD. Continue aspirin, Plavix, metoprolol 12.5 mg twice daily #5 acute transaminitis secondary to increased unconjugated bilirubin from multiple transfusions. stable #6 hypertension blood pressure is stable. Metoprolol 25mg BID #7 history of obstructive sleep apnea may benefit from CPAP overnight. stable #8 Acute hypoxic respiratory failure with history of asthma moderate persistent. Continue DuoNeb as needed, #9 history of alpha-1 antitrypsin deficiency carrier, stable, on nebulized albuterol and Atrovent #10 GI prophylaxis with Protonix 40 mg daily #11 DVT prophylaxis with fondaparinux 2.5mg QD CODE STATUS full code The above impression and plan of care have been discussed and directed by signing physician. Swati Whitmore nurse practitioner acting as scribe for signing physician.
[2017-05-06] MEDS: LISINOPRIL 2.5 MG TAB PO SCH (12:01)
[2017-05-06] MEDS: INSULIN DETEMIR 100 UNIT/ML 10 ML VIAL SQ SCH (12:01)
[2017-05-06 12:13] LABS: Glucose,Whole Blood 84 mg/dL (75-99)
[2017-05-06] MEDS ORDERED: DEXTROSE 5% IN WATER 100 ML with AMIODARONE 150 MG IV ONE ×2 (17:15→19:00)
[2017-05-06 17:26] LABS: Glucose,Whole Blood 98 mg/dL (75-99)
[2017-05-06] MEDS: SENNOSIDES-DOCUSATE SODIUM 1 EACH TAB PO SCH (20:04)
[2017-05-06] MEDS: MONTELUKAST 10 MG TAB OG-TUBE SCH (20:05)
[2017-05-06] MEDS: CITALOPRAM HYDROBROMIDE 20 MG TAB PO SCH (20:05)
[2017-05-06 21:15] LABS: Glucose,Whole Blood 115 mg/dL (75-99)
[2017-05-07 06:23] LABS: Glucose,Whole Blood 107 mg/dL (75-99)
[2017-05-07] MEDS: INSULIN ASPART 100 UNIT/ML 1 ML 10 ML VIAL SQ SCH ×7 (06:52→22:12)
[2017-05-07] MEDS: PANTOPRAZOLE 40 MG TABLET PO SCH (06:53)
--- NOTE | 2017-05-07 07:16 | XR ---
EXAMINATION TYPE: XR chest 2V DATE OF EXAM: 05/07/2017 COMPARISON: 05/06/2017 and 03/08/2017 HISTORY: 71-year-old male postcardiac surgery TECHNIQUE: Frontal and lateral views FINDINGS: Right heart margin remains obscured by the adjacent elevated right hemidiaphragm. Median sternotomy w ires are present. Small effusions continue, slightly improved on the left. Mild interstitial prominen ce persists. Median sternotomy wires. Prosthetic aortic valve. Retained epicardial pacer leads. IMPRESSION: 1. Continued elevation of the right hemidiaphragm. This appearance was present on the preoperative ex am as well. 2. Small effusions, slightly improved on the left. 3. Residual mild pulmonary vascular congestion.
[2017-05-07 07:30] LABS: Anisocytosis Slight; Basophils # (A) 0.1 k/uL (0-0.2); Basophils % (A) 0 %; Eosinophils # (A) 0.9 k/uL (0-0.7); Eosinophils % (A) 4 %; HCT 27.3 % (39.0-53.0); HGB 8.7 gm/dL (13.0-17.5); Hypochromasia Slight; Lymphocytes % (A) 59 %; MCV 96.8 fL (80.0-100.0); Macrocytosis Slight; Mean Platelet Volume 8.6; Monocytes # (A) 0.9 k/uL (0-1.0); Monocytes % (A) 4 %; Neutrophils # (A) 6.4 k/uL (1.3-7.7); Neutrophils % (A) 30 %; Platelet Count 186 k/uL (150-450); RBC 2.82 m/uL (4.30-5.90); RDW 17.2 % (11.5-15.5); WBC 21.4 k/uL (3.8-10.6)
[2017-05-07 07:37] LABS: Lymphocytes # (A) 12.5 k/uL (1.0-4.8)
[2017-05-07 08:04] LABS: ALT 37 U/L (21-72); AST 23 U/L (17-59); Albumin 3.1 g/dL (3.5-5.0); Alkaline Phosphatase 69 U/L (38-126); Anion Gap 9 mmol/L; Blood Urea Nitrogen 21 mg/dL (9-20); Calcium 8.4 mg/dL (8.4-10.2); Carbon Dioxide 27 mmol/L (22-30); Chloride 104 mmol/L (98-107); Glucose 90 mg/dL (74-99); Potassium 3.8 mmol/L (3.5-5.1); Sodium 140 mmol/L (137-145); Total Protein 5.2 g/dL (6.3-8.2)
[2017-05-07] MEDS: AMIODARONE 200 MG TAB PO SCH ×2 (08:10→22:09)
[2017-05-07] MEDS: FONDAPARINUX 2.5 MG/0.5 ML SYRINGE SQ SCH (08:10)
[2017-05-07] MEDS: CLOPIDOGREL 75 MG TAB PO SCH (08:12)
[2017-05-07] MEDS: METOPROLOL TARTRATE 25 MG TAB PO SCH ×2 (08:13→22:09)
[2017-05-07] MEDS: ATORVASTATIN 40 MG TAB PO SCH (08:13)
[2017-05-07] MEDS: ASPIRIN 81 MG PO SCH (08:13)
[2017-05-07 08:44] LABS: Poikilocytosis (M) Present; Polychromasia Present
[2017-05-07] MEDS: SENNOSIDES-DOCUSATE SODIUM 1 EACH TAB PO SCH (09:04)
[2017-05-07] MEDS: INSULIN DETEMIR 100 UNIT/ML 10 ML VIAL SQ SCH (09:08)
[2017-05-07] MEDS: BUDESONIDE 0.5 MG/2 ML NEBU INHALATION SCH ×2 (09:09→19:52)
[2017-05-07] MEDS: ALBUTEROL NEBULIZED 2.5 MG/3 ML INHALATION PRN ×3 (09:09→19:52)
--- NOTE | 2017-05-07 10:29 | P.PN ---
Subjective Progress Note Date: 05/07/17 Principal diagnosis: Severe aortic valve stenosis, recently diagnosed chronic lymphocytic leukemia, history of coronary artery disease with stent placement to his right coronary artery and left anterior descending coronary artery with no flow limiting lesion at this point, preserved left ventricular function with ejection fraction 55% on most recent transesophageal echocardiogram, chronically elevated right hemidiaphragm, hypertension, hyperlipidemia, chronic obstructive pulmonary disease with FEV1 58% of predicted, GERD, history of psoriasis, history of TIA. POD #6 elective aortic valve replacement using a 25 mm magna ease bovine pericardial bioprosthesis. Intraoperative transesophageal echocardiogram. Epi- aortic scanning. Mediastinal clot with possible sternal bleeding, an unexpected but possible outcome of surgery, especially given his diagnosis of chronic lymphocytic leukemia. POD #6 redo sternotomy, exploration of the mediastinum, evacuation of clot and control of bleeding. Postoperative paroxysmal atrial fibrillation, an expected outcome of surgery. The patient's currently sitting up in bed in no acute distress. Denies pain, shortness of breath. Has been ambulating with help. He had return episode of A. fib with RVR last night, currently sinus rhythm. Objective - Vital Signs Vital signs: Vital Signs Temp 97.4 F L 05/07/17 03:58 Pulse 100 05/07/17 09:23 Resp 16 05/07/17 03:58 BP 122/67 05/07/17 03:58 Pulse Ox 98 05/07/17 03:58 Intake & Output 05/06/17 05/07/17 05/07/17 18:59 06:59 18:59 Intake Total 380 Output Total 1200 650 Balance -820 -650 Weight 93.6 kg Intake: Oral 380 Output: Urine 1200 650 Other: Voiding Method Urinal # Voids 2 # Bowel Movements 1 ABP, PAP, CO, CI - Last Documented Arterial Blood Pressure 112/54 Pulmonary Artery Pressure 39/21 Cardiac Output 6.6 Cardiac Index 3.5 - Constitutional General appearance: Present: cooperative, no acute distress - Respiratory Details: Lung sounds was bilaterally. Respirations even, nonlabored. Currently on room air with oxygen saturation 95%. Able to achieve 1000 mL on his incentive spirometry. - Cardiovascular Details: S1, S2 present. Regular rate and rhythm, sinus rhythm on telemetry. Palpable peripheral pulses bilaterally. No edema present. No calf pain or tenderness noted. Heart hugger in place with patient demonstrating appropriate use. Atrial epicardial pacemaker wire was present this morning, discontinued without incident and without ectopy. - Gastrointestinal Gastrointestinal Comment(s): Abdomen soft, nontender, nondistended. Active bowel sounds 4 quadrants. Tolerating diet. Positive bowel movement. - Genitourinary Genitourinary Comment(s): Continues to void clear, yellow urine. - Integumentary Integumentary Comment(s): Skin is warm and dry with evidence of good perfusion. Anterior chest incision well approximated and covered with dry intact dressing. - Neurologic Neurologic: Present: CNII-XII intact - Musculoskeletal Musculoskeletal: Present: gait normal, strength equal bilaterally - Psychiatric Psychiatric: Present: A&O x's 3, appropriate affect, intact judgment & insight - Allied health notes Allied health notes reviewed: nursing - Labs CBC & Chem 7: 05/07/17 06:48 05/07/17 06:48 Labs: Abnormal Lab Results - Last 24 Hours (Table) 05/06/17 05/07/17 05/07/17 Range/Units 20:51 05:52 06:48 WBC 21.4 H (3.8-10.6) k/uL Lymphocytes # 12.5 H (1.0-4.8) k/uL Eosinophils # 0.9 H (0-0.7) k/uL BUN (9-20) mg/dL POC Glucose (mg/dL) 115 H 107 H (75-99) mg/dL Total Bilirubin (0.2-1.3) mg/dL Total Protein (6.3-8.2) g/dL Albumin (3.5-5.0) g/dL 05/07/17 Range/Units 06:48 WBC (3.8-10.6) k/uL Lymphocytes # (1.0-4.8) k/uL Eosinophils # (0-0.7) k/uL BUN 21 H (9-20) mg/dL POC Glucose (mg/dL) (75-99) mg/dL Total Bilirubin 2.0 H (0.2-1.3) mg/dL Total Protein 5.2 L (6.3-8.2) g/dL Albumin 3.1 L (3.5-5.0) g/dL Microbiology - Last 24 Hours (Table) 05/05/17 12:10 Urine Culture - Final Urine,Voided - Imaging and Cardiology Chest x-ray: report reviewed, image reviewed Assessment and Plan (1) COPD (chronic obstructive pulmonary disease) Current Visit: Yes Status: Chronic Code(s): J44.9 - CHRONIC OBSTRUCTIVE PULMONARY DISEASE, UNSPECIFIED SNOMED Code(s): 93297998 (2) Chronic lymphocytic leukemia Current Visit: Yes Status: Chronic Code(s): C91.90 - LYMPHOID LEUKEMIA, UNSPECIFIED NOT HAVING ACHIEVED REMISSION SNOMED Code(s): 47462580 (3) GERD (gastroesophageal reflux disease) Current Visit: Yes Status: Chronic Code(s): K21.9 - GASTRO-ESOPHAGEAL REFLUX DISEASE WITHOUT ESOPHAGITIS SNOMED Code(s): 326898181 (4) History of TIA (transient ischemic attack) Current Visit: No Status: Resolved Code(s): Z86.73 - PRSNL HX OF TIA (TIA), AND CEREB INFRC W/O RESID DEFICITS SNOMED Code(s): 795194185 (5) History of coronary artery stent placement Current Visit: Yes Status: Chronic Code(s): Z95.5 - PRESENCE OF CORONARY ANGIOPLASTY IMPLANT AND GRAFT SNOMED Code(s): 242005303 (6) History of psoriasis Current Visit: Yes Status: Chronic Code(s): Z87.2 - PERSONAL HISTORY OF DISEASES OF THE SKIN, SUBCU SNOMED Code(s): 278333972 (7) Hyperlipidemia Current Visit: Yes Status: Chronic Code(s): E78.5 - HYPERLIPIDEMIA, UNSPECIFIED SNOMED Code(s): 98907014 (8) Hypertension Current Visit: Yes Status: Chronic Code(s): I10 - ESSENTIAL (PRIMARY) HYPERTENSION SNOMED Code(s): 29117965 (9) Postoperative atrial fibrillation Current Visit: Yes Status: Acute Code(s): I97.89 - OTH POSTPROC COMP AND DISORDERS OF THE CIRC SYS, NEC; I48.91 - UNSPECIFIED ATRIAL FIBRILLATION SNOMED Code(s): 46284314 (10) Severe aortic valve stenosis Current Visit: Yes Status: Chronic Code(s): I35.0 - NONRHEUMATIC AORTIC ( VALVE) STENOSIS SNOMED Code(s): 55120449 Plan: 1. Continue aspirin, statin, Plavix, lisinopril, beta leeanne. Will increase beta leeanne therapy as tolerated. 2. Continue amiodarone for A. fib prophylaxis. Will start L Steven for anticoagulation. 3. Encourage incentive spirometry use 10 times every hour. CPAP at night per home regimen. 4. Increase activity, ambulate in hallway. PT/OT/cardiac rehab following. 5. GI/DVT prophylaxis. 6. Will monitor daily labs and x-rays. 7. Dr. Jay consulted for inpatient rehab placement. Patient will need rehab at discharge as he lives alone and is not safe to be at home by himself. 8. Patient is to shower daily. 9. Insulin management per Dr. Stuart. 10. More recommendations to follow. Discharge planning in progress. May be discharged when rehab bed is available. Time with Patient: Greater than 30
[2017-05-07 11:32] LABS: ABG Base Excess 0.5 mmol/L; ABG HCO3 25 mmol/L (21-25); ABG PCO2 41 mmHg (35-45); ABG PO2 389 mmHg (83-108); ABG Potassium Whole Blood 4.3 mmol/L (3.4-4.5); ABG Sodium Whole Blood 140 mmol/L (135-146); ABG TCO2 27 mmol/L (19-24)
[2017-05-07 11:32] LABS: ABG Base Excess -0.7 mmol/L; ABG HCO3 25 mmol/L (21-25); ABG Oxygen Saturation 99.7 % (94-97); ABG PCO2 42 mmHg (35-45); ABG PH 7.37 (7.35-7.45); ABG PO2 218 mmHg (83-108); ABG Potassium Whole Blood 4.8 mmol/L (3.4-4.5); ABG Sodium Whole Blood 135 mmol/L (135-146); ABG TCO2 26 mmol/L (19-24)
[2017-05-07 11:33] LABS: ABG Base Excess -0.7 mmol/L; ABG HCO3 25 mmol/L (21-25); ABG Oxygen Saturation 99.9 % (94-97); ABG PCO2 43 mmHg (35-45); ABG PH 7.37 (7.35-7.45); ABG PO2 311 mmHg (83-108); ABG Potassium Whole Blood 5.1 mmol/L (3.4-4.5); ABG Sodium Whole Blood 136 mmol/L (135-146); ABG TCO2 26 mmol/L (19-24)
[2017-05-07 11:37] LABS: ABG Base Excess -1.7 mmol/L; ABG HCO3 24 mmol/L (21-25); ABG Oxygen Saturation 99.7 % (94-97); ABG PCO2 41 mmHg (35-45); ABG PH 7.37 (7.35-7.45); ABG PO2 262 mmHg (83-108); ABG Potassium Whole Blood 4.7 mmol/L (3.4-4.5); ABG Sodium Whole Blood 137 mmol/L (135-146); ABG TCO2 25 mmol/L (19-24)
[2017-05-07 11:37] LABS: ABG HCO3 22 mmol/L (21-25); ABG PCO2 34 mmHg (35-45); ABG PH 7.42 (7.35-7.45); ABG Potassium Whole Blood 3.7 mmol/L (3.4-4.5); ABG Sodium Whole Blood 142 mmol/L (135-146); ABG TCO2 23 mmol/L (19-24)
[2017-05-07 11:37] LABS: ABG HCO3 23 mmol/L (21-25); ABG PCO2 37 mmHg (35-45); ABG Potassium Whole Blood 4.1 mmol/L (3.4-4.5); ABG Sodium Whole Blood 137 mmol/L (135-146); ABG TCO2 24 mmol/L (19-24)
[2017-05-07 11:38] LABS: ABG Base Excess -1.3 mmol/L; ABG HCO3 23 mmol/L (21-25); ABG PCO2 34 mmHg (35-45); ABG PH 7.43 (7.35-7.45); ABG Potassium Whole Blood 4.3 mmol/L (3.4-4.5); ABG Sodium Whole Blood 139 mmol/L (135-146); ABG TCO2 24 mmol/L (19-24)
[2017-05-07 11:38] LABS: ABG Base Excess -1.7 mmol/L; ABG HCO3 23 mmol/L (21-25); ABG PCO2 39 mmHg (35-45); ABG PH 7.38 (7.35-7.45); ABG PO2 412 mmHg (83-108); ABG Potassium Whole Blood 3.8 mmol/L (3.4-4.5); ABG Sodium Whole Blood 140 mmol/L (135-146); ABG TCO2 24 mmol/L (19-24)
[2017-05-07 11:42] LABS: ABG PO2 >420 mmHg (83-108)
[2017-05-07 11:44] LABS: ABG PO2 >420 mmHg (83-108)
[2017-05-07 11:44] LABS: Glucose,Whole Blood 97 mg/dL (75-99)
[2017-05-07 11:46] LABS: ABG PO2 >420 mmHg (83-108)
[2017-05-07 11:58] VITALS: BMI 31.4
[2017-05-07] MEDS: LISINOPRIL 2.5 MG TAB PO SCH ×2 (12:09→14:52)
[2017-05-07] MEDS: APIXABAN 5 MG TAB PO SCH ×2 (12:09→22:09)
--- NOTE | 2017-05-07 13:30 | P.PN ---
<Janny Lanier E - Last Filed: 05/07/17 13:27> Subjective Progress Note Date: 05/07/17 HPI: This is a 71-year-old gentleman who presented to the hospital for aortic valve replacement. The patient underwent procedure and was subsequently transferred to the intensive care unit. He remains intubated and on Primacor. The patient did receive multiple blood products intraoperatively. He has a known history of CLL, chronically elevated right hemidiaphragm, hypertension, dyslipidemia, COPD, history of TIA. The patient's bleeding has improved. He is oxygenating well. His ABGs reviewed. 05/02/17-patient is being seen examined and evaluated today in the intensive care unit. Patient is currently being weaned from mechanical ventilation. His propofol is off he is opening his eyes and responds appropriately. Moves all 4 extremities. Weaning parameter ABGs have been obtained and reviewed. Patient will be extubated. His chest tubes are intact and draining appropriately serosanguineous drainage. The OG-tube has had minimal output. He is hemodynamically stable. He is making adequate urine. All labs at reports have been reviewed. 05/03/17-05/04/17- Please see Dr. Kyle Arreola notes 05/05/17- patient is being seen examined and evaluated and round. Is resting up in bed in the intensive care unit. Will be downgraded to the selective care unit when bed is available. She continues on 2 L of supplemental oxygen. Does not use home oxygen. He has been slowly weaned down. He has been participating in therapy and has been up ambulating in the hallways. Does have some intermittent shortness of breath with exertion however feels his breathing is relatively stable at this time. Denies any cough or congestion. 05/06/17- Please see Dr. Kyle Arreola note 05/07/17- patient is being seen examined and evaluated today on rounds. Apparently overnight patient did go into atrial fibrillation with rapid ventricular rate and was started on amiodarone drip. The patient has since converted to normal sinus mechanism. Cardiology is following the patient. He is resting up in bed on room air. Does have some shortness of breath with exertion however is improving. I'll labs and reports have been reviewed. Objective - Vital Signs Vital signs: Vital Signs Temp 98.0 F 05/07/17 08:00 Pulse 93 05/07/17 13:13 Resp 18 05/07/17 08:00 BP 119/73 05/07/17 08:00 Pulse Ox 99 05/07/17 08:00 Intake & Output 05/06/17 05/07/17 05/07/17 18:59 06:59 18:59 Intake Total 380 240 Output Total 1200 650 275 Balance -820 -650 -35 Weight 93.6 kg 93.6 kg Intake: Oral 380 240 Output: Urine 1200 650 275 Other: Voiding Method Urinal Urinal # Voids 2 # Bowel Movements 1 ABP, PAP, CO, CI - Last Documented Arterial Blood Pressure 112/54 Pulmonary Artery Pressure 39/21 Cardiac Output 6.6 Cardiac Index 3.5 - Exam Gen.: Alert resting up in bed Cardiovascular: Regular rate and rhythm, S1/S2 Lungs: Coarse bilaterally, improved bases diminished, Abdomen: Soft nontender nondistended positive bowel sounds Extremities: Trace edema Neuro: Awake, responds appropriately, moves all extremities - Labs CBC & Chem 7: 05/07/17 06:48 05/07/17 06:48 Labs: Abnormal Lab Results - Last 24 Hours (Table) 05/01/17 05/01/17 05/01/17 Range/Units 08:40 10:04 10:37 WBC (3.8-10.6) k/uL RBC (4.30-5.90) m/uL Hgb (13.0-17.5) gm/dL Hct (39.0-53.0) % RDW (11.5-15.5) % Lymphocytes # (1.0-4.8) k/uL Eosinophils # (0-0.7) k/uL ABG pCO2 (35-45) mmHg ABG pO2 389 H 218 H 311 H (83-108) mmHg ABG Total CO2 27 H 26 H 26 H (19-24) mmol/L ABG O2 Saturation 100.0 H 99.7 H 99.9 H (94-97) % ABG Hematocrit 29 L 28 L (34.0-46.0) % ABG Potassium 4.8 H 5.1 H (3.4-4.5) mmol/L ABG Ionized Calcium 4.3 L 4.3 L (4.5-5.3) mg/dL ABG Glucose 132 H 164 H (75-99) mg/dL ABG Lactic Acid (0.5-1.6) mmol/L Hemoglobin 12.9 L 9.5 L 9.3 L (13.0-17.5) gm/dL BUN (9-20) mg/dL POC Glucose (mg/dL) (75-99) mg/dL Total Bilirubin (0.2-1.3) mg/dL Total Protein (6.3-8.2) g/dL Albumin (3.5-5.0) g/dL Arterial Blood Potassium 4.8 H 5.1 H (3.4-4.5) mmol/L Arterial Blood Glucose 132 H 164 H (75-99) mg/dL 05/01/17 05/01/17 05/01/17 Range/Units 11:28 11:57 13:04 WBC (3.8-10.6) k/uL RBC (4.30-5.90) m/uL Hgb (13.0-17.5) gm/dL Hct (39.0-53.0) % RDW (11.5-15.5) % Lymphocytes # (1.0-4.8) k/uL Eosinophils # (0-0.7) k/uL ABG pCO2 34 L (35-45) mmHg ABG pO2 262 H >420 H >420 H (83-108) mmHg ABG Total CO2 25 H (19-24) mmol/L ABG O2 Saturation 99.7 H 100.0 H 100.0 H (94-97) % ABG Hematocrit 27 L 28 L 23 L (34.0-46.0) % ABG Potassium 4.7 H (3.4-4.5) mmol/L ABG Ionized Calcium 4.1 L 4.3 L 3.6 L (4.5-5.3) mg/dL ABG Glucose 149 H 141 H 140 H (75-99) mg/dL ABG Lactic Acid 1.7 H 2.4 H* 2.3 H* (0.5-1.6) mmol/L Hemoglobin 8.7 L 9.1 L 7.5 L (13.0-17.5) gm/dL BUN (9-20) mg/dL POC Glucose (mg/dL) (75-99) mg/dL Total Bilirubin (0.2-1.3) mg/dL Total Protein (6.3-8.2) g/dL Albumin (3.5-5.0) g/dL Arterial Blood Potassium 4.7 H (3.4-4.5) mmol/L Arterial Blood Glucose 149 H 141 H 140 H (75-99) mg/dL 05/01/17 05/01/17 05/06/17 Range/Units 13:44 20:17 20:51 WBC (3.8-10.6) k/uL RBC (4.30-5.90) m/uL Hgb (13.0-17.5) gm/dL Hct (39.0-53.0) % RDW (11.5-15.5) % Lymphocytes # (1.0-4.8) k/uL Eosinophils # (0-0.7) k/uL ABG pCO2 34 L (35-45) mmHg ABG pO2 >420 H 412 H (83-108) mmHg ABG Total CO2 (19-24) mmol/L ABG O2 Saturation 100.0 H 100.0 H (94-97) % ABG Hematocrit 22 L 25 L (34.0-46.0) % ABG Potassium (3.4-4.5) mmol/L ABG Ionized Calcium 4.2 L 4.4 L (4.5-5.3) mg/dL ABG Glucose 126 H 200 H (75-99) mg/dL ABG Lactic Acid 2.5 H* (0.5-1.6) mmol/L Hemoglobin 7.1 L 8.0 L (13.0-17.5) gm/dL BUN (9-20) mg/dL POC Glucose (mg/dL) 115 H (75-99) mg/dL Total Bilirubin (0.2-1.3) mg/dL Total Protein (6.3-8.2) g/dL Albumin (3.5-5.0) g/dL Arterial Blood Potassium (3.4-4.5) mmol/L Arterial Blood Glucose 126 H 200 H (75-99) mg/dL 05/07/17 05/07/17 05/07/17 Range/Units 05:52 06:48 06:48 WBC 21.4 H (3.8-10.6) k/uL RBC 2.82 L (4.30-5.90) m/uL Hgb 8.7 L (13.0-17.5) gm/dL Hct 27.3 L (39.0-53.0) % RDW 17.2 H (11.5-15.5) % Lymphocytes # 12.5 H (1.0-4.8) k/uL Eosinophils # 0.9 H (0-0.7) k/uL ABG pCO2 (35-45) mmHg ABG pO2 (83-108) mmHg ABG Total CO2 (19-24) mmol/L ABG O2 Saturation (94-97) % ABG Hematocrit (34.0-46.0) % ABG Potassium (3.4-4.5) mmol/L ABG Ionized Calcium (4.5-5.3) mg/dL ABG Glucose (75-99) mg/dL ABG Lactic Acid (0.5-1.6) mmol/L Hemoglobin (13.0-17.5) gm/dL BUN 21 H (9-20) mg/dL POC Glucose (mg/dL) 107 H (75-99) mg/dL Total Bilirubin 2.0 H (0.2-1.3) mg/dL Total Protein 5.2 L (6.3-8.2) g/dL Albumin 3.1 L (3.5-5.0) g/dL Arterial Blood Potassium (3.4-4.5) mmol/L Arterial Blood Glucose (75-99) mg/dL Microbiology - Last 24 Hours (Table) 05/05/17 12:10 Urine Culture - Final Urine,Voided Assessment and Plan Assessment: Status post aortic valve replacement CLL ABLA Thrombocytopenia Transaminitis Asthma, moderate persistent, not acutely exacerbated SARAH with CPAP - mild, AHI 10.9 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 Incentive spirometer Increase activity as tolerated PT/OT, possible discharge planning for inpatient rehab I performed an examination of the patient and discussed their management with the nurse practitioner. I have reviewed the nurse practitioner's note and agree with the documented findings and plan of care. <Shereen Baker - Last Filed: 05/07/17 14:57> Objective - Vital Signs Vital signs: Vital Signs Temp 98.0 F 05/07/17 08:00 Pulse 93 05/07/17 13:13 Resp 18 05/07/17 08:00 BP 119/73 05/07/17 08:00 Pulse Ox 99 05/07/17 08:00 Intake & Output 05/06/17 05/07/17 05/07/17 18:59 06:59 18:59 Intake Total 380 240 Output Total 1200 650 275 Balance -820 -650 -35 Weight 93.6 kg 93.6 kg Intake: Oral 380 240 Output: Urine 1200 650 275 Other: Voiding Method Urinal Urinal # Voids 2 # Bowel Movements 1 ABP, PAP, CO, CI - Last Documented Arterial Blood Pressure 112/54 Pulmonary Artery Pressure 39/21 Cardiac Output 6.6 Cardiac Index 3.5 - Labs CBC & Chem 7: 05/07/17 06:48 05/07/17 06:48 Labs: Abnormal Lab Results - Last 24 Hours (Table) 05/01/17 05/01/17 05/01/17 Range/Units 08:40 10:04 10:37 WBC (3.8-10.6) k/uL RBC (4.30-5.90) m/uL Hgb (13.0-17.5) gm/dL Hct (39.0-53.0) % RDW (11.5-15.5) % Lymphocytes # (1.0-4.8) k/uL Eosinophils # (0-0.7) k/uL ABG pCO2 (35-45) mmHg ABG pO2 389 H 218 H 311 H (83-108) mmHg ABG Total CO2 27 H 26 H 26 H (19-24) mmol/L ABG O2 Saturation 100.0 H 99.7 H 99.9 H (94-97) % ABG Hematocrit 29 L 28 L (34.0-46.0) % ABG Potassium 4.8 H 5.1 H (3.4-4.5) mmol/L ABG Ionized Calcium 4.3 L 4.3 L (4.5-5.3) mg/dL ABG Glucose 132 H 164 H (75-99) mg/dL ABG Lactic Acid (0.5-1.6) mmol/L Hemoglobin 12.9 L 9.5 L 9.3 L (13.0-17.5) gm/dL BUN (9-20) mg/dL POC Glucose (mg/dL) (75-99) mg/dL Total Bilirubin (0.2-1.3) mg/dL Total Protein (6.3-8.2) g/dL Albumin (3.5-5.0) g/dL Arterial Blood Potassium 4.8 H 5.1 H (3.4-4.5) mmol/L Arterial Blood Glucose 132 H 164 H (75-99) mg/dL 05/01/17 05/01/17 05/01/17 Range/Units 11:28 11:57 13:04 WBC (3.8-10.6) k/uL RBC (4.30-5.90) m/uL Hgb (13.0-17.5) gm/dL Hct (39.0-53.0) % RDW (11.5-15.5) % Lymphocytes # (1.0-4.8) k/uL Eosinophils # (0-0.7) k/uL ABG pCO2 34 L (35-45) mmHg ABG pO2 262 H >420 H >420 H (83-108) mmHg ABG Total CO2 25 H (19-24) mmol/L ABG O2 Saturation 99.7 H 100.0 H 100.0 H (94-97) % ABG Hematocrit 27 L 28 L 23 L (34.0-46.0) % ABG Potassium 4.7 H (3.4-4.5) mmol/L ABG Ionized Calcium 4.1 L 4.3 L 3.6 L (4.5-5.3) mg/dL ABG Glucose 149 H 141 H 140 H (75-99) mg/dL ABG Lactic Acid 1.7 H 2.4 H* 2.3 H* (0.5-1.6) mmol/L Hemoglobin 8.7 L 9.1 L 7.5 L (13.0-17.5) gm/dL BUN (9-20) mg/dL POC Glucose (mg/dL) (75-99) mg/dL Total Bilirubin (0.2-1.3) mg/dL Total Protein (6.3-8.2) g/dL Albumin (3.5-5.0) g/dL Arterial Blood Potassium 4.7 H (3.4-4.5) mmol/L Arterial Blood Glucose 149 H 141 H 140 H (75-99) mg/dL 05/01/17 05/01/17 05/06/17 Range/Units 13:44 20:17 20:51 WBC (3.8-10.6) k/uL RBC (4.30-5.90) m/uL Hgb (13.0-17.5) gm/dL Hct (39.0-53.0) % RDW (11.5-15.5) % Lymphocytes # (1.0-4.8) k/uL Eosinophils # (0-0.7) k/uL ABG pCO2 34 L (35-45) mmHg ABG pO2 >420 H 412 H (83-108) mmHg ABG Total CO2 (19-24) mmol/L ABG O2 Saturation 100.0 H 100.0 H (94-97) % ABG Hematocrit 22 L 25 L (34.0-46.0) % ABG Potassium (3.4-4.5) mmol/L ABG Ionized Calcium 4.2 L 4.4 L (4.5-5.3) mg/dL ABG Glucose 126 H 200 H (75-99) mg/dL ABG Lactic Acid 2.5 H* (0.5-1.6) mmol/L Hemoglobin 7.1 L 8.0 L (13.0-17.5) gm/dL BUN (9-20) mg/dL POC Glucose (mg/dL) 115 H (75-99) mg/dL Total Bilirubin (0.2-1.3) mg/dL Total Protein (6.3-8.2) g/dL Albumin (3.5-5.0) g/dL Arterial Blood Potassium (3.4-4.5) mmol/L Arterial Blood Glucose 126 H 200 H (75-99) mg/dL 05/07/17 05/07/17 05/07/17 Range/Units 05:52 06:48 06:48 WBC 21.4 H (3.8-10.6) k/uL RBC 2.82 L (4.30-5.90) m/uL Hgb 8.7 L (13.0-17.5) gm/dL Hct 27.3 L (39.0-53.0) % RDW 17.2 H (11.5-15.5) % Lymphocytes # 12.5 H (1.0-4.8) k/uL Eosinophils # 0.9 H (0-0.7) k/uL ABG pCO2 (35-45) mmHg ABG pO2 (83-108) mmHg ABG Total CO2 (19-24) mmol/L ABG O2 Saturation (94-97) % ABG Hematocrit (34.0-46.0) % ABG Potassium (3.4-4.5) mmol/L ABG Ionized Calcium (4.5-5.3) mg/dL ABG Glucose (75-99) mg/dL ABG Lactic Acid (0.5-1.6) mmol/L Hemoglobin (13.0-17.5) gm/dL BUN 21 H (9-20) mg/dL POC Glucose (mg/dL) 107 H (75-99) mg/dL Total Bilirubin 2.0 H (0.2-1.3) mg/dL Total Protein 5.2 L (6.3-8.2) g/dL Albumin 3.1 L (3.5-5.0) g/dL Arterial Blood Potassium (3.4-4.5) mmol/L Arterial Blood Glucose (75-99) mg/dL Microbiology - Last 24 Hours (Table) 05/05/17 12:10 Urine Culture - Final Urine,Voided Assessment and Plan Assessment: Patient currently on RA with no respiratory complaints. States he hopes to go home soon. Respiratory status is stable.
[2017-05-07 16:42] LABS: Glucose,Whole Blood 99 mg/dL (75-99)
[2017-05-07 21:22] LABS: Glucose,Whole Blood 162 mg/dL (75-99)
[2017-05-07] MEDS: MONTELUKAST 10 MG TAB OG-TUBE SCH (22:09)
[2017-05-07] MEDS: CITALOPRAM HYDROBROMIDE 20 MG TAB PO SCH (22:09)
[2017-05-08 03:48] VITALS: RESP 16
[2017-05-08 06:05] LABS: Glucose,Whole Blood 114 mg/dL (75-99)
[2017-05-08] MEDS: INSULIN ASPART 100 UNIT/ML 1 ML 10 ML VIAL SQ SCH ×4 (06:26→14:02)
[2017-05-08 06:31] LABS: Anisocytosis Slight; HCT 27.9 % (39.0-53.0); Hypochromasia Slight; MCHC 32.2 g/dL (31.0-37.0); MCV 96.2 fL (80.0-100.0); Macrocytosis Slight; Mean Platelet Volume 8.1; Platelet Count 237 k/uL (150-450); RDW 17.4 % (11.5-15.5); WBC 21.3 k/uL (3.8-10.6)
[2017-05-08 06:51] LABS: ALT 32 U/L (21-72); AST 21 U/L (17-59); Alkaline Phosphatase 62 U/L (38-126); Anion Gap 9 mmol/L; Blood Urea Nitrogen 17 mg/dL (9-20); Calcium 8.4 mg/dL (8.4-10.2); Carbon Dioxide 29 mmol/L (22-30); Chloride 104 mmol/L (98-107); Glucose 109 mg/dL (74-99); Potassium 3.5 mmol/L (3.5-5.1); Sodium 142 mmol/L (137-145); Total Bilirubin 1.4 mg/dL (0.2-1.3); Total Protein 5.1 g/dL (6.3-8.2)
[2017-05-08] MEDS: PANTOPRAZOLE 40 MG TABLET PO SCH (06:57)
[2017-05-08 07:13] LABS: Eosinophils # (M) 1.07 k/uL (0-0.7); Lymphocytes # (M) 14.48 k/uL (1.0-4.8); Monocytes # (M) 0.64 k/uL (0-1.0); Neutrophils # (M) 5.11 k/uL (1.3-7.7); Neutrophils % (M) 24 %; Nucleated Red Blood Cells 0 /100 WBC (0-0); Total Cells Counted 100
[2017-05-08 07:14] LABS: Polychromasia Present
--- NOTE | 2017-05-08 07:30 | XR ---
EXAMINATION TYPE: XR chest 2V DATE OF EXAM: 05/08/2017 COMPARISON: 05/07/2017 INDICATION: Post cardiac surgery TECHNIQUE: Frontal and lateral views of the chest are obtained. FINDINGS: The heart size is normal. The pulmonary vasculature is normal. Minimal right pleural effusion is present. This may be a subpulmonic effusion and/or elevation of the right diaphragm. Very minimal left pleural effusion is present. Findings appear stable.. IMPRESSION: 1. Bilateral pleural effusions, stable.
[2017-05-08] MEDS ORDERED: Potassium Replacement Protocol 1 EACH MISC MISCELLANE PRN (08:12)
[2017-05-08] MEDS: APIXABAN 5 MG TAB PO SCH (08:20)
[2017-05-08] MEDS: AMIODARONE 200 MG TAB PO SCH (08:20)
[2017-05-08] MEDS: ASPIRIN 81 MG PO SCH (08:20)
[2017-05-08] MEDS: ATORVASTATIN 40 MG TAB PO SCH (08:21)
[2017-05-08] MEDS: ALBUTEROL NEBULIZED 2.5 MG/3 ML INHALATION PRN ×3 (08:26→16:10)
[2017-05-08] MEDS: BUDESONIDE 0.5 MG/2 ML NEBU INHALATION SCH (08:26)
[2017-05-08] MEDS: POTASSIUM CHLORIDE ER 20 MEQ TAB.ER PO SCH ×2 (08:28→11:08)
[2017-05-08] MEDS: HYDROcodone/APAP 5-325MG 1 EACH TAB PO PRN (08:28)
[2017-05-08] MEDS: INSULIN DETEMIR 100 UNIT/ML 10 ML VIAL SQ SCH (08:29)
--- NOTE | 2017-05-08 08:47 | P.PN ---
Subjective Progress Note Date: 05/07/17 71 years old male with past medical history of a severe ortic stenosis , history of TIA, history of coronary artery disease status post cardiac stents 3, history of COPD, history of sleep apnea on CPAP, history of CLL on conservative management, history of asthma, history of alpha-1 antitrypsin deficiency, hypertension, hyperlipidemia and admitted for an elective aortic valve replacement on 05/01. Patient was seen postoperatively at bedside. Patient is doing well is requiring 3-4 L of oxygen post extubation. Complains of some soreness in the chest but denies any significant chest pain, shortness of breath, abdominal pain nausea or vomiting. Patient is tachycardic to 101, blood pressure 115/64, slightly confused but is answering questions appropriately. Patient received multiple units of transfusion including RBC, platelets, cryoprecipitate due to significant bleeding from generalized coagulopathy intraoperatively. According to documentation patient bleed profusely during the surgery with defficulty to maintain hemostasis. Patient received 6 units of platelets and 2 units of FFP , 1.5 L of cell saver blood, 4 units of RBCs in total. Preoperative labs from 04/23 were concerning for leukocytosis for which patient was followed by oncology and patient was diagnosed with CLL. Labs obtained on 05/01 suggested a WBC of 6.7, hemoglobin dropped from 14.8 to 7.5, drop of platelets from 203 to 88 increased. The liver function test with AST 298, AST 114, alkaline phosphatase 46. Total bilirubin 4.0. fibrinogen was low but repeat was normal. Patient's lab findings are concerning for hemolytic anemia. There is some improvement in the platelets on the repeat labs. Transfusion reaction ordered. Unclear why patient was profusely bleeding with rapid drop in his counts. Will discuss with hematology Dr. latif as patient has h/o CLL. 05/03: Patient remains in ICU, patient has some nausea and dry heaving, and has hiccups, Does Not Have Any Significant Chest Pain, No Aspirated Events Patient Continues on Amiodarone Drip and Insulin Drip, Has Bilateral Chest Tubes in Place, Draining to Low Continuous Suction,, on amiodarone drip, and insulin drip. Patient has been extubated 05/04: Patient remains in ICU, and has folic acid out today, remains on insulin drip meals are currently at 50%, he Has Improved, [address], Vitals Are Stable with a Pulse Ox at 92% 2 L, patient is on Arixtra, transitioned to oral Cordarone, and pre-meal basal bolus transitioned today 05/05: patient was evaluated today. His noted to be sitting up in his chair, reports he is doing well and has no major complaints. WBC noted to be elevated at 19.2, will obtain sputum culture, UA with reflex to culture to rule out any infection. Repeat chest x-ray shows marked improvement, persistent small right pleural effusion and right hemidiaphragm elevation. He'll be transferred out of the ICU today. 05/06: Patient was up walking the halls without difficulty today, he is doing well. The patient will be transferred to inpatient rehab today. Patient's white count increased from yesterday to 22.8, he remains afebrile, UA was clear , chest x-ray shows small left pleural effusion slightly increased, sputum culture still pending. Encouraged to use incentive spirometer. 05/07: Patient had another episode of atrial fibrillation with RVR on the evening of May 06 and continued on oral amiodarone and Lopressor. Patient is in a sinus rhythm. Patient has been started on eliquis today. Patient denies any complaints at this time and is anxious to start rehab. Patient's discharge plan is to go to [facility] on the care of Dr. Jay Objective - Vital Signs Vital signs: Vital Signs Temp 98.0 F 05/07/17 08:00 Pulse 92 05/07/17 13:03 Resp 18 05/07/17 08:00 BP 119/73 05/07/17 08:00 Pulse Ox 99 05/07/17 08:00 Intake & Output 05/06/17 05/07/17 05/07/17 18:59 06:59 18:59 Intake Total 380 240 Output Total 1200 650 275 Balance -820 -650 -35 Weight 93.6 kg 93.6 kg Intake: Oral 380 240 Output: Urine 1200 650 275 Other: Voiding Method Urinal Urinal # Voids 2 # Bowel Movements 1 ABP, PAP, CO, CI - Last Documented Arterial Blood Pressure 112/54 Pulmonary Artery Pressure 39/21 Cardiac Output 6.6 Cardiac Index 3.5 - Exam General appearance: Present: cooperative, no acute distress - EENT Eyes: Present: anicteric sclerae, EOMI, PERRLA, normal appearance ENT: Present: hearing grossly normal, NA/AT, normal oropharynx - Neck Neck: Present: normal ROM. Absent: lymphadenopathy, other, rigidity, stridor, thyromegaly - Respiratory Respiratory: bilateral: CTA, diminished, negative: dullness, rales, rhonchi, wheezing, prolonged expiration, prolonged inspiration, other - Cardiovascular Rhythm: regular Heart sounds: normal: S1, S2 Abnormal Heart Sounds: Absent: systolic murmur, diastolic murmur, rub, S3 Gallop , S4 Gallop, click, other - Gastrointestinal General gastrointestinal: Present: normal bowel sounds, soft - Integumentary Integumentary: Present: normal, normal turgor - Neurologic Neurologic: Present: CNII-XII intact - Musculoskeletal Musculoskeletal: Present: strength equal bilaterally - Labs CBC & Chem 7: 05/08/17 05:53 05/08/17 05:53 Labs: Abnormal Lab Results - Last 24 Hours (Table) 05/01/17 05/01/17 05/01/17 Range/Units 08:40 10:04 10:37 WBC (3.8-10.6) k/uL RBC (4.30-5.90) m/uL Hgb (13.0-17.5) gm/dL Hct (39.0-53.0) % RDW (11.5-15.5) % Lymphocytes # (1.0-4.8) k/uL Eosinophils # (0-0.7) k/uL ABG pCO2 (35-45) mmHg ABG pO2 389 H 218 H 311 H (83-108) mmHg ABG Total CO2 27 H 26 H 26 H (19-24) mmol/L ABG O2 Saturation 100.0 H 99.7 H 99.9 H (94-97) % ABG Hematocrit 29 L 28 L (34.0-46.0) % ABG Potassium 4.8 H 5.1 H (3.4-4.5) mmol/L ABG Ionized Calcium 4.3 L 4.3 L (4.5-5.3) mg/dL ABG Glucose 132 H 164 H (75-99) mg/dL ABG Lactic Acid (0.5-1.6) mmol/L Hemoglobin 12.9 L 9.5 L 9.3 L (13.0-17.5) gm/dL BUN (9-20) mg/dL POC Glucose (mg/dL) (75-99) mg/dL Total Bilirubin (0.2-1.3) mg/dL Total Protein (6.3-8.2) g/dL Albumin (3.5-5.0) g/dL Arterial Blood Potassium 4.8 H 5.1 H (3.4-4.5) mmol/L Arterial Blood Glucose 132 H 164 H (75-99) mg/dL 05/01/17 05/01/17 05/01/17 Range/Units 11:28 11:57 13:04 WBC (3.8-10.6) k/uL RBC (4.30-5.90) m/uL Hgb (13.0-17.5) gm/dL Hct (39.0-53.0) % RDW (11.5-15.5) % Lymphocytes # (1.0-4.8) k/uL Eosinophils # (0-0.7) k/uL ABG pCO2 34 L (35-45) mmHg ABG pO2 262 H >420 H >420 H (83-108) mmHg ABG Total CO2 25 H (19-24) mmol/L ABG O2 Saturation 99.7 H 100.0 H 100.0 H (94-97) % ABG Hematocrit 27 L 28 L 23 L (34.0-46.0) % ABG Potassium 4.7 H (3.4-4.5) mmol/L ABG Ionized Calcium 4.1 L 4.3 L 3.6 L (4.5-5.3) mg/dL ABG Glucose 149 H 141 H 140 H (75-99) mg/dL ABG Lactic Acid 1.7 H 2.4 H* 2.3 H* (0.5-1.6) mmol/L Hemoglobin 8.7 L 9.1 L 7.5 L (13.0-17.5) gm/dL BUN (9-20) mg/dL POC Glucose (mg/dL) (75-99) mg/dL Total Bilirubin (0.2-1.3) mg/dL Total Protein (6.3-8.2) g/dL Albumin (3.5-5.0) g/dL Arterial Blood Potassium 4.7 H (3.4-4.5) mmol/L Arterial Blood Glucose 149 H 141 H 140 H (75-99) mg/dL 05/01/17 05/01/17 05/06/17 Range/Units 13:44 20:17 20:51 WBC (3.8-10.6) k/uL RBC (4.30-5.90) m/uL Hgb (13.0-17.5) gm/dL Hct (39.0-53.0) % RDW (11.5-15.5) % Lymphocytes # (1.0-4.8) k/uL Eosinophils # (0-0.7) k/uL ABG pCO2 34 L (35-45) mmHg ABG pO2 >420 H 412 H (83-108) mmHg ABG Total CO2 (19-24) mmol/L ABG O2 Saturation 100.0 H 100.0 H (94-97) % ABG Hematocrit 22 L 25 L (34.0-46.0) % ABG Potassium (3.4-4.5) mmol/L ABG Ionized Calcium 4.2 L 4.4 L (4.5-5.3) mg/dL ABG Glucose 126 H 200 H (75-99) mg/dL ABG Lactic Acid 2.5 H* (0.5-1.6) mmol/L Hemoglobin 7.1 L 8.0 L (13.0-17.5) gm/dL BUN (9-20) mg/dL POC Glucose (mg/dL) 115 H (75-99) mg/dL Total Bilirubin (0.2-1.3) mg/dL Total Protein (6.3-8.2) g/dL Albumin (3.5-5.0) g/dL Arterial Blood Potassium (3.4-4.5) mmol/L Arterial Blood Glucose 126 H 200 H (75-99) mg/dL 05/07/17 05/07/17 05/07/17 Range/Units 05:52 06:48 06:48 WBC 21.4 H (3.8-10.6) k/uL RBC 2.82 L (4.30-5.90) m/uL Hgb 8.7 L (13.0-17.5) gm/dL Hct 27.3 L (39.0-53.0) % RDW 17.2 H (11.5-15.5) % Lymphocytes # 12.5 H (1.0-4.8) k/uL Eosinophils # 0.9 H (0-0.7) k/uL ABG pCO2 (35-45) mmHg ABG pO2 (83-108) mmHg ABG Total CO2 (19-24) mmol/L ABG O2 Saturation (94-97) % ABG Hematocrit (34.0-46.0) % ABG Potassium (3.4-4.5) mmol/L ABG Ionized Calcium (4.5-5.3) mg/dL ABG Glucose (75-99) mg/dL ABG Lactic Acid (0.5-1.6) mmol/L Hemoglobin (13.0-17.5) gm/dL BUN 21 H (9-20) mg/dL POC Glucose (mg/dL) 107 H (75-99) mg/dL Total Bilirubin 2.0 H (0.2-1.3) mg/dL Total Protein 5.2 L (6.3-8.2) g/dL Albumin 3.1 L (3.5-5.0) g/dL Arterial Blood Potassium (3.4-4.5) mmol/L Arterial Blood Glucose (75-99) mg/dL Microbiology - Last 24 Hours (Table) 05/05/17 12:10 Urine Culture - Final Urine,Voided Assessment and Plan Plan: #1 aortic stenosis status post aortic valve replacement with bovine pericardial bioprosthesis, pain management per primary team. Continue DVT prophylaxis. Incentive spirometry to prevent any pneumonia or atelectasis. Continue with glucose control, with basal bolus, Levemir 5 units every morning, and scale. Will be transferred to inpatient rehab #2 history of CLL, stable #3 acute blood loss anemia with thrombocytopenia likely secondary expected consequence of blood loss during surgery and multiple transfusions. #4 coronary arteries disease status post stenting of RCA and LAD. Continue aspirin, Plavix, metoprolol 12.5 mg twice daily #5 acute transaminitis secondary to increased unconjugated bilirubin from multiple transfusions. stable #6 hypertension blood pressure is stable. Metoprolol 25mg BID #7 history of obstructive sleep apnea may benefit from CPAP overnight. stable #8 Acute hypoxic respiratory failure--expected with surgery with history of asthma moderate persistent. Continue DuoNeb as needed, #9 history of alpha-1 antitrypsin deficiency carrier, stable, on nebulized albuterol and Atrovent #10 GI prophylaxis with Protonix 40 mg daily 11. Postoperative paroxysmal atrial fibrillation, expected outcome of surgery. Patient is on amiodarone, metoprolol, eliquis. CODE STATUS full code Discharge plan: Inpatient rehab with Dr. Jay Impression and plan of care have been directed as dictated by the signing physician. Deirdre Powell nurse practitioner acting as scribe for signing physician.
[2017-05-08] MEDS: LISINOPRIL 2.5 MG TAB PO SCH (11:08)
--- NOTE | 2017-05-08 11:34 | P.PN ---
Subjective Progress Note Date: 05/08/17 Principal diagnosis: Aortic valve replacement This is a 71 years old male with past medical history of a severe aortic stenosis, history of TIA, history of coronary artery disease status post cardiac stents 3, history of COPD, history of sleep apnea on CPAP, history of CLL on conservative management, history of asthma, history of alpha-1 antitrypsin deficiency, hypertension, hyperlipidemia and admitted for an elective aortic valve replacement on 05/01. Patient was seen and examined this morning, continues to be in a normal sinus rhythm, occasional PVCs. Blood pressure 150/90, heart rate in the 80s. Arrangements are being made for possible transferred to rehab. Objective - Vital Signs Vital signs: Vital Signs Temp 97.4 F L 05/08/17 08:00 Pulse 80 05/08/17 08:40 Resp 16 05/08/17 08:00 BP 153/93 05/08/17 08:00 Pulse Ox 96 05/08/17 08:00 Intake & Output 05/07/17 05/08/17 05/08/17 18:59 06:59 18:59 Intake Total 840 240 Output Total 575 850 220 Balance 265 -850 20 Weight 93.6 kg 93.3 kg Intake: Oral 840 240 Output: Urine 575 850 220 Other: Voiding Method Urinal Urinal Toilet # Voids 1 # Bowel Movements 0 ABP, PAP, CO, CI - Last Documented Arterial Blood Pressure 112/54 Pulmonary Artery Pressure 39/21 Cardiac Output 6.6 Cardiac Index 3.5 - Exam PHYSICAL EXAMINATION: HEENT: Head is atraumatic, normocephalic. Pupils equal, round. Neck is supple. There is no elevated jugular venous pressure. HEART EXAMINATION: Heart S1, S2 normal. No murmur or gallop heard. CHEST EXAMINATION: Lungs are clear with mild diminished air entry to the bases. ABDOMEN: Soft, nontender. Bowel sounds are heard. No organomegaly noted. EXTREMITIES: 2+ peripheral pulses with no evidence of peripheral edema and no calf tenderness noted. NEUROLOGIC patient is awake, alert and oriented -3. . - Labs CBC & Chem 7: 05/08/17 05:53 05/08/17 05:53 Labs: Abnormal Lab Results - Last 24 Hours (Table) 05/01/17 05/01/17 05/01/17 Range/Units 08:40 10:04 10:37 WBC (3.8-10.6) k/uL RBC (4.30-5.90) m/uL Hgb (13.0-17.5) gm/dL Hct (39.0-53.0) % RDW (11.5-15.5) % Lymphocytes # (Manual) (1.0-4.8) k/uL Eosinophils # (Manual) (0-0.7) k/uL ABG pCO2 (35-45) mmHg ABG pO2 389 H 218 H 311 H (83-108) mmHg ABG Total CO2 27 H 26 H 26 H (19-24) mmol/L ABG O2 Saturation 100.0 H 99.7 H 99.9 H (94-97) % ABG Hematocrit 29 L 28 L (34.0-46.0) % ABG Potassium 4.8 H 5.1 H (3.4-4.5) mmol/L ABG Ionized Calcium 4.3 L 4.3 L (4.5-5.3) mg/dL ABG Glucose 132 H 164 H (75-99) mg/dL ABG Lactic Acid (0.5-1.6) mmol/L Hemoglobin 12.9 L 9.5 L 9.3 L (13.0-17.5) gm/dL Glucose (74-99) mg/dL POC Glucose (mg/dL) (75-99) mg/dL Total Bilirubin (0.2-1.3) mg/dL Total Protein (6.3-8.2) g/dL Albumin (3.5-5.0) g/dL Arterial Blood Potassium 4.8 H 5.1 H (3.4-4.5) mmol/L Arterial Blood Glucose 132 H 164 H (75-99) mg/dL 05/01/17 05/01/17 05/01/17 Range/Units 11:28 11:57 13:04 WBC (3.8-10.6) k/uL RBC (4.30-5.90) m/uL Hgb (13.0-17.5) gm/dL Hct (39.0-53.0) % RDW (11.5-15.5) % Lymphocytes # (Manual) (1.0-4.8) k/uL Eosinophils # (Manual) (0-0.7) k/uL ABG pCO2 34 L (35-45) mmHg ABG pO2 262 H >420 H >420 H (83-108) mmHg ABG Total CO2 25 H (19-24) mmol/L ABG O2 Saturation 99.7 H 100.0 H 100.0 H (94-97) % ABG Hematocrit 27 L 28 L 23 L (34.0-46.0) % ABG Potassium 4.7 H (3.4-4.5) mmol/L ABG Ionized Calcium 4.1 L 4.3 L 3.6 L (4.5-5.3) mg/dL ABG Glucose 149 H 141 H 140 H (75-99) mg/dL ABG Lactic Acid 1.7 H 2.4 H* 2.3 H* (0.5-1.6) mmol/L Hemoglobin 8.7 L 9.1 L 7.5 L (13.0-17.5) gm/dL Glucose (74-99) mg/dL POC Glucose (mg/dL) (75-99) mg/dL Total Bilirubin (0.2-1.3) mg/dL Total Protein (6.3-8.2) g/dL Albumin (3.5-5.0) g/dL Arterial Blood Potassium 4.7 H (3.4-4.5) mmol/L Arterial Blood Glucose 149 H 141 H 140 H (75-99) mg/dL 05/01/17 05/01/17 05/07/17 Range/Units 13:44 20:17 06:48 WBC (3.8-10.6) k/uL RBC 2.82 L (4.30-5.90) m/uL Hgb 8.7 L (13.0-17.5) gm/dL Hct 27.3 L (39.0-53.0) % RDW 17.2 H (11.5-15.5) % Lymphocytes # (Manual) (1.0-4.8) k/uL Eosinophils # (Manual) (0-0.7) k/uL ABG pCO2 34 L (35-45) mmHg ABG pO2 >420 H 412 H (83-108) mmHg ABG Total CO2 (19-24) mmol/L ABG O2 Saturation 100.0 H 100.0 H (94-97) % ABG Hematocrit 22 L 25 L (34.0-46.0) % ABG Potassium (3.4-4.5) mmol/L ABG Ionized Calcium 4.2 L 4.4 L (4.5-5.3) mg/dL ABG Glucose 126 H 200 H (75-99) mg/dL ABG Lactic Acid 2.5 H* (0.5-1.6) mmol/L Hemoglobin 7.1 L 8.0 L (13.0-17.5) gm/dL Glucose (74-99) mg/dL POC Glucose (mg/dL) (75-99) mg/dL Total Bilirubin (0.2-1.3) mg/dL Total Protein (6.3-8.2) g/dL Albumin (3.5-5.0) g/dL Arterial Blood Potassium (3.4-4.5) mmol/L Arterial Blood Glucose 126 H 200 H (75-99) mg/dL 05/07/17 05/08/17 05/08/17 Range/Units 21:21 05:53 05:53 WBC 21.3 H (3.8-10.6) k/uL RBC 2.90 L (4.30-5.90) m/uL Hgb 9.0 L (13.0-17.5) gm/dL Hct 27.9 L (39.0-53.0) % RDW 17.4 H (11.5-15.5) % Lymphocytes # (Manual) 14.48 H (1.0-4.8) k/uL Eosinophils # (Manual) 1.07 H (0-0.7) k/uL ABG pCO2 (35-45) mmHg ABG pO2 (83-108) mmHg ABG Total CO2 (19-24) mmol/L ABG O2 Saturation (94-97) % ABG Hematocrit (34.0-46.0) % ABG Potassium (3.4-4.5) mmol/L ABG Ionized Calcium (4.5-5.3) mg/dL ABG Glucose (75-99) mg/dL ABG Lactic Acid (0.5-1.6) mmol/L Hemoglobin (13.0-17.5) gm/dL Glucose 109 H (74-99) mg/dL POC Glucose (mg/dL) 162 H (75-99) mg/dL Total Bilirubin 1.4 H (0.2-1.3) mg/dL Total Protein 5.1 L (6.3-8.2) g/dL Albumin 3.0 L (3.5-5.0) g/dL Arterial Blood Potassium (3.4-4.5) mmol/L Arterial Blood Glucose (75-99) mg/dL 05/08/17 Range/Units 06:04 WBC (3.8-10.6) k/uL RBC (4.30-5.90) m/uL Hgb (13.0-17.5) gm/dL Hct (39.0-53.0) % RDW (11.5-15.5) % Lymphocytes # (Manual) (1.0-4.8) k/uL Eosinophils # (Manual) (0-0.7) k/uL ABG pCO2 (35-45) mmHg ABG pO2 (83-108) mmHg ABG Total CO2 (19-24) mmol/L ABG O2 Saturation (94-97) % ABG Hematocrit (34.0-46.0) % ABG Potassium (3.4-4.5) mmol/L ABG Ionized Calcium (4.5-5.3) mg/dL ABG Glucose (75-99) mg/dL ABG Lactic Acid (0.5-1.6) mmol/L Hemoglobin (13.0-17.5) gm/dL Glucose (74-99) mg/dL POC Glucose (mg/dL) 114 H (75-99) mg/dL Total Bilirubin (0.2-1.3) mg/dL Total Protein (6.3-8.2) g/dL Albumin (3.5-5.0) g/dL Arterial Blood Potassium (3.4-4.5) mmol/L Arterial Blood Glucose (75-99) mg/dL Assessment and Plan Plan: Assessment and plan #1 aortic stenosis status post aortic valve replacement with bovine pericardial bioprosthesis. #2 history of CLL #3 coronary artery disease with prior stenting of the RCA and LAD #4 hypertension # 5 sleep apnea #6 hyperlipidemia #7 history of CLL, stable Plan From cardiology's perspective, we will recommend to continue the patient on his current medications. Follow-up appointment will be made in the office post discharge. ARGENIS note has been reviewed, I agree with a documented findings and plan of care. Patient was seen and examined.
[2017-05-08 11:41] LABS: Glucose,Whole Blood 111 mg/dL (75-99)
--- NOTE | 2017-05-08 12:13 | P.PN ---
<Janny Lanier Comfort - Last Filed: 05/08/17 12:11> Subjective Progress Note Date: 05/08/17 HPI: This is a 71-year-old gentleman who presented to the hospital for aortic valve replacement. The patient underwent procedure and was subsequently transferred to the intensive care unit. He remains intubated and on Primacor. The patient did receive multiple blood products intraoperatively. He has a known history of CLL, chronically elevated right hemidiaphragm, hypertension, dyslipidemia, COPD, history of TIA. The patient's bleeding has improved. He is oxygenating well. His ABGs reviewed. 05/02/17-patient is being seen examined and evaluated today in the intensive care unit. Patient is currently being weaned from mechanical ventilation. His propofol is off he is opening his eyes and responds appropriately. Moves all 4 extremities. Weaning parameter ABGs have been obtained and reviewed. Patient will be extubated. His chest tubes are intact and draining appropriately serosanguineous drainage. The OG-tube has had minimal output. He is hemodynamically stable. He is making adequate urine. All labs at reports have been reviewed. 05/03/17-05/04/17- Please see Dr. Kyle Arreola notes 05/05/17- patient is being seen examined and evaluated and round. Is resting up in bed in the intensive care unit. Will be downgraded to the selective care unit when bed is available. She continues on 2 L of supplemental oxygen. Does not use home oxygen. He has been slowly weaned down. He has been participating in therapy and has been up ambulating in the hallways. Does have some intermittent shortness of breath with exertion however feels his breathing is relatively stable at this time. Denies any cough or congestion. 05/06/17- Please see Dr. Kyle Arreola note 05/07/17- patient is being seen examined and evaluated today on rounds. Apparently overnight patient did go into atrial fibrillation with rapid ventricular rate and was started on amiodarone drip. The patient has since converted to normal sinus mechanism. Cardiology is following the patient. He is resting up in bed on room air. Does have some shortness of breath with exertion however is improving. I'll labs and reports have been reviewed. 05/08/17- patient being seen examined and evaluated today on rounds. He is resting up in bed on room air. His chest x-ray was reviewed and does show that his bilateral pulmonary effusions are stable. He is afebrile denies any further complaints. Discharge planning in progress to inpatient rehab under way. Objective - Vital Signs Vital signs: Vital Signs Temp 97.4 F L 05/08/17 08:00 Pulse 80 05/08/17 08:40 Resp 16 05/08/17 08:00 BP 153/93 05/08/17 08:00 Pulse Ox 96 05/08/17 08:00 Intake & Output 05/07/17 05/08/17 05/08/17 18:59 06:59 18:59 Intake Total 840 240 Output Total 575 850 220 Balance 265 -850 20 Weight 93.6 kg 93.3 kg Intake: Oral 840 240 Output: Urine 575 850 220 Other: Voiding Method Urinal Urinal Toilet # Voids 1 # Bowel Movements 0 ABP, PAP, CO, CI - Last Documented Arterial Blood Pressure 112/54 Pulmonary Artery Pressure 39/21 Cardiac Output 6.6 Cardiac Index 3.5 - Exam Gen.: Alert resting up in bed Cardiovascular: Regular rate and rhythm, S1/S2 Lungs: Coarse bilaterally, improved bases diminished, Abdomen: Soft nontender nondistended positive bowel sounds Extremities: Trace edema Neuro: Awake, responds appropriately, moves all extremities - Labs CBC & Chem 7: 05/08/17 05:53 05/08/17 05:53 Labs: Abnormal Lab Results - Last 24 Hours (Table) 05/07/17 05/07/17 05/08/17 Range/Units 06:48 21:21 05:53 WBC 21.3 H (3.8-10.6) k/uL RBC 2.82 L 2.90 L (4.30-5.90) m/uL Hgb 8.7 L 9.0 L (13.0-17.5) gm/dL Hct 27.3 L 27.9 L (39.0-53.0) % RDW 17.2 H 17.4 H (11.5-15.5) % Lymphocytes # (Manual) 14.48 H (1.0-4.8) k/uL Eosinophils # (Manual) 1.07 H (0-0.7) k/uL Glucose (74-99) mg/dL POC Glucose (mg/dL) 162 H (75-99) mg/dL Total Bilirubin (0.2-1.3) mg/dL Total Protein (6.3-8.2) g/dL Albumin (3.5-5.0) g/dL 05/08/17 05/08/17 05/08/17 Range/Units 05:53 06:04 11:32 WBC (3.8-10.6) k/uL RBC (4.30-5.90) m/uL Hgb (13.0-17.5) gm/dL Hct (39.0-53.0) % RDW (11.5-15.5) % Lymphocytes # (Manual) (1.0-4.8) k/uL Eosinophils # (Manual) (0-0.7) k/uL Glucose 109 H (74-99) mg/dL POC Glucose (mg/dL) 114 H 111 H (75-99) mg/dL Total Bilirubin 1.4 H (0.2-1.3) mg/dL Total Protein 5.1 L (6.3-8.2) g/dL Albumin 3.0 L (3.5-5.0) g/dL Assessment and Plan Assessment: Status post aortic valve replacement CLL ABLA Thrombocytopenia Transaminitis Asthma, moderate persistent, not acutely exacerbated SARAH with CPAP - mild, AHI 10.9 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 Wean down oxygen as tolerated Singulair Pulmicort Duonebs Continue with cardiothoracic accommodations AM CXR Monitor for s/sx of bleeding Monitor H/H GI and DVT prophylaxis Patient will need CPAP after extubation due to SARAH Supplemental oxygen to maintain oxygen saturations greater than 92%. Incentive spirometer Increase activity as tolerated PT/OT, possible discharge planning for inpatient rehab I performed an examination of the patient and discussed their management with the nurse practitioner. I have reviewed the nurse practitioner's note and agree with the documented findings and plan of care. <Shereen Baker - Last Filed: 05/08/17 14:56> Objective - Vital Signs Vital signs: Vital Signs Temp 97.7 F 05/08/17 12:00 Pulse 88 05/08/17 12:35 Resp 16 05/08/17 12:00 BP 139/81 03/15/18 12:00 Pulse Ox 97 05/08/17 12:00 Intake & Output 05/07/17 05/08/17 05/08/17 18:59 06:59 18:59 Intake Total 840 290 Output Total 575 850 420 Balance 265 -850 -130 Weight 93.6 kg 93.3 kg Intake: Oral 840 290 Output: Urine 575 850 420 Other: Voiding Method Urinal Urinal Toilet # Voids 1 # Bowel Movements 0 ABP, PAP, CO, CI - Last Documented Arterial Blood Pressure 112/54 Pulmonary Artery Pressure 39/21 Cardiac Output 6.6 Cardiac Index 3.5 - Labs CBC & Chem 7: 05/08/17 05:53 05/08/17 05:53 Labs: Abnormal Lab Results - Last 24 Hours (Table) 05/07/17 05/08/17 05/08/17 Range/Units 21:21 05:53 05:53 WBC 21.3 H (3.8-10.6) k/uL RBC 2.90 L (4.30-5.90) m/uL Hgb 9.0 L (13.0-17.5) gm/dL Hct 27.9 L (39.0-53.0) % RDW 17.4 H (11.5-15.5) % Lymphocytes # (Manual) 14.48 H (1.0-4.8) k/uL Eosinophils # (Manual) 1.07 H (0-0.7) k/uL Glucose 109 H (74-99) mg/dL POC Glucose (mg/dL) 162 H (75-99) mg/dL Total Bilirubin 1.4 H (0.2-1.3) mg/dL Total Protein 5.1 L (6.3-8.2) g/dL Albumin 3.0 L (3.5-5.0) g/dL 05/08/17 05/08/17 Range/Units 06:04 11:32 WBC (3.8-10.6) k/uL RBC (4.30-5.90) m/uL Hgb (13.0-17.5) gm/dL Hct (39.0-53.0) % RDW (11.5-15.5) % Lymphocytes # (Manual) (1.0-4.8) k/uL Eosinophils # (Manual) (0-0.7) k/uL Glucose (74-99) mg/dL POC Glucose (mg/dL) 114 H 111 H (75-99) mg/dL Total Bilirubin (0.2-1.3) mg/dL Total Protein (6.3-8.2) g/dL Albumin (3.5-5.0) g/dL Assessment and Plan Assessment: Patient seen and examined. Respiratory status is stable. Okay to discharge from pulmonary standpoint to inpatient rehab. Thank you for this consultation Shereen Baker DO
--- NOTE | 2017-05-08 13:31 | P.PN ---
Subjective Progress Note Date: 05/08/17 71 years old male with past medical history of a severe ortic stenosis , history of TIA, history of coronary artery disease status post cardiac stents 3, history of COPD, history of sleep apnea on CPAP, history of CLL on conservative management, history of asthma, history of alpha-1 antitrypsin deficiency, hypertension, hyperlipidemia and admitted for an elective aortic valve replacement on 05/01. Patient was seen postoperatively at bedside. Patient is doing well is requiring 3-4 L of oxygen post extubation. Complains of some soreness in the chest but denies any significant chest pain, shortness of breath, abdominal pain nausea or vomiting. Patient is tachycardic to 101, blood pressure 115/64, slightly confused but is answering questions appropriately. Patient received multiple units of transfusion including RBC, platelets, cryoprecipitate due to significant bleeding from generalized coagulopathy intraoperatively. According to documentation patient bleed profusely during the surgery with defficulty to maintain hemostasis. Patient received 6 units of platelets and 2 units of FFP , 1.5 L of cell saver blood, 4 units of RBCs in total. Preoperative labs from 04/23 were concerning for leukocytosis for which patient was followed by oncology and patient was diagnosed with CLL. Labs obtained on 05/01 suggested a WBC of 6.7, hemoglobin dropped from 14.8 to 7.5, drop of platelets from 203 to 88 increased. The liver function test with AST 298, AST 114, alkaline phosphatase 46. Total bilirubin 4.0. fibrinogen was low but repeat was normal. Patient's lab findings are concerning for hemolytic anemia. There is some improvement in the platelets on the repeat labs. Transfusion reaction ordered. Unclear why patient was profusely bleeding with rapid drop in his counts. Will discuss with hematology Dr. holman as patient has h/o CLL. 05/03: Patient remains in ICU, patient has some nausea and dry heaving, and has hiccups, Does Not Have Any Significant Chest Pain, No Aspirated Events Patient Continues on Amiodarone Drip and Insulin Drip, Has Bilateral Chest Tubes in Place, Draining to Low Continuous Suction,, on amiodarone drip, and insulin drip. Patient has been extubated 05/04: Patient remains in ICU, and has folic acid out today, remains on insulin drip meals are currently at 50%, he Has Improved, [address], Vitals Are Stable with a Pulse Ox at 92% 2 L, patient is on Arixtra, transitioned to oral Cordarone, and pre-meal basal bolus transitioned today 05/05: patient was evaluated today. His noted to be sitting up in his chair, reports he is doing well and has no major complaints. WBC noted to be elevated at 19.2, will obtain sputum culture, UA with reflex to culture to rule out any infection. Repeat chest x-ray shows marked improvement, persistent small right pleural effusion and right hemidiaphragm elevation. He'll be transferred out of the ICU today. 05/06: Patient was up walking the halls without difficulty today, he is doing well. The patient will be transferred to inpatient rehab today. Patient's white count increased from yesterday to 22.8, he remains afebrile, UA was clear , chest x-ray shows small left pleural effusion slightly increased, sputum culture still pending. Encouraged to use incentive spirometer. 05/07: Patient had another episode of atrial fibrillation with RVR on the evening of May 06 and continued on oral amiodarone and Lopressor. Patient is in a sinus rhythm. Patient has been started on eliquis today. Patient denies any complaints at this time and is anxious to start rehab. Patient's discharge plan is to go to [facility] on the care of Dr. Jay 05/08: Repeat chest x-ray shows bilateral pleural effusions, stable. Patient had runs of PVCs this morning but otherwise has been in a normal sinus rhythm running in the 80s. White count is 21.3, hemoglobin 9, platelet count is 237. Consult added for Dr. Holman for leukocytosis. Question about whether patient has CLL. Patient is anticipating discharge to rehab at [facility]. Objective - Vital Signs Vital signs: Vital Signs Temp 97.8 F 05/08/17 03:47 Pulse 80 05/08/17 08:40 Resp 16 05/08/17 03:48 BP 133/80 05/08/17 03:47 Pulse Ox 93 L 05/08/17 03:47 Intake & Output 05/07/17 05/08/17 05/08/17 18:59 06:59 18:59 Intake Total 840 240 Output Total 575 850 220 Balance 265 -850 20 Weight 93.6 kg 93.3 kg Intake: Oral 840 240 Output: Urine 575 850 220 Other: Voiding Method Urinal Urinal # Voids 1 # Bowel Movements 0 ABP, PAP, CO, CI - Last Documented Arterial Blood Pressure 112/54 Pulmonary Artery Pressure 39/21 Cardiac Output 6.6 Cardiac Index 3.5 - Exam General appearance: Present: cooperative, no acute distress - EENT Eyes: Present: anicteric sclerae, EOMI, PERRLA, normal appearance ENT: Present: hearing grossly normal, NA/AT, normal oropharynx - Neck Neck: Present: normal ROM. Absent: lymphadenopathy, other, rigidity, stridor, thyromegaly - Respiratory Respiratory: bilateral: CTA, diminished, negative: dullness, rales, rhonchi, wheezing, prolonged expiration, prolonged inspiration, other - Cardiovascular Rhythm: regular Heart sounds: normal: S1, S2 Abnormal Heart Sounds: Absent: systolic murmur, diastolic murmur, rub, S3 Gallop , S4 Gallop, click, other - Gastrointestinal General gastrointestinal: Present: normal bowel sounds, soft - Integumentary Integumentary: Present: normal, normal turgor - Neurologic Neurologic: Present: CNII-XII intact - Musculoskeletal Musculoskeletal: Present: strength equal bilaterally - Labs CBC & Chem 7: 05/08/17 05:53 05/08/17 05:53 Labs: Abnormal Lab Results - Last 24 Hours (Table) 05/01/17 05/01/17 05/01/17 Range/Units 08:40 10:04 10:37 WBC (3.8-10.6) k/uL RBC (4.30-5.90) m/uL Hgb (13.0-17.5) gm/dL Hct (39.0-53.0) % RDW (11.5-15.5) % Lymphocytes # (Manual) (1.0-4.8) k/uL Eosinophils # (Manual) (0-0.7) k/uL ABG pCO2 (35-45) mmHg ABG pO2 389 H 218 H 311 H (83-108) mmHg ABG Total CO2 27 H 26 H 26 H (19-24) mmol/L ABG O2 Saturation 100.0 H 99.7 H 99.9 H (94-97) % ABG Hematocrit 29 L 28 L (34.0-46.0) % ABG Potassium 4.8 H 5.1 H (3.4-4.5) mmol/L ABG Ionized Calcium 4.3 L 4.3 L (4.5-5.3) mg/dL ABG Glucose 132 H 164 H (75-99) mg/dL ABG Lactic Acid (0.5-1.6) mmol/L Hemoglobin 12.9 L 9.5 L 9.3 L (13.0-17.5) gm/dL Glucose (74-99) mg/dL POC Glucose (mg/dL) (75-99) mg/dL Total Bilirubin (0.2-1.3) mg/dL Total Protein (6.3-8.2) g/dL Albumin (3.5-5.0) g/dL Arterial Blood Potassium 4.8 H 5.1 H (3.4-4.5) mmol/L Arterial Blood Glucose 132 H 164 H (75-99) mg/dL 05/01/17 05/01/17 05/01/17 Range/Units 11:28 11:57 13:04 WBC (3.8-10.6) k/uL RBC (4.30-5.90) m/uL Hgb (13.0-17.5) gm/dL Hct (39.0-53.0) % RDW (11.5-15.5) % Lymphocytes # (Manual) (1.0-4.8) k/uL Eosinophils # (Manual) (0-0.7) k/uL ABG pCO2 34 L (35-45) mmHg ABG pO2 262 H >420 H >420 H (83-108) mmHg ABG Total CO2 25 H (19-24) mmol/L ABG O2 Saturation 99.7 H 100.0 H 100.0 H (94-97) % ABG Hematocrit 27 L 28 L 23 L (34.0-46.0) % ABG Potassium 4.7 H (3.4-4.5) mmol/L ABG Ionized Calcium 4.1 L 4.3 L 3.6 L (4.5-5.3) mg/dL ABG Glucose 149 H 141 H 140 H (75-99) mg/dL ABG Lactic Acid 1.7 H 2.4 H* 2.3 H* (0.5-1.6) mmol/L Hemoglobin 8.7 L 9.1 L 7.5 L (13.0-17.5) gm/dL Glucose (74-99) mg/dL POC Glucose (mg/dL) (75-99) mg/dL Total Bilirubin (0.2-1.3) mg/dL Total Protein (6.3-8.2) g/dL Albumin (3.5-5.0) g/dL Arterial Blood Potassium 4.7 H (3.4-4.5) mmol/L Arterial Blood Glucose 149 H 141 H 140 H (75-99) mg/dL 05/01/17 05/01/17 05/07/17 Range/Units 13:44 20:17 06:48 WBC (3.8-10.6) k/uL RBC 2.82 L (4.30-5.90) m/uL Hgb 8.7 L (13.0-17.5) gm/dL Hct 27.3 L (39.0-53.0) % RDW 17.2 H (11.5-15.5) % Lymphocytes # (Manual) (1.0-4.8) k/uL Eosinophils # (Manual) (0-0.7) k/uL ABG pCO2 34 L (35-45) mmHg ABG pO2 >420 H 412 H (83-108) mmHg ABG Total CO2 (19-24) mmol/L ABG O2 Saturation 100.0 H 100.0 H (94-97) % ABG Hematocrit 22 L 25 L (34.0-46.0) % ABG Potassium (3.4-4.5) mmol/L ABG Ionized Calcium 4.2 L 4.4 L (4.5-5.3) mg/dL ABG Glucose 126 H 200 H (75-99) mg/dL ABG Lactic Acid 2.5 H* (0.5-1.6) mmol/L Hemoglobin 7.1 L 8.0 L (13.0-17.5) gm/dL Glucose (74-99) mg/dL POC Glucose (mg/dL) (75-99) mg/dL Total Bilirubin (0.2-1.3) mg/dL Total Protein (6.3-8.2) g/dL Albumin (3.5-5.0) g/dL Arterial Blood Potassium (3.4-4.5) mmol/L Arterial Blood Glucose 126 H 200 H (75-99) mg/dL 05/07/17 05/08/17 05/08/17 Range/Units 21:21 05:53 05:53 WBC 21.3 H (3.8-10.6) k/uL RBC 2.90 L (4.30-5.90) m/uL Hgb 9.0 L (13.0-17.5) gm/dL Hct 27.9 L (39.0-53.0) % RDW 17.4 H (11.5-15.5) % Lymphocytes # (Manual) 14.48 H (1.0-4.8) k/uL Eosinophils # (Manual) 1.07 H (0-0.7) k/uL ABG pCO2 (35-45) mmHg ABG pO2 (83-108) mmHg ABG Total CO2 (19-24) mmol/L ABG O2 Saturation (94-97) % ABG Hematocrit (34.0-46.0) % ABG Potassium (3.4-4.5) mmol/L ABG Ionized Calcium (4.5-5.3) mg/dL ABG Glucose (75-99) mg/dL ABG Lactic Acid (0.5-1.6) mmol/L Hemoglobin (13.0-17.5) gm/dL Glucose 109 H (74-99) mg/dL POC Glucose (mg/dL) 162 H (75-99) mg/dL Total Bilirubin 1.4 H (0.2-1.3) mg/dL Total Protein 5.1 L (6.3-8.2) g/dL Albumin 3.0 L (3.5-5.0) g/dL Arterial Blood Potassium (3.4-4.5) mmol/L Arterial Blood Glucose (75-99) mg/dL 05/08/17 Range/Units 06:04 WBC (3.8-10.6) k/uL RBC (4.30-5.90) m/uL Hgb (13.0-17.5) gm/dL Hct (39.0-53.0) % RDW (11.5-15.5) % Lymphocytes # (Manual) (1.0-4.8) k/uL Eosinophils # (Manual) (0-0.7) k/uL ABG pCO2 (35-45) mmHg ABG pO2 (83-108) mmHg ABG Total CO2 (19-24) mmol/L ABG O2 Saturation (94-97) % ABG Hematocrit (34.0-46.0) % ABG Potassium (3.4-4.5) mmol/L ABG Ionized Calcium (4.5-5.3) mg/dL ABG Glucose (75-99) mg/dL ABG Lactic Acid (0.5-1.6) mmol/L Hemoglobin (13.0-17.5) gm/dL Glucose (74-99) mg/dL POC Glucose (mg/dL) 114 H (75-99) mg/dL Total Bilirubin (0.2-1.3) mg/dL Total Protein (6.3-8.2) g/dL Albumin (3.5-5.0) g/dL Arterial Blood Potassium (3.4-4.5) mmol/L Arterial Blood Glucose (75-99) mg/dL Assessment and Plan Plan: #1 aortic stenosis status post aortic valve replacement with bovine pericardial bioprosthesis, pain management per primary team. Continue DVT prophylaxis. Incentive spirometry to prevent any pneumonia or atelectasis. Continue with glucose control, with basal bolus, Levemir 5 units every morning, and scale. Will be transferred to inpatient rehab #2 history of CLL, stable #3 acute blood loss anemia with thrombocytopenia likely secondary expected consequence of blood loss during surgery and multiple transfusions. #4 coronary arteries disease status post stenting of RCA and LAD. Continue aspirin, Plavix, metoprolol 12.5 mg twice daily #5 acute transaminitis secondary to increased unconjugated bilirubin from multiple transfusions. stable #6 hypertension blood pressure is stable. Metoprolol 25mg BID #7 history of obstructive sleep apnea may benefit from CPAP overnight. stable #8 Acute hypoxic respiratory failure--expected with surgery with history of asthma moderate persistent. Continue DuoNeb as needed, #9 history of alpha-1 antitrypsin deficiency carrier, stable, on nebulized albuterol and Atrovent #10 GI prophylaxis with Protonix 40 mg daily 11. Postoperative paroxysmal atrial fibrillation, expected outcome of surgery. Patient is on amiodarone, metoprolol, eliquis. 12. Leukocytosis. Consult with Dr. Holman. CODE STATUS full code Discharge plan: Inpatient rehab with Dr. Jay Impression and plan of care have been directed as dictated by the signing physician. Deirdre Powell nurse practitioner acting as scribe for signing physician.
--- NOTE | 2017-05-08 15:55 | P.DS ---
Providers Date of admission: 05/01/17 05:33 Expected date of discharge: 05/08/17 Attending physician: Claire Villafuerte Consults: 05/01/17 14:22 Consult Physician Routine Consulting Provider: Chadd Stuart Consult Reason/Comments: medical management Do you want consulting provider notified?: Yes Consult Physician Routine Consulting Provider: Patrick Ricardo Consult Reason/Comments: [employer] Gatherer Consult: post cardiac surgery Do you want consulting provider notified?: Yes Consult Physician Routine Consulting Provider: Shereen Baker Consult Reason/Comments: President And Chief Executive Officer Consult: post cardiac surgery Do you want consulting provider notified?: Yes 05/02/17 15:55 Consult Physician Routine Consulting Provider: Xavier Holman Consult Reason/Comments: h/o CLL. concern for hemolysis post transfusions Do you want consulting provider notified?: Yes 05/03/17 15:48 Consult Physician Routine Consulting Provider: Eulogio Jay Consult Reason/Comments: medical debility Do you want consulting provider notified?: Yes 05/08/17 11:51 Consult Physician Routine Consulting Provider: Xavier Holman Consult Reason/Comments: leukocytosis Do you want consulting provider notified?: Yes Primary care physician: Chadd Stuart - Discharge Diagnosis(es) (1) Severe aortic valve stenosis Current Visit: Yes Status: Chronic (2) Chronic lymphocytic leukemia Current Visit: Yes Status: Chronic (3) History of coronary artery stent placement Current Visit: Yes Status: Chronic (4) Hypertension Current Visit: Yes Status: Chronic (5) Hyperlipidemia Current Visit: Yes Status: Chronic (6) GERD (gastroesophageal reflux disease) Current Visit: Yes Status: Chronic (7) COPD (chronic obstructive pulmonary disease) Current Visit: Yes Status: Chronic (8) History of psoriasis Current Visit: Yes Status: Chronic (9) History of TIA (transient ischemic attack) Current Visit: No Status: Resolved (10) Postoperative atrial fibrillation Current Visit: Yes Status: Acute Hospital Course: FINAL DIAGNOSIS: 1. Severe aortic valve stenosis 2. Recently diagnosed chronic lymphocytic leukemia 3. History of coronary artery disease with stent placement to his right coronary artery and left anterior descending coronary artery with no flow limiting lesion at this point 4. Preserved left ventricular function with an ejection fraction of 55% on his most recent transesophageal echocardiogram 5. Chronically elevated right hemidiaphragm 6. Hypertension 7. Hyperlipidemia 8. Chronic obstructive pulmonary disease with a FEV1 of 58% of predicted 9. History of psoriasis 10. History of TIA 11. Postoperative paroxysmal atrial fibrillation an expected outcome of surgery 12. Postoperative acute blood loss anemia an expected outcome of surgery 13. History of alpha-1 antitrypsin deficiency carrier PRINCIPAL PROCEDURE: 1. elective aortic valve replacement using a #25 Magna ease bovine pericardial bioprosthesis. 2. intraoperative transesophageal echocardiogram and epi-aortic scanning. 3. redo sternotomy, exploration of the mediastinum, evacuation of clot and control of bleeding. HISTORY OF PRESENT ILLNESS: This is a 71-year-old gentleman who is followed by Dr. Chadd Stuart on an outpatient basis. Patient has a past medical history significant for severe aortic valve stenosis, recently diagnosed chronic lymphocytic leukemia, history of coronary artery disease with previous stent placement to his right coronary artery and left anterior descending coronary artery, chronically elevated right hemidiaphragm, hypertension, hyperlipidemia, chronic obstructive pulmonary disease, history of psoriasis, history of TIA, and a history of alpha-1 antitrypsin deficiency carrier. The patient has denied any chest discomfort but has had progressive exertional dyspnea which has progressively been getting worse. He also complains of feeling tired and fatigued. Subsequently, the patient had recently undergone a 2-D echocardiogram which revealed a normal left ventricular function with left ventricular hypertrophy and evidence of moderate aortic insufficiency and severe aortic valve stenosis. His peak gradient across his aortic valve was 60 mmHg and his mean gradient was 40 mmHg. For further evaluation the patient underwent a transesophageal echocardiogram and a cardiac catheterization on . His cardiac catheterization results demonstrated the stents to his right coronary artery and left anterior descending artery were patent. The transesophageal echocardiogram showed evidence of severe aortic stenosis as well as moderate aortic insufficiency. Due to the patient's progressive shortness of breath and VICENTE results showing severe aortic stenosis and a consult was placed for Dr. Claire Villafeurte from cardiothoracic surgery. Dr. Villafuerte discuss the results with the patient and his family and an elective aortic valve replacement was recommended. HOSPITAL COURSE: the patient was admitted to the hospital and after obtaining consent he was taken to the operating room where Dr. Claire Villafuerte performed an elective aortic valve replacement using a #25 Magna ease bovine pericardial bioprosthesis. The patient also underwent an intraoperative transesophageal echocardiogram and epi-aortic scanning. Subsequently the patient was transferred to the cardiovascular intensive care unit where he had somewhat of a stormy initial recovery. He was taken back to the operating room for a redo sternotomy and exploration of the mediastinum, and evacuation of clot and control of bleeding. The patient was transferred back to the cardiovascular intensive care unit where he was recovered, monitored hemodynamically, and where he progressed to cardiac rehabilitation phase 1. He was extubated, all his lines, tubes and drips were discontinued when appropriate and he was transferred to [address] [place] [address] for further monitoring and rehabilitation. His oxygen was eventually titrated down, he continued to work with physical therapy and occupational therapy and was ready to be discharged home on postoperative day #7. Postoperatively the patient did have some paroxysmal atrial fibrillation which was treated accordingly. The patient has received written and verbal instructions regarding his medications, activity restrictions , signs and symptoms requiring physician notification and follow-up appointments. COMPLICATIONS: His postoperative period was complicated by some postoperative bleeding requiring redo sternotomy with exploration of the mediastinum, evacuation of clot and control of bleeding. His postoperative period was also complicated by some paroxysmal atrial fibrillation which was treated accordingly. CONSULTATIONS: 1. Dr. Saunders for cardiology management. 2. Dr. Stuart for medical management. 3. Dr. Baker for pulmonary and ventilator management. DISCHARGE INSTRUCTIONS: 1. No driving for 4 weeks, or until physician gives their ok. 2. The patient should sleep in their own bed, no medical bed needed. 3. Stairs are not an issue. If the bedroom is upstairs, it is advised that the patient go up at night and down in the morning for the first week. Go slowly, using handrail and take 1 step at a time. 4. PHILIP hose are to be worn for 30 days or until physician discontinues. 5. Heart hugger is to be worn 100% of the time until physician discontinues.( except when showering) 6. No lifting, pushing, or pulling more than 10 pounds for 12 weeks. The physician will advise of any restriction changes. 7. The patient is expected to continue the prescribed walking program. 8. Continue pain control per as needed orders. 9. Continue with incentive spirometry and splinting/heart hugger until otherwise directed by the physician. 10. Must shower daily using liquid antibacterial soap and a separate white washcloth for each individual incision. 11. Routine sternal incision care, no ointments, lotions or powders on the incisions. 12. Please notify surgeon/nurse practitioner for temperature greater than 101F or purulent drainage from incisions 13. Prescriptions for first 30 days given per cardiac surgery service. After 30 days, all prescription refills obtained through cardiology/primary care physician. 14. Physical therapy and occupational therapy to evaluate and treat. REHAB SERVICES TO PROVIDE: RN SKILLED CARE SERVICES FOR POST-OP SURGICAL PATIENTS WITH THE FOLLOWING: Coronary Artery Bypass Surgery (CABG), Mitral Valve Replacement/Repair ( MVR), Aortic Valve Replacement/Repair (AVR) RN TO CONTINUE EDUCATION FROM ``ROAD TO A HEALTH HEART PATIENT EDUCATION MANUAL" (GIVEN TO PATIENT IN THE HOSPITAL) MEDICATION RECONCILIATION WITH EDUCATION NEEDED ON FIRST HOME VISIT EMPHASIZE IMPORTANCE OF WEARING BREAST SUPPORT/HEART HUGGER ENCOURAGE USE OF INCENTIVE SPIROMETER 10 X EVERY HOUR WHILE AWAKE ENCOURAGE UTILIZATION OF LOWER EXTREMITY COMPRESSION STOCKINGS/PHILIP HOSE and ELEVATE LEGS ABOVE LEVEL OF HEART WHILE AT REST. ENCOURAGE AMBULATION 3-5x/day INCREASING TOLERATES, WHILE AVOID EXTREMES IN TEMPERATURE FREQUENCY: RN TO OPEN THE PATIENT WITHIN 24 HOURS OF DISCHARGE FROM THE HOSPITAL WITH TELEHEALTH INSTALLED AT [facility] [place], RN TO VISIT 2-3 X A WEEK FOR 4 WEEKS ESTABLISHED BY PATIENT NEEDS. REMOVAL OF SUTURES: NURSING SERVICES TO REMOVE SUTURES TWO WEEKS POST SURGICAL DATE 05/15/2017. If any questions regarding suture removal please call the office at [phone]. LABORATORY: CBC, CMP TO BE DRAWN ON THE THIRD DAY HOME, 05/11/2017 RAN STAT) FAX RESULTS TO [phone]. TELEHEALTH PARAMETERS: WEIGHT: NOTIFY MD OF WEIGHT GAIN OF 2 LBS IN 24 HOURS OR 5 LBS IN ONE WEEK HR: NOTIFY MD OF HR <55 BPM OR HR>100 BPM BP: NOTIFY MD IF BP <90/55 OR BP>140/100 O2 SAT: NOTIFY MD IF PO2<93% ON ROOM AIR SEND TELEHEALTH REPORT TO RADIATION SAFETY OFFICER AND CARDIOVASCULAR SURGEON THE FIRST WEEK OF CARE AND THEN BI-WEEKLY. PLEASE ADDITIONALLY COMMUNICATE ANY ABNORMALS AND NEW FINDINGS TO THE SURGEONS OFFICE. Plan - Discharge Summary Discharge Rx Participant: Yes New Discharge Prescriptions: New Albuterol Nebulized [Ventolin Nebulized] 2.5 mg INHALATION RT-QID PRN nebu PRN Reason: Shortness Of Breath Or Wheezing Bisacodyl [Dulcolax] 10 mg RECTAL DAILY PRN supp PRN Reason: Constipation Budesonide [Pulmicort] 0.5 mg INHALATION RT-BID nebu HYDROcodone/APAP 5-325MG [[place] 5-325] 1 each PO Q4HR PRN #0 tab PRN Reason: Moderate Pain Insulin Aspart [NovoLOG (formulary)] 2 unit SQ AC-TID vial Magnesium Hydroxide [Milk of Magnesia Concentrate] 2,400 mg PO BID PRN ml PRN Reason: Constipation Metoprolol Tartrate [Lopressor] 25 mg PO BID tab Montelukast [Singulair] 10 mg OG-TUBE HS tab Sennosides-Docusate Sodium [Senokot-S] 2 each PO HS tab Apixaban [Eliquis] 5 mg PO BID tab Aspirin 81 mg PO DAILY chew Atorvastatin [Lipitor] 40 mg PO DAILY tab Lisinopril [Zestril] 2.5 mg PO DAILY@1200 tab Continue Famotidine [Pepcid] 20 mg PO QAM Citalopram Hydrobromide [CeleXA] 20 mg PO HS Montelukast [Singulair] 10 mg PO HS Fluticasone Nasal [place] [Flonase Nasal [place]] 1 spray EA NOSTRIL DAILY guaiFENesin [Mucinex] 600 mg PO HS PRN PRN Reason: Congestion Discontinued Nitroglycerin Sl Tabs [Nitrostat] 0.4 mg SUBLINGUAL Q5M PRN PRN Reason: Chest Pain Clopidogrel [Plavix] 75 mg PO QAM Lisinopril [Zestril] 2.5 mg PO HS Atorvastatin Calcium [Lipitor] 40 mg PO HS Aspirin 81 mg PO QAM Albuterol Sulfate [Proair Hfa] 2 puff INHALATION RT-QID PRN PRN Reason: Dyspnea Beclomethasone Dipropionate [Qvar 80 mcg/puff] 1 puff INHALATION RT-BID Metoprolol Tartrate [Lopressor] 12.5 mg PO BID Discharge Medication List Citalopram Hydrobromide [CeleXA] 20 mg PO HS 07/28/13 [History] Famotidine [Pepcid] 20 mg PO QAM 07/28/13 [History] Montelukast [Singulair] 10 mg PO HS 08/02/13 [History] Fluticasone Nasal [place] [Flonase Nasal [place]] 1 spray EA NOSTRIL DAILY 05/12/17 [History] guaiFENesin [Mucinex] 600 mg PO HS PRN 04/24/17 [History] Albuterol Nebulized [Ventolin Nebulized] 2.5 mg INHALATION RT-QID PRN nebu [Rx] Bisacodyl [Dulcolax] 10 mg RECTAL DAILY PRN supp 05/06/17 [Rx] Budesonide [Pulmicort] 0.5 mg INHALATION RT-BID nebu 05/06/17 [Rx] HYDROcodone/APAP 5-325MG [[place] 5-325] 1 each PO Q4HR PRN #0 tab 05/06/17 [Rx] Insulin Aspart [NovoLOG (formulary)] 2 unit SQ AC-TID vial 05/06/17 [Rx] Magnesium Hydroxide [Milk of Magnesia Concentrate] 2,400 mg PO BID PRN ml 05/06 [Rx] Metoprolol Tartrate [Lopressor] 25 mg PO BID tab 05/06/17 [Rx] Montelukast [Singulair] 10 mg OG-TUBE HS tab 05/06/17 [Rx] Sennosides-Docusate Sodium [Senokot-S] 2 each PO HS tab 05/06/17 [Rx] Apixaban [Eliquis] 5 mg PO BID tab 05/08/17 [Rx] Aspirin 81 mg PO DAILY chew 05/08/17 [Rx] Atorvastatin [Lipitor] 40 mg PO DAILY tab 05/08/17 [Rx] Lisinopril [Zestril] 2.5 mg PO DAILY@1200 tab 05/08/17 [Rx] Follow up Appointment(s)/Referral(s): Patrick Ricardo MD [STAFF PHYSICIAN] - 05/20/17 2:45 pm Claire Villafuerte MD [STAFF PHYSICIAN] - 05/30/17 10:00 am Chadd Stuart MD [Primary Care Provider] - 05/22/17 10:30 am Shereen Baker DO [Doctor of Osteopathic Medicine] - 05/23/17 10:45 am Ambulatory/Diagnostic Orders: Complete Blood Count w/diff [LAB.AMB] Time Frame: 05/11/17, Facility: [facility], Location: [facility] Comprehensive Metabolic Panel [LAB.AMB] Time Frame: 05/11/17, Facility: [facility], Location: [facility] Discharge Disposition: TRANSFER TO SNF/ECF
[2017-05-08 16:00] VITALS: BP 132/78; TEMP 96.4
[2017-05-08 16:13] VITALS: PULSE 92
[2017-05-08 16:36] LABS: Glucose,Whole Blood 89 mg/dL (75-99)
== END 2017-05-08 17:07 | DRG 219 ==
LOC: 2ORMAIN 05-01 05:33 → 6ICU 05-01 13:59 → 6SEL 05-05 13:53
PROVIDERS: ADMIT Surgery; ATTEND Surgery
PROC: 0W3C0ZZ Control Bleeding in Mediastinum, Open Approach (ICD-10-PCS; 2017-05-01)
PROC: B24BZZ4 Ultrasonography of Heart with Aorta, Transesophageal (ICD-10-PCS; 2017-05-01)
PROC: 30243K1 Transfusion of Nonautologous Frozen Plasma into Central Vein, Percutaneous Approach (ICD-10-PCS; 2017-05-01)
PROC: 30243N1 Transfusion of Nonautologous Red Blood Cells into Central Vein, Percutaneous Approach (ICD-10-PCS; 2017-05-01)
PROC: 30243R1 Transfusion of Nonautologous Platelets into Central Vein, Percutaneous Approach (ICD-10-PCS; 2017-05-01)
PROC: 30243M1 Transfusion of Nonautologous Plasma Cryoprecipitate into Central Vein, Percutaneous Approach (ICD-10-PCS; 2017-05-01)
PROC: 02RF08Z Replacement of Aortic Valve with Zooplastic Tissue, Open Approach (ICD-10-PCS; principal; 2017-05-01 08:00)
PROC: 0W9C0ZZ Drainage of Mediastinum, Open Approach (ICD-10-PCS; 2017-05-01 08:00)
DX: I35.2 Nonrheumatic aortic (valve) stenosis with insufficiency (principal); D65 Disseminated intravascular coagulation [defibrination syndrome]; J90 Pleural effusion, not elsewhere classified; C91.10 Chronic lymphocytic leukemia of B-cell type not having achieved remission; D62 Acute posthemorrhagic anemia; J98.11 Atelectasis; E88.01 Alpha-1-antitrypsin deficiency; J44.9 Chronic obstructive pulmonary disease, unspecified; I48.0 Paroxysmal atrial fibrillation; E66.9 Obesity, unspecified; E78.5 Hyperlipidemia, unspecified; G47.33 Obstructive sleep apnea (adult) (pediatric); I10 Essential (primary) hypertension; I25.10 Atherosclerotic heart disease of native coronary artery without angina pectoris; I49.3 Ventricular premature depolarization; J45.40 Moderate persistent asthma, uncomplicated; K21.9 Gastro-esophageal reflux disease without esophagitis; L40.9 Psoriasis, unspecified; R06.6 Hiccough; R74.0 Nonspecific elevation of levels of transaminase and lactic acid dehydrogenase [LDH]; J98.6 Disorders of diaphragm; Z79.02 Long term (current) use of antithrombotics/antiplatelets; Z79.82 Long term (current) use of aspirin; Z79.899 Other long term (current) drug therapy; Z86.73 Personal history of transient ischemic attack (TIA), and cerebral infarction without residual deficits; Z87.891 Personal history of nicotine dependence; Z95.5 Presence of coronary angioplasty implant and graft; Z68.31 Body mass index [BMI] 31.0-31.9, adult; Z82.49 Family history of ischemic heart disease and other diseases of the circulatory system
CPT/HCPCS: 36430; 71045; 71046; 80053; 81003; 82248; 82330; 82805; 83010; 83036; 83615; 83735; 84100; 84132; 85025; 85045; 85384; 85520; 85610; 85730; 86850; 86880; 86891; 86900; 86901; 86920; 87086; 88305; 88311; 94002; 94003; 94640; 94760

== ENCOUNTER → 2017-09-23 | Outpatient (CLI) | payer MEDICARE ==
--- NOTE | 2017-09-23 17:07 | XR ---
EXAMINATION TYPE: XR chest 2V DATE OF EXAM: 09/23/2017 COMPARISON: 05/08/2017 HISTORY: 71-year-old male with dyspnea and shortness of breath TECHNIQUE: Frontal and lateral views FINDINGS: Sternotomy wires are present with prosthetic aortic valve. Heart normal size. Pulmonary vasculature w ithin normal limits. Small to moderate bilateral pleural effusions with bibasilar opacities. Effusion s are slightly increased from 05/08/2017. IMPRESSION: [id number] bilateral pleural effusions, increased from prior. Underlying atelectasis and/or co nsolidation.
== END | disposition home or self-care (01) ==
LOC: RADXRMAIN 15:18
PROVIDERS: ATTEND Internal Medicine Geriatric Medicine
DX: J90 Pleural effusion, not elsewhere classified (principal)
CPT/HCPCS: 71046

== ENCOUNTER 2019-06-25 13:37 | Emergency (ER) | payer MEDICARE ==
[2019-06-25 13:42] VITALS: RESP 18
[2019-06-25] MEDS ORDERED: SILVER NITRATE APPLICATOR 1 EACH STICK..EA. TOPICAL STA (13:53)
--- NOTE | 2019-06-25 13:56 | ED ---
General Adult HPI - General Source: patient Mode of arrival: ambulatory Limitations: no limitations <Jose Elias Fraga - Last Filed: 06/25/19 14:51> <Kip Morel - Last Filed: 06/25/19 15:59> - General Chief complaint: ENT Stated complaint: nose bleed Time Seen by Provider: 06/25/19 13:44 - History of Present Illness Initial comments: Dictation was produced using Direct Access Software dictation software. please excuse any grammatical, word or spelling errors. This patient was cared for during a federal and state declared state of emergency secondary to Covid 19 Chief Complaint: 73-year-old male past medical history leukemia [employer] presents with epistaxis History of Present Illness: Is 73-year-old male presents today with chief complaint of epistaxis. Patient states that he is having intermittent episodes of nosebleeds since November. Patient is on apixaban. He also has leukemia where his normal white blood cell count is around 19,000. Patient seen a specialist. He's been prescribed. 4. She is here today because he's been having worsening bleeding since 9 AM this morning. The ROS documented in this emergency department record has been reviewed and confirmed by me. Those systems with pertinent positive or negative responses have been documented in the HPI. All other systems are other negative and/or noncontributory. PHYSICAL EXAM: General Impression: Alert and oriented x3, not in acute distress HEENT: Normocephalic atraumatic, extra-ocular movements intact, pupils equal and reactive to light bilaterally, mucous membranes moist, dried blood at the right naris, no active bleeding at this time, posterior oropharynx is unremarkable for signs of bleeding Cardiovascular: Heart regular rate and rhythm Chest: Able to complete full sentences, no retractions, no tachypnea Abdomen: abdomen soft, non-tender, non-distended, no organomegaly Musculoskeletal: Pulses present and equal in all extremities, no peripheral edema Motor: no focal deficits noted Neurological: CN II-XII grossly intact, no focal motor or sensory deficits noted Skin: Intact with no visualized rashes Psych: Normal affect and mood ED course: 73-year-old male with chief complaint epistaxis. As upon arrival are within acceptable limits. Patient is not actively bleeding at this time. There did appear to be some areas where there is concern of bleeding's origination. Silver nitrate sticks her used to cauterize 2 small points of the nasal septum. Patient tolerated cautery well.Patient care is signed out to Dr. Morel who is scheduled to work at 3 PM. (Jose Elias Fraga) - Related Data Home Medications Medication Instructions Recorded Confirmed Citalopram Hydrobromide [CeleXA] 20 mg PO HS 07/28/13 05/01/17 Famotidine [Pepcid] 20 mg PO QAM 07/28/13 05/01/17 Montelukast [Singulair] 10 mg PO HS 08/02/13 05/01/17 Fluticasone Nasal [place] [Flonase 1 spray EA NOSTRIL DAILY 07/05/16 05/01/17 Nasal [place]] guaiFENesin [Mucinex] 600 mg PO HS PRN 04/24/17 05/01/17 Previous Rx's Medication Instructions Recorded Albuterol Nebulized [Ventolin 2.5 mg INHALATION RT-QID PRN nebu 05/06/17 Nebulized] Bisacodyl [Dulcolax] 10 mg RECTAL DAILY PRN supp 05/06/17 Budesonide [Pulmicort] 0.5 mg INHALATION RT-BID nebu 05/06/17 HYDROcodone/APAP 5-325MG [[place] 1 each PO Q4HR PRN #0 tab 05/06/17 5-325] INSULIN ASPART (NovoLOG) [NovoLOG 2 unit SQ AC-TID vial 05/06/17 (formulary)] Magnesium Hydroxide [Milk of 2,400 mg PO BID PRN ml 05/06/17 Magnesia Concentrate] Metoprolol Tartrate [Lopressor] 25 mg PO BID tab 05/06/17 Montelukast [Singulair] 10 mg OG-TUBE HS tab 05/06/17 Sennosides-Docusate Sodium 2 each PO HS tab 05/06/17 [Senokot-S] Apixaban [Eliquis] 5 mg PO BID tab 05/08/17 Aspirin 81 mg PO DAILY chew 05/08/17 Atorvastatin [Lipitor] 40 mg PO DAILY tab 05/08/17 Lisinopril [Zestril] 2.5 mg PO DAILY@1200 tab 05/08/17 Sodium Chloride [[place]] 1 spray EA NOSTRIL TID #1 bottle 06/25/19 Allergies Allergy/AdvReac Type Severity Reaction Status Date / Time No Known Allergies Allergy Verified 06/25/19 13:42 Review of Systems ROS Other: All systems not noted in ROS Statement are negative. <Jose Elias Fraga - Last Filed: 06/25/19 14:51> ROS Other: All systems not noted in ROS Statement are negative. <Kip Morel - Last Filed: 06/25/19 15:59> ROS Statement: Those systems with pertinent positive or pertinent negative responses have been documented in the HPI. Past Medical History Past Medical History: Asthma, Chest Pain / Angina, COPD, CVA/TIA, GERD/Reflux, Skin Disorder, Sleep Apnea/CPAP/BIPAP Additional Past Medical History / Comment(s): STATES WAS TOLD AORTIC STENOSIS, TIA approx 1996, psoriasis NO CURRENT OUTBREAKS, USES CPAP, Leukemia,steroids Feb 2016 History of Any Multi-Drug Resistant Organisms: None Reported Past Surgical History: Heart Catheterization With Stent, Tonsillectomy Additional Past Surgical History / Comment(s): 3 cardiac stents, metal removed from left hand, gokul cataracts with lens implant, polyps removed nasal, LOOP RECORDER Past Anesthesia/Blood Transfusion Reactions: No Reported Reaction Date of Last Stent Placement:: 2009 Past Psychological History: No Psychological Hx Reported Smoking Status: Former smoker Past Alcohol Use History: None Reported Past Drug Use History: None Reported - Past Family History Mother Family Medical History: Cancer, Congestive Heart Failure (CHF) Father Family Medical History: Coronary Artery Disease (CAD) <Jose Elias Fraga - Last Filed: 06/25/19 14:51> General Exam Limitations: no limitations <Jose Elias Fraga - Last Filed: 06/25/19 14:51> Course Vital Signs 06/25/19 13:40 Temperature 97.5 F L Pulse Rate 85 Respiratory 18 Rate Blood Pressure 139/93 O2 Sat by Pulse 98 Oximetry Medical Decision Making - Lab Data Result diagrams: 06/25/19 14:20 06/25/19 14:20 <Kip Morel - Last Filed: 06/25/19 15:59> - Medical Decision Making Patient's bleeding stopped in the emergency department and never continued after 2 hours patient was discharged home. (Kip Morel) - Lab Data Lab Results 06/25/19 06/25/19 06/25/19 Range/Units 14:20 14:20 14:20 WBC 25.7 H (3.8-10.6) k/uL RBC 5.00 (4.30-5.90) m/uL Hgb 15.3 (13.0-17.5) gm/dL Hct 48.5 (39.0-53.0) % MCV 97.1 (80.0-100.0) fL MCH 30.7 (25.0-35.0) pg MCHC 31.6 (31.0-37.0) g/dL RDW 13.8 (11.5-15.5) % Plt Count 240 (150-450) k/uL Neutrophils % (Manual) 4 % Lymphocytes % (Manual) 86 % Eosinophils % (Manual) 10 % Neutrophils # (Manual) 1.03 L (1.3-7.7) k/uL Lymphocytes # (Manual) 22.10 H (1.0-4.8) k/uL Eosinophils # (Manual) 2.57 H (0-0.7) k/uL Nucleated RBCs 0 (0-0) /100 WBC Polychromasia Present Hypochromasia Moderate PT 9.7 (9.0-12.0) sec INR 0.9 (<1.2) APTT 21.3 L (22.0-30.0) sec Sodium 138 (137-145) mmol/L Potassium 4.7 (3.5-5.1) mmol/L Chloride 103 (98-107) mmol/L Carbon Dioxide 29 (22-30) mmol/L Anion Gap 6 mmol/L BUN 20 (9-20) mg/dL Creatinine 0.98 (0.66-1.25) mg/dL Est GFR (CKD-EPI)AfAm 88 (>60 ml/min/1.73 sqM) Est GFR (CKD-EPI)NonAf 76 (>60 ml/min/1.73 sqM) Glucose 99 (74-99) mg/dL Calcium 9.3 (8.4-10.2) mg/dL Disposition <Jose Elias Fraga - Last Filed: 06/25/19 14:51> Is patient prescribed a controlled substance at d/c from ED?: No Time of Disposition: 15:59 <Kip Morel - Last Filed: 06/25/19 15:59> Clinical Impression: Epistaxis Disposition: HOME SELF-CARE Condition: Good Instructions (If sedation given, give patient instructions): Nosebleed (ED) Additional Instructions: Rx sent to pharmacy. today you were evaluated for nosebleeds. The medical term for this is epistaxis. Nosebleeds can be prevented with certain measures. Most importantly the nasal mucosa must be kept moist. this can be accomplished with humidified air through a humidifier. Your prescribed a nasal spray called Marengo [place]. Important to use a spray to keep the nasal mucosa moist hyperventilating. If you sleep next to a fan or furnace please understand that this may exacerbate or be the cause of nasal bleeding. Please follow up with ear nose and throat doctor for outpatient management of epistaxis. Prescriptions: Sodium Chloride [[place]] 1 spray EA NOSTRIL TID #1 bottle Referrals: Live Navas DO [Doctor of Osteopathic Medicine] - 1-2 days
[2019-06-25 14:51] LABS: Calcium 9.3 mg/dL (8.4-10.2)
[2019-06-25 14:52] LABS: INR 0.9 (<1.2); Prothrombin Time 9.7 sec (9.0-12.0)
[2019-06-25 14:54] LABS: HCT 48.5 % (39.0-53.0); HGB 15.3 gm/dL (13.0-17.5); Hypochromasia Moderate; MCH 30.7 pg (25.0-35.0); MCHC 31.6 g/dL (31.0-37.0); MCV 97.1 fL (80.0-100.0); Mean Platelet Volume 7.9; Platelet Count 240 k/uL (150-450); RDW 13.8 % (11.5-15.5); WBC 25.7 k/uL (3.8-10.6)
[2019-06-25 14:59] LABS: Partial Thromboplastin Time 21.3 sec (22.0-30.0)
[2019-06-25 15:09] LABS: Potassium 4.7 mmol/L (3.5-5.1)
[2019-06-25 15:28] LABS: Eosinophils # (M) 2.57 k/uL (0-0.7); Neutrophils # (M) 1.03 k/uL (1.3-7.7); Neutrophils % (M) 4 %; Nucleated Red Blood Cells 0 /100 WBC (0-0); Total Cells Counted 100
[2019-06-25 15:29] LABS: Polychromasia Present
[2019-06-25 16:15] VITALS: BP 131/71; PULSE 78; TEMP 98
== END 2019-06-25 16:18 | disposition home or self-care (01) ==
LOC: EC 13:37
DX: R04.0 Epistaxis (principal); J44.9 Chronic obstructive pulmonary disease, unspecified; K21.9 Gastro-esophageal reflux disease without esophagitis; C95.90 Leukemia, unspecified not having achieved remission; G47.30 Sleep apnea, unspecified; Z79.01 Long term (current) use of anticoagulants; Z79.51 Long term (current) use of inhaled steroids; Z79.899 Other long term (current) drug therapy; Z87.891 Personal history of nicotine dependence; Z95.5 Presence of coronary angioplasty implant and graft; Z86.73 Personal history of transient ischemic attack (TIA), and cerebral infarction without residual deficits; Z99.89 Dependence on other enabling machines and devices
CPT/HCPCS: 30901; 36415; 80048; 85025; 85610; 85730; 99283

== ENCOUNTER 2019-10-07 09:17 | Day surgery (SDC) | payer MEDICARE ==
[2019-10-01 10:54] VITALS: BMI 27.9
[~2019-10-07 09:17] MED LIST changes: +FAMOTIDINE 20 MG/2 ML VIAL IV ONE; +HYDROmorphone 0.5 MG/0.5 ML SYRINGE IVP PRN; -LIDOCAINE 1% 20 ML VIAL (10MG/ML) FOR IV START INTRADERMA PRN
[2019-10-07 09:39] VITALS: RESP 16
[2019-10-07] MEDS ORDERED: LIDOCAINE 1% (10MG/ML) FOR IV START INTRADERMA ONE (09:57)
[2019-10-07] MEDS ORDERED: ONDANSETRON 4 MG/2 ML VIAL ONE (10:43)
[2019-10-07] MEDS ORDERED: ONDANSETRON 4 MG/2 ML VIAL IVP ONE (10:47)
[2019-10-07] MEDS ORDERED: DEXAMETHASONE SOD PHOSPHATE 10 MG/ML 1 ML VIAL IV ONE (10:48)
[2019-10-07] MEDS ORDERED: LIDOCAINE 1% INJ 10MG/ML (20 ML MDV) ONE (10:52)
[2019-10-07] MEDS ORDERED: SUCCINYLCHOLINE CHLORIDE 100 MG/5 ML SYR IV ONE (10:52)
[2019-10-07] MEDS ORDERED: ePHEDrine SULFATE/0.9% NACL/PF 50 MG/5 ML SYRINGE IV ONE (10:52)
[2019-10-07] MEDS ORDERED: PROPOFOL 10 MG/ML 20 ML VIAL IV ONE (10:52)
[2019-10-07] MEDS ORDERED: fentaNYL (PF) 50 MCG/ML 2 ML AMP ONE (10:52)
[2019-10-07] MEDS ORDERED: MIDAZOLAM 2 MG/2 ML VIAL ONE (10:52)
[2019-10-07] MEDS ORDERED: PHENYLEPHRINE-0.9% NACL SYG 1 MG/10 ML SYRINGE ONE (10:52)
[2019-10-07] MEDS ORDERED: SODIUM CHLORIDE 0.9% 50 ML with ceFAZolin 1,000 MG IV ONE ×2 (11:00)
[2019-10-07] MEDS ORDERED: LIDOCAINE 1%-EPI 1:100,000 20 ML VIAL SQ ONE (11:19)
[2019-10-07] MEDS ORDERED: BUPIVACAINE (PF) 0.5% 30 ML VIAL SQ ONE (11:19)
[2019-10-07] MEDS ORDERED: LACTATED RINGERS 1,000 ML IV ONE (12:15)
[2019-10-07 13:22] VITALS: TEMP 97
--- NOTE | 2019-10-07 13:44 | P.OP ---
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 4 cm left forehead and scalp malignancy with frozen section and reconstruction with use of a bilateral advancement flap closure with a secondary defect measuring 16 x 8 cm excision of a 6.1 x 2 cm left facial malignancy with frozen section and reconstruction with use of a bilateral advancement flap with a secondary defect measuring 12.2 x 4 cm Anesthesia: BARBARA Surgeon: Live Navas Pathology: other (left forehead and scalp lesion along with left facial lesion frozen section analysis is frustrated that all margins are negative for tumor.) Condition: stable Disposition: PACU Indications for Procedure: This patient presents the office with a very large protruding mass of the left forehead and scalp. 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 The one on the forehead and scalp is very protruding and he wished to have both of these removed. All risks, benefits, and alternative therapies were discussed. Consent was obtained and all questions were answered. Operative Findings: Frozen section analysis showed that all margins are negative for tumor. Description of Procedure: Patient was taken to the operative room and placed in the supine position. A general inhalation anesthetic was administered to the patient by mask and subsequently intubated with a cuffed endotracheal tube by the department of anesthesia and monitored throughout the entire case by the department of anesthesia. The left face and scalp and forehead was sterilely prepped and draped in usual fashion. These large masses were marked and we then marked a 6- 8 mm margin around his masses for confirmation of removal. We then injected these areas with local utilizing lidocaine 1% with epinephrine 1 100,010 minutes were allowed wait for full vasoconstrictive effects to take place. We then resected both of these cancers the largest one was 8 x 4 cm the left forehead and scalp. The left facial lesion measured 6.1 x 2 cm. There was sent for frozen section analysis and all margins were negative for tumor. We then did extensive undermining both of these lesions. The scalp lesion was quite large with a secondary defect measuring 12.2 x 4 cm. We removed redundant skin did extensive undermining and we rotated the flaps into position to close this defect. Rotational flap was performed and the scalp was closed nicely. We closed the deep layer with 2-0 Vicryl we closed the deep scalp with 2-0 Vicryl and we closed the skin with an was also negative for tumor on this lesion. The secondary defect of the left facial lesion measured 12.2 x 4 cm. Patient tolerated this well. Steri-Strips were applied and the patient is to follow-up in the office in 1 week. Sutures will be removed at that time.
[2019-10-07 14:28] VITALS: BP 128/86; PULSE 90
== END 2019-10-07 15:02 | disposition home or self-care (01) ==
LOC: OR 09:17
PROVIDERS: ATTEND Otolaryngology
DX: C44.329 Squamous cell carcinoma of skin of other parts of face (principal); C44.42 Squamous cell carcinoma of skin of scalp and neck; L57.0 Actinic keratosis; J45.909 Unspecified asthma, uncomplicated; I25.10 Atherosclerotic heart disease of native coronary artery without angina pectoris; G47.33 Obstructive sleep apnea (adult) (pediatric); Z95.5 Presence of coronary angioplasty implant and graft; Z87.891 Personal history of nicotine dependence; Z95.0 Presence of cardiac pacemaker; Z98.49 Cataract extraction status, unspecified eye; Z98.890 Other specified postprocedural states; Z82.5 Family history of asthma and other chronic lower respiratory diseases; Z82.49 Family history of ischemic heart disease and other diseases of the circulatory system; Z83.42 Family history of familial hypercholesterolemia; Z79.01 Long term (current) use of anticoagulants; Z79.82 Long term (current) use of aspirin; Z79.02 Long term (current) use of antithrombotics/antiplatelets; Z79.891 Long term (current) use of opiate analgesic; Z79.51 Long term (current) use of inhaled steroids; Z79.899 Other long term (current) drug therapy
CPT/HCPCS: 14301 ×2; 14302 ×3; 88305; 88331; 88332; J2250; J1100; J2405; J0690; J2001; J3010; J2370; J0330; J2704

== ENCOUNTER → 2019-11-02 | Outpatient (CLI) | payer MEDICARE ==
--- NOTE | 2019-11-02 20:34 | CT ---
EXAMINATION TYPE: CT chest wo/w con DATE OF EXAM: 11/02/2019 COMPARISON: 02/08/2013 HISTORY: Squamous cell carcinoma, chronic lymphocytic leukemia. CT DLP: 1206 mGycm Automated exposure control for dose reduction was used. CONTRAST: CT scan of the chest is performed with IV Contrast, patient injected with 100 mL of Isovue 300. FINDINGS: LUNGS: Subsegmental changes are seen involving the lung bases greatest posteriorly in the left lower lobe most typical of atelectasis. MEDIASTINUM: There is pathologic adenopathy in the mediastinum measuring short axis of 1.1 cm, right hilum measuring short axis of 1.2 cm, bilateral axilla measuring short axis of 1 cm. Numerous additio nal areas of shotty adenopathy are noted. Atherosclerotic change of the aorta. Coronary artery calcif ication noted. Heart size normal. OTHER: Shotty adenopathy in the cardiophrenic angle. Correlate for previous cholecystectomy. Hepatic steatosis suspected. Adrenal glands normal morphology. Hypertrophic and degenerative change of the s pine. Sternotomy wires noted. History of previous right-sided rib fractures suspected anteriorly. The re appears to BE abnormal soft tissue in the peripancreatic space which could represent conglomerate adenopathy measuring a short axis of 3.9 cm on axial image 59. IMPRESSION: 1. Pathologic conglomerate intra-abdominal adenopathy measuring short axis of 3.9 cm in the harjinder hep atal and peripancreatic region suspected. 2. Borderline to mild pathologic adenopathy involving the axilla, right hilum and mediastinum as adrienne ured above in short axis. 3. No suspicious pulmonary nodules. Subsegmental areas of consolidation involving the left lower lobe most likely in the basis of atelectasis
== END | disposition home or self-care (01) ==
LOC: RADCTMAIN 15:06
PROVIDERS: ATTEND Radiology Radiation Oncology
DX: R59.0 Localized enlarged lymph nodes (principal); C91.10 Chronic lymphocytic leukemia of B-cell type not having achieved remission; C44.42 Squamous cell carcinoma of skin of scalp and neck
CPT/HCPCS: 82565; 84520; 71270; 36415; Q9967

== ENCOUNTER → 2022-02-01 | Outpatient (CLI) | payer MEDICARE | END | disposition home or self-care (01) | LOC: RADPETMAIN 13:08 | PROVIDERS: ATTEND Radiology Radiation Oncology | DX: Z53.9 Procedure and treatment not carried out, unspecified reason (principal) ==

== ENCOUNTER 2022-02-09 09:10 | Emergency (ER) | payer MEDICARE ==
[2022-02-09 09:18] VITALS: TEMP 97.6
[2022-02-09] MEDS ORDERED: SILVER NITRATE APPLICATOR 1 EACH STICK..EA. TOPICAL STA (09:31)
--- NOTE | 2022-02-09 09:40 | ED ---
General Adult HPI - General Chief complaint: ENT Stated complaint: nose bleed Time Seen by Provider: 02/09/22 09:20 Source: patient Mode of arrival: ambulatory - History of Present Illness Initial comments: Patient is a 76-year-old male with history of leukemia presenting with chief complaint of nosebleed. Patient states that for the last 5 days he has had a cold which has aggravated the nosebleeding. It has been an intermittent issue. Patient has been using nasal spray at home to try to help the symptoms. At time of presentation bleeding is well controlled. No dizziness or lightheadedness, nausea, vomiting, headache, vision or hearing changes, neck pain or stiffness, injury or trauma, difficulty breathing, chest pain, palpitations, weakness, difficulty swallowing. - Related Data Home Medications Medication Instructions Recorded Confirmed Famotidine [Pepcid] 20 mg PO QAM 07/28/13 10/07/19 Apixaban [Eliquis] 2.5 mg PO BID 10/01/19 10/07/19 Sennosides-Docusate Sodium 2 each PO QAM 10/01/19 10/07/19 [Senokot-S] Montelukast [Singulair] 1 tab PO DAILY 10/07/19 10/07/19 Previous Rx's Medication Instructions Recorded Metoprolol Tartrate [Lopressor] 25 mg PO BID tab 05/06/17 Aspirin 81 mg PO DAILY chew 05/08/17 Sodium Chloride [[place]] 1 spray EA NOSTRIL TID #1 bottle 06/25/19 Allergies Allergy/AdvReac Type Severity Reaction Status Date / Time No Known Allergies Allergy Verified 02/09/22 09:18 Review of Systems ROS Statement: Those systems with pertinent positive or pertinent negative responses have been documented in the HPI. ROS Other: All systems not noted in ROS Statement are negative. Past Medical History Past Medical History: Asthma, Chest Pain / Angina, COPD, CVA/TIA, GERD/Reflux, Skin Disorder, Sleep Apnea/CPAP/BIPAP Additional Past Medical History / Comment(s): left forehead/scalp mass,stated "I was leaning on my right side and I think I broke my rt lower rib a couple of weeks ago, it was very painful but it is better now",Hx AORTIC STENOSIS, TIA approx 1996, psoriasis NO CURRENT OUTBREAKS, USES CPAP, Leukemia-no chemo History of Any Multi-Drug Resistant Organisms: None Reported Past Surgical History: Coronary Bypass/CABG, Heart Catheterization With Stent, Pacemaker, Tonsillectomy Additional Past Surgical History / Comment(s): Aortic valve replaced,2 cardiac stents, metal removed from left hand, gokul cataracts with lens implant, polyps removed nasal, LOOP RECORDER Past Anesthesia/Blood Transfusion Reactions: No Reported Reaction Additional Past Anesthesia/Blood Transfusion Reaction / Comment(s): no known hx blood transfusion Date of Last Stent Placement:: 2009 Type of Cardiac Device: Loop Device Placement Date:: Past Psychological History: No Psychological Hx Reported Smoking Status: Former smoker Past Alcohol Use History: None Reported Past Drug Use History: None Reported - Past Family History Mother Family Medical History: Cancer, Congestive Heart Failure (CHF) Additional Family Medical History / Comment(s): aortic valve replacement Father Family Medical History: Coronary Artery Disease (CAD), Hypertension, Myocardial Infarction ([place]) General Exam Limitations: no limitations General appearance: alert, in no apparent distress Head exam: Present: atraumatic, normocephalic, normal inspection Eye exam: Present: normal appearance ENT exam: Present: other (Small amount of dried blood seen in the right nare) Neck exam: Present: normal inspection, full ROM Neurological exam: Present: alert, oriented X3, CN II-XII intact Psychiatric exam: Present: normal affect, normal mood Skin exam: Present: warm, dry, intact, normal color. Absent: rash Course Vital Signs 02/09/22 02/09/22 02/09/22 09:14 10:59 11:35 Temperature 97.6 F Pulse Rate 65 77 68 Respiratory 18 20 16 Rate Blood Pressure 157/78 157/80 148/90 O2 Sat by Pulse 96 98 98 Oximetry Medical Decision Making - Medical Decision Making Patient is a 76-year-old male presenting with chief complaint of nosebleed. Patient states he has been having recurring nosebleeds due to a cold he has had for a few days. Patient has been using nasal spray at home but the nosebleeds have been intermittently occurring. On physical examination there is a small amount of dried blood noted in the right knee area, no active bleeding at this time. Patient is observed and bleeding has not really continued here in the ER. Patient is requesting cauterization as it has been helpful in the past with recurrent nosebleeds. They noticed 2 areas that are likely the problem areas, they were cauterized using silver nitrate. Patient continued to have no rebleeding here in the ER. Provided patient with a nose clamp for home. Educated to use nasal spray and nose clamp for 15-20 minutes at home if bleeding should recur, if bleeding does not stop the report back to the ER. Follow-up with PCP. Report back to ER with any new or worsening symptoms. Discussed return parameters and answered all questions. Patient conveyed verbal understanding and agreed to the plan. I discussed this case in detail with my attending Dr. Morel Disposition Clinical Impression: Epistaxis Disposition: HOME SELF-CARE Condition: Good Instructions (If sedation given, give patient instructions): Nosebleed (ED) Additional Instructions: Follow-up with PCP. Report back to ER with any new or worsening symptoms. Use your primary at home as directed. It is important to keep her nasal membrane moist, this can be accomplished with the humidifier. Is patient prescribed a controlled substance at d/c from ED?: No Referrals: Chadd Stuart MD [Primary Care Provider] - 1-2 days Time of Disposition: 11:00
[2022-02-09 11:36] VITALS: BP 148/90; PULSE 68; RESP 16
== END 2022-02-09 11:36 | disposition home or self-care (01) ==
LOC: EC 09:10
DX: R04.0 Epistaxis (principal); J45.909 Unspecified asthma, uncomplicated; J44.9 Chronic obstructive pulmonary disease, unspecified; G45.9 Transient cerebral ischemic attack, unspecified; K21.9 Gastro-esophageal reflux disease without esophagitis; G47.30 Sleep apnea, unspecified; Z87.891 Personal history of nicotine dependence; Z79.899 Other long term (current) drug therapy
CPT/HCPCS: 99283

== ENCOUNTER → 2022-02-15 | Outpatient (CLI) | payer MEDICARE ==
--- NOTE | 2022-02-15 10:15 | PE ---
EXAMINATION TYPE: PET CT fusion skull to thigh DATE OF EXAM: 02/15/2022 COMPARISON: CT thorax November 02, 2019 HISTORY: Squamous cell cancer of the skin of the scalp/neck per order. 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 TECHNIQUE: Following the intravenous administration of 12.22 mCi of F-18 FDG, whole body images are performed from the top of skull to the midthigh. Images are reviewed on the computer in the coronal , axial, and sagittal planes. Reconstructed rotating images are created on independent workstation a nd reviewed on the computer. A localization and attenuation correction CT is performed in conjuncti on with the PET scan. Dedicated PET/CT imaging of the head and neck is performed. Blood glucose level equals 77. SCAN: Initial Scan FINDINGS: Mean SUV mediastinum: 1.13 Mean SUV liver: 2.18 HEAD AND NECK: Some soft tissue thickening over the nose with asymmetric slight left-sided prominenc e axial image 50 is mild hypermetabolic uptake, max SUV is 5.63. There is streak artifact from cavita ry fillings and crowns in the oral cavity. Nonspecific mild hypermetabolic uptake is fairly diffuse a t this level and symmetric. Max SUV is 6.89 on axial image 65 on the left. There are prominent enlarged lymph nodes throughout the neck bilaterally including anterior and poste rior involvement from above the hyoid bone to the supraclavicular region. They are ametabolic. CHEST, MEDIASTINUM, AND HILAR REGION: Enlarged bilateral axillary along with mediastinal lymph nodes are present. Max SUV 1.1. No abnormal hypermetabolic uptake. Adenopathy appears similar to [address] CT. Elevated right hemidiaphrag m. ABDOMEN AND PELVIS: Adenopathy in the harjinder hepatis is redemonstrated without abnormal hypermetabolic uptake is unchanged from 2020 CT. Normal excretion. No abnormal hypermetabolic uptake in the abdomen or pelvis. Prominent bilateral groin lymph nodes are present. OSSEOUS STRUCTURES: No abnormal focal uptake in the osseous structures. OTHER CT: Tiny dependent fluid bilateral maxillary sinuses. Overlying sternal wires along with metall ic aortic valve redemonstrated. [place] coronary artery calcifications are again seen. Cholecystectomy clips are redemonstrated. Multiple scattered bilateral pelvic phleboliths redemonstra mary. Suspect small bladder diverticulum left aspect axial image 213. Mildly enlarged prostate consist ent with BPH. Correlate clinically. IMPRESSION: Abnormal adenopathy is redemonstrated without definitive abnormal hypermetabolic uptake. This is most prominent in the neck and thorax and upper abdomen. Findings consistent with treated jose kemia. Nonspecific but slightly suspicious left nasal region uptake just above the upper lip should b e correlated clinically.
== END | disposition home or self-care (01) ==
LOC: RADPETMAIN 06:30
PROVIDERS: ATTEND Radiology Radiation Oncology
DX: C44.42 Squamous cell carcinoma of skin of scalp and neck (principal); C88.4 Extranodal marginal zone B-cell lymphoma of mucosa-associated lymphoid tissue [MALT-lymphoma]; C91.10 Chronic lymphocytic leukemia of B-cell type not having achieved remission; R59.0 Localized enlarged lymph nodes
CPT/HCPCS: 78815; A9552

== ENCOUNTER 2023-04-17 16:48 | Emergency (ER) | payer MEDICARE ==
[2023-04-17 17:23] VITALS: RESP 18; TEMP 97.8
--- NOTE | 2023-04-17 19:52 | XR ---
PROCEDURE: XR tibia fibula RT - 3V DATE AND TIME: 04/17/2023 7:06 PM CLINICAL INDICATION: PHH; Trauma TECHNIQUE: Department protocol COMPARISON: None FINDINGS: There is no fracture or malalignment. The soft tissues are unremarkable. IMPRESSION: NO ACUTE PROCESS.
--- NOTE | 2023-04-17 20:02 | ED ---
General Adult HPI - General Chief complaint: Extremity Injury, Lower Stated complaint: right leg pain Time Seen by Provider: 04/17/23 18:00 Source: patient, RN notes reviewed, old records reviewed Mode of arrival: ambulatory Limitations: no limitations - History of Present Illness Initial comments: This is a 77-year-old male who presents to the emergency department complaining that a few weeks ago when he was on a cruise he kicked a table and since then he has got an area of tenderness on the anterior right holbrook and the area is also swollen and ecchymotic around there. Patient states initially there was some ecchymosis around the foot but that is since resolved. Patient denies any ankle pain or knee pain. Patient states that the mid holbrook. - Related Data Home Medications Medication Instructions Recorded Confirmed Famotidine [Pepcid] 20 mg PO QAM 07/28/13 10/07/19 Apixaban [Eliquis] 2.5 mg PO BID 10/01/19 10/07/19 Sennosides-Docusate Sodium 2 each PO QAM 10/01/19 10/07/19 [Senokot-S] Montelukast [Singulair] 1 tab PO DAILY 10/07/19 10/07/19 Previous Rx's Medication Instructions Recorded Metoprolol Tartrate [Lopressor] 25 mg PO BID tab 05/06/17 Aspirin 81 mg PO DAILY chew 05/08/17 Sodium Chloride [[place]] 1 spray EA NOSTRIL TID #1 bottle 06/25/19 Allergies Allergy/AdvReac Type Severity Reaction Status Date / Time No Known Allergies Allergy Verified 04/17/23 16:59 Review of Systems ROS Statement: Those systems with pertinent positive or pertinent negative responses have been documented in the HPI. ROS Other: All systems not noted in ROS Statement are negative. Past Medical History Past Medical History: Asthma, Chest Pain / Angina, COPD, CVA/TIA, GERD/Reflux, Skin Disorder, Sleep Apnea/CPAP/BIPAP Additional Past Medical History / Comment(s): left forehead/scalp mass,stated "I was leaning on my right side and I think I broke my rt lower rib a couple of weeks ago, it was very painful but it is better now",Hx AORTIC STENOSIS, TIA approx 1996, psoriasis NO CURRENT OUTBREAKS, USES CPAP, Leukemia-no chemo History of Any Multi-Drug Resistant Organisms: None Reported Past Surgical History: Coronary Bypass/CABG, Heart Catheterization With Stent, Pacemaker, Tonsillectomy Additional Past Surgical History / Comment(s): Aortic valve replaced,2 cardiac stents, metal removed from left hand, gokul cataracts with lens implant, polyps removed nasal, LOOP RECORDER Past Anesthesia/Blood Transfusion Reactions: No Reported Reaction Additional Past Anesthesia/Blood Transfusion Reaction / Comment(s): no known hx blood transfusion Date of Last Stent Placement:: 2009 Type of Cardiac Device: Loop Device Placement Date:: Past Psychological History: No Psychological Hx Reported Smoking Status: Former smoker Past Alcohol Use History: None Reported Past Drug Use History: None Reported - Past Family History Mother Family Medical History: Cancer, Congestive Heart Failure (CHF) Additional Family Medical History / Comment(s): aortic valve replacement Father Family Medical History: Coronary Artery Disease (CAD), Hypertension, Myocardial Infarction ([place]) General Exam - General Exam Comments Initial Comments: GENERAL Patient is well-developed and well-nourished. Patient is in mild distress. EYES Patient's pupils are equal and round. Extraocular motion is intact SKIN Unremarkable NEURO The patient is alert and oriented -3 PYSCH Patient has normal interpersonal interactions. MUSCULOSKELETAL There is a hematoma on the anterior holbrook on the right leg. There is no bony tenderness. Patient has no knee pain and there is no ankle pain Limitations: no limitations Course Vital Signs 04/17/23 16:53 Temperature 97.8 F Pulse Rate 94 Respiratory 18 Rate Blood Pressure 176/111 O2 Sat by Pulse 99 Oximetry Medical Decision Making - Medical Decision Making What is going was pt. sent in by a medical professional or institution (, PA, SYSTEMS APPLICATIONS PROGRAMMING LEAD, urgent care, hospital, or assisted...) When possible be specific @ -No Did you speak to anyone other than the patient for history (EMS, parent, family, police, friend...)? What history was obtained from this source @ -No Did you review nursing and triage notes (agree or disagree)? Why? @ -I reviewed and agree with nursing and triage notes Were old charts reviewed (outside hosp., previous admission, EMS record, old EKG, old radiological studies, urgent care reports/EKG's, assisted records)? Report findings @ -No old charts were reviewed Differential Diagnosis (chest pain, altered mental status, abdominal pain women, abdominal pain men, vaginal bleeding, weakness, fever, dyspnea, syncope, headache, dizziness, GI bleed, back pain, seizure, CVA, palpatations, mental health, musculoskeletal)? @ -Differential Musculoskeletal Muscular strain, contusion, ligament sprain, fracture, arthritis, septic arthritis, bursitis, cellulitis, muscle spasm, nerve compression, DVT, arterial occlusion, herpes zoster, electrolyte abnormality, tumor.... This is not meant to be in all inclusive list EKG interpreted by me (3pts min.). @ -As above X-rays interpreted by me (1pt min.). @ -X-ray of the tib-fib shows no bony abnormality CT interpreted by me (1pt min.). @ -None done U/S interpreted by me (1pt. min.). @ -None done What testing was considered but not performed or refused? (CT, X-rays, U/S, labs)? Why? @ -None What meds were considered but not given or refused? Why? @ -None Did you discuss the management of the patient with other professionals (professionals i.e. , PA, SYSTEMS [employer] PROGRAMMING LEAD, lab, RT, psych nurse, high school social studies teacher, aircraft painter apprentice, teacher, chief privacy officer, facility manager)? Give summary @ -No Was smoking cessation discussed for >3mins.? @ -No Was critical care preformed (if so, how long)? @ -No Were there social determinants of health that impacted care today? How? (Homelessness, low income, unemployed, alcoholism, drug addiction, transportation, low edu. Level, literacy, decrease access to med. care, fci, rehab)? @ -No Was there de-escalation of care discussed even if they declined (Discuss DNR or withdrawal of care, Hospice)? DNR status @ -No What co-morbidities impacted this encounter? (DM, HTN, Smoking, COPD, CAD, Cancer, CVA, ARF, Chemo, Hep., AIDS, mental health diagnosis, sleep apnea, morbid obesity)? @ -None Was patient admitted / discharged? Hospital course, mention meds given and route, prescriptions, significant lab abnormalities, going to OR and other pertinent info. @ -Patient's x-ray shows no acute normality. Patient's area of swelling is consistent with a hematoma and the ecchymosis around that area appears to be resolving. Patient has no ecchymosis at this time around the foot any did earlier according to the patient. Undiagnosed new problem with uncertain prognosis? @ -No Drug Therapy requiring intensive monitoring for toxicity (Heparin, Nitro, Insulin, Cardizem)? @ -No Were any procedures done? @ -No Diagnosis/symptom? @ -Hematoma leg Acute, or Chronic, or Acute on Chronic? @ -Acute Uncomplicated (without systemic symptoms) or Complicated (systemic symptoms)? @ -Uncomplicated Side effects of treatment? @ -No Exacerbation, Progression, or Severe Exacerbation? @ -No Poses a threat to life or bodily function? How? (Chest pain, [place], [place], pneumonia, PE, COPD, DKA, ARF, appy, cholecystitis, CVA, Diverticulitis, Homicidal, Suicidal, threat to staff... and all critical care pts) @ -No Disposition Clinical Impression: Hematoma of leg Disposition: HOME SELF-CARE Condition: Good Instructions (If sedation given, give patient instructions): Hematoma (ED) Is patient prescribed a controlled substance at d/c from ED?: No Referrals: Chadd Stuart MD [Primary Care Provider] - 1-2 days Time of Disposition: 20:02
[2023-04-17 20:11] VITALS: BP 153/89; PULSE 80
== END 2023-04-17 20:06 | disposition home or self-care (01) ==
LOC: EC 16:48
DX: S80.11XA Contusion of right lower leg, initial encounter (principal); J44.89 Other specified chronic obstructive pulmonary disease; K21.9 Gastro-esophageal reflux disease without esophagitis; Z79.01 Long term (current) use of anticoagulants; Z79.899 Other long term (current) drug therapy; Z86.73 Personal history of transient ischemic attack (TIA), and cerebral infarction without residual deficits; Z87.891 Personal history of nicotine dependence; W22.03XA Walked into furniture, initial encounter
CPT/HCPCS: 99283

== ENCOUNTER 2023-05-30 11:51 | Emergency (ER) | payer MEDICARE ==
[2023-05-30 13:55] LABS: Basophils # (A) 0.1 k/uL (0-0.2); Basophils % (A) 1 %; Eosinophils # (A) 0.6 k/uL (0-0.7); Eosinophils % (A) 6 %; HCT 45.9 % (39.0-53.0); HGB 14.2 gm/dL (13.0-17.5); Hypochromasia Slight; Lymphocytes # (A) 3.8 k/uL (1.0-4.8); Lymphocytes % (A) 37 %; MCH 30.6 pg (25.0-35.0); MCHC 30.9 g/dL (31.0-37.0); MCV 98.9 fL (80.0-100.0); Monocytes # (A) 0.7 k/uL (0-1.0); Monocytes % (A) 7 %; Neutrophils # (A) 4.9 k/uL (1.3-7.7); Neutrophils % (A) 47 %; Platelet Count 157 k/uL (150-450); RBC 4.64 m/uL (4.30-5.90); RDW 13.6 % (11.5-15.5); WBC 10.3 k/uL (3.8-10.6)
--- NOTE | 2023-05-30 14:46 | ED ---
General Adult HPI - General Chief complaint: Skin/Abscess/Foreign Body Stated complaint: Skin Abscess Time Seen by Provider: 05/30/23 12:06 Source: patient Mode of arrival: ambulatory Limitations: no limitations - History of Present Illness Initial comments: 77-year-old male with past medical history of leukemia who presents emergency department reporting a mass behind his right ear. States the mass has been increasing in size over the past few weeks. He does have history of skin cancer as well and has had several areas of radiation to his scalp. He is concerned for cancer and therefore presents for evaluation. He has not currently let his legal librarian, primary care doctor or oncologist know about this mass. He denies any hearing changes. No headaches or visual changes. No redness to the site. No fevers. No other alleviating, precipitating or modifying factors - Related Data Home Medications Medication Instructions Recorded Confirmed Famotidine [Pepcid] 20 mg PO QAM 07/28/13 10/07/19 Apixaban [Eliquis] 2.5 mg PO BID 10/01/19 10/07/19 Sennosides-Docusate Sodium 2 each PO QAM 10/01/19 10/07/19 [Senokot-S] Montelukast [Singulair] 1 tab PO DAILY 10/07/19 10/07/19 Previous Rx's Medication Instructions Recorded Metoprolol Tartrate [Lopressor] 25 mg PO BID tab 05/06/17 Aspirin 81 mg PO DAILY chew 05/08/17 Sodium Chloride [[place]] 1 spray EA NOSTRIL TID #1 bottle 06/25/19 Allergies Allergy/AdvReac Type Severity Reaction Status Date / Time No Known Allergies Allergy Verified 05/30/23 11:58 Review of Systems ROS Statement: Those systems with pertinent positive or pertinent negative responses have been documented in the HPI. ROS Other: All systems not noted in ROS Statement are negative. Past Medical History Past Medical History: Asthma, Chest Pain / Angina, COPD, CVA/TIA, GERD/Reflux, Skin Disorder, Sleep Apnea/CPAP/BIPAP Additional Past Medical History / Comment(s): left forehead/scalp mass,stated "I was leaning on my right side and I think I broke my rt lower rib a couple of weeks ago, it was very painful but it is better now",Hx AORTIC STENOSIS, TIA approx 1996, psoriasis NO CURRENT OUTBREAKS, USES CPAP, Leukemia-no chemo History of Any Multi-Drug Resistant Organisms: None Reported Past Surgical History: Coronary Bypass/CABG, Heart Catheterization With Stent, Pacemaker, Tonsillectomy Additional Past Surgical History / Comment(s): Aortic valve replaced,2 cardiac stents, metal removed from left hand, gokul cataracts with lens implant, polyps removed nasal, LOOP RECORDER Past Anesthesia/Blood Transfusion Reactions: No Reported Reaction Additional Past Anesthesia/Blood Transfusion Reaction / Comment(s): no known hx blood transfusion Date of Last Stent Placement:: 2009 Type of Cardiac Device: Loop Device Placement Date:: Past Psychological History: No Psychological Hx Reported Smoking Status: Former smoker Past Alcohol Use History: None Reported Past Drug Use History: None Reported - Past Family History Mother Family Medical History: Cancer, Congestive Heart Failure (CHF) Additional Family Medical History / Comment(s): aortic valve replacement Father Family Medical History: Coronary Artery Disease (CAD), Hypertension, Myocardial Infarction ([place]) General Exam Limitations: no limitations General appearance: alert, in no apparent distress Head exam: Present: atraumatic, normocephalic, normal inspection Eye exam: Present: normal appearance, PERRL, EOMI. Absent: scleral icterus, conjunctival injection, periorbital swelling ENT exam: Present: mucous membranes moist, other (Large mass behind the patient's right ear over the mastoid process measuring 6 x 3 cm. There is some overlying redness) Neck exam: Present: normal inspection. Absent: tenderness, meningismus, lymphadenopathy Respiratory exam: Present: normal lung sounds bilaterally. Absent: respiratory distress, wheezes, rales, rhonchi, stridor Cardiovascular Exam: Present: regular rate, normal rhythm, normal heart sounds. Absent: systolic murmur, diastolic murmur, rubs, gallop, clicks GI/Abdominal exam: Present: soft, normal bowel sounds. Absent: distended, tenderness, guarding, rebound, rigid Extremities exam: Present: normal inspection, full ROM, normal capillary refill. Absent: tenderness, pedal edema, joint swelling, calf tenderness Back exam: Present: normal inspection Neurological exam: Present: alert, oriented X3, CN II-XII intact Psychiatric exam: Present: normal affect, normal mood Skin exam: Present: warm, dry, intact, normal color. Absent: rash Course Vital Signs 05/30/23 05/30/23 11:56 16:40 Temperature 97.7 F 98.2 F Pulse Rate 86 70 Respiratory 18 20 Rate Blood Pressure 151/90 155/62 O2 Sat by Pulse 98 98 Oximetry Medical Decision Making - Medical Decision Making Was pt. sent in by a medical professional or institution (, [facility], [facility], urgent care, hospital, or alf...) When possible be specific @ -No Did you speak to anyone other than the patient for history (EMS, parent, family, police, friend...)? What history was obtained from this source @ -No Did you review nursing and triage notes (agree or disagree)? Why? @ -I reviewed and agree with nursing and triage notes Were old charts reviewed (outside hosp., previous admission, EMS record, old EKG, old radiological studies, urgent care reports/EKG's, alf records)? Report findings @ -No old charts were reviewed Differential Diagnosis (chest pain, altered mental status, abdominal pain women, abdominal pain men, vaginal bleeding, weakness, fever, dyspnea, syncope, headache, dizziness, GI bleed, back pain, seizure, CVA, palpatations, mental health, musculoskeletal)? @ -Mass, abscess, cyst, lymph node EKG interpreted by me (3pts min.). @ -Not done X-rays interpreted by me (1pt min.). @ -None done CT interpreted by me (1pt min.). @ -None done U/S interpreted by me (1pt. min.). @ -Yes and does demonstrate a solid mass What testing was considered but not performed or refused? (CT, X-rays, U/S, labs)? Why? @ -None What meds were considered but not given or refused? Why? @ -None Did you discuss the management of the patient with other professionals (p esperanzafessionals i.e. [facility], [facility], lab, RT, psych nurse, social psychologist, service supervisor, teacher, fire management officer, rn case management)? Give summary @ -No Was smoking cessation discussed for >3mins.? @ -No Was critical care preformed (if so, how long)? @ -No Were there social determinants of health that impacted care today? How? (Homelessness, low income, unemployed, alcoholism, drug addiction, transportation, low edu. Level, literacy, decrease access to med. care, prison, rehab)? @ -No Was there de-escalation of care discussed even if they declined (Discuss DNR or withdrawal of care, Hospice)? DNR status @ -No What co-morbidities impacted this encounter? (DM, HTN, Smoking, COPD, CAD, Cancer, CVA, ARF, Chemo, Hep., AIDS, mental health diagnosis, sleep apnea, morbid obesity)? @ -Leukemia, skin cancer-melanoma Was patient admitted / discharged? Hospital course, mention meds given and route, prescriptions, significant lab abnormalities, going to OR and other pertinent info. @ -Upon arrival I did see and evaluate the patient in hallway 26. Thorough history and physical exam was performed. Laboratory studies were conducted due to patient's history of leukemia. Ultrasound was conducted which demonstrates a solid mass behind the patient's right ear. I am concerned for cancer. He does have an appointment with the legal librarian next week. I did discuss removal of said mass for biopsy. Patient understood this. He is to return for any new or worsening symptoms. Patient discharged in stable condition Undiagnosed new problem with uncertain prognosis? @ -Yes Drug Therapy requiring intensive monitoring for toxicity (Heparin, Nitro, Insulin, Cardizem)? @ -No Were any procedures done? @ -No Diagnosis/symptom? @ -Large mass near mastoid process, history of leukemia and melanoma Acute, or Chronic, or Acute on Chronic? @ -Acute Uncomplicated (without systemic symptoms) or Complicated (systemic symptoms)? @ -Complicated Side effects of treatment? @ -No Exacerbation, Progression, or Severe Exacerbation? @ -No Poses a threat to life or bodily function? How? (Chest pain, [place], [place], pneumonia, PE, COPD, DKA, ARF, appy, cholecystitis, CVA, Diverticulitis, Homicidal, Suicidal, threat to staff... and all critical care pts) @ -Possibly as this may be a metastatic lesion - Lab Data Result diagrams: 05/30/23 13:49 Lab Results 05/30/23 Range/Units 13:49 WBC 10.3 (3.8-10.6) k/uL RBC 4.64 (4.30-5.90) m/uL Hgb 14.2 (13.0-17.5) gm/dL Hct 45.9 (39.0-53.0) % MCV 98.9 (80.0-100.0) fL MCH 30.6 (25.0-35.0) pg MCHC 30.9 L (31.0-37.0) g/dL RDW 13.6 (11.5-15.5) % Plt Count 157 (150-450) k/uL MPV 10.0 Neutrophils % 47 % Lymphocytes % 37 % Monocytes % 7 % Eosinophils % 6 % Basophils % 1 % Neutrophils # 4.9 (1.3-7.7) k/uL Lymphocytes # 3.8 (1.0-4.8) k/uL Monocytes # 0.7 (0-1.0) k/uL Eosinophils # 0.6 (0-0.7) k/uL Basophils # 0.1 (0-0.2) k/uL Hypochromasia Slight Disposition Clinical Impression: Soft tissue mass Disposition: HOME SELF-CARE Condition: Stable Instructions (If sedation given, give patient instructions): Soft Tissue Mass (ED) Additional Instructions: Please follow-up with your legal librarian to have your mass excised. Return for any new or worsening symptoms Is patient prescribed a controlled substance at d/c from ED?: No Referrals: Chadd Stuart MD [Primary Care Provider] - 1-2 days Time of Disposition: 16:33
--- NOTE | 2023-05-30 15:57 | US ---
EXAMINATION TYPE: US thyroid st tissue head/neck DATE OF EXAM: 05/30/2023 COMPARISON: NONE CLINICAL INDICATION: Male, 77 years old with history of right ear - r/o abscess vx lymph node, hx can cer; rt post ear lump x a few weeks, Hx sinus cancer multiple images taken at area of concern there is a 4.5x1.1x4.9cm ill defined hyperechoic area at patients palpable area. There is a small 0.8 x0.3x1.0cm probable lymphnode within this area. IMPRESSION: Solid mass at the site of clinical concern posterior to the right year with adjacent lymph node. No e vidence for drainable collection to suggest abscess.
[2023-05-30 17:27] VITALS: BP 155/62; PULSE 70; RESP 20; TEMP 98.2
== END 2023-05-30 16:40 | disposition home or self-care (01) ==
LOC: EC 11:51
DX: H74.8X3 Other specified disorders of middle ear and mastoid, bilateral (principal); Z87.891 Personal history of nicotine dependence
CPT/HCPCS: 36415; 76536; 85025; 99284